=== PATIENT | male | born 1940 | race Caucasian/White ===

== ENCOUNTER 2023-03-27 14:48 | Outpatient (RCR) | payer BC, SELFPAY | END 2023-03-27 23:59 | disposition home or self-care (01) | LOC: RPT 14:48 | PROVIDERS: ATTENDING PHYSICIAN Psychiatry & Neurology Neurology; FAMILY PHYSICIAN Family Medicine | DX: I69.354 Hemiplegia and hemiparesis following cerebral infarction affecting left non-dominant side (principal); I69.328 Other speech and language deficits following cerebral infarction; Z73.6 Limitation of activities due to disability; I10 Essential (primary) hypertension | CPT/HCPCS: 97110; 97116; 97140; 97163; 97530 ==

== ENCOUNTER 2023-04-04 14:54 | Outpatient (RCR) | payer BC, SELFPAY | END 2023-04-04 23:59 | disposition home or self-care (01) | LOC: RPT 14:54 | PROVIDERS: ATTENDING PHYSICIAN Psychiatry & Neurology Neurology; FAMILY PHYSICIAN Family Medicine | DX: I63.9 Cerebral infarction, unspecified (principal); Z73.6 Limitation of activities due to disability | CPT/HCPCS: 97110; 97112; 97530 ==

== ENCOUNTER 2023-05-24 15:57 | Outpatient (RCR) | payer BC, SELFPAY | END 2023-05-24 23:59 | disposition home or self-care (01) | LOC: RPT 15:57 | PROVIDERS: ATTENDING PHYSICIAN Psychiatry & Neurology Neurology; FAMILY PHYSICIAN Family Medicine | DX: I69.351 Hemiplegia and hemiparesis following cerebral infarction affecting right dominant side (principal); I69.328 Other speech and language deficits following cerebral infarction; Z73.6 Limitation of activities due to disability | CPT/HCPCS: 97110; 97116; 97530 ==

== ENCOUNTER 2023-06-26 13:58 | Outpatient (RCR) | payer BC, SELFPAY | END 2023-06-26 23:59 | disposition home or self-care (01) | LOC: RPT 13:58 | PROVIDERS: ATTENDING PHYSICIAN Psychiatry & Neurology Neurology; FAMILY PHYSICIAN Family Medicine | DX: I69.354 Hemiplegia and hemiparesis following cerebral infarction affecting left non-dominant side (principal); I69.328 Other speech and language deficits following cerebral infarction; I69.310 Attention and concentration deficit following cerebral infarction; I69.312 Visuospatial deficit and spatial neglect following cerebral infarction; Z73.6 Limitation of activities due to disability | CPT/HCPCS: 97110; 97112; 97116; 97167; 97530; 97535 ==

== ENCOUNTER 2023-07-27 11:47 | Outpatient (RCR) | payer BC, SELFPAY | END 2023-07-27 23:59 | disposition home or self-care (01) | LOC: RPT 11:47 | PROVIDERS: ATTENDING PHYSICIAN Psychiatry & Neurology Neurology; FAMILY PHYSICIAN Family Medicine | DX: I69.398 Other sequelae of cerebral infarction (principal); R26.89 Other abnormalities of gait and mobility; R53.83 Other fatigue; Z73.6 Limitation of activities due to disability | CPT/HCPCS: 97010; 97014; 97110; 97112; 97116; 97140; 97530; 97535; 97760 ==

== ENCOUNTER → 2023-08-06 10:30 | Outpatient (REF) | payer BC, SELFPAY | LOC: RAD 10:30 | PROVIDERS: ATTENDING PHYSICIAN Surgery Vascular Surgery; FAMILY PHYSICIAN Family Medicine | DX: I63.9 Cerebral infarction, unspecified (principal); Z86.73 Personal history of transient ischemic attack (TIA), and cerebral infarction without residual deficits | CPT/HCPCS: 93880 ==

== ENCOUNTER 2023-08-20 12:05 | Outpatient (RCR) | payer BC, SELFPAY | END 2023-08-20 23:59 | disposition home or self-care (01) | LOC: RPT 12:05 | PROVIDERS: ATTENDING PHYSICIAN Psychiatry & Neurology Neurology; FAMILY PHYSICIAN Family Medicine | DX: I69.352 Hemiplegia and hemiparesis following cerebral infarction affecting left dominant side (principal); I69.398 Other sequelae of cerebral infarction; R26.89 Other abnormalities of gait and mobility | CPT/HCPCS: 97010; 97110; 97112; 97116; 97140; 97530; 97535 ==

== ENCOUNTER 2023-08-31 13:46 | Inpatient (IN) | payer MEDICARE, BC, SELFPAY ==
[2023-08-31] VITALS (7 sets, daily range): BP systolic 126–153; BP diastolic 77–98; BMI 30.8; BMI 30.6
--- NOTE | 2023-08-31 12:39 | ED.SKININJ ---
HPI-Injury
General
Chief Complaint: Skin Problem
Source: patient and spouse
Exam Limitations: none
Time Seen by Provider: 08/31/23 11:30
Nursing documentation reviewed up to this point in time: agreed with
History of Present Illness-Injury
Initial Injury comments:
83-year-old male with history of stroke with left-sided hemiparesis, A-fib on Eliquis, CAD, HTN, HLD, cardiac stents, bilateral TKR, anxiety/depression, presents with a swollen red tender left second toe, worsening despite antibiotics.
states he was at the [employer] 08/15 for toenail trim and nicked the tip of his toe. On Eliquis it bled a lot, finally go bleeding stopped, band aid applied. One week later noted redness and swelling, then the toe turned 'black.' 08/26 saw PCP LOLA
who put him on Keflex and Prednisone, black color went away but area got more red and swollen and painful.
08/28 saw [facility]er who aspirated area and sent to lab for culture (no results yet). Did xray which was negative. Instructed to use betadine gauze dressing and when removed the betadine dressing it pulled a layer of skin off the toe and part of
the dorsum at base of toe.
Pt denies fever/chills.
Past History
Past History
ED Past Medical History: Arrthythmia ( atrial fibrillation), Asthma, CAD, CVA (Left sided weakness, ), GERD, HTN, Hypercholesterolemia, ND, Renal failure (Stage 4 ), Psychiatric (Anxiety, Depression) and Other (Osteoarthritis, Diverticulosis, Renal
calculus)
ED Past Surgical History: Cardiac (Radiofrequency ablation, Stents X 2) and Orthopedic (Right elbow repair, Right and left Total knee replacement)
Social History
Tobacco: Former smoker
Alcohol: None
Personal:
Living: with family
Employment: Retired
Family History
Family History: Other (Noncontributory)
Review of Systems
Review of Systems
Allergies reviewed?: Yes
All Other Systems: ROS reviewed and negative except as documented in HPI and ROS
Constitutional: Denies fever or chills
Respiratory: Denies trouble breathing
Cardiac: Denies chest pain
ABD/GI: Denies abdominal pain, nausea or diarrhea
: Denies dysuria, difficulty voiding or urgency
Musculoskeletal: Reports edema (swelling left lower leg)
Skin: Reports other (skin sloughed off L 2nd toe dorsum)
Neurological: Reports other (L hemiparesis from CVA, right shoulder pain, to have shoulder replace in near future)
Phy Exam
Physical Exam
Physical Exam:
GENERAL: No acute distress. A&Ox3.
CONSTITUTIONAL: Afebrile.
EYES: Clear, conjunctivae normal
ENMT: moist mucus membranes
RESPIRATORY: Regular respirations, nonlabored, lungs clear.
CARDIOVASCULAR: Regular rate and rhythm, no murmurs, no rubs.
GI: Soft, nontender, normal BS
MUSCULOSKELETAL: Left hemiparesis, get out of wheelchair independently, ambulates slowly with a 4-prong walker. well perfused.
SKIN: Warm, dry, pink. Left second toe with tenderness, redness, skin sloughed off the entire dorsum of the toe and small area of the dorsum of the foot at the base of the toe. Distal neurovascular intact
PSYCH: Normal mood and affect. Well kept, interactive and appropriate
NEUROLOGIC: Awake, alert and oriented. No focal neurological deficits
Course
Orders/Labs/Results
Orders:
Orders
08/31/23 Breakfast
Cholesterol Lowering
At Your Request: Full Participation
Cholesterol Lowering: Sodium, 2 Gram
08/31/23 12:31
Complete Blood Count/With Diff Urgent
Comprehensive Metabolic Panel Urgent
Blood Culture Urgent
STEPHANIE Source: Blood/Venous
Specimen Description:
08/31/23 12:36
Piperacillin/Tazo 3.375 Gram [Zosyn] 3.375 gram in 50 ml IV NOW
08/31/23 13:10
EKG [Electrocardiogram (*1)] Stat
Reason for Study: Atrial Fibrillation
08/31/23 13:16
Admit/Transfer Patient As Directed
Co-Sign Provider:
Level of Care: Inpatient admission
Assign to:: Telemetry
Physician / Group: leo leslie
Diagnosis: cellulitis
Reason for Telemetry: Arrhythmia
Date to Stop Telemetry: 09/03/23
Time to Stop Telemetry: 11:00
Reason for Hospitalization: cellulitis
Expected length of stay greater than two midnights?: Yes
ELOS- Estimated Length of Stay in days: 3
I certify the patient meets the requirements for IP care: Yes
08/31/23 13:18
Code Status As Directed
Resuscitation Status: Full Code
08/31/23 13:44
PODIATRY CONSULT Routine
Consulting Provider: Stefany Lott
Was physician already notified: Yes
08/31/23 13:46
INFECTIOUS DISEASE CONSULT Routine
Consulting Provider: Marla Ohara
Was physician already notified: Yes
08/31/23 13:53
CRP, Highly Sensitive Stat
ESR [Erythrocyte Sed Rate] Stat
08/31/23 15:42
Acetaminophen [Tylenol] 650 mg PO Q4HPRN PRN
08/31/23 15:42
Activity As Directed
Activity Level: Out of Bed-Early Mobility
Intake/ Output As Directed
Frequency: Per unit guidelines
Vital Signs As Directed
Frequency: Per unit guidelines
Pt Eval And Treat Routine
Activity Level: As Tolerated
08/31/23 20:00
Apixaban [Eliquis] 2.5 mg PO BID
Carvedilol [Coreg] 12.5 mg PO BID
Fluticasone/Salmeterol 230/21 [Advair Hfa 230/21 Mcg Inhaler] 2 puff INH R BID
HydrALAZINE [Apresoline] 25 mg PO BID
08/31/23 22:00
Rosuvastatin Calcium [Crestor] 40 mg PO HS
vibegron [Gemtesa] 75 mg PO HS
09/01/23 06:00
Complete Blood Count/No Diff IN AM
09/01/23 08:00
Cholecalciferol (Vitamin D3) [VITAMIN D3 (cholecalciferol)] 25 mcg PO DAILY
Cyanocobalamin [Vitamin B-12] 1,000 mcg PO DAILY
Ferrous Sulfate [Feosol] 325 mg PO DAILY
Furosemide [Lasix] 20 mg PO DAILY
Montelukast Sodium [Singulair] 10 mg PO DAILY
Spironolactone [Aldactone] 25 mg PO DAILY
09/02/23 06:00
Basic Metabolic Panel IN AM
Complete Blood Count/No Diff IN AM
09/03/23 06:00
Basic Metabolic Panel IN AM
Complete Blood Count/No Diff IN AM
09/03/23 11:00
DC Protocol for Telemetry ONCE
09/04/23 06:00
Basic Metabolic Panel IN AM
Complete Blood Count/No Diff IN AM
09/05/23 06:00
Basic Metabolic Panel IN AM
Complete Blood Count/No Diff IN AM
Abnormal Lab Results
08/31/23
12:31
RBC 3.82 L 10^6/uL
(4.70-6.10)
Hgb 11.6 L g/dL
(13.0-18.0)
Hct 34.8 L %
(39.0-52.0)
RDW 15.2 H %
(11.5-14.5)
Abs Immat Gran (auto) 0.2 H 10^3/uL
(0-0.05)
Absolute Neuts (auto) 7.1 H 10^3/uL
(1.4-6.5)
Absolute Monos (auto) 1.2 H 10^3/uL
(0.1-0.6)
Immature Gran % 2.3 H %
(0-0.5)
Lymphocytes % 15.6 L %
(20.5-51.1)
Monocytes % 11.6 H %
(1.7-9.3)
BUN 56 H mg/dl
(9-20)
Creatinine 2.9 H mg/dL
(0.7-1.3)
ALT 82 H U/L
(0-50)
08/31/23 12:31
08/31/23 12:31
Vital Signs
Initial and Last Documented VS:
Initial Vital Signs
Temp Pulse Resp BP Pulse Ox
98.1 F 68 16 149/90 98
08/31/23 11:13 08/31/23 11:13 08/31/23 11:13 08/31/23 11:13 08/31/23 11:13
Last Documented Vital Signs
Temp Pulse Resp BP Pulse Ox
97.8 F 83 16 158/85 98
09/01/23 07:00 09/01/23 08:23 09/01/23 08:23 09/01/23 08:02 09/01/23 08:23
MDM/Problems Addressed
Differential Diagnosis Includes:
cellulitis
MDM/Problems Addressed:
83-year-old male with history of stroke with left-sided hemiparesis, A-fib on , CAD, HTN, HLD, cardiac stents, bilateral TKR, anxiety/depression, presents with a swollen red tender left second toe, worsening despite antibiotics.
states he was at the [employer] 08/15 for toenail trim and nicked the tip of his toe. On it bled a lot, finally go bleeding stopped, band aid applied. One week later noted redness and swelling, then the toe turned 'black.' 08/26 saw PCP LOLA
who put him on Keflex and Prednisone, black color went away but area got more red and swollen and painful.
08/28 saw [facility]er who aspirated area and sent to lab for culture (no results yet). Did xray which was negative. Instructed to use betadine gauze dressing and when removed the betadine dressing it pulled a layer of skin off the toe and part of
the dorsum at base of toe.
Pt denies fever/chills.
Afebrile,NAD
12:30 p.m.
Pt non toxic appearing
Plan: admit, IV antibiotics, wound care
Hospitalist notified of admission
CBC, CMP pending. Blood culture pending, Xray toe pending
*Critical Care Note
Total Time (30-74mins, 75-104mins- exclusive of procedures): Not Applicable
ED Attending Note
-
Portions of this chart may have been created with voice recognition software.� Occasional wrong word or��sound alike� substitutions may have occurred due to the inherent limitations of voice recognition software.
Discharge Plan
Departure
Patient Disposition: Admit
Date of Disposition: 08/31/23
Time of Disposition: 12:38
Admit to: Med/Surg
Presentation/result/management discussed w/ accepting MD/DO: Hospitalist
Condition: Fair
Discharge Problem:
Cellulitis of second toe of left foot
Interventions
Interventions:
*Risk Screen - Suicide Last Done: 08/31/23 15:35
*General Assessment Last Done: 08/31/23 11:13
*Neglect/Abuse Screening Last Done: 08/31/23 15:35
ED- Fall Risk Assessment Last Done: 08/31/23 12:00
*ED COVID-19 Vaccine History Last Done: 08/31/23 11:13
*Nursing Disposition Last Done: 08/31/23 15:35
ED-Skin Assessment Last Done: 08/31/23 12:00
Discharge Date and Time
Discharge Date/Time: 08/31/23 15:35
--- NOTE | 2023-08-31 12:44 | HPS.HSE ---
Family Physician
-
Family Physician: Wellington Reyes
Chief Complaint
-
left second toe cellulitis
History of Present Illness
83-year-old male with history of stroke with left-sided hemiparesis, A-fib on Eliquis, CAD, HTN, HLD, cardiac stents, bilateral TKR, anxiety/depression, presents with a swollen red tender left second toe, worsening for two weeks. states he was
at the residential [facility] 08/15 for toenail trim and nicked the tip of his toe. couple days later, noted redness and swelling, then the toe turned 'black. 08/26 saw PCP LOLA who put him on Keflex. he was evaluated by residential carpenter on last Sunday, who drained
his black blister. wound culture sent from office. x ray obtained with no acute findings. patient continued to take keflex but noted worsening redness, swelling to his foot, removed the dressing at night, which pulled the layer on his skin off
the toe. denied fever, chills, chest pain, sob. denied ALCANTAR, dizzy or syncopal episode. denied abdominal pain,n,v,d. denied dysuria or hematuria.
received a dose of Zosyn in [facility]. admitting for further management.
Medical History
Past Medical History
Past Medical History: Reports Other
Additional Past Medical History:
GERD
anxiety
CKD stage iv
HLD
htn
paroxysmal atrial fib
OXA
CVA
left hemiparesis.
Past Surgical History: Reports Other
Additional Past Surgical History:
cardiac stents
b/l Knee replacement
cardiac ablation
vasectomy
Social History
Tobacco: Former Smoker
Alcohol: None
Drug: None
Personal:
Living: With Family
Family History
Family History: Not pertinent
Allergies / Home Medications
Allergies reflects when Allergies were last updated in [employer].
Home Medications with original date entered in [employer]
Allergy/Medication List:
Allergies
Allergy/AdvReac Type Severity Reaction Status Date / Time
cat dander Allergy Swelling Verified 08/31/23 11:17
lisinopril Allergy Unknown Verified 08/31/23 11:17
losartan Allergy lip Verified 08/31/23 11:17
swelling
lovastatin Allergy myalgias Verified 08/31/23 11:17
tamsulosin HCl [From Flomax] Allergy facial Verified 08/31/23 11:17
itching,dizziness
venom-honey bee Allergy Anaphylaxis Verified 08/31/23 11:17
[bee venom (honey bee)]
Home Medications
carvedilol 12.5 mg tablet 12.5 mg PO BID #180 tabs 07/19/21
cyanocobalamin (vitamin B-12) 1,000 mcg tablet 1,000 mcg PO DAILY #90 tabs 07/19/21
montelukast 10 mg tablet 10 mg PO DAILY #90 tabs 07/19/21
furosemide 20 mg tablet (Lasix) 20 mg PO DAILY Fluid retention/Swelling 07/09/22
acetaminophen 500 mg tablet (Tylenol Extra Strength) 1,000 mg PO TIDPRN PRN mild pain 08/31/23
apixaban 2.5 mg tablet (Eliquis) 2.5 mg PO BID 08/31/23
cephalexin 250 mg/5 mL oral suspension 500 mg PO Q6H 08/31/23
cholecalciferol (vitamin D3) 25 mcg (1,000 unit) tablet 25 mcg PO DAILY 08/31/23
ferrous sulfate 325 mg (65 mg iron) tablet (iron) 325 mg PO DAILY 08/31/23
fluticasone 500 mcg-salmeterol 50 mcg/dose blistr powdr for inhalation 1 inh inhalation R BID 08/31/23
hydralazine 25 mg tablet 25 mg PO BID 08/31/23
rosuvastatin 40 mg tablet 40 mg PO HS 08/31/23
spironolactone 25 mg tablet 25 mg PO DAILY 08/31/23
therapeutic multivitamin 1 tab PO DAILY 08/31/23
vibegron 75 mg tablet (Gemtesa) 75 mg PO HS 08/31/23
Review of Systems
-
Constitutional: Reports No Symptoms
EENT: Reports No Symptoms
Respiratory: Reports No Symptoms
Cardiac: Reports No Symptoms
Abdomen/GI: Reports No Symptoms
: Reports No Symptoms
Musculoskeletal: Reports No Symptoms
Skin: Reports Other (left second great toe wound,skin sloughed off the entire dorsum of the toe and small area of the dorsum of the foot at the base of the to)
Neurological: Reports No Symptoms
Endocrine: Reports No Symptoms
Hematologic/Lymphatic: Reports No Symptoms
Psych: Reports No Symptoms
Physical Exam
Vital Signs
Vital Signs
Temp Pulse Resp BP Pulse Ox
98.1 F 68 16 149/90 98
08/31/23 11:13 08/31/23 11:13 08/31/23 11:13 08/31/23 11:13 08/31/23 11:13
Physical Exam
General: Well Developed, Well Nourished and No Apparent Distress
HEENT: NormoCephalic, Moist mucous membranes and Atraumatic
Respiratory: Clear
Cardiac: S1/S2 and Regular Rhythm; No Murmur or Rub
GI: Soft, Non Tender, Non Distended and Normal Bowel Sounds; No Organomegaly
Rectal: Deferred by Provider
Musculoskeletal: No Clubbing, No Cyanosis and No Edema
Skin: Other (Left second toe with tenderness, redness, skin sloughed off the entire dorsum of the toe and small area of the dorsum of the foot at the base of the toe.)
Neuro: AO x 3 and Nonfocal/grossly intact
Psych: Calm
Data Reviewed
-
Lab Data: Labs Reviewed by me
Impression/Plan
-
#left 2nd toe cellulitis
-wbc stable, afebrile
-failed outpatient therapy
-blood culture sent from [facility]
-iv cefepime
-Tylenol prn for fever
-obtain ESR, CRP
-x ray of left second toe
-ID and podiatry consult
#anemia of chronic disease
-hgb stable at 11.6
-ctm
-ferrous sulfate continued
#Chronic kidney disease stable IV
- creatinine 2.9 and appears baseline
#Paroxysmal atrial fibrillation
-EKG with NSR
-HR stable
-eliquis continued
-Coreg continued
#LE edema
-Lasix continued
-patient also on spironolactone
# Bilateral carotid stenosis
#Essential HTN
-BP stable
-hydralazine continued with hold parameter
#hxt of asthma
-not in acute exacerbation
-singular continued
-fluticasone continued
#HLD
-statin continued
DVT proph-on Eliquis
Full Code
[2023-08-31] MEDS: ZOSYN 50 IV (12:48)
[2023-08-31 12:50] LABS: % Basophils 0.4 % (0-2); % Eosinophils 1.2 % (0-6); % Immature Granulocytes 2.3 % (0-0.5); % Lymphocytes 15.6 % (20.5-51.1); % Monocytes 11.6 % (1.7-9.3); % Neutrophils 68.9 % (42.2-75.2); Absolute Eosinophils 0.1 10^3/uL (0-0.7); Absolute Immature Granulocytes 0.2 10^3/uL (0-0.05); Absolute Lymphocytes 1.6 10^3/uL (1.2-3.4); Absolute Monocytes 1.2 10^3/uL (0.1-0.6); Absolute Neutrophils 7.1 10^3/uL (1.4-6.5); Hematocrit 34.8 % (39.0-52.0); Hemoglobin 11.6 g/dL (13.0-18.0); Mean Corp Hgb Conc. 33.3 g/dL (33.0-37.0); Mean Corpuscular Hgb 30.4 pg (27.0-31.0); Mean Corpuscular Volume 91.1 fL (80.0-94.0); Mean Platelet Volume 10.1 fL (7.4-10.4); Nucleated Red Blood Cells % 0 % (-); Platelet Count 293 10^3/uL (130-400); Red Blood Cell Count 3.82 10^6/uL (4.70-6.10); Red Cell Dist. Width 15.2 % (11.5-14.5); White Blood Cell Count 10.2 10^3/uL (4.8-10.8)
[2023-08-31 13:01] LABS: ALT (SGPT) 82 U/L (0-50); AST (SGOT) 55 U/L (17-59); Albumin 4.2 g/dl (3.5-5.0); Alkaline Phosphatase 79 U/L (38-126); Blood Urea Nitrogen 56 mg/dl (9-20); Carbon Dioxide 27 mmol/L (22-30); Chloride 103 mmol/L (98-107); Estimated Creatinine Clearance 25 ml/min; Glucose 71 mg/dl (70-99); Potassium 4.9 mmol/L (3.5-5.1); Sodium 140 mmol/L (135-145); Total Bilirubin 0.6 mg/dl (0.2-1.3); Total Protein 6.7 g/dl (6.3-8.2); eGFR 21.07
--- NOTE | 2023-08-31 14:20 | CON.ID ---
Consultation
-
Date/Time Consultation Requested: 08/31/23 13:46
Date/Time Consultation Performed: 08/31/23 13:52
Requesting Provider: Jimy GONZALEZ
Performing Provider: Dr Ohara
Reason for Consultation: left second toe eschar, cellulitis
Chief Complaint / Past History
Chief Complaint
left second toe redness, erythema, drainage
History of Present Illness
Mr Castillo is an 83 year old male with residual L sided hemiparessis, bilateral TKR who presented her for a two week history of progresive swelling, redness and tenderness of the left second toe and now midfoot. Episode began two weeks ago 08/15 when
he went for a toenail trim and the tip of the toe was nicked, then developed redness swelling and developed a superficial blister with black tissue on the dorsal aspect of the toe. He was seen by PCP who started keflex, then evaluated by machine wiper
last sunday who elevated and drained. Wound culture and Xrays obtained. He continued to take keflex however with worsening erythema which progressed beyond a cora made by another provider. No fevers, chills, abdominal pain, nausea, vomiting,
diarrhea.
Since arrival here he has been afebrile, bp stable, wbc count 10.2, hgb 11.6, plt 293, no L shift, esr 29, cr 2.9 (previously 2.7), crp 4.3, t bili 0.6, ast 55, alt 82, alk phos 79, foot xray: No acute osseous abnormality of the left foot. No soft
tissue gas or radiopaque foreign body. 07/09/22 Venous US: no venous thrombosis, severe edema. Reports he is known to vascular surgery Dr Daigle and i reviewed his last outpatient note, I do not see previous evaluation his lower extremities with CARLOS.
Currently on cefepime. ID is consulted for assistance with management.
Past History
Additional Past Medical History:
GERD
anxiety
CKD stage iv
HLD
htn
paroxysmal atrial fib
OXA
CVA
left hemiparesis.
Additional Past Surgical History:
cardiac stents
b/l Knee replacement
cardiac ablation
vasectomy
Allergy History:
cat dander Allergy (Verified 08/31/23 11:17)
Swelling
lisinopril Allergy (Verified 08/31/23 11:17)
Unknown
losartan Allergy (Verified 08/31/23 11:17)
lip swelling
lovastatin Allergy (Verified 08/31/23 11:17)
myalgias
tamsulosin HCl [From Flomax] Allergy (Verified 08/31/23 11:17)
facial itching,dizziness
venom-honey bee [bee venom (honey bee)] Allergy (Verified 08/31/23 11:17)
Anaphylaxis
Medications Reviewed: Yes
Social History
Tobacco: Former Smoker
Alcohol: None
Drug: None
Family History
Family History: Not Pertinent
Review of Systems
Review of Systems
General: Negative Fever or Chills
All systems: All other systems were reviewed and were negative
Vital Signs
Temp Pulse Resp BP Pulse Ox
98.1 F 68 16 149/90 98
08/31/23 11:13 08/31/23 11:13 08/31/23 11:13 08/31/23 11:13 08/31/23 11:13
Physical Exam
Physical Exam
Constitutional: No Acute Distress
Cardiovascular: Regular Rate and S1/S2; Negative Murmur or Rub
Pulmonary: Clear and Symmetric; Negative Wheezes, Rales or Rhonchi
Gastrointestinal: Soft, Non Tender, Non Distended and Normal Bowel Sounds
Skin: Warm and Dry; Negative Rash or Jaundice
Lab / Diagnostic Study Results
08/31/23 12:31
08/31/23 12:31
Abs Immat Gran (auto) 0.2 10^3/uL (0-0.05) H 07/05/24 12:31
Absolute Neuts (auto) 7.1 10^3/uL (1.4-6.5) H 08/31/23 12:
Absolute Lymphs (auto) 1.6 10^3/uL (1.2-3.4) 08/31/23 12:31
Absolute Monos (auto) 1.2 10^3/uL (0.1-0.6) H 08/31/23 12:31
Absolute Basos (auto) 0.0 10^3/uL (0-0.2) 08/31/23 12:
Immature Gran % 2.3 % (0-0.5) H 08/31/23 12:
Neutrophils % 68.9 % (42.2-75.2) 08/31/23 12:
Lymphocytes % 15.6 % (20.5-51.1) L 08/31/23 12:
Monocytes % 11.6 % (1.7-9.3) H 08/31/23 12:31
Eosinophils % 1.2 % (0-6) 08/31/23 12:
Basophils % 0.4 % (0-2) 08/31/23 12:31
Microbiology Results
Micro:
08/31/23 12:31 Blood Culture - Pending
Blood/Venous
Assessment / Plan
Nonpurulent Cellulitis
Wound on the Foot
Known PAD
- cellulitis is not severe, further blood cultures not recommended, a single set was sent from the ER
- elevation as tolerated
- continue cefepime
- CARLOS
- wound care per podiatry
- follow clinically
[2023-08-31 14:43] LABS: Erythrocyte Sed Rate 29 mm/hour (0-20)
--- NOTE | 2023-08-31 16:18 | W.PN.UPDATE ---
Update Note
Progress Note Update
He was seen in [facility] and with ESTRADA on 08/31/2023. Agree with as below
Presents with sweats red tender left second toe worsening for 2 weeks started on p.o. antibiotics with Keflex without improvement noted worsening redness and therefore presented to the hospital. Denies drainage.
Wound developed after nail trimming at appointment clerk since that has not healed.
Left second toe cellulitis versus deep tissue infection versus osteomyelitis. Continue IV antibiotics with cefepime. As there is no purulent drainage was told vancomycin for now. Can check ESR CRP. Obtain foot x-ray. Consult podiatry.
CKD creatinine of 2.9 appears at baseline monitor urinary output avoid nephrotoxins hypotension. Outpatient nephrology follow-up.
Paroxysmal atrial fibrillation continue beta-daljit and Eliquis
Left lower extremity unilateral swelling. Lasix discontinued. Check DVT study.
--- NOTE | 2023-08-31 16:38 | PTCARENOTE ---
Received patient from ED. Stand and pivot with assist x2 from stretcher to bed. AAOx3 with chronic gargled, slow speech, and L sided weakness from CVA. Tele #[id number] placed reading NSR. L foot second toe assessed and wound care administered, denies pain,
but guards L foot from being bumped. Oriented to room and use of call kathleen.
[2023-08-31] MEDS: MAXIPIME 2000 MG IV (17:24)
[2023-08-31] MEDS: STERILE WATER FOR INJECTION 10 ML IV (17:24)
--- NOTE | 2023-08-31 18:13 | CON.MD ---
Consultation - Medical
-
Date/Time Consultation Requested: 08/31/23 1407
Date/Time Consultation Performed: 08/31/231739
Requesting Provider: Mavis Ahn NP
Performing Provider: Dr Lott
Reason for Consultation: left second toe wound/ celluliitis
Medical History
Chief Complaint
Left foot cellulitis and wound left foot
History of Present Illness
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 He states
he developed fever and chills
Past Medical / Surgical History
Past History
Additional Past Medical History:
GERD
anxiety
CKD stage iv
HLD
htn
paroxysmal atrial fib
OXA
CVA
left hemiparesis.
Additional Past Surgical History:
cardiac stents
b/l Knee replacement
cardiac ablation
vasectomy
Medications
carvedilol 12.5 mg tablet 12.5 mg PO BID #180 tabs 07/19/21
cyanocobalamin (vitamin B-12) 1,000 mcg tablet 1,000 mcg PO DAILY #90 tabs 07/19/21
montelukast 10 mg tablet 10 mg PO DAILY #90 tabs 07/19/21
furosemide 20 mg tablet (Lasix) 20 mg PO DAILY Fluid retention/Swelling 07/09/22
acetaminophen 500 mg tablet (Tylenol Extra Strength) 1,000 mg PO TIDPRN PRN mild pain 08/31/23
apixaban 2.5 mg tablet (Eliquis) 2.5 mg PO BID 08/31/23
cephalexin 250 mg/5 mL oral suspension 500 mg PO Q6H 08/31/23
cholecalciferol (vitamin D3) 25 mcg (1,000 unit) tablet 25 mcg PO DAILY 08/31/23
ferrous sulfate 325 mg (65 mg iron) tablet (iron) 325 mg PO DAILY 08/31/23
fluticasone 500 mcg-salmeterol 50 mcg/dose blistr powdr for inhalation 1 inh inhalation R BID 08/31/23
hydralazine 25 mg tablet 25 mg PO BID 08/31/23
rosuvastatin 40 mg tablet 40 mg PO HS 08/31/23
spironolactone 25 mg tablet 25 mg PO DAILY 08/31/23
therapeutic multivitamin 1 tab PO DAILY 08/31/23
vibegron 75 mg tablet (Gemtesa) 75 mg PO HS 08/31/23
Allergies
cat dander Allergy (Verified 08/31/23 11:17)
Swellinglisinopril Allergy (Verified 08/31/23 11:17)
Unknownlosartan Allergy (Verified 08/31/23 11:17)
lip swellinglovastatin Allergy (Verified 08/31/23 11:17)
myalgiastamsulosin HCl [From Flomax] Allergy (Verified 08/31/23 11:17)
facial itching,dizzinessvenom-honey bee [bee venom (honey bee)] Allergy (Verified 08/31/23 11:17)
Anaphylaxis
Social / Family History
Social History
Tobacco: Former Smoker
Alcohol: None
Drug: None
Lives at home with his spouse
Family History
Family History: Not Pertinent
Review of Systems
Review of Systems
General: Negative Fever or Chills
All systems: All other systems were reviewed and were negative
Vital Signs / Labs
-
Vital Signs and Labs:
Temp Pulse Resp BP Pulse Ox
98.2 F 77 17 153/98 96
08/31/23 15:49 08/31/23 15:49 08/31/23 15:49 08/31/23 15:49 08/31/23 15:49
08/31/23 12:31
08/31/23 12:31
08/31/23 08/31/23
12:31 13:53
RBC 3.82 L
Hgb 11.6 L
Hct 34.8 L
RDW 15.2 H
Abs Immat Gran (auto) 0.2 H
Absolute Neuts (auto) 7.1 H
Absolute Monos (auto) 1.2 H
Immature Gran % 2.3 H
Lymphocytes % 15.6 L
Monocytes % 11.6 H
ESR 29 H
BUN 56 H
Creatinine 2.9 H
ALT 82 H
XRAY- No acute osseous abnormality of the left foot. No soft tissue gas or radiopaque foreign body. Personally reviewed and no sign of osteomyelitis present at this time
Physical Exam
Vital Signs
Vital Signs
Temp Pulse Resp BP Pulse Ox
98.2 F 77 17 153/98 96
08/31/23 15:49 08/31/23 15:49 08/31/23 15:49 08/31/23 15:49 08/31/23 15:49
Physical Exam
General: AAO x 3, mild speech impairment post CVA.
LE focused:
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
cellulitis noted to the left forefoot, w/o ascending cellulitis or lyphangitis
wound extending from the distal left 2nd toe with lysis of nail plate and degloving of the nail and soft tissue- likely secondary to infection
Wounds do not probe to or tunnel to bone
LLE weakness, however no drop foot noted LLE. Protective sensation intact.
Assessemnt/Plan
-
1-Cellulitis left foot-IV abt per ID
2-Degloved Wound on the left Foot- Wound sharply and excisionally debrided to tolerance with sterile forceps and dissecting scissors of nail plate and dermis and subcutaneous tissue, tissue sent for culture.
---wound care orders written. Wound cleansed and redressed
3- PAD-Arterial studies pending
4-H/O CVA with LE weakness
Trauma shoe ordered Left foot, WBAT
XRAY negative, doubt osteo and further surgery not likely. Will re eval in < 24 hrs
[2023-08-31] MEDS: ADVAIR HFA 230/21 MCG INHALER 2 PUFF INH (18:18)
[2023-08-31] MEDS: BACTROBAN 2% OINTMENT TOPICAL (20:00)
[2023-08-31] MEDS: APRESOLINE 25 MG PO (21:42)
[2023-08-31] MEDS: CRESTOR 40 MG PO (21:42)
[2023-08-31] MEDS: ELIQUIS 2.5 MG PO (21:42)
[2023-08-31] MEDS: COREG 12.5 MG PO (21:42)
[2023-09-01] VITALS (7 sets, daily range): BP systolic 105–158; BP diastolic 70–95; PULSE 95; O2SAT 98
[2023-09-01] MEDS: SINGULAIR 10 MG PO (08:02)
[2023-09-01] MEDS: ELIQUIS 2.5 MG PO ×2 (08:02→20:01)
[2023-09-01] MEDS: LASIX 20 MG PO (08:02)
[2023-09-01] MEDS: APRESOLINE 25 MG PO ×2 (08:02→20:07)
[2023-09-01] MEDS: COREG 12.5 MG PO ×2 (08:02→20:01)
[2023-09-01] MEDS: ALDACTONE 25 MG PO (08:02)
[2023-09-01] MEDS: VITAMIN D3 (cholecalciferol) 25 MCG PO (08:02)
[2023-09-01] MEDS: VITAMIN B-12 1000 MCG PO (08:02)
[2023-09-01] MEDS: BACTROBAN 2% OINTMENT 1 APPLIC TOPICAL ×2 (08:03→20:01)
[2023-09-01] MEDS: FEOSOL 325 MG PO (08:04)
[2023-09-01] MEDS: DAKIN'S SOLUTION 0.125% 1/4 STRENGTH 473 ML TOPICAL (08:06)
[2023-09-01] MEDS: ADVAIR HFA 230/21 MCG INHALER 2 PUFF INH ×2 (08:19→18:00)
[2023-09-01 10:19] LABS: Hemoglobin 10.9 g/dL (13.0-18.0); Mean Corpuscular Volume 90.9 fL (80.0-94.0); Mean Platelet Volume 10.2 fL (7.4-10.4); Platelet Count 275 10^3/uL (130-400); Red Blood Cell Count 3.63 10^6/uL (4.70-6.10); Red Cell Dist. Width 15.1 % (11.5-14.5); White Blood Cell Count 9.5 10^3/uL (4.8-10.8)
[2023-09-01 11:06] LABS: Glycohemoglobin (HgbA1c) 6.2 % (4.0-5.6)
[2023-09-01 11:17] LABS: ALT (SGPT) 57 U/L (0-50); AST (SGOT) 37 U/L (17-59); Albumin 3.9 g/dl (3.5-5.0); Alkaline Phosphatase 66 U/L (38-126); Blood Urea Nitrogen 53 mg/dl (9-20); Calcium 9.6 mg/dl (8.4-10.2); Carbon Dioxide 24 mmol/L (22-30); Chloride 104 mmol/L (98-107); Direct Bilirubin 0.3 mg/dl (0.0-0.4); Estimated Creatinine Clearance 27 ml/min; Glucose 136 mg/dl (70-99); Sodium 137 mmol/L (135-145); Total Bilirubin 0.6 mg/dl (0.2-1.3); Total Protein 6.1 g/dl (6.3-8.2); eGFR 22.96
[2023-09-01 11:24] LABS: Potassium 4.8 mmol/L (3.5-5.1)
--- NOTE | 2023-09-01 13:21 | W.PN.POD ---
Today's Communication
Today's Communication
Continue wound care as ordered- will likely need HHC/Wound care as outpatient
Tubigrips size D
Arterial doppler u/s with Carl/TBi should be done while here or as outpatient to evaluate healing potential
Tubigrips size D- toes to just below knee- remove at hs, re apply in am
Assessment / Plan
-
1-CVA-LLE weakness with ambulatory dysfunction
2-MRSA wound infection left foot- iv abt per ID
3-Continue wound care upon DC as ordered, WBAT in post op shoe, tubigrips from toes to just below knee size D
Follow up as outpatient
Subjective
Chief Complaint
left foot cellultis
Subjective
Patient states he is feeling better, denies f/c/n/v
Objective
Temp Pulse Resp BP Pulse Ox
98.3 F 89 20 134/75 96
09/01/23 11:00 09/01/23 11:00 09/01/23 11:00 09/01/23 11:00 09/01/23 11:00
09/01/23 09:34
09/01/23 09:34
Vital Signs and Lab results were reviewed.
Inspection: Cellulitis (improved), Inflammation (improved) and Ulcer (healing)
Review of Systems
Review of Systems
Review of Systems: No Fever, No Chills, No Headache, No Nausea, No Diarrhea and No Joint Pain
Physical Exam
Physical Exam
General: No Apparent Distress, Comfortable and Conversant
Skin: Warm, Dry and Wound (mainly granular, decreased serosanguinous drainage)
Neuro: Protective Sensation Intact
Dorsalis Pedis: Intact
Posterior Tibialis: Diminished
--- NOTE | 2023-09-01 14:15 | W.PN.HOSP.TC ---
Today's Communication/Plan
-
start iv vanc for wound culture
follow up bcx
avoid nephrotoxins
follow up pod recs
follow up id recs
for maury's
for dvt study of lle
Assessment / Plan
Assessment / Plan
nad, comfortable in bed
mmm, scleral anicteric
no jvd
cta b/l
rrr, s1/s2
protuberant abd, soft, nt, nd, bs+
lle swellling
left second toe wound covered by podiatry
left second toe wound/cellulitis, mrsa growth
-dc cefepime
-start vanc per pharm dosing. likely needs to be dosed daily with trough levels due to ckd
podiatry following
Id following
Left lower extremity swelling
-[facility] dvt study
CKD4
-outpatietn neph follow up
-avoid nephrotoxins and hypotension
-monitor uop
-renal dose medications
PAFib
-continue bb and ac
HLD
-continue statin
Anticipated Discharge: 24 - 48 hours
Subjective/Interval History
-
Date of Service: September 01, 2023
seen and examined
no new complaints
no acute overnights
states he wants to go home. if he is not discharged today then he will leave ama
Objective Data
-
Labs:
Laboratory Results
09/01/23
09:34
WBC 9.5
Hgb 10.9 L
Hct 33.0 L
Plt Count 275
Sodium 137
Potassium 4.8
Chloride 104
Carbon Dioxide 24
BUN 53 H
Creatinine 2.7 H
Glucose 136 H
Calcium 9.6
Total Bilirubin 0.6
AST 37
ALT 57 H
Alkaline Phosphatase 66
Vital Signs:
Vital Signs
Temp Pulse Resp BP Pulse Ox
98.3 F 89 20 134/75 96
09/01/23 11:00 09/01/23 11:00 09/01/23 11:00 09/01/23 11:00 09/01/23 11:00
I&O
08/31/23 09/01/23 09/02/23
06:59 06:59 06:59
Intake Total 420 / 420
Output Total 920 / 920 400 / 400
Balance -500 / -500 -400 / -400
--- NOTE | 2023-09-01 14:37 | W.PN.ID1 ---
Addendum entered and electronically signed by Marla Ohara MD 09/01/23 15:07:
Notified by Dr Edwards patient considering leaving AMA
prefer to follow for sensitivities on the MRSA and also for any other isolates that might be identified
if he chooses to leave now then empiric doxycycline 100 mg PO BID x10 more days could be planned
compression and elevation as tolerated
Otherwise Id reassess the cultures tomorrow and make a finalized regimen when sensitivities available.
Original Note:
Date of Service
Date of Service: September 01, 2023
Today's Communication
continue cefepime add vancomycin
Assessment / Plan
Cellulitis
Wound on the Foot
PAD
- wound culture MRSA
- blood culture no growth to date
- elevation as tolerated
- continue cefepime, add vancomycin - follow for sensitivities
- CARLOS
- wound care per podiatry
- follow clinically
Chief Complaint
-: Cellulitis
Subjective / Review of Systems
afebrile
bp stable
without leukocytosis
cr stable
Vital Signs / Physical Exam
Vital Signs
Vital Signs
Temp Pulse Resp BP Pulse Ox
98.3 F 89 20 134/75 96
09/01/23 11:00 09/01/23 11:00 09/01/23 11:00 09/01/23 11:00 09/01/23 11:00
Physical Exam
Constitutional: No Acute Distress
Cardiovascular: Regular Rate and S1/S2; Negative Murmur or Rub
Pulmonary: Clear and Symmetric; Negative Wheezes or Rales
Gastrointestinal: Soft, Non Tender, Non Distended and Normal Bowel Sounds
Skin: Warm and Dry; Negative Rash or Jaundice
Wound: Other (less erythema)
Objective Data
Lab Data
Lab Results
09/01/23 09:34
09/01/23 09:34
ESR 29 mm/hour (0-20) H 08/31/23 13:53
Estimated Creat Clear 27 ml/min 09/01/23 09:34
Total Bilirubin 0.6 mg/dl (0.2-1.3) 09/01/23 09:34
AST 37 U/L (17-59) 09/01/23 09:34
ALT 57 U/L (0-50) H 09/01/23 09:34
Alkaline Phosphatase 66 U/L (38-126) 09/01/23 09:34
Most recent labs reviewed.
Micro Results:
08/31/23 12:31 Blood Culture - Preliminary
Blood/Venous No Growth in 24 hours- Final report to follow
08/31/23 18:06 Wound Culture - Preliminary
Toe Staph aureus MRSA
Gram Stain - Preliminary
--- NOTE | 2023-09-01 15:14 | PHA.VAN.IN ---
Assessment
- Assessment
Maximum Temperature: 98.3 09/01/23 at 11:00
Minimum Temperature: 97.8 09/01/23 at 07:00
Concomitant Antimicrobials: Cefepime
Plan
- Plan
Initial / Loading Dose: Vancomycin 2000mg IV x 1 (20mg/kg)
Maintenance Regimen: Dose by level
Monitoring: Random vancomycin level ordered for 09/02/23 at 06:00
Pharmacokinetics Vancomycin I
- -
Patient Age: 83
Patient Sex: Male
Vancomycin Day #: 1 (MRSA)
Indication: Skin And Soft Tissue
Requesting Provider: Dr Lamont Ohara
Pertinent Antimicrobial Allergies:
No antibiotic allergies
Height / Weight:
Height 6 ft
Actual Weight 102.115 kg
IBW in k.6
Adjusted BW in k.4
Pertinent Past Medical History: CKD 4, BMI 31, Degloved Left foot wound
- Vital Signs / Lab Results
Temp Pulse Resp BP Pulse Ox
98.3 F 89 20 134/75 96
09/01/23 11:00 09/01/23 11:00 09/01/23 11:00 09/01/23 11:00 09/01/23 11:00
Lab Results - Hematology
08/31/23 09/01/23
12:31 09:34
WBC 10.2 9.5
Lab Results - Chemistry
08/31/23 09/01/23
12:31 09:34
BUN 56 H 53 H
Creatinine 2.9 H 2.7 H
Estimated Creat Clear 25 27
Albumin 4.2 3.9
Microbiology Results
08/31/23 12:31 Blood Culture - Preliminary
Blood/Venous No Growth in 24 hours- Final report to follow
08/31/23 18:06 Wound Culture - Preliminary
Toe Staph aureus MRSA
Gram Stain - Preliminary
[2023-09-01] MEDS: VANCOCIN 540 MG IV (16:46)
--- NOTE | 2023-09-01 17:21 | CM ---
Alert awake oriented patient who lives with his Meeta who lives in assisted living [facility], [place]. He is assisted in all activities of daily living.He was offered VN he request VN he said [facility] . He has an electric wc,cane shower rails.
No VN hx /[facility] history
Pharmacy [facility] [place]
PCP DR Reyes
PLAN Home requested [facility] referral needs to be placed
[2023-09-01] MEDS: STERILE WATER FOR INJECTION 10 ML IV (18:37)
[2023-09-01] MEDS: MAXIPIME 1000 MG IV (18:37)
[2023-09-01] MEDS: CRESTOR 40 MG PO (20:00)
[2023-09-02 03:00] VITALS: BP 122/72
[2023-09-02 05:32] LABS: Hematocrit 31.1 % (39.0-52.0); Hemoglobin 10.4 g/dL (13.0-18.0); Mean Corp Hgb Conc. 33.4 g/dL (33.0-37.0); Mean Corpuscular Hgb 30.2 pg (27.0-31.0); Mean Corpuscular Volume 90.4 fL (80.0-94.0); Mean Platelet Volume 9.9 fL (7.4-10.4); Platelet Count 243 10^3/uL (130-400); Red Blood Cell Count 3.44 10^6/uL (4.70-6.10); Red Cell Dist. Width 15.2 % (11.5-14.5); White Blood Cell Count 9.4 10^3/uL (4.8-10.8)
[2023-09-02 05:56] LABS: Blood Urea Nitrogen 63 mg/dl (9-20); Calcium 9.4 mg/dl (8.4-10.2); Carbon Dioxide 21 mmol/L (22-30); Chloride 108 mmol/L (98-107); Estimated Creatinine Clearance 29 ml/min; Glucose 117 mg/dl (70-99); Potassium 4.7 mmol/L (3.5-5.1); Sodium 138 mmol/L (135-145); Vancomycin Random 18.6 ug/ml; eGFR 25.18
[2023-09-02 06:00] VITALS: BMI 30.4
[2023-09-02 07:00] VITALS: BP 132/76
[2023-09-02] MEDS: ALDACTONE 25 MG PO (08:09)
[2023-09-02] MEDS: FEOSOL 325 MG PO (08:09)
[2023-09-02] MEDS: APRESOLINE 25 MG PO (08:10)
[2023-09-02] MEDS: VITAMIN B-12 1000 MCG PO (08:10)
[2023-09-02] MEDS: COREG 12.5 MG PO (08:10)
[2023-09-02] MEDS: ADVAIR HFA 230/21 MCG INHALER 2 PUFF INH (08:10)
[2023-09-02] MEDS: VITAMIN D3 (cholecalciferol) 25 MCG PO (08:10)
[2023-09-02] MEDS: SINGULAIR 10 MG PO (08:10)
[2023-09-02] MEDS: ELIQUIS 2.5 MG PO (08:10)
[2023-09-02] MEDS: LASIX 20 MG PO (08:10)
[2023-09-02] MEDS: BACTROBAN 2% OINTMENT 1 APPLIC TOPICAL (08:11)
[2023-09-02] MEDS: DAKIN'S SOLUTION 0.125% 1/4 STRENGTH 50 ML TOPICAL (08:12)
--- NOTE | 2023-09-02 09:58 | PHA.VAN.FU ---
Vancomycin Assessment / Plan
- Assessment
Renal Function: SCR Decreasing (2.7>2.5 (baseline renal function))
WBC's are: Trending Down (9.5>9.4)
In the past 24 hrs, patient has been: Afebrile
Concomitant Antimicrobials: Cefepime
- Assessment - Therapeutic Drug Monitoring
Random Level: 18.6 drawn ~12 hrs after vancomycin 2gm loading dose given
- Dosing Plan
Dosing by Level: Re-dose today (Vancomycin 1000mg x 1 dose (10mg/kg))
- Monitoring Plan
Random Level: Ordered for 09/03/23 at 06:00
- Follow Up
Pharmacy will continue to follow.
Vancomycin Follow UP
- -
Patient Age: 83
Patient Sex: Male
Vancomycin Day #: 2
Indication: Skin And Soft Tissue (MRSA)
Requesting Provider: Dr Lamont Ohara
Pertinent Antimicrobial Allergies:
No antibiotic allergies
Height / Weight:
Height 6 ft
Actual Weight 101.559 kg
IBW in k.6
Adjusted BW in k.4
Pertinent Past Medical History: CKD 4, BMI 31, Degloved Left foot wound
- Vital Signs / Lab Results
Temp Pulse Resp BP Pulse Ox
98.3 F 76 16 132/76 98
09/02/23 07:00 09/02/23 07:00 09/02/23 07:00 09/02/23 07:00 09/02/23 08:15
Lab Results - Hematology
08/31/23 09/01/23 09/02/23
12:31 09:34 05:11
WBC 10.2 9.5 9.4
Lab Results - Chemistry
08/31/23 09/01/23 09/02/23
12:31 09:34 05:11
BUN 56 H 53 H 63 H
Creatinine 2.9 H 2.7 H 2.5 H
Estimated Creat Clear 25 27 29
Albumin 4.2 3.9
Microbiology Results
08/31/23 18:06 Wound Culture - Final
Toe Staph aureus MRSA
Gram Stain - Final
08/31/23 12:31 Blood Culture - Preliminary
Blood/Venous No Growth in 24 hours- Final report to follow
Therapeutic Drug Monitoring
Random Vancomycin 18.6 ug/ml 09/02/23 05:11
--- NOTE | 2023-09-02 10:05 | W.PN.HOSP.TC ---
Today's Communication/Plan
-
Discharge home
P.o. doxycycline for 10 days twice daily
Outpatient ABIs
Assessment / Plan
Assessment / Plan
nad, comfortable in bed
mmm, scleral anicteric
no jvd
cta b/l
rrr, s1/s2
protuberant abd, soft, nt, nd, bs+
lle swellling
left second toe wound covered by podiatry
left second toe wound/cellulitis, mrsa growth
DC IV antibiotics start p.o. doxycycline
podiatry following
Id following
Left lower extremity swelling
-DVT study
CKD4
-outpatietn neph follow up
-avoid nephrotoxins and hypotension
-monitor uop
-renal dose medications
PAFib
-continue bb and ac
HLD
-continue statin
I personally discussed with infectious disease attending this morning. She is agreeable for him to be discharged on p.o. home doxycycline 100 mg twice a day for 10-day
Anticipated Discharge: Today
Subjective/Interval History
-
Date of Service: September 02, 2023
Seen and examined. No new complaints. No acute overnight events per
Place that he is feeling much but
States that he would like to go home today
Objective Data
-
Labs:
Laboratory Results
09/02/23
05:11
WBC 9.4
Hgb 10.4 L
Hct 31.1 L
Plt Count 243
Sodium 138
Potassium 4.7
Chloride 108 H
Carbon Dioxide 21 L
BUN 63 H
Creatinine 2.5 H
Glucose 117 H
Calcium 9.4
Vital Signs:
Vital Signs
Temp Pulse Resp BP Pulse Ox
98.3 F 76 16 132/76 98
09/02/23 07:00 09/02/23 07:00 09/02/23 07:00 09/02/23 07:00 09/02/23 08:15
I&O
09/01/23 09/02/23 09/03/23
06:59 06:59 06:59
Intake Total 420 / 420 960 / 960
Output Total 920 / 920 825 / 825
Balance -500 / -500 135 / 135
--- NOTE | 2023-09-02 10:08 | W.DCSUMMARY ---
Discharge Summary
Discharge Data
Date of Admission: 08/31/23
Date of Discharge: 09/02/23
-
Pending Results: Yes
Additional Pending Results:
MRSA sensitivity. Infectious diseases attending tells me that she will follow-up on this as an outpatient
Hospital Course
83 male CVA, CAD s/p PCI, atrial fibrillation, HTN, HLD presented with left second toe wound/cellulitis started on IV antibiotics. Foot x-ray in the ED did not show deep tissue infection nor bone infection. Evaluated by infectious diseases and
podiatry. Podiatry degloved the wound of the left foot, wound cultures growing MRSA. Blood cultures no growth. ID recommended initiation of send with continuation of cefepime. Awaiting ABIs can be done as outpatient per podiatry therefore please
follow-up with PCP to obtain prescription/referral for this arterial brachial index to assess blood flow in lower extremities and to allow for proper wound. Additionally noted to have left and was negative for DVT. With saying that podiatry has
also recommended Tubigrip size D toes to just below knee remove at night and reapply in the a.m.
please return to ED if noted worsening spreading or drainage from wound
Discharge Plan
-
Patient Disposition: Home with Home Care
Discharge Diagnosis/Procedures: CVA, CAD s/p PCI, atrial fibrillation, HTN, HLD
Celluliti/MRSA wound infection of the left second toe
Condition: Good
Diet: No restrictions and As tolerated
Activity: No restrictions and As tolerated
Driving Restrictions: As prior to admission
Bathing Restrictions: None
Activity Restrictions/Additional Instructions:
Presented with left second toe wound/cellulitis started on IV antibiotics. Foot x-ray in the ED did not show deep tissue infection nor bone infection. Evaluated by infectious diseases and podiatry. Podiatry degloved the wound of the left foot,
wound cultures growing MRSA. Blood cultures no growth. ID recommended initiation of send with continuation of cefepime. Awaiting ABIs can be done as outpatient per podiatry therefore please follow-up with PCP to obtain prescription/referral for
this arterial brachial index to assess blood flow in lower extremities and to allow for proper wound. Additionally noted to have left and was negative for DVT. With saying that podiatry has also recommended Tubigrip size D toes to just below knee
remove at night and reapply in the a.m.
please return to ED if noted worsening spreading or drainage from wound
Instructions: Cellulitis (skin infection) in adults - Discharge instructions
Referrals:
Wellington Reyes DO [Family Provider] -
Stefany Lott DPM [Active] - in less than 1 week
Prescriptions:
New
mupirocin 2 % Ointment
1 applic topical BID 7 Days Qty: 1 0RF
Dakin's Solution 0.125 % Solution
1 applic topical DAILY 7 Days Qty: 7 0RF
doxycycline hyclate 100 mg capsule
100 mg PO BID 10 Days Qty: 20 0RF
Continued
furosemide [Lasix] 20 mg Tablet
20 mg PO DAILY
hydralazine 25 mg Tablet
25 mg PO BID
therapeutic multivitamin Tablet
1 tab PO DAILY
acetaminophen [Tylenol Extra Strength] 500 mg Tablet
1,000 mg PO TIDPRN PRN (Reason: mild pain)
spironolactone 25 mg Tablet
25 mg PO DAILY
ferrous sulfate [iron] 325 mg (65 mg iron) Tablet
325 mg PO DAILY
cephalexin 250 mg/5 mL Suspension For Reconstitution
500 mg PO Q6H
Patient Comments:
08/31/2023, filled on 08/27/2023 and instructed to take 10 ml Q6H for 10 days.
fluticasone propion-salmeterol 500-50 mcg/dose Blister With Device
1 inh INHALATION R BID
cholecalciferol (vitamin D3) 25 mcg (1,000 unit) Tablet
25 mcg PO DAILY
Eliquis 2.5 mg Tablet
2.5 mg PO BID
Gemtesa 75 mg Tablet
75 mg PO HS
rosuvastatin 40 MG tablet
40 mg PO HS
carvedilol 12.5 MG tablet
12.5 mg PO BID Qty: 180 0RF
cyanocobalamin (vitamin B-12) 1,000 MCG tablet
1,000 mcg PO DAILY Qty: 90 0RF
montelukast 10 MG tablet
10 mg PO DAILY Qty: 90 0RF
Discharge Orders:
Discharge Patient (As Directed); Ordered 09/02/23
Ordered By: Taj Edwards
Discharge Date and Time
Print Language: CHILEAN
[2023-09-02 11:00] VITALS: BP 123/76
[2023-09-02] MEDS: VANCOCIN 200 IV (11:58)
[2023-09-02 12:02] VITALS: BP 123/76
--- NOTE | 2023-09-02 12:04 | W.PN.ID1 ---
Date of Service
Date of Service: September 02, 2023
Today's Communication
- due for vancomycin now, then switch to linezolid plan 7 more days
- provided good rx coupon, suggest he purchase it out of pocket as prior authorization would likely delay obtaining the medicine
- wound care per podiatry
- follow up with podiatry
Assessment / Plan
Cellulitis
Wound on the Foot
PAD
- wound culture MRSA - sensitive to zyvox, bactrim, vancomycin
- linezolid the least risk of the limited oral options particularly as we are doing a short course - he will hold med and notify me if any new numbness/tingeling or changes in vision
- due for vancomycin now, then switch to linezolid plan 7 more days
- provided good rx coupon, suggest he purchase it out of pocket as prior authorization would likely delay obtaining the medicine
- wound care per podiatry
- follow up with podiatry
Chief Complaint
-: Cellulitis
Subjective / Review of Systems
afebrile
bp stable
cellulitis much improved
without leukocytosis
cr stable
sensi back
Vital Signs / Physical Exam
Vital Signs
Vital Signs
Temp Pulse Resp BP Pulse Ox
98.2 F 87 16 123/76 96
09/02/23 11:00 09/02/23 11:00 09/02/23 11:00 09/02/23 11:00 09/02/23 11:00
Physical Exam
Constitutional: No Acute Distress
Cardiovascular: Regular Rate
Pulmonary: Symmetric and Non Labored
Wound: Other (foot swelling nearly resolved, minimal erythema, no purulent drainage)
Objective Data
Lab Data
Lab Results
09/02/23 05:11
09/02/23 05:11
ESR 29 mm/hour (0-20) H 08/31/23 13:53
Estimated Creat Clear 29 ml/min 09/02/23 05:11
Total Bilirubin 0.6 mg/dl (0.2-1.3) 09/01/23 09:34
AST 37 U/L (17-59) 09/01/23 09:34
ALT 57 U/L (0-50) H 09/01/23 09:34
Alkaline Phosphatase 66 U/L (38-126) 09/01/23 09:34
Most recent labs reviewed.
Micro Results:
08/31/23 18:06 Wound Culture - Final
Toe Staph aureus MRSA
Gram Stain - Final
08/31/23 12:31 Blood Culture - Preliminary
Blood/Venous No Growth in 24 hours- Final report to follow
Care Review
Plan reviewed with: Physician (Dr Edwards- left tiger text message with plan)
--- NOTE | 2023-09-02 12:37 | CM ---
entered order for discharge.
His Meeta will drive him home to [facility] assisted living.
Offered VN he request VN he said [facility] As per care port pt accepted with [facility].
IMM reviewed pt agreed with dc.
PLAN Home with [facility]
[2023-09-02 15:41] VITALS: BP 150/85
== END 2023-09-02 15:00 | disposition home health service (06) | DRG 571 ==
LOC: 3 WEST ACU 13:46
PROVIDERS: Registered Nurse; ADMITTING PHYSICIAN Hospitalist; CONSULT PHYSICIAN Podiatrist Foot & Ankle Surgery; CONSULT PHYSICIAN Student in an Organized Health Care Education/Training Program; EMERGENCY PHYSICIAN Student in an Organized Health Care Education/Training Program; FAMILY PHYSICIAN Family Medicine
PROC: 0JBR0ZZ Excision of Left Foot Subcutaneous Tissue and Fascia, Open Approach (ICD-10-PCS; 2023-08-31)
DX: L03.032 Cellulitis of left toe (principal); I69.354 Hemiplegia and hemiparesis following cerebral infarction affecting left non-dominant side; N18.4 Chronic kidney disease, stage 4 (severe); I12.9 Hypertensive chronic kidney disease with stage 1 through stage 4 chronic kidney disease, or unspecified chronic kidney disease; I48.0 Paroxysmal atrial fibrillation; I25.10 Atherosclerotic heart disease of native coronary artery without angina pectoris; F41.9 Anxiety disorder, unspecified; F32.A Depression, unspecified; K21.9 Gastro-esophageal reflux disease without esophagitis; D63.1 Anemia in chronic kidney disease; R60.0 Localized edema; I65.23 Occlusion and stenosis of bilateral carotid arteries; J45.909 Unspecified asthma, uncomplicated; E78.00 Pure hypercholesterolemia, unspecified; S91.205A Unspecified open wound of left lesser toe(s) with damage to nail, initial encounter; X58.XXXA Exposure to other specified factors, initial encounter; I73.9 Peripheral vascular disease, unspecified; B95.62 Methicillin resistant Staphylococcus aureus infection as the cause of diseases classified elsewhere; Z95.5 Presence of coronary angioplasty implant and graft; Z79.01 Long term (current) use of anticoagulants; Z87.891 Personal history of nicotine dependence
CPT/HCPCS: 73630; 80048; 80053; 80202; 82248; 83036; 85025; 85027; 85652; 86141; 87040; 87070; 87147; 87186; 87205; 93005; 93971; 94640; 96365; 97116; 97163; 99285

== ENCOUNTER → 2023-09-06 09:46 | Outpatient (REF) | payer MEDICARE, BC, SELFPAY | LOC: RAD 09:46 | PROVIDERS: ATTENDING PHYSICIAN Specialist; FAMILY PHYSICIAN Family Medicine | DX: M19.011 Primary osteoarthritis, right shoulder (principal) | CPT/HCPCS: 73200 ==

== ENCOUNTER 2023-09-07 17:21 | Emergency (ER) | payer MEDICARE, BC, SELFPAY ==
[2023-09-07 17:25] VITALS: BP 154/86
[2023-09-07 17:27] VITALS: BMI 30.9
--- NOTE | 2023-09-07 22:22 | ED.MUSCINJ ---
HPI-Injury
General
Chief Complaint: Fall
Source: patient
Exam Limitations: none
Time Seen by Provider: 09/07/23 18:13
Nursing documentation reviewed up to this point in time: agreed with
History of Present Illness-Injury
Is this injury a work related problem?: No
Is pt an associate of [facility]?: No
Initial Injury comments:
Patient to ED with complaint of pain to left lateral ribs. States he wears a boot on his left foot and he feels that boot may have been loose. trip and fall. Denies hitting his head. COmplains of pain to his left lateral ribs. Brought to ED by
spouse for eval. Injury occurred today.
Past History
Past History
ED Past Medical History: Arrthythmia ( atrial fibrillation), Asthma, CAD, CVA (Left sided weakness, ), GERD, HTN, Hypercholesterolemia, [place], Renal failure (Stage 4 ), Psychiatric (Anxiety, Depression) and Other (Osteoarthritis, Diverticulosis, Renal
calculus)
ED Past Surgical History: Cardiac (Radiofrequency ablation, Stents X 2) and Orthopedic (Right elbow repair, Right and left Total knee replacement)
Social History
Tobacco: Former smoker
Alcohol: None
Personal:
Living: with family
Employment: Retired
Family History
Family History: Other (Noncontributory)
Review of Systems
Review of Systems
Allergies reviewed?: Yes
All Other Systems: ROS reviewed and negative except as documented in HPI and ROS
Constitutional: Reports no symptoms
EENT: Reports no symptoms
Respiratory: Reports no symptoms
Cardiac: Reports no symptoms
ABD/GI: Reports no symptoms
: Reports no symptoms
Musculoskeletal: Reports joint pain (pain to left lateral ribs)
Skin: Reports no symptoms
Neurological: Reports no symptoms
Psychiatric: Reports no symptoms
Musculoskeletal Injury Exam
Musculoskeletal Injury Exam
Left Lateral Ribs:
Pain with Movement?: Moderate
Tender to palpation?: Moderate
Soft tissue swelling?: None
External deformity and angulation?: None
Joint effusion?: None
Contusion?: Moderate
Hematoma-local bleeding into tissue?: None
Strain- Sprain- Tear (Connective tissue injury)?: Moderate
Crepitus with movement?: No
Joint instability?: No
Malalignment/deformity?: No
Range of motion: Limited
Distal skin color and temperature: normal-warm & good color
Capillary Refill: normal
Normal distal neurovascular exam?: Yes
Phy Exam
General Physical Exam
General Presentation: well appearing and mild distress
General age: appears stated age
General Skin: warm and dry
General Habitus: normal
General Mental: alert
General Hydration: appears well hydrated
Cardiovascular Exam
Cardiovascular Exam: regular rate/rhythm and no edema
Pulmonary Exam
Pulmonary Exam: lungs clear and no respiratory distress
Gastrointestinal Exam
Gastrointestinal Exam: non tender, soft, no organomegaly, no pulsatile mass, non distended and no cva tenderness
Musculoskeletal Exam
Musculoskeletal Exam: neuro vasc intact
Skin Exam
Skin Exam: normal color, warm/dry and no rash
Psychiatric Exam
Psychiatric Exam: normal mood/affect
Injury Course
Orders/Labs/Results
Orders:
Orders
09/07/23 17:29
Ribs, Left 3 View W/PA Chest CR [CR Ribs-left 3 Vw W/pa Chest] Urgent
Comment:
Reason For Exam: fall, left rib injury, pain and swelling.
*Radiology
Radiology exam reviewed: radiology read reviewed
*Pulse Oximetry
Patient hypoxic: no
*Critical Care Note
Total Time (30-74mins, 75-104mins- exclusive of procedures): Not Applicable
ED Attending Note
-
Portions of this chart may have been created with voice recognition software.� Occasional wrong word or��sound alike� substitutions may have occurred due to the inherent limitations of voice recognition software.
Discharge Plan
Departure
Patient Disposition: Home (Routine Discharge)
Date of Disposition: 09/07/23
Time of Disposition: 19:08
Patient with high blood pressure during this ER visit?: No
Condition: Good
Covid-19: Not Applicable
Discharge Problem:
Fracture, ribs
Instructions: Using Cold for Pain, Rib Fracture
Prescriptions:
New
hydrocodone-acetaminophen 5-325 mg tablet
1 tab PO Q4H PRN (Reason: Pain) Qty: 12 0RF
No Action
furosemide [Lasix] 20 mg Tablet
20 mg PO DAILY
hydralazine 25 mg Tablet
25 mg PO BID
therapeutic multivitamin Tablet
1 tab PO DAILY
acetaminophen [Tylenol Extra Strength] 500 mg Tablet
1,000 mg PO TIDPRN PRN (Reason: mild pain)
spironolactone 25 mg Tablet
25 mg PO DAILY
ferrous sulfate [iron] 325 mg (65 mg iron) Tablet
325 mg PO DAILY
cephalexin 250 mg/5 mL Suspension For Reconstitution
500 mg PO Q6H
Patient Comments:
08/31/2023, filled on 08/27/2023 and instructed to take 10 ml Q6H for 10 days.
fluticasone propion-salmeterol 500-50 mcg/dose Blister With Device
1 inh INHALATION R BID
cholecalciferol (vitamin D3) 25 mcg (1,000 unit) Tablet
25 mcg PO DAILY
Eliquis 2.5 mg Tablet
2.5 mg PO BID
Gemtesa 75 mg Tablet
75 mg PO HS
rosuvastatin 40 MG tablet
40 mg PO HS
mupirocin 2 % Ointment
1 applic topical BID 7 Days Qty: 1 0RF
linezolid 600 mg Tablet
600 mg PO BID 7 Days Qty: 14 0RF
Dakin's Solution 0.125 % Solution
1 applic topical DAILY 7 Days Qty: 10 0RF
carvedilol 12.5 MG tablet
12.5 mg PO BID Qty: 180 0RF
cyanocobalamin (vitamin B-12) 1,000 MCG tablet
1,000 mcg PO DAILY Qty: 90 0RF
montelukast 10 MG tablet
10 mg PO DAILY Qty: 90 0RF
Referrals:
UNKNOWN - PT DOES,NOT KNOW [Family Provider] -
Activity Restrictions/Additional Instructions:
FOllow up with your family doctor.
Interventions
Interventions:
*Risk Screen - Suicide Last Done: 09/07/23 17:25
*General Assessment Last Done: 09/07/23 17:25
*Neglect/Abuse Screening Last Done: 09/07/23 17:25
*Nursing Disposition Last Done: 09/07/23 19:50
ED-Musculoskeletal Assessment Last Done: 09/07/23 17:59
ED- Neurological Assessment Last Done: 09/07/23 17:59
ED-Skin Assessment Last Done: 09/07/23 17:59
Discharge Date and Time
Discharge Date/Time: 09/07/23 21:25
Print Language: NEPALI
== END 2023-09-07 21:25 | disposition home or self-care (01) ==
LOC: EMR 17:21
PROVIDERS: EMERGENCY PHYSICIAN Emergency Medicine
DX: S22.42XA Multiple fractures of ribs, left side, initial encounter for closed fracture (principal); S20.212A Contusion of left front wall of thorax, initial encounter; W01.0XXA Fall on same level from slipping, tripping and stumbling without subsequent striking against object, initial encounter; I48.91 Unspecified atrial fibrillation; I25.10 Atherosclerotic heart disease of native coronary artery without angina pectoris; I10 Essential (primary) hypertension; I12.9 Hypertensive chronic kidney disease with stage 1 through stage 4 chronic kidney disease, or unspecified chronic kidney disease; N18.4 Chronic kidney disease, stage 4 (severe); J45.909 Unspecified asthma, uncomplicated; E78.00 Pure hypercholesterolemia, unspecified; K21.9 Gastro-esophageal reflux disease without esophagitis; M19.90 Unspecified osteoarthritis, unspecified site; I69.354 Hemiplegia and hemiparesis following cerebral infarction affecting left non-dominant side; K57.90 Diverticulosis of intestine, part unspecified, without perforation or abscess without bleeding; F41.9 Anxiety disorder, unspecified; F32.A Depression, unspecified; I25.2 Old myocardial infarction; Z79.01 Long term (current) use of anticoagulants; Z95.5 Presence of coronary angioplasty implant and graft; Z87.442 Personal history of urinary calculi; Z87.891 Personal history of nicotine dependence; Z91.030 Bee allergy status; Z88.8 Allergy status to other drugs, medicaments and biological substances; Z91.048 Other nonmedicinal substance allergy status
CPT/HCPCS: 99283; 71101

== ENCOUNTER 2023-09-12 13:47 | Inpatient (IN) | payer MEDICARE, BC, SELFPAY ==
[2023-09-12] VITALS (10 sets, daily range): BP systolic 110–146; BP diastolic 66–86; BMI 31.0; BMI 29.9
--- NOTE | 2023-09-12 09:43 | ED.GENMED ---
History of Present Illness
General
Chief Complaint: Weakness
Source: patient and spouse
Exam Limitations: none
Time Seen by Provider: 09/12/23 09:05
Nursing documentation reviewed up to this point in time: agreed with
History of Present Illness
History of Present Illness:
83-year-old male with a history of CVA left-sided weakness, CAD, atrial fibrillation on Eliquis, history of a more recent left second toe wound and cellulitis without signs of osteo-, wound cultures growing out MRSA
In a recent mechanical fall on 7�12 causing 2 rib fractures on x-ray
Presents for generalized weakness, lack of appetite, dehydration, and multiple other complaints. Patient apparently has been declining ever since his MRSA infection. He normally uses a walker with 1 hand because of his stroke deficits but has not
really been able to move around especially since his fall and his rib fractures. He is in a lot of pain with any movement. He has been taking Tylenol. Additionally the patient has not had an appetite so has not been eating and drinking. He has
got a scab on his lower lip that developed with some swelling when not exactly did or why. He has not had any sore or fever penile itching, and scrotal itching as well, there is a little bit of blood at the tip of his penis today. He has no
dysuria or frequency. He wears a depends.
He also has been having this ongoing left toe wound which does look overall improved from previous, he was on Dex until just recently. Was doxycycline
Past History
Past History
ED Past Medical History: Arrthythmia ( atrial fibrillation), Asthma, CAD, CVA (Left sided weakness, ), GERD, HTN, Hypercholesterolemia, [place], Renal failure (Stage 4 ), Psychiatric (Anxiety, Depression) and Other (Osteoarthritis, Diverticulosis, Renal
calculus)
ED Past Surgical History: Cardiac (Radiofrequency ablation, Stents X 2) and Orthopedic (Right elbow repair, Right and left Total knee replacement)
Social History
Tobacco: Former smoker
Alcohol: None
Personal:
Living: with family
Employment: Retired
Family History
Family History: Other (Noncontributory)
Review of Systems
Review of Systems
Allergies reviewed?: Yes
All Other Systems: Not applicable
Phy Exam
Physical Exam
Physical Exam:
GENERAL: Alert , in no apparent distress generally weak
HEAD: NCAT
NECK: no midline tenderness, active ROM intact, no paraspinal muscle tenderness;
EYE: pupils equal and reactive, EOMs intact.
ENT: o/p clr, dry mouth, slightly swollen lower lip with a yellowish scab. no hemotympanum
CARDIAC: Regular rate and rhythm, mild edema
LUNGS: Clear breath sounds bilaterally, no acute respiratory distress, no wheezes/rales/rhonchi
ABDOMEN: Soft, without focal tenderness, no r/g, no cvat
NEUROLOGICAL: Alert and oriented, no focal neuro deficits, CN intact, 5/5 strength, sensation intact
SKIN: Warm and dry,
redness atnerior left 2nd toe, not weeping, slight ulceration; no proximal extension;
MUSCULOSKELETAL: mild edema, well perfused.
PSYCH: Normal and appropriate interaction.
Course
Orders/Labs/Results
Orders:
Orders
09/12/23 09:16
Electrocardiogram (*1) Urgent
Reason for Study: Fatigue / Weakness
EKG- Treatment ONCE
09/12/23 09:44
CMP [Comprehensive Metabolic Panel] Urgent
Complete Blood Count/With Diff Urgent
Creatine Phosphokinase Urgent
Lactic Acid Urgent
Troponin I Urgent
09/12/23 09:46
Urinalysis Reflex To Culture Urgent
Date Specimen was Collected: 09/12/23
Time Specimen was Collected: 09:45
Urine Microscopic Reflex Cult Urgent
09/12/23 10:07
Add On- LAB Urgent
Tests Added?: cpk
09/12/23 10:11
CT Chest/abd/pel Wo Iv Cont Urgent
Comment:
Reason For Exam: left flank bruising, fall, ckd
0.9% Sodium Chloride 500 ml [Nss] 500 ml IV BOLUS
Abnormal Lab Results
09/12/23 09/12/23
09:44 09:46
RBC 3.58 L 10^6/uL
(4.70-6.10)
Hgb 10.9 L g/dL
(13.0-18.0)
Hct 32.1 L %
(39.0-52.0)
RDW 15.4 H %
(11.5-14.5)
Abs Immat Gran (auto) 0.1 H 10^3/uL
(0-0.05)
Absolute Neuts (auto) 8.3 H 10^3/uL
(1.4-6.5)
Absolute Lymphs (auto) 1.1 L 10^3/uL
(1.2-3.4)
Absolute Monos (auto) 0.9 H 10^3/uL
(0.1-0.6)
Immature Gran % 0.6 H %
(0-0.5)
Neutrophils % 78.3 H %
(42.2-75.2)
Lymphocytes % 10.6 L %
(20.5-51.1)
Carbon Dioxide 20 L mmol/L
(22-30)
BUN 77 H mg/dl
(9-20)
Creatinine 3.6 H mg/dL
(0.7-1.3)
Glucose 121 H mg/dl
(70-99)
ALT 63 H U/L
(0-50)
Troponin I 0.050 H* ng/ml
Ur Occult Blood Reflex 3+ A
(Negative)
Urine RBC 70-80 A /HPF
(0-2)
Urine Bacteria (Reflex) Few A
(Negative)
09/12/23 09:44
09/12/23 09:44
Vital Signs
Initial and Last Documented VS:
Initial Vital Signs
Temp Pulse Resp BP Pulse Ox
98.4 F 81 18 110/71 95
09/12/23 08:56 09/12/23 08:56 09/12/23 08:56 09/12/23 08:56 09/12/23 08:56
Last Documented Vital Signs
Temp Pulse Resp BP Pulse Ox
98.4 F 77 22 123/69 97
09/12/23 08:56 09/12/23 11:00 09/12/23 11:00 09/12/23 11:00 09/12/23 10:45
MDM/Problems Addressed
Differential Diagnosis Includes:
uti, electrolyte disturbance, dehydration, nstemi,
MDM/Problems Addressed:
maria teresa crocker 83 y/o M h/o mrsa L toe skin infection 2 weeks ago treated with abx, afib on eliquis;
fall 5 days ago onto left ribs with known rib fx; too weak to get out of bed, not eating
dry looking, the toe doesn't look bad; he also had gross hematuria at home this morning small amount, blood in urine but no infx; he has worsening LICHA on chronic and couldn't get iv contrast but no retroperitoneal injury; probably will need rehab
after fluids
unable to be discharged
*Critical Care Note
Total Time (30-74mins, 75-104mins- exclusive of procedures): Not Applicable
ED Attending Note
-
Portions of this chart may have been created with voice recognition software.� Occasional wrong word or��sound alike� substitutions may have occurred due to the inherent limitations of voice recognition software.
Discharge Plan
Departure
Patient Disposition: Admit
Date of Disposition: 09/12/23
Time of Disposition: 11:00
Admit to: Telemetry
Presentation/result/management discussed w/ accepting MD/DO: Hospitalist
Condition: Fair
Covid-19: Not Applicable
Discharge Problem:
Weakness, Dehydration, Hematuria
Prescriptions:
No Action
furosemide [Lasix] 20 mg Tablet
20 mg PO DAILY
hydralazine 25 mg Tablet
25 mg PO BID
therapeutic multivitamin Tablet
1 tab PO DAILY
acetaminophen [Tylenol Extra Strength] 500 mg Tablet
1,000 mg PO TIDPRN PRN (Reason: mild pain)
spironolactone 25 mg Tablet
25 mg PO DAILY
ferrous sulfate [iron] 325 mg (65 mg iron) Tablet
325 mg PO DAILY
fluticasone propion-salmeterol 500-50 mcg/dose Blister With Device
1 inh INHALATION R BID
cholecalciferol (vitamin D3) 25 mcg (1,000 unit) Tablet
25 mcg PO DAILY
Eliquis 2.5 mg Tablet
2.5 mg PO BID
Gemtesa 75 mg Tablet
75 mg PO HS
rosuvastatin 40 MG tablet
40 mg PO HS
cetirizine [Zyrtec] 10 mg Tablet
10 mg PO DAILYPRN PRN (Reason: allergies)
albuterol sulfate [ProAir HFA] 90 mcg/actuation Hfa Aerosol Inhaler
2 puff INHALATION R QIDPRN PRN (Reason: sob)
carvedilol 12.5 MG tablet
12.5 mg PO BID Qty: 180 0RF
cyanocobalamin (vitamin B-12) 1,000 MCG tablet
1,000 mcg PO DAILY Qty: 90 0RF
montelukast 10 MG tablet
10 mg PO DAILY Qty: 90 0RF
Referrals:
Wellington Reyes, DO [Family Provider] -
Interventions
Interventions:
*Risk Screen - Suicide Last Done: 09/12/23 08:56
*General Assessment Last Done: 09/12/23 08:56
*Neglect/Abuse Screening Last Done: 09/12/23 08:56
ED- Fall Risk Assessment Last Done: 09/12/23 09:31
ED- Cardiac Assessment Last Done: 09/12/23 09:31
ED- Neurological Assessment Last Done: 09/12/23 09:31
ED- Pulmonary Assessment Last Done: 09/12/23 09:34
Discharge Date and Time
Print Language: TONGAN
[2023-09-12 09:53] LABS: Urine Albumin Trace (Neg - Trace); Urine Bilirubin Negative (Negative); Urine Character Clear (Clear); Urine Color Yellow; Urine Glucose Negative (Negative); Urine Ketone Negative (Negative); Urine Leukocyte Negative (Negative); Urine Nitrite Negative (Negative); Urine Occult Blood 3+ (Negative); Urine Urobilinogen Negative (Neg - 1+)
[2023-09-12 09:53] LABS: % Basophils 0.3 % (0-2); % Eosinophils 1.6 % (0-6); % Immature Granulocytes 0.6 % (0-0.5); % Lymphocytes 10.6 % (20.5-51.1); % Monocytes 8.6 % (1.7-9.3); % Neutrophils 78.3 % (42.2-75.2); Absolute Eosinophils 0.2 10^3/uL (0-0.7); Absolute Immature Granulocytes 0.1 10^3/uL (0-0.05); Absolute Lymphocytes 1.1 10^3/uL (1.2-3.4); Absolute Monocytes 0.9 10^3/uL (0.1-0.6); Absolute Neutrophils 8.3 10^3/uL (1.4-6.5); Hematocrit 32.1 % (39.0-52.0); Hemoglobin 10.9 g/dL (13.0-18.0); Mean Corpuscular Hgb 30.4 pg (27.0-31.0); Mean Corpuscular Volume 89.7 fL (80.0-94.0); Mean Platelet Volume 9.7 fL (7.4-10.4); Nucleated Red Blood Cells % 0 % (-); Platelet Count 187 10^3/uL (130-400); Red Blood Cell Count 3.58 10^6/uL (4.70-6.10); Red Cell Dist. Width 15.4 % (11.5-14.5); White Blood Cell Count 10.6 10^3/uL (4.8-10.8)
[2023-09-12 10:09] LABS: ALT (SGPT) 63 U/L (0-50); AST (SGOT) 41 U/L (17-59); Alkaline Phosphatase 65 U/L (38-126); Blood Urea Nitrogen 77 mg/dl (9-20); Calcium 9.3 mg/dl (8.4-10.2); Carbon Dioxide 20 mmol/L (22-30); Chloride 107 mmol/L (98-107); Estimated Creatinine Clearance 20 ml/min; Glucose 121 mg/dl (70-99); Lactic Acid 1.4 mmol/L (0.7-2.0); Potassium 4.7 mmol/L (3.5-5.1); Sodium 138 mmol/L (135-145); Total Bilirubin 0.8 mg/dl (0.2-1.3); Total Protein 6.4 g/dl (6.3-8.2); eGFR 16.26
[2023-09-12 10:15] LABS: Urine Hyaline Cast 0-2 /LPF (0-2)
[2023-09-12] MEDS: NSS 500 IV (10:15)
[2023-09-12 10:17] LABS: Urine Squamous Cell 0-2 /LPF (Few)
--- NOTE | 2023-09-12 10:22 | EDRN ---
LOLA Guerrero aware of critical value troponin.
[2023-09-12 10:27] LABS: Urine Amorphous Seen; Urine Red Blood Cell 70-80 /HPF (0-2); Urine White Cell 0-2 /HPF (0-5)
[2023-09-12 10:28] LABS: Urine Bacteria Few (Negative)
[2023-09-12 12:02] LABS: Creatine Phosphokinase 75 U/L (55-170)
--- NOTE | 2023-09-12 12:46 | HPS.HSE ---
Addendum entered and electronically signed by Thaddeus Montero MD 09/12/23 13:57:
see my update note for addendum
Original Note:
Family Physician
-
Family Physician: Wellington Reyes
Chief Complaint
-
Weakness
History of Present Illness
Patient is an 83 y/o male with a PMH of CVA with left hemiparesis, AFib on Eliquis, CAD, [place], CKD stage 4, and anxiety/depression who reports to the ED for weakness. Patient has a mechanical fall on Wednesday 09/06 that caused 2 rib fractures. He is
currently being treated for a MRSA infection and seeing wound care for a wound on his left second toe. He states he has been generally weak, increased fatigue, has had poor appetite, and hasn't been eating or drinking. He has had increased pain due
to the rib fractures and has been taking extra strength Tylenol q6hrs for relief. He hasn't been ambulating, which has caused an increase in his peripheral edema. He admits to increased depression since the infection and fall. He also has had a
lower lip sore x 2-3 days. He denies any tingling in his lip or vesicles. He also noted some blood at the tip of his penis today. He denies fevers, sweats or chills.
Medical History
Past Medical History
Past Medical History: Reports Other
Additional Past Medical History:
CVA with Left Hemiparesis
Paroxysmal Atrial Fibrillation
Coronary Artery Disease s/p Stent
Essential Hypertension
Hyperlipidemia
CKD Stage IV
Asthma
Anxiety/Depression
GERD/Esophageal Stricture
BPH
Obstructive Sleep Apnea
Past Surgical History: Reports Other
Additional Past Surgical History:
Cardiac Stent
Cardiac Ablation
Bilateral Knee Replacement
Rotator Cuff
Esophageal Rings
Social History
Tobacco: Former Smoker
Alcohol: None
Drug: None
Personal:
Living: With Family
Family History
Family History: Other (Father: CAD)
Allergies / Home Medications
Allergies reflects when Allergies were last updated in [employer].
Home Medications with original date entered in [employer]
Allergy/Medication List:
Allergies
Allergy/AdvReac Type Severity Reaction Status Date / Time
cat dander Allergy Swelling Verified 09/12/23 08:56
lisinopril Allergy Unknown Verified 09/12/23 08:56
losartan Allergy lip Verified 09/12/23 08:56
swelling
lovastatin Allergy myalgias Verified 09/12/23 08:56
mirabegron [From Myrbetriq] Allergy lips Verified 09/12/23 09:30
swellling
tamsulosin HCl [From Flomax] Allergy facial Verified 09/12/23 08:56
itching,dizziness
venom-honey bee Allergy Anaphylaxis Verified 09/12/23 08:56
[bee venom (honey bee)]
Home Medications
carvedilol 12.5 mg tablet 12.5 mg PO BID #180 tabs 07/19/21
cyanocobalamin (vitamin B-12) 1,000 mcg tablet 1,000 mcg PO DAILY #90 tabs 07/19/21
montelukast 10 mg tablet 10 mg PO DAILY #90 tabs 07/19/21
furosemide 20 mg tablet (Lasix) 20 mg PO DAILY Fluid retention/Swelling 07/09/22
acetaminophen 500 mg tablet (Tylenol Extra Strength) 1,000 mg PO TIDPRN PRN mild pain 08/31/23
apixaban 2.5 mg tablet (Eliquis) 2.5 mg PO BID Blood Clot Prevention/Tx 08/31/23
cholecalciferol (vitamin D3) 25 mcg (1,000 unit) tablet 25 mcg PO DAILY Supplement 08/31/23
ferrous sulfate 325 mg (65 mg iron) tablet (iron) 325 mg PO DAILY Supplement 08/31/23
fluticasone 500 mcg-salmeterol 50 mcg/dose blistr powdr for inhalation 1 inh inhalation R BID Lung/Breathing Issues 08/31/23
hydralazine 25 mg tablet 25 mg PO BID Blood Pressure 08/31/23
rosuvastatin 40 mg tablet 40 mg PO HS High Cholesterol 08/31/23
spironolactone 25 mg tablet 25 mg PO DAILY Fluid Retention/Swelling 08/31/23
therapeutic multivitamin 1 tab PO DAILY Supplement 08/31/23
vibegron 75 mg tablet (Gemtesa) 75 mg PO HS OVERACTIVE BLADDER 08/31/23
albuterol sulfate 90 mcg/actuation aerosol inhaler 2 puff inhalation R QIDPRN PRN sob 09/12/23
cetirizine 10 mg tablet (Zyrtec) 10 mg PO DAILYPRN PRN allergies 09/12/23
Review of Systems
-
A 12 point ROS was completed and negative except as noted: Yes
Constitutional: Denies Fever or Chills
Respiratory: Denies Cough or Trouble Breathing
Cardiac: Denies Chest Pain, Diaphoresis or Syncope
Abdomen/GI: Denies Abdominal Pain, Nausea or Diarrhea
: Reports Bleeding
Musculoskeletal: Reports See HPI
Physical Exam
Vital Signs
Vital Signs
Temp Pulse Resp BP Pulse Ox
98.4 F 80 20 118/67 97
09/12/23 08:56 09/12/23 12:15 09/12/23 12:15 09/12/23 12:00 09/12/23 12:15
Physical Exam
General: Comfortable and Conversant
HEENT: Anicteric, Moist mucous membranes and Other (Multiple crusted lesions on lower lip consistent with herpes)
Respiratory: Clear, Non Labored Respirations and Decreased Breath Sounds (Poor Inspiratory Effot)
Cardiac: S1/S2 and Regular Rhythm; No Tachycardia or Murmur
GI: Soft, Non Tender and Other (Protuberant)
Rectal: Deferred by Provider
Musculoskeletal: No Clubbing, No Cyanosis and Other (Compression stockings bilaterally)
Skin: Warm and Dry
Neuro: Awake, Alert, Oriented and Other (Chronic Left Hemiparesis)
Psych: Depressed
Laboratory Results
-
09/12/23 09:44
09/12/23 09:44
Laboratory Results
Lactic Acid 1.4 mmol/L (0.7-2.0) 09/12/23 09:44
Total Bilirubin 0.8 mg/dl (0.2-1.3) 09/12/23 09:44
AST 41 U/L (17-59) 09/12/23 09:44
ALT 63 U/L (0-50) H 09/12/23 09:44
Alkaline Phosphatase 65 U/L (38-126) 09/12/23 09:44
Troponin I 0.050 ng/ml H* 09/12/23 09:44
Data Reviewed
-
Lab Data: Labs Reviewed by me
Impression/Plan
-
Acute Kidney Injury on CKD IV
-Hold Lasix and Spironolactone
-Give IVFs overnight
-Repeat Labs in AM
Left Rib Fractures
-Continue Lidocaine Patch
-Continue Tylenol 1000mg TID
-Continue oxycodone prn
-Encourage use of incentive spirometer
Intermittent Gross Hematuria
-Continue to monitor for recurrent episodes
-Monitor Hgb
-Will continue Eliquis as Hgb is stable
Depression
-Patient expresses feelings of depression
-Offered anti-depressant medication which he declined
Oral Herpes
-Contact precautions
-No role for antivirals as lesions are crusted and onset was 3 days ago
Elevated Troponin - Patient without chest pain, likely elevated in setting of LICHA
-Continue to trend
Left Foot Wound
-Recently completed coarse of Zyvox
-Consult Wound Care
CVA with Left Hemiparesis
-Continue Eliquis
Paroxysmal Atrial Fibrillation
-Continue Eliquis
-Continue Coreg
Coronary Artery Disease s/p Stent
-Stable
Essential Hypertension
-Continue Coreg and Hydralazine
Hyperlipidemia
-Continue Crestor
Anemia of Chronic Disease
-Hgb at baseline
Asthma, no acute exacerbation
-Continue fluticasone/salmeterol
-Continue montelukast
DVT proph: Eliquis
Code Status: Full Code
--- NOTE | 2023-09-12 13:15 | W.PN.UPDATE ---
Update Note
Progress Note Update
I saw and examined the patient.
The BINDERY MACHINE SETTER/SET UP OPERATOR or PA's note was reviewed and I agree with the note.
Comment: 83 y/o M, hx of recent MRSA infection completed Abx, hx of CVA, CAD, Afib on Eliquis presents to ER with weakness, dehydration, lack of appetite. He fell last Sunday and suffered 2 rib fractures. He reports moderate pain. Since then has not
moved around much and limited oral intake. Intermittently noticed some blood at tip of penis but no other overall complaints.
In ER, found to have LICHA on CKD and admitted.
Physical Exam
General: Comfortable and Conversant
HEENT: Anicteric, Moist mucous membranes and Other (Multiple crusted lesions on lower lip consistent with herpes)
Respiratory: Clear, Non Labored Respirations and Decreased Breath Sounds (Poor Inspiratory Effot)
Cardiac: S1/S2 and Regular Rhythm; No Tachycardia or Murmur
GI: Soft, Non Tender and Other (Protuberant)
Rectal: Deferred by Provider
Musculoskeletal: No Clubbing, No Cyanosis and Other (Compression stockings bilaterally)
Skin: Warm and Dry
Neuro: Awake, Alert, Oriented and Other (Chronic Left Hemiparesis)
Psych: Depressed
Assessment:
Acute Kidney Injury on CKD IV
- hold Lasix and Spironolactone
- Give IVFs overnight
- repeat Labs in AM
Left Rib Fractures
- continue Lidocaine Patch
- continue Tylenol 1000mg TID
- continue oxycodone prn
- encourage use of incentive spirometer
Intermittent Gross Hematuria
- continue to monitor for recurrent episodes
- UA unremarkable
- monitor Hgb
- will continue Eliquis as Hgb is stable
Depression
- patient expresses feelings of depression
- offered anti-depressant medication which he declined
Oral Herpes
- contact precautions
- no role for antivirals as lesions are crusted and onset was 3 days ago
Elevated Troponin - Patient without chest pain, likely elevated in setting of LICHA
- continue to trend
Left Foot Wound
- recently completed coarse of Zyvox
- consult Wound Care
CVA with Left Hemiparesis
- continue Eliquis
Paroxysmal Atrial Fibrillation
- continue Eliquis
- continue Coreg
Coronary Artery Disease s/p Stent
- stable
Essential Hypertension
- continue Coreg and Hydralazine
Hyperlipidemia
- continue Crestor
Anemia of Chronic Disease
- hb at baseline
Asthma, no acute exacerbation
- continue fluticasone/salmeterol
- continue montelukast
DVT ppx: Eliquis
Code: Full
[2023-09-12] MEDS: LIDOCAINE 4% PATCH 1 PATCH TOPICAL (14:25)
[2023-09-12] MEDS: NSS 1000 IV (14:29)
[2023-09-12] MEDS: ROXICODONE 5 MG PO ×2 (15:26→22:07)
[2023-09-12] MEDS: TYLENOL 1000 MG PO ×2 (15:27→22:07)
--- NOTE | 2023-09-12 15:45 | PTCARENOTE ---
Patient received from ER awake and alert . Had prior fall on Sunday of last week, suffered broken ribs on the left side , has large bruise around left hip left rib area. Cold sore on lower lip scabbed over, clean , no drainage. stated she
had been applying chapstick. Pt oriented to room and call kathleen. States he has no swallowing issues but does have esophageal spasms . Is on regular diet at home without difficulty. Scattered bruises to arms and legs. wound on left foot second
day being looked at by wound care nurse at present.
--- NOTE | 2023-09-12 16:17 | WOUNDNOTE ---
L 2ND TOE (DORSAL)
--- NOTE | 2023-09-12 16:18 | WOUNDNOTE ---
L PLANTAR TOES TIPS
--- NOTE | 2023-09-12 16:20 | WOUNDNOTE ---
[facility] RN note: Patient admitted with LICHA, poor po, mechanical fall on 09/07/23 with 2 rib fractures on L. He lives with his and is current with VN. Patient eating a late lunch during visit. He declined being turned for skin assessment during this
telegraphic typewriter operator's visit.
See H&P for complete history.
PMH: CVA with L hemiparesis, a fib (Eliquis), CAD, NE, CKD4, anxiety/depression, L 2nd toe MRSA infection, wound which was treated with Zyvox, asthma, BPH, esophageal rings, wears compression stockings, CAD with stent, former smoker.
Wound Location and type/assessment: Patient admitted with: partial thickness dorsal L 2nd toe wound suspect r/t trauma originally. Patient stated it was from this toenail. Wound pink with moderate ss drainage. Skin on heels intact. Trace Le edema.
+Palpable pedal pulses (L>R). Unable to assess sacral/buttocks d/t patient refused to be turned during this time. Patient stated he has pain from the L rib fractures and he hasn't been turning. He was able to lift buttocks some in the bed.
Appetite: Good.
Pressure redistribution devices in place: Advanta with Accumax. Pillow off loading heels. HUBER Mancera to coordinate applying waffle air overlay or switching bed to an air bed.
Plan: L 2nd toe dressing changed. Bed footboard padded with air chair cushion to prevent feet from pressing on foot board. HUBER Mancera confirmed current wound care with patient's who is not currently with patient. Patient is followed by
[facility] for his toe wound. Spoke with [facility] Pham and updated HUBER Mancera requesting they turn patient later after eating to assess sacral skin and either apply a waffle air overlay or switch bed to an air bed (i.e. Versacare air or Centrella Max air).
Will confirm orders with Dr. Montero.
Care plan to be updated and will follow as needed. Patient to follow up with Dr. Lott.
--- NOTE | 2023-09-12 17:43 | PTCARENOTE ---
Static overlay mattress applied to bed, patient repositioned , was able to turn with assist
[2023-09-12] MEDS: ADVAIR HFA 230/21 MCG INHALER 2 PUFF INH (20:10)
[2023-09-12] MEDS: ELIQUIS 2.5 MG PO (21:00)
[2023-09-12] MEDS: COREG 12.5 MG PO (21:00)
[2023-09-12] MEDS: APRESOLINE 25 MG PO (21:00)
[2023-09-12] MEDS: CRESTOR 40 MG PO (22:07)
[2023-09-12 23:38] LABS: Troponin I 0.041 ng/ml
[2023-09-13] VITALS: BP 119/66
[2023-09-13] MEDS: NSS 1000 IV (04:47)
[2023-09-13 06:47] LABS: Hemoglobin 9.5 g/dL (13.0-18.0); Mean Corp Hgb Conc. 33.9 g/dL (33.0-37.0); Mean Corpuscular Hgb 30.4 pg (27.0-31.0); Mean Corpuscular Volume 89.5 fL (80.0-94.0); Mean Platelet Volume 9.8 fL (7.4-10.4); Platelet Count 152 10^3/uL (130-400); Red Blood Cell Count 3.13 10^6/uL (4.70-6.10); Red Cell Dist. Width 15.6 % (11.5-14.5); White Blood Cell Count 8.7 10^3/uL (4.8-10.8)
[2023-09-13 07:16] LABS: Blood Urea Nitrogen 75 mg/dl (9-20); Calcium 8.8 mg/dl (8.4-10.2); Carbon Dioxide 20 mmol/L (22-30); Chloride 113 mmol/L (98-107); Estimated Creatinine Clearance 19 ml/min; Glucose 100 mg/dl (70-99); Magnesium 2.5 mg/dl (1.6-2.3); Potassium 4.4 mmol/L (3.5-5.1); Sodium 140 mmol/L (135-145); Troponin I 0.041 ng/ml; eGFR 18.05
[2023-09-13 07:30] VITALS: BP 137/69
[2023-09-13] MEDS: BACTROBAN 2% OINTMENT 1 APPLIC TOPICAL (07:49)
[2023-09-13] MEDS: VITAMIN D3 (cholecalciferol) 25 MCG PO (07:50)
[2023-09-13] MEDS: DAKIN'S SOLUTION 0.125% 1/4 STRENGTH 1 ML TOPICAL (07:50)
[2023-09-13] MEDS: TYLENOL 1000 MG PO ×3 (07:50→21:11)
[2023-09-13] MEDS: FEOSOL 325 MG PO (07:50)
[2023-09-13] MEDS: VITAMIN B-12 1000 MCG PO (07:51)
[2023-09-13] MEDS: APRESOLINE 25 MG PO ×2 (07:51→20:10)
[2023-09-13] MEDS: COREG 12.5 MG PO ×2 (07:51→20:10)
[2023-09-13] MEDS: ELIQUIS 2.5 MG PO ×2 (07:51→20:10)
[2023-09-13] MEDS: ROXICODONE 5 MG PO ×2 (07:51→13:58)
[2023-09-13] MEDS: LIDOCAINE 4% PATCH 1 PATCH TOPICAL (08:00)
[2023-09-13] MEDS: ADVAIR HFA 230/21 MCG INHALER 2 PUFF INH ×2 (08:33→19:50)
[2023-09-13 09:17] VITALS: BP 131/77; PULSE 87
[2023-09-13 09:19] VITALS: BP 131/77; PULSE 87
--- NOTE | 2023-09-13 09:57 | W.PN.HOSP.TC ---
Today's Communication/Plan
-
continue IVF
monitor labs
Assessment / Plan
Assessment / Plan
Assessment:
Acute Kidney Injury on CKD IV
metabolic acidosis
- hold Lasix and Spironolactone
- continue IVF with bicarbonate
- repeat daily labs
Left Rib Fractures
- continue Lidocaine Patch
- continue Tylenol 1000mg TID + prn
- continue oxycodone prn
- encourage use of incentive spirometer
Intermittent Gross Hematuria
- continue to monitor for recurrent episodes
- UA unremarkable
- monitor Hgb
- will continue Eliquis as Hgb is stable
Depression
- patient expresses feelings of depression
- offered anti-depressant medication which he declined
Oral Herpes
- contact precautions
- no role for antivirals as lesions are crusted and onset was 3 days ago
abnormal Elevated Troponin - likely elevated in setting of LICHA
- peaked at 0.050; no chest pain
Left Foot Wound
- recently completed coarse of Zyvox
- consult Wound Care
CVA with Left Hemiparesis
- continue Eliquis
Paroxysmal Atrial Fibrillation
- continue Eliquis
- continue Coreg
Coronary Artery Disease s/p Stent
- stable
Essential Hypertension
- continue Coreg and Hydralazine
Hyperlipidemia
- continue Crestor
Anemia of Chronic Disease
- hb at baseline
Asthma, no acute exacerbation
- continue fluticasone/salmeterol
- continue montelukast
History of esophageal spasms
- never followed up with Motility specialist as recommended
- encourage smaller bites
DVT ppx: Eliquis
Code: Full
Anticipated Discharge: > 48 hours
Subjective/Interval History
-
Date of Service: September 13, 2023
reports vomiting from known esophageal spasms
Objective Data
-
Labs:
Laboratory Results
09/13/23
06:31
WBC 8.7
Hgb 9.5 L
Hct 28.0 L
Plt Count 152
Sodium 140
Potassium 4.4
Chloride 113 H
Carbon Dioxide 20 L
BUN 75 H
Creatinine 3.3 H
Glucose 100 H
Calcium 8.8
Vital Signs:
Vital Signs
Temp Pulse Resp BP Pulse Ox
97.6 F 80 19 137/69 95
09/13/23 07:30 09/13/23 08:37 09/13/23 08:37 09/13/23 07:30 09/13/23 08:37
I&O
09/12/23 09/13/23 09/14/23
06:59 06:59 06:59
Intake Total 1530 / 1530
Output Total 725 / 725
Balance 805 / 805
Physical Exam
-
General: No Apparent Distress
HEENT: Normocephalic, Atraumatic and Other (Multiple crusted lesions on lower lip consistent with herpes)
Respiratory: Negative Wheezes
Cardiac: Regular Rhythm and S1/S2
GI: Soft
Musculoskeletal: No Edema
Neuro: AO x 3 and Other (Chronic Left Hemiparesis)
Psych: Calm
Data Reviewed
-
Total Time Spent with Patient (in minutes): 44
Labs: Labs Reviewed by me
[2023-09-13] MEDS: SODIUM BICARBONATE 1150 MEQ IV (11:19)
--- NOTE | 2023-09-13 13:28 | CM ---
Addendum entered by Lily Gates 09/13/23 15:36:
Patient's spouse is looking at skilled placement for patient, referrals sent to [facility] and [facility].
Original Note:
market sales manager reviewed patient's chart and met with patent and patient states he lives in independent living is independent with adl's and uses a cane or electric scooter with ambulation.
PCP: Dr. Reyes
Pharmacy: [facility]
Plan; Patient would benefit from PT/OT evaluations and recommendations to assist with discharge plan for patient.
[2023-09-13 15:08] VITALS: BP 130/70
--- NOTE | 2023-09-13 15:30 | WOUNDNOTE ---
[facility] RN note: Patient's sacral/buttocks blanchable red with MASD coccyx crease. Miconazole powder applied. Patient turned to R semi side lying position with help from HUBER Mancera. Heels off bed with pillow. Patient needs to be encouraged to turn
because of his rib fracture pain prevents patient from wanting to turn. He finds comfort with his head elevated. Instructed patient importance of repositioning to prevention a pressure injury. Air chair cushion placed at foot board to pad feet.
Confirmed can use Vashe wound cleanser instead of Dakin's for patient's wound care. HUBER Mancera had mentioned patient c/o of burning during the Dakin's soak. Updated patient's who was present. Patient will follow up with Dr. Lott for his L toe
wound. Will follow as needed.
[2023-09-13] MEDS: CRESTOR 40 MG PO (21:11)
[2023-09-13 23:20] VITALS: BP 152/85
[2023-09-14] MEDS: SODIUM BICARBONATE 1150 MEQ IV (03:32)
[2023-09-14 08:00] VITALS: BP 130/73
[2023-09-14] MEDS: ADVAIR HFA 230/21 MCG INHALER 2 PUFF INH ×2 (08:31→20:45)
[2023-09-14 08:55] LABS: Hemoglobin 10.3 g/dL (13.0-18.0); Mean Corp Hgb Conc. 33.2 g/dL (33.0-37.0); Mean Corpuscular Volume 90.4 fL (80.0-94.0); Mean Platelet Volume 10.1 fL (7.4-10.4); Platelet Count 155 10^3/uL (130-400); Red Blood Cell Count 3.43 10^6/uL (4.70-6.10); Red Cell Dist. Width 15.4 % (11.5-14.5); White Blood Cell Count 10.6 10^3/uL (4.8-10.8)
[2023-09-14 09:42] LABS: ALT (SGPT) 62 U/L (0-50); AST (SGOT) 41 U/L (17-59); Albumin 3.4 g/dl (3.5-5.0); Alkaline Phosphatase 74 U/L (38-126); Blood Urea Nitrogen 68 mg/dl (9-20); Calcium 9.1 mg/dl (8.4-10.2); Carbon Dioxide 27 mmol/L (22-30); Chloride 108 mmol/L (98-107); Estimated Creatinine Clearance 22 ml/min; Glucose 95 mg/dl (70-99); Potassium 3.9 mmol/L (3.5-5.1); Sodium 143 mmol/L (135-145); Total Bilirubin 0.6 mg/dl (0.2-1.3); Total Protein 5.7 g/dl (6.3-8.2); eGFR 21.07
[2023-09-14] MEDS: APRESOLINE 25 MG PO ×2 (10:00→20:10)
[2023-09-14] MEDS: VITAMIN B-12 PO (10:03)
[2023-09-14] MEDS: VITAMIN D3 (cholecalciferol) PO (10:03)
[2023-09-14] MEDS: FEOSOL PO (10:08)
[2023-09-14] MEDS: DAKIN'S SOLUTION 0.125% 1/4 STRENGTH 473 ML TOPICAL (10:12)
[2023-09-14] MEDS: ELIQUIS 2.5 MG PO ×2 (10:13→20:10)
[2023-09-14] MEDS: LIDOCAINE 4% PATCH 1 PATCH TOPICAL (10:13)
[2023-09-14] MEDS: TYLENOL PO ×2 (10:15→17:25)
[2023-09-14] MEDS: COREG 12.5 MG PO ×2 (10:25→20:10)
--- NOTE | 2023-09-14 10:33 | CM ---
CM following: re: discharge planning.
Reviewed pt's chart, met with pt and pt's spouse at bedside.
PT and OT recommend SNF level of care. Both pt and his spouse are aware and they are aware of awaiting determination from preferred SNFs: [facility], [facility].
D/C plan: preferred SNF.
CM will follow to assist pt with discharge to a preferred SNF.
--- NOTE | 2023-09-14 11:11 | W.PN.HOSP.TC ---
Today's Communication/Plan
-
speech eval to assess for dietary modification to help prevent reflux in setting of esophageal spasms
prn Levsin for secretion control
finish current IVF bag
DC planning to SNF
Assessment / Plan
Assessment / Plan
Assessment:
Acute Kidney Injury on CKD IV
metabolic acidosis
- hold Lasix and Spironolactone
- continue IVF with bicarbonate; Cr 2.9 today (baseline 2.5)
- repeat daily labs
Left Rib Fractures
- continue Lidocaine Patch
- continue Tylenol 1000mg TID + prn
- continue oxycodone prn
- encourage use of incentive spirometer
Intermittent Gross Hematuria
- continue to monitor for recurrent episodes
- UA unremarkable
- monitor Hgb
- will continue Eliquis as Hgb is stable
Depression
- patient expresses feelings of depression
- offered anti-depressant medication which he declined
Oral Herpes
- contact precautions
- no role for antivirals as lesions are crusted and onset was 3 days ago
abnormal Elevated Troponin - likely elevated in setting of LICHA
- peaked at 0.050; no chest pain
Left Foot Wound
- recently completed coarse of Zyvox
- consult Wound Care
CVA with Left Hemiparesis
- continue Eliquis
Paroxysmal Atrial Fibrillation
- continue Eliquis
- continue Coreg
Coronary Artery Disease s/p Stent
- stable
Essential Hypertension
- continue Coreg and Hydralazine
Hyperlipidemia
- continue Crestor
Anemia of Chronic Disease
- hb at baseline
Asthma, no acute exacerbation
- continue fluticasone/salmeterol
- continue montelukast
History of esophageal spasms
- never followed up with Motility specialist as recommended; GI at had referred
- encourage smaller bites
- encouraged to space pills 20 minutes apart
- speech eval for dietary modification
- prn Levsin for secretion control
DVT ppx: Eliquis
Code: Full
Anticipated Discharge: > 48 hours
Subjective/Interval History
-
Date of Service: September 14, 2023
denies any new complaints
Objective Data
-
Labs:
Laboratory Results
09/14/23
07:21
WBC 10.6
Hgb 10.3 L
Hct 31.0 L
Plt Count 155
Sodium 143
Potassium 3.9
Chloride 108 H
Carbon Dioxide 27
BUN 68 H
Creatinine 2.9 H
Glucose 95
Calcium 9.1
Total Bilirubin 0.6
AST 41
ALT 62 H
Alkaline Phosphatase 74
Vital Signs:
Vital Signs
Temp Pulse Resp BP Pulse Ox
97.5 F 89 16 130/73 99
09/14/23 08:00 09/14/23 08:40 09/14/23 08:40 09/14/23 08:00 09/14/23 08:40
I&O
09/13/23 09/14/23 09/15/23
06:59 06:59 06:59
Intake Total 1530 / 1530 1820 / 1820 480 / 480
Output Total 725 / 725 750 / 750 650 / 650
Balance 805 / 805 1070 / 1070 -170 / -170
Physical Exam
-
General: No Apparent Distress
HEENT: Normocephalic and Atraumatic
Respiratory: Negative Wheezes
Cardiac: Regular Rhythm and S1/S2
GI: Soft
Genito-urinary: No Costovertebral Tender
Neuro: AO x 3
Hematologic / Lymphatic: No Lymphadenopathy
Psych: Calm
Data Reviewed
-
Total Time Spent with Patient (in minutes): 42
Labs: Labs Reviewed by me
--- NOTE | 2023-09-14 12:51 | WOUNDNOTE ---
[facility] RN note: nestor martínezed Instructor Decorating Edmond Malone re: air mattress recommended at SNF; patient doesn't turn well and is at risk for pressure injury.
[2023-09-14] MEDS: LEVSIN 0.125 MG PO (12:58)
--- NOTE | 2023-09-14 14:19 | PTOTSP ---
SPEECH THERAPY SWALLOW EVALUATION:
Patient exhibits signs concerning for oropharyngeal dysphagia (including history of coughing/choking per , though no overt signs of aspiration observed at this time), and signs suspicious for primary esophageal dysphagia. Patient remains at risk
for aspiration given history of coughing, as well as at high risk for post-prandial aspiration given consistent and frequent regurgitation following solid textures. Recommend GI consult to further assess esophageal dysphagia; Pt/ reported that
GI has recommended surgery though pt does not want this given age. Recommend once cleared by GI to tolerate oral diet, to further assess swallow physiology with Videofluoroscopic Swallowing Study. Given stable respiratory and pulmonary status at
this time, along with chronicity of dysphagia, patient appears safe to continue Regular texture diet and thin liquids with strict aspiration and reflux precautions in place prior to VSE. Medications whole in puree. Aspiration/Reflux precautions
including: Upright positioning (OOB in chair preferred); Remain upright 1 hour after eating/drinking; Overchew foods; alternate textures/intersperse liquids; small frequent meals; take breaks during meals; slow rate; small single sips/bites.
Extensive education provided to patient/ regarding aspiration and reflux precautions. Handout provided with Reflux precautions listed. All questions answered. Recommend close monitoring of patient for any signs concerning for aspiration
(elevated temperature, elevated WBC, concerning CXR); D/c oral diet if any signs or symptoms of aspiration arise or pt experiences a decline in mental or respiratory status. Speech therapy to follow, assess diet tolerance and modify as appropriate,
provide further recommendations following VSE, and provide continued education to patient/caregiver regarding aspiration/reflux precautions.
RECOMMEND:
1) GI consult to further assess esophageal dysphagia
2) VSE once cleared by GI for oral diet
3) continue Regular texture diet and thin liquids with strict aspiration and reflux precautions in place prior to VSE
4) Medications whole in puree
5) Aspiration/Reflux precautions: Upright positioning (OOB in chair preferred); Remain upright 1 hour after eating/drinking; Overchew foods; alternate textures/intersperse liquids; small frequent meals; take breaks during meals; slow rate; small
single sips/bites.
6) close monitoring of patient for any signs concerning for aspiration (elevated temperature, elevated WBC, concerning CXR); D/c oral diet if any signs or symptoms of aspiration arise or pt experiences a decline in mental or respiratory status
7) Speech therapy to follow
--- NOTE | 2023-09-14 14:59 | CON.GI ---
Addendum entered and electronically signed by Dakota Randolph MD 09/14/23 18:27:
I saw and evaluated the patient. I reviewed the resident�s note and agree with findings and plan as documented in the resident�s note.
83yo male presents with foot wound and evaluation has included work up of his chronic dysphagia symptoms. He has hx CVA with L hemiparesis. He has difficulty eating primarily his breakfast and will sometimes spit up food that does not pass easily.
He had outpt GI work up with Dr Osman last fall. Esophagram showed severe tertiary contractions and LES spasms. EGD showed esophageal spasms, tertiary peristalsis, white plaques bx negative hector, small hiatal hernia, dilation was performed with
20mm balloon. 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 He was recommended to follow up at [facility] for Endoflip for further diagnosis, but pt
declined. Speech has seen patient and recommended GI eval prior to VSE
REC:
I suspect his symptoms are predominantly due to his esophageal motility disorder and LES spasm
VSE can still be done to exclude other pathology, particularly given his history of CVA. OK to proceed
I recommended f/u with Dr Osman as outpt to re-discuss his esophageal dysmotility, and whether or not he would be willing to undergo further evaluation and treatment
Original Note:
Consultation
-
Date/Time Consultation Performed: 09/14/23
Reason for Consultation: esophageal dysphagia
Medical History
Chief Complaint / HPI
Chief Complaint: regurgitation, difficulty swallowing
History of Present Illness:
83 year old male with past medical history of esophageal dysphagia/spasms, LICHA/CKD IV, depression, CVA with L hemiparesis, afib on eliquis who presented to ED from [facility] on 09/11 for weakness, poor appetite, and several other concerns
including +MRSA wound of L foot, recent mechanical fall on 09/06 causing fracture of 2 ribs, lower lip scab, blood at tip of penis. In terms of his GI complaints, he reports difficulty eating due to regurgitating nondigested food, especially with
breakfast which is usually cereal and yogurt. He has an easier time swallowing lunch and dinner with much less regurgitation. He was seen in the GI office for these complaints, and had an esophogram 11/2022 and esophageal manometry 01/2023, which
showed EGJ outflow obstruction and spastic dysmotility, though did not quite meet achalasia criteria. At that time, Dr. Osman recommended he schedule appointment at [facility] for a more specialized EGD (endoflip), which the patient declined. He
denies abdominal pain, nausea, vomiting of digested food, diarrhea, constipation, black/bloody stools, weight loss. During this hospitalization, GI was consulted for new concerns regarding coughing/choking while eating.
Past Medical History
Past Medical History: Arrhythmias (paroxysmal atrial fibrillation), Asthma, CAD (s/p stent), CVA (with L hemiparesis), GERD, HTN, Psychiatric (depression) and Other (esophageal dysphasia, h/o schatzkis ring s/p dilation 2013, hyperlipidemia, anemia
of chronic disease, BPH, KLAUS)
Past Surgical History: Cardiac (stent, ablation) and Orthopedic (bilateral knee replacement, rotator cuff)
Social History
Tobacco: Former Smoker
Alcohol: None
Drug: None
Personal:
Living: With Family
Family History
Family History: CAD (father)
Allergies / Home Medications
Allergy/AdvReac Type Severity Reaction Status Date / Time
cat dander Allergy Swelling Verified 09/12/23 08:56
lisinopril Allergy Unknown Verified 09/12/23 08:56
losartan Allergy lip Verified 09/12/23 08:56
swelling
lovastatin Allergy myalgias Verified 09/12/23 08:56
mirabegron [From Myrbetriq] Allergy lips Verified 09/12/23 09:30
swellling
tamsulosin HCl [From Flomax] Allergy facial Verified 09/12/23 08:56
itching,dizziness
venom-honey bee Allergy Anaphylaxis Verified 09/12/23 08:56
[bee venom (honey bee)]
�Medication �Instructions �Recorded
carvedilol 12.5 mg tablet 12.5 mg PO BID #180 tabs 07/19/21
cyanocobalamin (vitamin B-12) 1,000 mcg PO DAILY #90 tabs 07/19/21
1,000 mcg tablet
montelukast 10 mg tablet 10 mg PO DAILY #90 tabs 07/19/21
furosemide 20 mg tablet (Lasix) 20 mg PO DAILY Fluid 07/09/22
retention/Swelling
acetaminophen 500 mg tablet 1,000 mg PO TIDPRN PRN mild pain 08/31/23
(Tylenol Extra Strength)
apixaban 2.5 mg tablet (Eliquis) 2.5 mg PO BID Blood Clot 08/31/23
Prevention/Tx
cholecalciferol (vitamin D3) 25 25 mcg PO DAILY Supplement 08/31/23
mcg (1,000 unit) tablet
ferrous sulfate 325 mg (65 mg 325 mg PO DAILY Supplement 08/31/23
iron) tablet (iron)
fluticasone 500 mcg-salmeterol 50 1 inh inhalation R BID 08/31/23
mcg/dose blistr powdr for Lung/Breathing Issues
inhalation
hydralazine 25 mg tablet 25 mg PO BID Blood Pressure 08/31/23
rosuvastatin 40 mg tablet 40 mg PO HS High Cholesterol 08/31/23
spironolactone 25 mg tablet 25 mg PO DAILY Fluid 08/31/23
Retention/Swelling
therapeutic multivitamin 1 tab PO DAILY Supplement 08/31/23
vibegron 75 mg tablet (Gemtesa) 75 mg PO HS OVERACTIVE BLADDER 08/31/23
albuterol sulfate 90 mcg/actuation 2 puff inhalation R QIDPRN PRN sob 09/12/23
aerosol inhaler
cetirizine 10 mg tablet (Zyrtec) 10 mg PO DAILYPRN PRN allergies 09/12/23
Review of Systems
-
All other systems: A 12 pt ROS was Negative except as stated above in HPI
Vital Signs
Temp Pulse Resp BP Pulse Ox
97.5 F 89 16 130/73 99
09/14/23 08:00 09/14/23 08:40 09/14/23 08:40 09/14/23 08:00 09/14/23 08:40
Physical Exam
Exam
General: Resting comfortably in bed, no acute distress.
Heart/lungs: Nonlabored breathing.
Results
WBC 10.6 10^3/uL (4.8-10.8) 09/14/23 07:21
Hgb 10.3 g/dL (13.0-18.0) L 09/14/23 07:21
Hct 31.0 % (39.0-52.0) L 09/14/23 07:21
MCV 90.4 fL (80.0-94.0) 09/14/23 07:21
Plt Count 155 10^3/uL (130-400) 09/14/23 07:21
Absolute Neuts (auto) 8.3 10^3/uL (1.4-6.5) H 09/12/23 09:44
Sodium 143 mmol/L (135-145) 09/14/23 07:21
Potassium 3.9 mmol/L (3.5-5.1) 09/14/23 07:21
Chloride 108 mmol/L (98-107) H 09/14/23 07:21
Carbon Dioxide 27 mmol/L (22-30) 09/14/23 07:21
BUN 68 mg/dl (9-20) H 09/14/23 07:21
Creatinine 2.9 mg/dL (0.7-1.3) H 09/14/23 07:21
Calcium 9.1 mg/dl (8.4-10.2) 09/14/23 07:21
Total Bilirubin 0.6 mg/dl (0.2-1.3) 09/14/23 07:21
AST 41 U/L (17-59) 09/14/23 07:21
ALT 62 U/L (0-50) H 09/14/23 07:21
Alkaline Phosphatase 74 U/L (38-126) 09/14/23 07:21
Diagnostic Image Results:
01/2023- Esophageal manometry for dysphagia - spastic on esophagram. EGJ outflow obstruction in both supine and upright positions with severe LES spasm after swallows. Probable hiatal hernia. Prolonged spastic esophageal contractions in the
distal esophagus. High UES basal and relaxation pressure, normal MRSR. On impedance manometry there was bolus hanging up in the mid esophagus above the spastic portion of the esophagus. Does not quite meet achalasia criteria. The DCI is normal.
11/2022- with barium pill No evidence of stricture, web, neoplasm, diverticulum, ulceration or inflammatory change in the thoracic esophagus with extensive tertiary contractions in the entire esophagus with delayed esophageal emptying. The lower
esophageal sphincter distended minimally but reopened more likely related to spasm. Significant delay in passage of the barium pill and after several minutes it did pass through. Proceed to endoscopy with likely dilation
Prior GI Procedures:
EGD:
2013 ([facility])- low grade Schatzkis ring dilated with an 18 mm savory
Colonoscopy:
2016 ([facility])- diverticula, otherwise normal
Assessment / Plan
-
83 year old male with history of esophageal dysphagia/spasms, CVA with L hemiparesis, CKD, afib on eliquis who presented to ED from [facility] on 09/11 for several concerns including weakness, poor appetite, +MRSA wound of L foot, and was
admitted for LICHA. GI was consulted for new concerns regarding coughing/choking while eating.
Impression:
Dysphagia
- Known esophageal dysmotility component of dysphagia based on outpatient testing with Dr. Osman ; at that time, patient declined further workup at [facility]
- Has been on PO diet prior to admission
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
Metabolic acidosis
L rib fractures
Intermittent gross hematuria
Depression
Oral herpes
+MRSA L foot wound
Afib on eliquis
Htn
Hyperlipidemia
Anemia of chronic disease
Asthma
Recommendations:
- As patient has been been overall tolerating PO diet, VSE is reasonably low risk and may help guide diet recommendations
- Continue PO diet as tolerated
- If patient would appreciate additional workup of esophageal dysmotility, recommend scheduling appointment at [facility]
-
-
Thank you for consultation and allowing me to participate in the patient's care. Please call the macroeconomics professor GI physician during the after hours with any questions or concerns.
[2023-09-14 15:35] VITALS: BP 118/80
--- NOTE | 2023-09-14 15:58 | PN.CDI ---
CDI
- -
CDI:
Physician Documentation Request
Admit Date: 09/12/23 13:47
Dear Doctor Kylah,
Please review the following and provide your response in the progress notes.
Clinical Indicators:
Pt. admitted with acute kidney injury and metabolic acidosis.
09/13 PN: 'abnormal Elevated Troponin - likely elevated in setting of LICHA'
Laboratory Tests
09/12/23 09/12/23 09/13/23
09:44 23:02 06:31
Troponin I 0.050 H* 0.041 H* 0.041 H*
Based on the above and your assessment, could you clarify in the progress notes, the appropriate diagnosis, if significant, that supports the above abnormalities and additional evaluation, monitoring and/or treatment rendered:
non-ischemic myocardial injury
insignificant abnormal lab value
Other
Use of terms such as suspected, likely, concern for, or probable (associated with a specific diagnosis that is being evaluated, monitored, or treated as if it exists) are acceptable and can be coded in the inpatient setting, when documented at the
time of discharge.
Thank you,
Namrata Milian RN, BSN
CDI Specialist
Available via M[employer] Text
Please use your independent medical judgment in providing your response.
[2023-09-14] MEDS: NSS 1000 IV (20:07)
[2023-09-14] MEDS: BACTROBAN 2% OINTMENT TOPICAL (20:43)
[2023-09-14] MEDS: TYLENOL 1000 MG PO (22:09)
[2023-09-14] MEDS: CRESTOR 40 MG PO (22:09)
[2023-09-14 23:00] VITALS: BP 125/64
[2023-09-15] MEDS: ADVAIR HFA 230/21 MCG INHALER 2 PUFF INH ×2 (07:31→19:59)
[2023-09-15 08:20] VITALS: BP 150/84
[2023-09-15] MEDS: COREG 12.5 MG PO ×2 (08:52→21:07)
[2023-09-15] MEDS: DAKIN'S SOLUTION 0.125% 1/4 STRENGTH 473 ML TOPICAL (08:52)
[2023-09-15] MEDS: BACTROBAN 2% OINTMENT 1 APPLIC TOPICAL (08:52)
[2023-09-15] MEDS: LIDOCAINE 4% PATCH 1 PATCH TOPICAL (08:53)
[2023-09-15] MEDS: APRESOLINE 25 MG PO ×2 (08:53→21:07)
[2023-09-15] MEDS: TYLENOL PO ×2 (08:54→14:44)
[2023-09-15] MEDS: LEVSIN 0.125 MG PO ×2 (08:55→14:47)
[2023-09-15] MEDS: ELIQUIS 2.5 MG PO ×2 (08:55→21:07)
[2023-09-15 09:13] LABS: Hematocrit 29.8 % (39.0-52.0); Hemoglobin 9.9 g/dL (13.0-18.0); Mean Corp Hgb Conc. 33.2 g/dL (33.0-37.0); Mean Corpuscular Hgb 30.1 pg (27.0-31.0); Mean Corpuscular Volume 90.6 fL (80.0-94.0); Mean Platelet Volume 10.4 fL (7.4-10.4); Platelet Count 161 10^3/uL (130-400); Red Blood Cell Count 3.29 10^6/uL (4.70-6.10); Red Cell Dist. Width 15.5 % (11.5-14.5); White Blood Cell Count 8.8 10^3/uL (4.8-10.8)
--- NOTE | 2023-09-15 09:31 | W.PN.HOSP.TC ---
Today's Communication/Plan
-
VSE Sunday
cap IVF later today
Assessment / Plan
Assessment / Plan
Assessment:
Acute Kidney Injury on CKD IV
metabolic acidosis
- hold Lasix and Spironolactone
- continue IVF with bicarbonate; Cr 2.9 yesterday (baseline 2.5)
- repeat daily labs
Left Rib Fractures
- continue Lidocaine Patch
- continue Tylenol 1000mg TID + prn
- continue oxycodone prn
- encourage use of incentive spirometer
Intermittent Gross Hematuria
- continue to monitor for recurrent episodes
- UA unremarkable
- monitor Hgb
- will continue Eliquis as Hgb is stable
Depression
- patient expresses feelings of depression
- offered anti-depressant medication which he declined
Oral Herpes
- contact precautions
- no role for antivirals as lesions are crusted and onset was 3 days [employer]
abnormal Elevated Troponin - likely elevated in setting of LICHA
insignificant abnormal lab value
- peaked at 0.050; no chest pain
Left Foot Wound
- recently completed coarse of Zyvox
- consult Wound Care
CVA with Left Hemiparesis
- continue Eliquis
Paroxysmal Atrial Fibrillation
- continue Eliquis
- continue Coreg
Coronary Artery Disease s/p Stent
- stable
Essential Hypertension
- continue Coreg and Hydralazine
Hyperlipidemia
- continue Crestor
Anemia of Chronic Disease
- hb at baseline
Asthma, no acute exacerbation
- continue fluticasone/salmeterol
- continue montelukast
History of esophageal spasms
- never followed up with Motility specialist as recommended; GI at had referred. GI consulted and recommended OP eval for Endoflip at [place]
- encourage smaller bites
- encouraged to space pills 20 minutes apart at least, and we timed vitamins for noon time to help
- speech eval for dietary modification; VSE Sunday
- prn Levsin for secretion control
DVT ppx: Eliquis
Code: Full
Anticipated Discharge: > 48 hours
Subjective/Interval History
-
Date of Service: September 15, 2023
no new complaints at present
Objective Data
-
Labs:
Laboratory Results
09/15/23
07:02
WBC 8.8
Hgb 9.9 L
Hct 29.8 L
Plt Count 161
Sodium Pending
Potassium Pending
Chloride Pending
Carbon Dioxide Pending
BUN Pending
Creatinine Pending
Glucose Pending
Calcium Pending
Total Bilirubin Pending
AST Pending
ALT Pending
Alkaline Phosphatase Pending
Vital Signs:
Vital Signs
Temp Pulse Resp BP Pulse Ox
98.3 F 79 18 150/84 95
09/15/23 08:20 09/15/23 08:20 09/15/23 08:20 09/15/23 08:20 09/15/23 08:20
I&O
09/14/23 09/15/23 09/16/23
06:59 06:59 06:59
Intake Total 1820 / 1820 1200 / 1200
Output Total 750 / 750 1200 / 1200
Balance 1070 / 1070 0 / 0
Physical Exam
-
General: No Apparent Distress
HEENT: Normocephalic and Atraumatic
Respiratory: Negative Wheezes
Cardiac: Regular Rhythm and S1/S2
GI: Soft and Nontender
Genito-urinary: No Costovertebral Tender
Musculoskeletal: No Edema
Neuro: AO x 3
Hematologic / Lymphatic: No Lymphadenopathy
Psych: Calm
Data Reviewed
-
Total Time Spent with Patient (in minutes): 45
Labs: Labs Reviewed by me
[2023-09-15 09:52] LABS: ALT (SGPT) 57 U/L (0-50); AST (SGOT) 40 U/L (17-59); Albumin 3.2 g/dl (3.5-5.0); Alkaline Phosphatase 70 U/L (38-126); Blood Urea Nitrogen 59 mg/dl (9-20); Calcium 8.7 mg/dl (8.4-10.2); Carbon Dioxide 29 mmol/L (22-30); Chloride 107 mmol/L (98-107); Estimated Creatinine Clearance 24 ml/min; Glucose 82 mg/dl (70-99); Potassium 3.8 mmol/L (3.5-5.1); Sodium 142 mmol/L (135-145); Total Bilirubin 0.5 mg/dl (0.2-1.3); Total Protein 5.4 g/dl (6.3-8.2); eGFR 24.02
--- NOTE | 2023-09-15 11:21 | CM ---
sawmill manager reviewed patient's chart and patient was accepted at [facility], field nurse case manager spoke with patient's spouse and she plans on touring facility.
Plan; Skilled placement when stable.
[2023-09-15] MEDS: FEOSOL PO (11:29)
[2023-09-15] MEDS: VITAMIN B-12 PO (11:30)
[2023-09-15] MEDS: VITAMIN D3 (cholecalciferol) PO (11:31)
[2023-09-15] MEDS: FEOSOL 325 MG PO (14:45)
[2023-09-15] MEDS: VITAMIN B-12 1000 MCG PO (14:45)
[2023-09-15] MEDS: SENOKOT-S 1 TABLET PO ×2 (14:45→21:07)
[2023-09-15] MEDS: VITAMIN D3 (cholecalciferol) 25 MCG PO (14:46)
[2023-09-15 16:00] VITALS: BP 125/62
[2023-09-15] MEDS: CRESTOR 40 MG PO (21:07)
[2023-09-15] MEDS: TYLENOL 1000 MG PO (21:08)
[2023-09-15 23:00] VITALS: BP 118/62
[2023-09-15 23:26] VITALS: BP 118/62
[2023-09-16 06:00] VITALS: BMI 31.4
[2023-09-16] MEDS: ADVAIR HFA 230/21 MCG INHALER 2 PUFF INH ×2 (07:35→20:20)
[2023-09-16 08:08] VITALS: BP 155/64
[2023-09-16] MEDS: COREG 12.5 MG PO ×2 (08:10→21:28)
[2023-09-16] MEDS: TYLENOL 1000 MG PO ×3 (08:10→23:24)
[2023-09-16] MEDS: SENOKOT-S 1 TABLET PO ×2 (08:10→21:25)
[2023-09-16] MEDS: ELIQUIS 2.5 MG PO ×2 (08:11→21:26)
[2023-09-16] MEDS: APRESOLINE 25 MG PO ×2 (08:12→21:18)
[2023-09-16] MEDS: LIDOCAINE 4% PATCH 1 PATCH TOPICAL (08:12)
[2023-09-16] MEDS: DAKIN'S SOLUTION 0.125% 1/4 STRENGTH 473 ML TOPICAL (08:13)
[2023-09-16] MEDS: BACTROBAN 2% OINTMENT 1 APPLIC TOPICAL (08:14)
--- NOTE | 2023-09-16 09:15 | W.PN.HOSP.TC ---
Today's Communication/Plan
-
VSE Sunday
DC planning to SNF
Assessment / Plan
Assessment / Plan
Assessment:
Acute Kidney Injury on CKD IV
metabolic acidosis
- hold Lasix and Spironolactone
- continue IVF with bicarbonate; Cr 2.5 most recently, todays lab pending
- repeat daily labs
Left Rib Fractures
- continue Lidocaine Patch
- continue Tylenol 1000mg TID + prn
- continue oxycodone prn
- encourage use of incentive spirometer
Intermittent Gross Hematuria
- continue to monitor for recurrent episodes
- UA unremarkable
- monitor Hgb
- will continue Eliquis as Hgb is stable
Depression
- patient expresses feelings of depression
- offered anti-depressant medication which he declined
Oral Herpes
- contact precautions
- no role for antivirals as lesions are crusted and onset was 3 days [employer]
abnormal Elevated Troponin - likely elevated in setting of LICHA
insignificant abnormal lab value
- peaked at 0.050; no chest pain
Left Foot Wound
- recently completed coarse of Zyvox
- consult Wound Care
CVA with Left Hemiparesis
- continue Eliquis
Paroxysmal Atrial Fibrillation
- continue Eliquis
- continue Coreg
Coronary Artery Disease s/p Stent
- stable
Essential Hypertension
- continue Coreg and Hydralazine
Hyperlipidemia
- continue Crestor
Anemia of Chronic Disease
- hb at baseline
Asthma, no acute exacerbation
- continue fluticasone/salmeterol
- continue montelukast
History of esophageal spasms
- never followed up with Motility specialist as recommended; GI at had referred. GI consulted and recommended OP eval for Endoflip at [place]
- encourage smaller bites
- encouraged to space pills 20 minutes apart at least, and we timed vitamins for noon time to help
- speech eval for dietary modification; VSE Sunday
- prn Levsin for secretion control
DVT ppx: Eliquis
Code: Full
Anticipated Discharge: 24 - 48 hours
Subjective/Interval History
-
Date of Service: September 16, 2023
no new complaints
had a BM today
Objective Data
-
Labs:
Laboratory Results
09/16/23
07:55
WBC Pending
Hgb Pending
Hct Pending
Plt Count Pending
Sodium Pending
Potassium Pending
Chloride Pending
Carbon Dioxide Pending
BUN Pending
Creatinine Pending
Glucose Pending
Calcium Pending
Total Bilirubin Pending
AST Pending
ALT Pending
Alkaline Phosphatase Pending
Vital Signs:
Vital Signs
Temp Pulse Resp BP Pulse Ox
98.2 F 70 17 155/74 96
09/16/23 08:08 09/16/23 08:10 09/16/23 08:08 09/16/23 08:10 09/16/23 08:08
I&O
09/15/23 09/16/23 09/17/23
06:59 06:59 06:59
Intake Total 1200 / 1200 600 / 600
Output Total 1200 / 1200 375 / 375
Balance 0 / 0 225 / 225
Physical Exam
-
General: No Apparent Distress
HEENT: Normocephalic and Atraumatic
Respiratory: Negative Wheezes
Cardiac: Regular Rhythm and S1/S2
GI: Soft and Nontender
Musculoskeletal: No Edema
Neuro: AO x 3
Psych: Calm
Data Reviewed
-
Total Time Spent with Patient (in minutes): 41
Labs: Labs Reviewed by me
[2023-09-16 09:19] LABS: ALT (SGPT) 78 U/L (0-50); AST (SGOT) 56 U/L (17-59); Albumin 3.5 g/dl (3.5-5.0); Alkaline Phosphatase 80 U/L (38-126); Blood Urea Nitrogen 58 mg/dl (9-20); Calcium 9.1 mg/dl (8.4-10.2); Carbon Dioxide 25 mmol/L (22-30); Chloride 107 mmol/L (98-107); Estimated Creatinine Clearance 28 ml/min; Glucose 120 mg/dl (70-99); Potassium 4.4 mmol/L (3.5-5.1); Sodium 142 mmol/L (135-145); Total Bilirubin 0.6 mg/dl (0.2-1.3); Total Protein 5.9 g/dl (6.3-8.2); eGFR 24.02
[2023-09-16 09:37] LABS: Hematocrit 29.7 % (39.0-52.0); Mean Corp Hgb Conc. 33.7 g/dL (33.0-37.0); Mean Corpuscular Hgb 30.4 pg (27.0-31.0); Mean Corpuscular Volume 90.3 fL (80.0-94.0); Mean Platelet Volume 10.3 fL (7.4-10.4); Platelet Count 195 10^3/uL (130-400); Red Blood Cell Count 3.29 10^6/uL (4.70-6.10); Red Cell Dist. Width 15.3 % (11.5-14.5); White Blood Cell Count 8.6 10^3/uL (4.8-10.8)
[2023-09-16] MEDS: FEOSOL 325 MG PO (11:34)
[2023-09-16] MEDS: VITAMIN D3 (cholecalciferol) 25 MCG PO (11:34)
[2023-09-16] MEDS: VITAMIN B-12 1000 MCG PO (11:35)
[2023-09-16 15:23] VITALS: BP 109/64
[2023-09-16 23:00] VITALS: BP 124/66
[2023-09-16] MEDS: CRESTOR 40 MG PO (23:27)
[2023-09-17 06:20] VITALS: BMI 31.5
[2023-09-17 07:40] VITALS: BP 139/73
[2023-09-17] MEDS: APRESOLINE 25 MG PO (07:48)
[2023-09-17] MEDS: TYLENOL 1000 MG PO ×2 (07:48→15:36)
[2023-09-17] MEDS: LIDOCAINE 4% PATCH 1 PATCH TOPICAL (07:48)
[2023-09-17] MEDS: DAKIN'S SOLUTION 0.125% 1/4 STRENGTH 1 ML TOPICAL (07:50)
[2023-09-17] MEDS: BACTROBAN 2% OINTMENT 1 APPLIC TOPICAL (07:50)
[2023-09-17] MEDS: COREG 12.5 MG PO (07:50)
[2023-09-17] MEDS: SENOKOT-S 1 TABLET PO (07:50)
[2023-09-17] MEDS: ELIQUIS 2.5 MG PO (07:50)
[2023-09-17] MEDS: ADVAIR HFA 230/21 MCG INHALER 2 PUFF INH (08:02)
[2023-09-17 10:00] LABS: Hemoglobin 9.3 g/dL (13.0-18.0); Mean Corp Hgb Conc. 33.2 g/dL (33.0-37.0); Mean Corpuscular Hgb 30.6 pg (27.0-31.0); Mean Corpuscular Volume 92.1 fL (80.0-94.0); Mean Platelet Volume 10.7 fL (7.4-10.4); Platelet Count 196 10^3/uL (130-400); Red Blood Cell Count 3.04 10^6/uL (4.70-6.10); Red Cell Dist. Width 15.5 % (11.5-14.5); White Blood Cell Count 7.5 10^3/uL (4.8-10.8)
[2023-09-17 10:50] LABS: Blood Urea Nitrogen 56 mg/dl (9-20); Carbon Dioxide 26 mmol/L (22-30); Chloride 107 mmol/L (98-107); Estimated Creatinine Clearance 28 ml/min; Glucose 118 mg/dl (70-99); Potassium 4.4 mmol/L (3.5-5.1); Sodium 140 mmol/L (135-145); eGFR 24.02
--- NOTE | 2023-09-17 11:10 | CM ---
Addendum entered by Lily Gates 09/17/23 15:17:
Per physician patient has been cleared for discharge and bed is available at [facility] today. Ambulance transport has been set up for 6pm.
[facility]
Report [phone]
fax [phone]
Original Note:
Patient has been accepted at [facility], when stable, spouse did look at facility.
Plan; Skilled placement at [facility] when stable.
[2023-09-17] MEDS: VITAMIN D3 (cholecalciferol) 25 MCG PO (11:20)
[2023-09-17] MEDS: VITAMIN B-12 1000 MCG PO (11:20)
[2023-09-17] MEDS: FEOSOL 325 MG PO (11:20)
--- NOTE | 2023-09-17 11:28 | W.PN.HOSP.TC ---
Today's Communication/Plan
-
Follow-up VSE, GI recs
Assessment / Plan
Assessment / Plan
#Esophageal spasms
-DDx: achalasia, diffuse esophageal spasm, other dysmotility issue; suspicion for malignancy is low for now
-Ongoing issue for patient, present for 'years' but unable to specify time frame; No pain with episodes, worse with eating
-GI consulted and recommended OP eval for Endoflip at [place]; Speech recommended VSE while in-patient
-Swallow study showed mild oropharyngeal stasis, recommended mildly thickened liquids
-Appreciate GI recommendations
Plan
-Aspiration precautions, encourage smaller bites
-encouraged to space pills 20 minutes apart at least
-C/W prn Levsin for secretion control
-Consider low dose DHP-CCB empirically
#Acute Kidney Injury on CKD IV
#normal anion gap metabolic acidosis
-CKD stage 4 at baseline c/b chronic anemia; No known bone mineral disease or acidosis
-Likely pre-renal, resolved with holding diuretic regimen
-Creatinine 2.6, BUN near 50 today; Baseline Cr near 2.5-2.7
-Daily BMP, transition IV to PO bicarbonate
#Left Rib Fractures
-continue Lidocaine Patch
-continue Tylenol 1000mg TID + prn
-continue oxycodone prn
-encourage use of incentive spirometer
#Intermittent Gross Hematuria
-Imaging showed nephrolithiasis which is the probable cause
-continue to monitor for recurrent episodes, Trend CBC
-Will continue Eliquis as Hb is stable
-Out-pt follow-up with urology, encourage PO hydration
#Depression
-was offered anti-depressant medication which he declined
-No SI/HI
#Oral Herpes
-contact precautions, no antiviral due to timing
#Elevated Troponin
#Coronary Artery Disease s/p PCI
-Home regimen includes beta-daljit, statin
-No antiplatelet medications, on full AC with Eliquis
-Had elevated trop to 0.050, no CP or ischemia per ECG
-T2 demand ischemia/renal retention, no ACS
#Left Foot Wound
-recently completed coarse of Zyvox
-consult Wound Care
#H/O CVA with Left Hemiparesis
-Likely cardioembolic with history of AF
-Remains anticoagulated with Eliquis
#Paroxysmal Atrial Fibrillation
-Home regimen includes Eliquis and carvedilol
-No known EP procedures or interventions
-Rate controlled
#Essential Hypertension
-Home medications include Coreg, Hydralazine, lasix, spironolactone
-Diuretics were held due to LICHA on CKD, BP has been stable off of them
-C/W carvedilol and hydralazine, monitor vitals
#Hyperlipidemia
-continue Crestor
#Anemia of Chronic Disease
-Suspect secondary to CKD
-hb at baseline, no signs of bleeding
#Asthma, no acute exacerbation
- continue fluticasone/salmeterol and montelukast
DVT ppx: Eliquis
Code: Full
Anticipated Discharge: 24 - 48 hours
Subjective/Interval History
-
Date of Service: September 17, 2023
Seen and examined at bedside. No events overnight. Denies complaints today, feels well
Objective Data
-
Labs:
Laboratory Results
09/17/23
09:25
WBC 7.5
Hgb 9.3 L
Hct 28.0 L
Plt Count 196
Sodium 140
Potassium 4.4
Chloride 107
Carbon Dioxide 26
BUN 56 H
Creatinine 2.6 H
Glucose 118 H
Calcium 9.0
Vital Signs:
Vital Signs
Temp Pulse Resp BP Pulse Ox
98.4 F 81 18 123/73 97
09/17/23 07:40 09/17/23 08:06 09/17/23 08:06 09/17/23 07:48 09/17/23 08:06
I&O
09/16/23 09/17/23 09/18/23
06:59 06:59 06:59
Intake Total 600 / 600 600 / 600
Output Total 375 / 375 775 / 775
Balance 225 / 225 -175 / -175
Review of Systems
-
History Source: Patient
Constitutional: Reports No Symptoms; Denies Weight Loss or No Appetite
Respiratory: Reports No Symptoms
Cardiac: Reports No Symptoms
Abdomen/GI: Reports Other (dysphagia)
Genitourinary: Reports No Symptoms
Musculoskeletal: Reports No Symptoms
Skin: Reports No Symptoms
Neuro: Reports No Symptoms
Physical Exam
-
General: Well Nourished and No Apparent Distress
HEENT: Normocephalic, Atraumatic, Moist Mucous Membranes and Anicteric
Respiratory: Clear to Auscultation and Non Labored Respirations
Cardiac: S1/S2 and Irregular Rhythm; Negative Murmur, Rub, JVD or Gallop
GI: Soft, Nontender, Nondistended and Normal Bowel Sounds
Musculoskeletal: No Clubbing, No Cyanosis and No Edema
Skin: Warm and Dry; Negative Rash
Neuro: AO x 3, Nonfocal/Grossly Intact and Central Nerve's Intact
Hematologic / Lymphatic: No Lymphadenopathy
Data Reviewed
-
Labs: Labs Reviewed by me
[2023-09-17 11:35] VITALS: BP 112/63; PULSE 76; O2SAT 96
[2023-09-17 11:40] VITALS: BP 112/63; PULSE 76; O2SAT 96
--- NOTE | 2023-09-17 12:53 | PTOTSP ---
Video Swallow Examination
Trace aspiration with thin liquid by cup with cough response. No further instances of aspiration when utilizing chin tuck. Esophageal stasis which increases risk for reverse aspiration.
Recommend
1. Continue with IDDSI 6 and Thin liquids
2. Chin tuck with all liquids
3. Intersperse liquids/solids
4. Aspiration and Reflux Precautions.
--- NOTE | 2023-09-17 14:45 | W.DCSUMMARY ---
Discharge Summary
Discharge Data
Date of Admission: 09/12/23
Date of Discharge: 09/17/23
-
Pending Results: No
Hospital Course
Presented to hospital, found to have elevated creatinine. LICHA on CKD4, likely prerenal. Renal function improved with discontinuation of Lasix and aldactone. Received IV bicarb on admission for associated acidosis. Should hold diuretic regimen until
follow up with PCP. Monitor home BP in the interim.
Left rib fractures were treated conservatively with analgesia PRN and standing tylenol/lidocaine patch.
Gross hematuria occurred intermittently within hospital. Imaging showed nephrolithiasis which is likely etiology. Should follow up with urology at [place] if recurrent. Encouraged PO hydration, limited sodium intake.
Esophageal spasms were complaint in hospital. Have been present for some time and associated with dysphagia. H/O esophageal rings s/p dilation in the past. Encouraged follow-up with GI at discharge for EGD and possible esophageal motility studies.
Discharge Plan
-
Patient Disposition: Usp/SNF
Discharge Diagnosis/Procedures: LICHA on CKD
Esophageal Spasm
Left Rib Fractures
Gross Hematuria
Elevated Troponin
Condition: Good
Diet: Other diet
Additional Diets: Thin Liquids with chin tuck
Activity: As tolerated
Driving Restrictions: As prior to admission
Bathing Restrictions: None
Others Tests: EGD with GI out-patient
Activity Restrictions/Additional Instructions:
Wound Care Instructions
L 2nd toe wound-apply 1/4 strength Dakin's or Vashe soaked gauze x 5 minutes, Mupirocin ointment, adaptic, gauze, Kerlix, change daily and as needed for drainage.
Sacral/coccyx-clean and dry skin, apply Miconazole powder followed by barrier ointment (i.e. Calazime) twice a day.
R knee high compression stocking; L knee high Tubigrip as tolerated; remove at bedtime; reapply every morning.
Elevate heels off bed with pillow/s.
Pressure redistributing chair cushion (i.e. Air chair cushion).
Air mattress.
Follow up with Dr. Lott for toe wound.
Referrals:
Wellington Reyes, DO [Family Provider] - in less than 1 week
Robyn Osman, DO [Active] - in less than 1 week
Additional Discharge Medication Instructions: STOP furosemide and spironolactone until you see your family doctor
Prescriptions:
New
lidocaine 4 % Adhesive Patch,Medicated
1 patch topical DAILY Qty: 5 0RF
sennosides-docusate sodium [Stool Softener-Laxative] 8.6-50 mg Tablet
1 tab PO BID Qty: 0 0RF
hyoscyamine sulfate 0.125 mg Tablet, Sublingual
0.125 mg PO Q4HPRN PRN (Reason: secretion control) Qty: 10 0RF
oxycodone 5 mg Tablet
2.5 mg PO Q6HPRN PRN (Reason: moderate pain) Qty: 0 0RF
Remove Patch [Remove Lidocaine Patch]
1 patch transdermal DAILY@1999 Qty: 1 0RF
acetaminophen 325 mg Tablet
325 mg PO Q6HPRN PRN (Reason: mild pain/ fever>100.5F) Qty: 0 0RF
albuterol sulfate 2.5 mg /3 mL (0.083 %) Solution For Nebulization
2.5 mg inhalation R Q4HPRN PRN (Reason: shortness of breath/wheeze) Qty: 0 0RF
Continued
hydralazine 25 mg Tablet
25 mg PO BID
therapeutic multivitamin Tablet
1 tab PO DAILY
acetaminophen [Tylenol Extra Strength] 500 mg Tablet
1,000 mg PO TIDPRN PRN (Reason: mild pain)
ferrous sulfate [iron] 325 mg (65 mg iron) Tablet
325 mg PO DAILY
fluticasone propion-salmeterol 500-50 mcg/dose Blister With Device
1 inh INHALATION R BID
cholecalciferol (vitamin D3) 25 mcg (1,000 unit) Tablet
25 mcg PO DAILY
Eliquis 2.5 mg Tablet
2.5 mg PO BID
Gemtesa 75 mg Tablet
75 mg PO HS
rosuvastatin 40 MG tablet
40 mg PO HS
cetirizine [Zyrtec] 10 mg Tablet
10 mg PO DAILYPRN PRN (Reason: allergies)
albuterol sulfate 90 mcg/actuation Hfa Aerosol Inhaler
2 puff INHALATION R QIDPRN PRN (Reason: sob)
carvedilol 12.5 MG tablet
12.5 mg PO BID Qty: 180 0RF
cyanocobalamin (vitamin B-12) 1,000 MCG tablet
1,000 mcg PO DAILY Qty: 90 0RF
montelukast 10 MG tablet
10 mg PO DAILY Qty: 90 0RF
Held
furosemide [Lasix] 20 mg Tablet
20 mg PO DAILY
Hold Instructions: Resume on 09/26/23. Stop taking until you see PCP
spironolactone 25 mg Tablet
25 mg PO DAILY
Hold Instructions: Resume on 09/26/23. Discontinue until you see PCP
Discharge Orders:
Discharge Patient (As Directed); Ordered 09/17/23
Ordered By: Vinayak Dangelo
Discharge Date and Time
Print Language: SAUDI ARABIAN
[2023-09-17 15:48] VITALS: BP 124/68
== END 2023-09-17 19:01 | DRG 683 ==
LOC: 4 WEST ACU 13:47
PROVIDERS: Physician Assistant; Physician Assistant Medical; ADMITTING PHYSICIAN Internal Medicine; ATTENDING PHYSICIAN Internal Medicine; CONSULT PHYSICIAN Specialist; EMERGENCY PHYSICIAN Student in an Organized Health Care Education/Training Program; FAMILY PHYSICIAN Family Medicine
DX: N17.9 Acute kidney failure, unspecified (principal); E87.20 Acidosis, unspecified; S22.42XA Multiple fractures of ribs, left side, initial encounter for closed fracture; I69.354 Hemiplegia and hemiparesis following cerebral infarction affecting left non-dominant side; N18.4 Chronic kidney disease, stage 4 (severe); D63.1 Anemia in chronic kidney disease; I12.9 Hypertensive chronic kidney disease with stage 1 through stage 4 chronic kidney disease, or unspecified chronic kidney disease; X58.XXXA Exposure to other specified factors, initial encounter; R31.0 Gross hematuria; N20.0 Calculus of kidney; K22.4 Dyskinesia of esophagus; E78.00 Pure hypercholesterolemia, unspecified; E86.0 Dehydration; I48.0 Paroxysmal atrial fibrillation
CPT/HCPCS: 71250; 74176; 74230; 80048; 80053; 81003; 81015; 82550; 83605; 83735; 84484; 85025; 85027; 92610; 92611; 93005; 94640; 96360; 96361; 97163; 97167; 97530; 97535; 99285

== ENCOUNTER 2023-10-08 02:42 | Observation (INO) | payer MEDICARE, BC, SELFPAY ==
[2023-10-07] VITALS (7 sets, daily range): BP systolic 99–139; BP diastolic 62–79; BMI 31.8
[2023-10-07] MEDS: LIDOCAINE URO-JET 2% 1 SYRINGE TOPICAL (21:19)
[2023-10-07 21:51] LABS: Urine Albumin Trace (Neg - Trace); Urine Bilirubin Negative (Negative); Urine Character Clear (Clear); Urine Color Yellow; Urine Glucose Negative (Negative); Urine Ketone Negative (Negative); Urine Leukocyte Negative (Negative); Urine Nitrite Negative (Negative); Urine Occult Blood 4+ (Negative); Urine Urobilinogen Negative (Neg - 1+)
[2023-10-07 22:03] LABS: Urine Red Blood Cell 26-30 /HPF (0-2); Urine White Cell 0-2 /HPF (0-5)
--- NOTE | 2023-10-07 22:19 | ED.GENMED ---
History of Present Illness
General
Chief Complaint: Abdominal Pain
Source: patient
Exam Limitations: none
Time Seen by Provider: 10/07/23 21:19
Nursing documentation reviewed up to this point in time: agreed with
History of Present Illness
History of Present Illness:
Patient with history of congestive heart failure on Lasix, presents to ED secondary to inability to urinate despite urge since 2 PM today. In addition, patient has been experiencing shortness of breath, especially with exertion over the past few
days, along with increased leg swelling and abdominal swelling. As patient has had urinary difficulties over the past 2 days, patient has opted not to take Lasix for the past 2 days. Denies chest pain. Denies fever or chills. Denies nausea or
vomiting. Denies recent change in medications or diet. Denies previous history of urinary difficulties.
Past History
Past History
ED Past Medical History: Arrthythmia ( atrial fibrillation), Asthma, CAD, CVA (Left sided weakness, ), GERD, HTN, Hypercholesterolemia, ID, Renal failure (Stage 4 ), Psychiatric (Anxiety, Depression) and Other (Osteoarthritis, Diverticulosis, Renal
calculus)
ED Past Surgical History: Cardiac (Radiofrequency ablation, Stents X 2) and Orthopedic (Right elbow repair, Right and left Total knee replacement)
Social History
Tobacco: Former smoker
Alcohol: None
Personal:
Living: with family
Employment: Retired
Family History
Family History: Other (Noncontributory)
Review of Systems
Review of Systems
Allergies reviewed?: Yes
All Other Systems: ROS reviewed and negative except as documented in HPI and ROS
Constitutional: Reports no symptoms
Respiratory: Reports trouble breathing
Cardiac: Reports no symptoms
ABD/GI: Reports no symptoms
: Reports difficulty voiding
Musculoskeletal: Reports no symptoms
Skin: Reports no symptoms
Neurological: Reports no symptoms
Phy Exam
Physical Exam
Physical Exam:
Physical Exam
General: mild distress, not acutely ill. afebrile. overweight.
Head: nc/at. eomi
Neck: supple. no meningeal signs.
Heart: s1/s2 regular rate and rhythm, no murmur. equal radial pulses.
Lungs: no acute respiratory distress. diminished breath sounds bilaterally
Abdomen: normal bowel sounds. not tender. mild swelling noted.
Neuro: alert and oriented. no focal neurological deficits
Skin: no rash
Psychiatric: well kept. interactive and cooperative
Extremities: LE b/l edema, pitting. no calf tenderness.
Course
Orders/Labs/Results
Orders:
Orders
10/07/23 21:16
Lidocaine 2% [Lidocaine Uro-Jet 2%] 1 syringe .ROUTE .[facility]
10/07/23 21:19
Lidocaine 2% [Lidocaine Uro-Jet 2%] 1 syringe TOPICAL NOW STA
10/07/23 21:42
Urinalysis Reflex To Culture Urgent
Date Specimen was Collected: 10/07/23
Time Specimen was Collected: 21:40
Comment: [email or web address]
Urine Microscopic Reflex Cult Urgent
10/07/23 22:18
Electrocardiogram (*1) Urgent
Reason for Study: Shortness of Breath
EKG- Treatment ONCE
CR Chest - 2 Views Urgent
Comment:
Reason For Exam: sob
10/07/23 22:19
Furosemide [Lasix] 40 mg IV NOW STA
10/07/23 22:23
Ramirez [Ramirez Placement- Treatment] ONCE
Reason for insertion: Acute Retention
10/07/23 22:42
Complete Blood Count/With Diff Urgent
Comprehensive Metabolic Panel Urgent
Magnesium Urgent
NT-proBNP Urgent
Troponin I Urgent
10/08/23 00:19
Furosemide [Lasix] 20 mg IV NOW STA
10/08/23 02:14
Admit/Transfer Patient As Directed
Co-Sign Provider:
Level of Care: Observation services
Assign to:: Medical/Surgical
Physician / Group: Ryan
Diagnosis: Urinary Retention
PRN Pain Medication Management As Directed
May give lesser potent ordered pain med per pt: Yes
preference::
Protocol:: Medication orders for pain may be administered in a
manner that supports deferring to patient preference
when the pt is:
- Requesting an ordered lesser potent pain medication.
Least to most potent pain medications are defined
as: acetaminophen < NSAID < tramadol < opioids
(morphine, oxycodone, hydromorphone).
- Requesting a lesser dose of the same medication IF
ORDERED.
- Requesting a less intrusive route of administration
if both routes are prescribed by the provider (PO <
IV).
10/08/23 02:16
Code Status As Directed
Resuscitation Status: Do not resuscitate
Reached after discussion with pt or family/Healthcare POA: Yes
DNR Bracelet Application ONCE
10/08/23 03:11
Acetaminophen [Tylenol] 325 mg PO Q6HPRN PRN
Albuterol Nebs [Ventolin Nebules] 2.5 mg INH R Q4HPRN PRN
Polyethylene Glycol Powder [Miralax] 17 grams PO DAILY PRN
10/08/23 03:11
UROLOGY CONSULT Routine
Consulting Provider: Andrea Vale
Was physician already notified: Yes
Comment: Urinary Retention
Activity As Directed
Activity Level: Ambulate
With Assistance
Ramirez Catheter [Catheter- Indwelling] As Directed
Reason for insertion: Acute Retention
Discontinue Date/Time: 10/11/23 0600
I/O [Intake/ Output] As Directed
Frequency: Per unit guidelines
Orthostatic Vital Signs As Directed
Orthostatic VS Frequency: BID
Pneumatic Compression Sleeves As Directed
Type: Knee high
Vital Signs As Directed
Frequency: Per unit guidelines
Weight As Directed
Frequency: Daily
Oxygen Therapy [O2 Therapy] [RESP] Routine
Titrate/Wean O2 to maintain O2 sat greater than (%): 94
Ot Eval And Treat Routine
PT Consult [Pt Eval And Treat] Routine
Activity Level: Ambulate
With Assistance
Speech Therapy Eval & Treat Routine
DX Deep Vein Thrombosis Video Routine
10/08/23 05:50
Basic Metabolic Panel IN AM
Complete Blood Count/No Diff IN AM
10/08/23 Breakfast
Regular
At Your Request: Full Participation
Oral Supplement (If unsure of flavor order apple or vanilla): Ensure Enlive Chocolate
Supplement Frequency: TID
10/08/23 08:00
Apixaban [Eliquis] 2.5 mg PO BID
Carvedilol [Coreg] 12.5 mg PO BID
Ferrous Sulfate [Feosol] 325 mg PO DAILY
Fluticasone/Salmeterol 230/21 [Advair Hfa 230/21 Mcg Inhaler] 2 puff INH R BID
HydrALAZINE [Apresoline] 25 mg PO BID
Montelukast Sodium [Singulair] 10 mg PO DAILY
10/08/23 10:00
WOUND/OSTOMY CONSULT Routine
Reason for Consult: L 2nd Toe Wound
10/08/23 22:00
Rosuvastatin Calcium [Crestor] 40 mg PO HS
Abnormal Lab Results
10/07/23 10/07/23
21:42 22:42
RBC 3.28 L 10^6/uL
(4.70-6.10)
Hgb 10.0 L g/dL
(13.0-18.0)
Hct 29.1 L %
(39.0-52.0)
RDW 16.0 H %
(11.5-14.5)
Abs Immat Gran (auto) 0.1 H 10^3/uL
(0-0.05)
Absolute Monos (auto) 1.1 H 10^3/uL
(0.1-0.6)
Immature Gran % 1.1 H %
(0-0.5)
Lymphocytes % 17.8 L %
(20.5-51.1)
Monocytes % 12.0 H %
(1.7-9.3)
Carbon Dioxide 20 L mmol/L
(22-30)
BUN 58 H mg/dl
(9-20)
Creatinine 2.6 H mg/dL
(0.7-1.3)
Glucose 105 H mg/dl
(70-99)
Total Protein 5.9 L g/dl
(6.3-8.2)
Ur Occult Blood Reflex 4+ A
(Negative)
Urine RBC 26-30 A /HPF
(0-2)
10/07/23 22:42
10/07/23 22:42
Vital Signs
Initial and Last Documented VS:
Initial Vital Signs
Temp Pulse Resp BP Pulse Ox
98.9 F 70 18 139/79 97
10/07/23 21:09 10/07/23 21:09 10/07/23 21:09 10/07/23 21:09 10/07/23 21:09
Last Documented Vital Signs
Temp Pulse Resp BP Pulse Ox
98.1 F 68 16 108/51 97
10/08/23 13:33 10/08/23 13:33 10/08/23 13:33 10/08/23 13:33 10/08/23 13:33
MDM/Problems Addressed
MDM/Problems Addressed:
Bladder scan: > 1000 ml urine. Ramirez catheter inserted for acute urinary retention. In addition, patient's history and exam also concerning for mild fluid overload. Pt will be admitted for iv diuresis and likely urological consultation.
*EKG
Interpreted by ED Provider?: Yes
Heart Rate: 74
Rate: normal
Rhythm: sinus
[place]: normal axis
Ischemia: T-wave inversion
*Critical Care Note
Total Time (30-74mins, 75-104mins- exclusive of procedures): Not Applicable
ED Attending Note
-
Portions of this chart may have been created with voice recognition software.� Occasional wrong word or��sound alike� substitutions may have occurred due to the inherent limitations of voice recognition software.
Discharge Plan
Departure
Patient Disposition: Admit
Date of Disposition: 10/08/23
Time of Disposition: 00:47
Presentation/result/management discussed w/ accepting MD/DO: Hospitalist
Discharge Problem:
Acute urinary retention, Fluid overload
Interventions
Interventions:
*Risk Screen - Suicide Last Done: 10/08/23 03:32
*General Assessment Last Done: 10/07/23 21:14
*Neglect/Abuse Screening Last Done: 10/07/23 21:14
*ED COVID-19 Vaccine History Last Done: 10/08/23 03:50
*Nursing Disposition Last Done: 10/08/23 03:04
ND-Notzpx-Jnsnlcwhks Assessment Last Done: 10/07/23 23:06
Discharge Date and Time
Discharge Date/Time: 10/08/23 03:04
[2023-10-07 22:54] LABS: % Basophils 0.3 % (0-2); % Eosinophils 1.6 % (0-6); % Immature Granulocytes 1.1 % (0-0.5); % Lymphocytes 17.8 % (20.5-51.1); % Neutrophils 67.2 % (42.2-75.2); Absolute Eosinophils 0.2 10^3/uL (0-0.7); Absolute Immature Granulocytes 0.1 10^3/uL (0-0.05); Absolute Lymphocytes 1.7 10^3/uL (1.2-3.4); Absolute Monocytes 1.1 10^3/uL (0.1-0.6); Absolute Neutrophils 6.3 10^3/uL (1.4-6.5); Hematocrit 29.1 % (39.0-52.0); Mean Corp Hgb Conc. 34.4 g/dL (33.0-37.0); Mean Corpuscular Hgb 30.5 pg (27.0-31.0); Mean Corpuscular Volume 88.7 fL (80.0-94.0); Mean Platelet Volume 9.9 fL (7.4-10.4); Nucleated Red Blood Cells % 0 % (-); Platelet Count 301 10^3/uL (130-400); Red Blood Cell Count 3.28 10^6/uL (4.70-6.10); White Blood Cell Count 9.4 10^3/uL (4.8-10.8)
[2023-10-07 23:07] LABS: ALT (SGPT) 40 U/L (0-50); AST (SGOT) 30 U/L (17-59); Albumin 3.7 g/dl (3.5-5.0); Alkaline Phosphatase 96 U/L (38-126); Blood Urea Nitrogen 58 mg/dl (9-20); Calcium 9.8 mg/dl (8.4-10.2); Carbon Dioxide 20 mmol/L (22-30); Chloride 107 mmol/L (98-107); Estimated Creatinine Clearance 28 ml/min; Glucose 105 mg/dl (70-99); Magnesium 2.2 mg/dl (1.6-2.3); Potassium 4.6 mmol/L (3.5-5.1); Sodium 136 mmol/L (135-145); Total Bilirubin 0.5 mg/dl (0.2-1.3); Total Protein 5.9 g/dl (6.3-8.2); eGFR 24.02
[2023-10-07 23:17] LABS: NT-proBNP 1670 pg/ml; Troponin I 0.014 ng/ml
[2023-10-08] VITALS (11 sets, daily range): BP systolic 108–126; BP diastolic 51–69; BMI 30.4
[2023-10-08] MEDS: LASIX 20 MG IV (00:22)
--- NOTE | 2023-10-08 02:22 | HPS.HSE ---
Family Physician
-
Family Physician: Mera Tavarez DO
Chief Complaint
-
Inability to urinate
History of Present Illness
Patient is an 83y M with PMH significant for L hemiplegia s/p CVA, A-Fib, CKD who presents to ED complaining of inability to urinate. Patient notes that he has been unable to empty his bladder for the past 2-3 days or so. He reports small
amounts or frequent urination and sensation of fullness, pressure in the suprapubic region. He denies any other complaints including fevers / chills, N/V/D, chest pain, dyspnea, etc.
Patient is at SNF following recent hospital stay for [facility] due to overdiuresis. (09/11 - 09/16)
His Lasix / Aldactone was restarted on 09/25. Patient states that he has not taken his Lasix for the past few days due to his urination issues.
Medical History
Past Medical History
Past Medical History: Reports Other
Additional Past Medical History:
CVA with Left Hemiparesis
Paroxysmal Atrial Fibrillation
Coronary Artery Disease s/p Stent
Essential Hypertension
Hyperlipidemia
CKD Stage IV
Asthma
Anxiety/Depression
GERD/Esophageal Stricture
BPH
Obstructive Sleep Apnea
Past Surgical History: Reports Other
Additional Past Surgical History:
Cardiac Stent
Cardiac Ablation
Bilateral Knee Replacement
Rotator Cuff
Esophageal Rings
Social History
Tobacco: Former Smoker
Alcohol: None
Drug: None
Personal:
Living: With Family
Family History
Family History: Other (Father: CAD)
Allergies / Home Medications
Allergies reflects when Allergies were last updated in [employer]
Home Medications with original date entered in [employer]
Allergy/Medication List:
Allergies
Allergy/AdvReac Type Severity Reaction Status Date / Time
cat dander Allergy Swelling Verified 10/07/23 21:09
lisinopril Allergy Unknown Verified 10/07/23 21:09
losartan Allergy lip Verified 10/07/23 21:09
swelling
lovastatin Allergy myalgias Verified 10/07/23 21:09
mirabegron [From Myrbetriq] Allergy lips Verified 10/07/23 21:09
swellling
tamsulosin HCl [From Flomax] Allergy facial Verified 10/07/23 21:09
itching,dizziness
venom-honey bee Allergy Anaphylaxis Verified 10/07/23 21:09
[bee venom (honey bee)]
Home Medications
carvedilol 12.5 mg tablet 12.5 mg PO BID #180 tabs 07/19/21
cyanocobalamin (vitamin B-12) 1,000 mcg tablet 1,000 mcg PO DAILY #90 tabs 07/19/21
montelukast 10 mg tablet 10 mg PO DAILY #90 tabs 07/19/21
furosemide 20 mg tablet (Lasix) 20 mg PO DAILY Fluid retention/Swelling 07/09/22
apixaban 2.5 mg tablet (Eliquis) 2.5 mg PO BID Blood Clot Prevention/Tx 08/31/23
cholecalciferol (vitamin D3) 25 mcg (1,000 unit) tablet 25 mcg PO DAILY Supplement 08/31/23
ferrous sulfate 325 mg (65 mg iron) tablet (iron) 325 mg PO DAILY Supplement 08/31/23
fluticasone 500 mcg-salmeterol 50 mcg/dose blistr powdr for inhalation 1 inh inhalation R BID Lung/Breathing Issues 08/31/23
hydralazine 25 mg tablet 25 mg PO BID Blood Pressure 08/31/23
rosuvastatin 40 mg tablet 40 mg PO HS High Cholesterol 08/31/23
spironolactone 25 mg tablet 25 mg PO DAILY Fluid Retention/Swelling 08/31/23
therapeutic multivitamin 1 tab PO DAILY Supplement 08/31/23
albuterol sulfate 90 mcg/actuation aerosol inhaler 2 puff inhalation R QIDPRN PRN sob 09/12/23
cetirizine 10 mg tablet (Zyrtec) 10 mg PO DAILYPRN PRN allergies 09/12/23
Remove Patch [Remove Lidocaine Patch] 1 patch transdermal DAILY@2000 #1 ea 09/17/23
acetaminophen 325 mg tablet 325 mg PO Q6HPRN PRN mild pain/ fever>100.5F #0 tabs 09/17/23
albuterol sulfate 2.5 mg/3 mL (0.083 %) solution for nebulization 2.5 mg (3 mL) inhalation R Q4HPRN PRN shortness of breath/wheeze #0 mL 09/17/23
hyoscyamine sulfate 0.125 mg sublingual tablet 0.125 mg PO Q4HPRN PRN secretion control #10 tabs 09/17/23
lidocaine 4 % topical patch 1 patch topical DAILY Pain #5 ea 09/17/23
bisacodyl 10 mg rectal suppository 10 mg [place] DAILY PRN constipation; give if no BM after M.O.M enema 10/08/23
magnesium hydroxide 400 mg/5 mL oral suspension (Milk of Magnesia) 30 ml PO DAILYPRN PRN constipation; give if no BM in 3 days 10/08/23
nystatin 100,000 unit/gram topical powder 1 applic topical BID groin excoriation 10/08/23
oxybutynin chloride 10 mg tablet,extended release 24 hr 10 mg PO DAILY O.A.B. 10/08/23
Review of Systems
-
History Source: Patient
A 12 point ROS was completed and negative except as noted: Yes
Constitutional: Denies Fever or Chills
Respiratory: Denies Cough or Trouble Breathing
Cardiac: Denies Chest Pain or Palpitations
Abdomen/GI: Reports Abdominal Pain; Denies Nausea, Vomiting or Diarrhea
: Denies Dysuria or Flank Pain
Musculoskeletal: Reports Edema; Denies Joint Pain
Skin: Reports Other (L foot wound (2nd toe))
Neurological: Reports Other (L weakness / hemiplegia. Mild dysarthria.)
Psych: Denies Depression or Anxiety
Physical Exam
Vital Signs
Vital Signs
Temp Pulse Resp BP Pulse Ox
98.7 F 73 18 124/66 95
10/08/23 00:23 10/08/23 02:15 10/08/23 02:15 10/08/23 02:00 10/08/23 02:15
Physical Exam
General: Other (83y M in no acute distress. Sleeping comfortably when I entered.)
HEENT: Moist mucous membranes and Other (Thick neck.)
Respiratory: Other (Decreased BS at bases. No wheezes / rales / rhonchi.)
Cardiac: S1/S2 and Regular Rhythm; No Murmur
GI: Soft, Non Tender, Non Distended, Normal Bowel Sounds and Other (Obese)
Genito-urinary: Other (Ramirez in place draining miguelina urine.)
Musculoskeletal: No Clubbing, No Cyanosis and Other (1-2+ pitting edema b/l LEs. )
Skin: Other (Wound distal aspect of the L 2nd toe - no bleeding. Clear drainage / discharge. No surrounding erythema / induration.)
Neuro: AO x 3 and Other (L weakness / dysarthria - no new focal changes.)
Laboratory Results
-
10/07/23 22:42
10/07/23 22:42
Laboratory Results
Total Bilirubin 0.5 mg/dl (0.2-1.3) 10/07/23 22:42
AST 30 U/L (17-59) 10/07/23 22:42
ALT 40 U/L (0-50) 10/07/23 22:42
Alkaline Phosphatase 96 U/L (38-126) 10/07/23 22:42
Troponin I 0.014 ng/ml 10/07/23 22:42
Impression/Plan
-
A/P: Patient is an 83y M with PMH significant for CVA, A-Fib, CKD and ASCVD who presents to ED complaining of inability to urinate.
Acute Urinary Retention
- Observe overnight for further evaluation and treatment.
- Ramirez placed in the ED for > 1 liter of urine output.
- Maintain Ramirez.
- Patient has an allergy to tamsulosin.
- Urology consult for further evaluation - prob eventual / outpatient TOV.
- Follow I/Os.
- Follow for any recurrent discomfort / other new symptoms.
CKD IV
Diuretic Use
- Stable. Renal function is at / near known baseline.
- Diuretics were restarted after return to [facility].
- Would continue to hold spironolactone for now.
- Lasix dose (20mg daily) not likely to have much effect given renal function.
- Note that patient does not have a diagnosis of CHF.
- Last Echo on file was unremarkable.
- ProBNP not significant changed (actually lower) from prior.
- Other than chronic LE edema, no evidence of volume overload on exam.
- Consider repeat Echo if any concerns for CHF.
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
ASCVD (CAD, CVA)
- Stable. Continue outpatient CV med regimen.
- PT / OT evaluations during stay.
Paroxysmal Atrial Fibrillation
- Stable. Continue current med regimen including Eliquis.
Benign Hypertension
- Stable. Continue home regimen excepting Lasix / Aldactone.
- Restart Aldactone if needed for BP control.
Anemia of CKD
- Stable. Hgb is at / near known baseline.
- No recent blood loss.
- Follow for any changes.
Asthma without Acute Exacerbation
- Stable. Continue outpatient inhaler regimen.
Left Foot Wound
- Stable / improving per patient.
- Wound Care eval for continued local care.
DVT Prophylaxis: On Eliquis.
Code Status: DNR
--- NOTE | 2023-10-08 05:13 | PTCARENOTE ---
Pt received from ED via stretcher; M/S orders, VSS, no c/o pain. Left second toe wound redressed and tubigrips removed. PMH CVA w/ left hemiparesis. Medical records and medications reviewed from [facility]- placed in chart. Pt
oriented to room. Call kathleen within reach.
[2023-10-08 06:42] LABS: Hemoglobin 8.8 g/dL (13.0-18.0); Mean Corp Hgb Conc. 33.8 g/dL (33.0-37.0); Mean Corpuscular Hgb 31.1 pg (27.0-31.0); Mean Corpuscular Volume 91.9 fL (80.0-94.0); Mean Platelet Volume 10.4 fL (7.4-10.4); Platelet Count 271 10^3/uL (130-400); Red Blood Cell Count 2.83 10^6/uL (4.70-6.10); White Blood Cell Count 9.5 10^3/uL (4.8-10.8)
[2023-10-08 06:54] LABS: Blood Urea Nitrogen 57 mg/dl (9-20); Calcium 9.3 mg/dl (8.4-10.2); Carbon Dioxide 21 mmol/L (22-30); Chloride 107 mmol/L (98-107); Estimated Creatinine Clearance 26 ml/min; Glucose 93 mg/dl (70-99); Potassium 4.3 mmol/L (3.5-5.1); Sodium 136 mmol/L (135-145); eGFR 22.96
[2023-10-08] MEDS: ADVAIR HFA 230/21 MCG INHALER 2 PUFF INH (07:22)
[2023-10-08] MEDS: FEOSOL 325 MG PO (08:12)
[2023-10-08] MEDS: ELIQUIS 2.5 MG PO (08:12)
[2023-10-08] MEDS: APRESOLINE 25 MG PO (08:12)
[2023-10-08] MEDS: COREG 12.5 MG PO (08:12)
[2023-10-08] MEDS: SINGULAIR 10 MG PO (08:12)
[2023-10-08] MEDS: DESENEX/MITRAZOL/ZEASORB 1 APPLIC TOPICAL (08:12)
--- NOTE | 2023-10-08 09:00 | PTOTSP ---
Speech Language Pathology
Pt seen for clinical bedside swallow evaluation. Recent VSE completed 09/17/23 with recommendations for IDDSI Level 6/thin liquids. Trace aspiration of thin liquids via cup noted on study, which was eliminated with use of chin tuck. When educated
on VSE results, pt did not recall this information. He stated he is currently working with [facility] at facility. He stated he 'sometimes' uses chin tuck.
This date, pt consistently utilized chin tuck with liquids. P.O. trials of regular solids and thin liquids provided. Slightly prolonged mastication of regular solids. With first sip of water, immediate prolonged coughing episode noted, suspect
aspiration. No other coughing noted. Pt stated he has coughing episodes like this at times, but has not had PNA prior. Discussed chin tuck with all liquids and trialing meds in puree. Pt stated he prefers meds with thin liquids, and stated 'I
don't care' about risk of meds with liquids. Pt feels he is doing fine with swallowing. Appears to be functioning at baseline without acute PNA.
Recommend:
(1) IDDSI Level 6 (Soft/Bite-Sized) and Thin liquids. This is pt's baseline diet
(2) Aspiration precautions: sit upright, single sips, use of chin tuck with liquids, slow rate
(3) Can trial meds in puree if pt agreeable
(4) [employer] to sign off as pt at baseline. Please reconsult as indicated.
[2023-10-08] MEDS: TYLENOL 325 MG PO (09:38)
--- NOTE | 2023-10-08 10:18 | CONS.URO ---
Consultation
-
Performing Provider: Akanksha
Reason for Consultation: Urinary retention
Medical History
History of Present Illness
[address] Donovan for history of BPH,LUTS, and likely neurogenic bladder following stroke
History of poor tolerance of/allergy to tamsulosin
At last visit 07/2023 he was having more issues with frequency/urgency and was started on mirabegron - however his med list states oxybutynin. Unsure when this was changed
04/2022 he had PVR measurement which was only 19cc, however this was before his second stroke
He is now admitted for 3 days of worsening difficulty emptying his bladder
On admission chávez was placed with 1L retained
He was admitted for observation due to CHF and SOB having stopped his lasix due to urinary difficulty
Past Medical History
Past Medical History: Other (CVA with Left Hemiparesis Paroxysmal Atrial Fibrillation Coronary Artery Disease s/p Stent Essential Hypertension Hyperlipidemia CKD Stage IV Asthma Anxiety/Depression GERD/Esophageal Stricture BPH Obstructive Sleep
Apnea)
Social History
Tobacco: Non-smoker
Alcohol: None
Drug: None
Family History
Family History: Reviewed & Not Pertinent
Allergies/Home Medications
Allergies
Allergy/AdvReac Type Severity Reaction Status Date / Time
cat dander Allergy Swelling Verified 10/07/23 21:09
lisinopril Allergy Unknown Verified 10/07/23 21:09
losartan Allergy lip Verified 10/07/23 21:09
swelling
lovastatin Allergy myalgias Verified 10/07/23 21:09
mirabegron [From Myrbetriq] Allergy lips Verified 10/07/23 21:09
swellling
tamsulosin HCl [From Flomax] Allergy facial Verified 10/07/23 21:09
itching,dizziness
venom-honey bee Allergy Anaphylaxis Verified 10/07/23 21:09
[bee venom (honey bee)]
Home Medications
�Medication �Instructions �Recorded �Confirmed �Type
carvedilol 12.5 mg tablet 12.5 mg PO BID #180 tabs 07/19/21 10/08/23 Rx
cyanocobalamin (vitamin B-12) 1,000 mcg PO DAILY #90 tabs 07/19/21 10/08/23 Rx
1,000 mcg tablet
montelukast 10 mg tablet 10 mg PO DAILY #90 tabs 07/19/21 10/08/23 Rx
furosemide 20 mg tablet (Lasix) 20 mg PO DAILY Fluid 07/09/22 10/08/23 History
retention/Swelling
apixaban 2.5 mg tablet (Eliquis) 2.5 mg PO BID Blood Clot 08/31/23 10/08/23 History
Prevention/Tx
cholecalciferol (vitamin D3) 25 25 mcg PO DAILY Supplement 08/31/23 10/08/23 History
mcg (1,000 unit) tablet
ferrous sulfate 325 mg (65 mg 325 mg PO DAILY Supplement 08/31/23 10/08/23 History
iron) tablet (iron)
fluticasone 500 mcg-salmeterol 50 1 inh inhalation R BID 08/31/23 10/08/23 History
mcg/dose blistr powdr for Lung/Breathing Issues
inhalation
hydralazine 25 mg tablet 25 mg PO BID Blood Pressure 08/31/23 10/08/23 History
rosuvastatin 40 mg tablet 40 mg PO HS High Cholesterol 08/31/23 10/08/23 History
spironolactone 25 mg tablet 25 mg PO DAILY Fluid 08/31/23 10/08/23 History
Retention/Swelling
therapeutic multivitamin 1 tab PO DAILY Supplement 08/31/23 10/08/23 History
albuterol sulfate 90 mcg/actuation 2 puff inhalation R QIDPRN PRN sob 09/12/23 10/08/23 History
aerosol inhaler
cetirizine 10 mg tablet (Zyrtec) 10 mg PO DAILYPRN PRN allergies 09/12/23 10/08/23 History
Remove Patch [Remove Lidocaine 1 patch transdermal DAILY@1999 #1 09/17/23 10/08/23 Rx
Patch] ea
acetaminophen 325 mg tablet 325 mg PO Q6HPRN PRN mild pain/ 09/17/23 10/08/23 Rx
fever>100.5F #0 tabs
albuterol sulfate 2.5 mg/3 mL 2.5 mg (3 mL) inhalation R Q4HPRN 09/17/23 10/08/23 Rx
(0.083 %) solution for nebulization PRN shortness of breath/wheeze #0
mL
hyoscyamine sulfate 0.125 mg 0.125 mg PO Q4HPRN PRN secretion 09/17/23 10/08/23 Rx
sublingual tablet control #10 tabs
lidocaine 4 % topical patch 1 patch topical DAILY Pain #5 ea 09/17/23 10/08/23 Rx
bisacodyl 10 mg rectal suppository 10 mg [place] DAILY PRN constipation; 10/08/23 10/08/23 History
give if no BM after M.O.M enema
magnesium hydroxide 400 mg/5 mL 30 ml PO DAILYPRN PRN 10/08/23 10/08/23 History
oral suspension (Milk of Magnesia) constipation; give if no BM in 3
days
nystatin 100,000 unit/gram topical 1 applic topical BID groin 10/08/23 10/08/23 History
powder excoriation
oxybutynin chloride 10 mg 10 mg PO DAILY O.A.B. 10/08/23 10/08/23 History
tablet,extended release 24 hr
Physical Exam
Vital Signs
Vital Signs
Temp Pulse Resp BP Pulse Ox
98.5 F 84 16 123/62 96
10/08/23 07:05 10/08/23 08:12 10/08/23 07:26 10/08/23 08:12 10/08/23 07:26
Lab / Testing Results
Laboratory Results
10/08/23 05:50
10/08/23 05:50
Physical Exam
General: Well Developed, Well Nourished and No Apparent Distress
HEENT: Normocephalic
GI: Soft and Non Tender
Skin: Warm and Dry
Neuro: AO x 3
Psych: Calm and Intact Judgement
Assessment / Plan
-
83M hx of BPH symptoms and possible neurogenic bladder with worsening urinary frequency and urgency following second stroke in 2023
Presenting with acute urinary retention >1L on chávez placement
- May be contributed to by anticholinergic medications. Recommend stopping oxybutynin and hyoscyamine
- If he is on mirabegron (not on med list) as prescribed after his last office visit, would stop this as well
- Maintain chávez at discharge
- Will plan for outpatient trial of void in 1 week. Likely will require urodynamics testing to further evaluate bladder function
--- NOTE | 2023-10-08 10:34 | WOUNDNOTE ---
L 2ND TOE (distal)
--- NOTE | 2023-10-08 10:35 | WOUNDNOTE ---
L 2ND TOE (DORSAL)
--- NOTE | 2023-10-08 10:38 | WOUNDNOTE ---
WO RN note: Patient admitted urinary retention. Patient admitted from SNF rehab. Patient is followed by cable rigger Dr. Lott to toe wound.
See H&P for complete history.
PMH: fall 09/07/23 with 2 rib fractures on L, CVA with L hemiparesis, a fib (Eliquis), CAD, OK, CKD4, anxiety/depression, L 2nd toe MRSA infection, wound which was treated with Zyvox, asthma, BPH, esophageal rings, wears compression stockinets, CAD
with stent, former smoker.
Wound Location and type/assessment: Patient admitted with: healing partial thickness dorsal L 2nd toe wound suspect r/t trauma originally. Wound pink on dorsal toe and scabbed on distal 2nd toe. R heel skin blanchable red. +1-2 Le edema. +Palpable
pedal pulses (L>R). Sacral crease mild MASD. L elbow healing dry pink abrasion.
Appetite: poor.
Pressure redistribution devices in place: Advanta with Accumax. RN Jimy to switch bed to a Versacare air bed. Pillow to off load heels.
Plan: L 2nd toe dressing changed. Size F Medigrip applied knee high. Instructed patient pressure injury prevention measures.
Will confirm orders with Dr. Olivo.
Care plan to be updated and will follow as needed. Patient to follow up with Dr. Lott.
--- NOTE | 2023-10-08 11:14 | CM ---
Addendum entered by Vivien Blankenship 10/08/23 11:52:
Per physician patient has been cleared for discharge and bed is available at [facility] today. Ambulance transport has been set up for 6pm.
[facility]
Report [phone]
fax [phone]
Original Note:
Patient admitted from [facility] where he has been since last discharged from on 09/11. Patient was scheduled for discharge home from the SNF on 10/14 prior to readmission to hospital. CM spoke with Elisabeth in admissions who referred CM to
Devin, social science analyst at the facility. Patient was contact guard for lpower body care, Min A for upper body care and stand by assistance for ambulation per UR report from last sun. CM will call to patient to review options following
assessment by PT/OT. Patient currently OBS. CM will review with patient form. CM will continue to follow for discharge planning needs.
Plan; SNF vs home with VN
--- NOTE | 2023-10-08 11:49 | W.PN.HOSP.TC ---
Today's Communication/Plan
-
d/c
Assessment / Plan
Assessment / Plan
pt is an 83 year old male
Acute Urinary Retention-- - Chávez placed in the ED for > 1 liter of urine output--apprec urology--renal function at baseline--keep chávez at d/c
CKD IV--Diuretic Use - Stable. Renal function is at / near known baseline- - Diuretics were restarted after return to [facility]--- Would continue to hold spironolactone for now - Note that patient does not have a diagnosis of CHF- ProBNP not significant
changed (actually lower) from prior.
Left Hemiparesis as Late Effect of CVA/ASCVD (CAD, CVA)- Stable. Continue outpatient CV med regimen- PT / OT evaluations during stay.
Paroxysmal Atrial Fibrillation - Stable. Continue current med regimen including Eliquis.
Benign Hypertension - Stable. Continue home regimen excepting Lasix / Aldactone- Restart Aldactone if needed for BP control.
Anemia of CKD - Stable. Hgb is at / near known baseline. - No recent blood loss.
Asthma without Acute Exacerbation - Stable. Continue outpatient inhaler regimen.
Left Foot Wound- Stable / improving per patient. - Wound Care eval for continued local care.
DVT Prophylaxis: On Eliquis.
Code Status: DNR
d/c
Anticipated Discharge: Today
Subjective/Interval History
-
Date of Service: October 08, 2023
pt at baseline--has chávez--OK for d/c
Objective Data
-
Labs:
Laboratory Results
10/08/23
05:50
WBC 9.5
Hgb 8.8 L
Hct 26.0 L
Plt Count 271
Sodium 136
Potassium 4.3
Chloride 107
Carbon Dioxide 21 L
BUN 57 H
Creatinine 2.7 H
Glucose 93
Calcium 9.3
Vital Signs:
max temp for 24 hours
10/08/23
03:32
Temp 98.9 F
Vital Signs
Temp Pulse Resp BP Pulse Ox
98.5 F 84 16 123/62 96
10/08/23 07:05 10/08/23 08:12 10/08/23 07:26 10/08/23 08:12 10/08/23 07:26
I&O
10/07/23 10/08/23 10/09/23
06:59 06:59 06:59
Output Total 925 / 925
Balance -925 / -925
Review of Systems
-
All other systems: Reviewed and negative
Physical Exam
-
General: Well Developed, Well Nourished and No Apparent Distress
HEENT: Normocephalic and Atraumatic
Respiratory: Clear to Auscultation; Negative Wheezes or Rhonchi
Cardiac: Regular Rhythm and S1/S2; Negative Murmur
GI: Soft, Nontender, Nondistended and Normal Bowel Sounds
Genito-urinary: Chávez
Musculoskeletal: No Clubbing, No Cyanosis and No Edema
Neuro: Awake and Alert
Psych: Calm
--- NOTE | 2023-10-08 14:47 | W.DCSUMMARY ---
Discharge Summary
Discharge Data
Date of Admission: 10/08/23
Date of Discharge: 10/08/23
-
Pending Results: No
Hospital Course
Primary care physician : Eldon Faye
Principal Discharge diagnosis : Acute urinary retention
Chronic Discharge diagnosis : Chronic kidney disease stage IV, left hemiparesis as a late effect of stroke, paroxysmal atrial fibrillation, essential hypertension, anemia of chronic disease, asthma without exacerbation, chronic left foot wound
(present on admission)
Hospital Course : Patient was an 83-year-old male who presented complaining of the inability to urinate. He noted that he was unable to empty his bladder for the past 2 to 3 days. He was reports small amounts of frequent urination and a sensation
of fullness. He was presently at residential facility following a recent hospital stay for acute kidney injury due to overdiuresis. Renal function is at baseline. Patient was brought in as observation. Of note, patient was brought in as
observation for 'CHF exacerbation' but patient does not have a diagnosis of CHF. Diuretics were restarted at the alf. He has chronic lower extremity edema.
Problem #1: Acute urinary retention. Conti catheter was placed in the emergency department. 1 L of urine has been removed. He was seen in consultation by urology. Urology recommends stopping the anticholinergic medications including oxybutynin
and high Cosamin as well as mirabegron if he is still on that medication. Conti catheter will be maintained at discharge. He will follow-up with urology in 1 week.
Problem #2: All other medical issues. These include Chronic kidney disease stage IV, left hemiparesis as a late effect of stroke, paroxysmal atrial fibrillation, essential hypertension, anemia of chronic disease, asthma without exacerbation,
chronic left foot wound (present on admission). These medical issues were stable during his hospitalization. Medications were continued as able.
Patient is stable to return to the skilled facility at this time. If there are any questions regarding this dictation or his hospital stay, please hesitate to call. Our office number is [phone].
Discharge Plan
-
Patient Disposition: Intermediate/SNF
Discharge Diagnosis/Procedures: Acute urinary retention--continue Conti at discharge as per urology, chronic kidney disease stage IV renal function at baseline, left hemiparesis as late effect of stroke, paroxysmal atrial fibrillation, essential
hypertension, anemia of chronic disease, asthma without exacerbation, left foot wound (POA)
Condition: Good
Diet: Other diet
Additional Diets: soft and bite sized with thin liquids
Activity: As tolerated
Driving Restrictions: As prior to admission
Bathing Restrictions: None
Activity Restrictions/Additional Instructions:
Wound Care Instructions
L toe wound care-clean with saline or Vashe, Bactroban ointment, adaptic, gauze, Kerlix, change daily and as needed for drainage.
L elbow abrasion-clean with saline, protective silicone border foam, change q 3 days and prn loosened dressing.
Bilateral knee high Tubigrip as tolerated; may remove q hs; reapply q am.
Elevate heels off bed with pillows
Air chair cushion.
Make routine appointment with vascular (Dr. Daigle or associate), call for appointment
Follow up with Dr. Lott.
KEEP CONTI AT DISCHARGE
Referrals:
Mera Tavarez DO [Family Provider] - in less than 1 week
Andrea Vale MD [Active] - in one week
Prescriptions:
New
polyethylene glycol 3350 [HealthyLax] 17 gram Powder In Packet
17 g PO DAILY PRN (Reason: Constipation) Qty: 0 0RF
Continued
furosemide [Lasix] 20 mg Tablet
20 mg PO DAILY
hydralazine 25 mg Tablet
25 mg PO BID
therapeutic multivitamin Tablet
1 tab PO DAILY
ferrous sulfate [iron] 325 mg (65 mg iron) Tablet
325 mg PO DAILY
fluticasone propion-salmeterol 500-50 mcg/dose Blister With Device
1 inh INHALATION R BID
cholecalciferol (vitamin D3) 25 mcg (1,000 unit) Tablet
25 mcg PO DAILY
Eliquis 2.5 mg Tablet
2.5 mg PO BID
rosuvastatin 40 MG tablet
40 mg PO HS
cetirizine [Zyrtec] 10 mg Tablet
10 mg PO DAILYPRN PRN (Reason: allergies)
albuterol sulfate 90 mcg/actuation Hfa Aerosol Inhaler
2 puff INHALATION R QIDPRN PRN (Reason: sob)
lidocaine 4 % Adhesive Patch,Medicated
1 patch topical DAILY Qty: 5 0RF
Remove Patch [Remove Lidocaine Patch]
1 patch transdermal DAILY@1999 Qty: 1 0RF
acetaminophen 325 mg Tablet
325 mg PO Q6HPRN PRN (Reason: mild pain/ fever>100.5F) Qty: 0 0RF
albuterol sulfate 2.5 mg /3 mL (0.083 %) Solution For Nebulization
2.5 mg inhalation R Q4HPRN PRN (Reason: shortness of breath/wheeze) Qty: 0 0RF
magnesium hydroxide [Milk of Magnesia] 400 mg/5 mL Suspension
30 ml PO DAILYPRN PRN (Reason: constipation; give if no BM in 3 days)
bisacodyl 10 mg Suppository
10 mg MO DAILY PRN (Reason: constipation; give if no BM after M.O.M enema)
nystatin 100,000 unit/gram Powder
1 applic TOPICAL BID
carvedilol 12.5 MG tablet
12.5 mg PO BID Qty: 180 0RF
cyanocobalamin (vitamin B-12) 1,000 MCG tablet
1,000 mcg PO DAILY Qty: 90 0RF
montelukast 10 MG tablet
10 mg PO DAILY Qty: 90 0RF
Held
spironolactone 25 mg Tablet
25 mg PO DAILY
Hold Instructions: Resume on 09/26/23. Discontinue until you see PCP
oxybutynin chloride 10 mg Tablet Extended Release 24hr
10 mg PO DAILY
Hold Instructions: discuss restarting with urology
Discontinued
hyoscyamine sulfate 0.125 mg Tablet, Sublingual
0.125 mg PO Q4HPRN PRN (Reason: secretion control) Qty: 10 0RF
Discharge Orders:
Discharge Patient (As Directed); Ordered 10/08/23
Ordered By: Araceli Olivo
Discharge Date and Time
Discharge Date/Time: 10/08/23 14:20
Print Language: CHADIAN
== END 2023-10-08 14:20 ==
LOC: 2 NORTH 02:42
PROVIDERS: ADMITTING PHYSICIAN Hospitalist; ATTENDING PHYSICIAN Internal Medicine; CONSULT PHYSICIAN Urology; EMERGENCY PHYSICIAN Emergency Medicine; FAMILY PHYSICIAN Student in an Organized Health Care Education/Training Program
DX: R33.8 Other retention of urine (principal); R10.9 Unspecified abdominal pain; R06.02 Shortness of breath; R19.00 Intra-abdominal and pelvic swelling, mass and lump, unspecified site; N40.1 Benign prostatic hyperplasia with lower urinary tract symptoms; M79.89 Other specified soft tissue disorders; J45.909 Unspecified asthma, uncomplicated; M19.011 Primary osteoarthritis, right shoulder; I25.10 Atherosclerotic heart disease of native coronary artery without angina pectoris; E78.00 Pure hypercholesterolemia, unspecified; I48.0 Paroxysmal atrial fibrillation; K21.9 Gastro-esophageal reflux disease without esophagitis; I69.354 Hemiplegia and hemiparesis following cerebral infarction affecting left non-dominant side; I25.2 Old myocardial infarction; F41.9 Anxiety disorder, unspecified; F32.A Depression, unspecified; I12.9 Hypertensive chronic kidney disease with stage 1 through stage 4 chronic kidney disease, or unspecified chronic kidney disease; R35.0 Frequency of micturition; L97.529 Non-pressure chronic ulcer of other part of left foot with unspecified severity; G47.33 Obstructive sleep apnea (adult) (pediatric); D63.1 Anemia in chronic kidney disease; N18.4 Chronic kidney disease, stage 4 (severe); Z87.442 Personal history of urinary calculi; Z87.19 Personal history of other diseases of the digestive system; Z87.891 Personal history of nicotine dependence; Z96.653 Presence of artificial knee joint, bilateral; Z95.5 Presence of coronary angioplasty implant and graft; Z66 Do not resuscitate; Z82.49 Family history of ischemic heart disease and other diseases of the circulatory system; Z88.8 Allergy status to other drugs, medicaments and biological substances; Z91.030 Bee allergy status; Z79.51 Long term (current) use of inhaled steroids; Z79.01 Long term (current) use of anticoagulants; Z77.090 Contact with and (suspected) exposure to asbestos
CPT/HCPCS: 51702; 51798; 71046; 80048; 80053; 81003; 81015; 83735; 83880; 84484; 85025; 85027; 92610; 93005; 94640; 96374; 97163; 97166; 99285; G0378

== ENCOUNTER → 2024-02-07 10:00 | Outpatient (REF) | payer BC, SELFPAY | LOC: RCS 10:00 | PROVIDERS: ATTENDING PHYSICIAN Internal Medicine Cardiovascular Disease; FAMILY PHYSICIAN Family Medicine | DX: I10 Essential (primary) hypertension (principal); I50.32 Chronic diastolic (congestive) heart failure | CPT/HCPCS: 93306 ==

== ENCOUNTER → 2024-03-04 09:18 | Outpatient (REF) | payer BC, MEDICARE, SELFPAY | LOC: HWRAD 09:18 | PROVIDERS: ATTENDING PHYSICIAN Internal Medicine Nephrology; FAMILY PHYSICIAN Family Medicine | DX: N18.5 Chronic kidney disease, stage 5 (principal); N40.1 Benign prostatic hyperplasia with lower urinary tract symptoms | CPT/HCPCS: 76770 ==

== ENCOUNTER → 2024-07-30 14:03 | Outpatient (REF) | payer BC, SELFPAY | LOC: RAD 14:03 | PROVIDERS: ATTENDING PHYSICIAN Surgery Vascular Surgery; FAMILY PHYSICIAN Family Medicine | DX: I65.23 Occlusion and stenosis of bilateral carotid arteries (principal) | CPT/HCPCS: 93880 ==

== ENCOUNTER → 2024-09-02 11:14 | Outpatient (REF) | payer BC, SELFPAY | LOC: RAD 11:14 | PROVIDERS: ATTENDING PHYSICIAN Physician Assistant Medical; FAMILY PHYSICIAN Family Medicine | DX: I50.32 Chronic diastolic (congestive) heart failure (principal); R06.02 Shortness of breath | CPT/HCPCS: 71046 ==

== ENCOUNTER 2024-09-16 16:37 | Inpatient (IN) | payer BC, SELFPAY ==
[2024-09-16] VITALS (9 sets, daily range): BP systolic 114–152; BP diastolic 66–91; BMI 30.5; BMI 29.6
[2024-09-16 12:41] LABS: Hematocrit 31.7 % (39.0-52.0); Hemoglobin 10.4 g/dL (13.0-18.0); Mean Corp Hgb Conc. 32.8 g/dL (33.0-37.0); Mean Corpuscular Volume 92.7 fL (80.0-94.0); Nucleated Red Blood Cells % 0 % (-); Platelet Count 264 10^3/uL (130-400); Red Cell Dist. Width 15.5 % (11.5-14.5)
[2024-09-16 13:01] LABS: COVID-19 Antigen Negative (Negative)
[2024-09-16 13:07] LABS: ALT (SGPT) 29 U/L (0-50); AST (SGOT) 25 U/L (17-59); Albumin 4.0 g/dl (3.5-5.0); Alkaline Phosphatase 85 U/L (38-126); Blood Urea Nitrogen 110 mg/dl (9-20); Calcium 9.4 mg/dl (8.4-10.2); Carbon Dioxide 26 mmol/L (22-30); Chloride 98 mmol/L (98-107); Estimated Creatinine Clearance 11 ml/min; Glucose 165 mg/dl (70-99); Potassium 4.9 mmol/L (3.5-5.1); Sodium 136 mmol/L (135-145); Total Protein 6.6 g/dl (6.3-8.2); eGFR 7.81
--- NOTE | 2024-09-16 14:23 | ED.GENMED ---
History of Present Illness
General
Chief Complaint: Breathing Problem
Source: patient
Time Seen by Provider: 09/16/24 12:48
History of Present Illness
History of Present Illness:
Note:
CHIEF COMPLAINT(S)
Respiratory infection for one month, feeling weak.
HISTORY OF PRESENT ILLNESS
The patient is an 84-year-old male presenting with a respiratory infection persisting for one month. He reports significant weakness as a result of the illness. There is no associated shortness of breath or chest pain. The patient recalls possibly
experiencing a fever with chills. He has not previously sought medical evaluation for this condition and denies a productive cough, hemoptysis, or the presence of yellow or green sputum. The patient has a known history of asthma.
ALLERGIES
Unknown medication allergies.
PAST MEDICAL HISTORY
History of asthma.
REVIEW OF SYSTEMS
- Constitutional: Complains of significant weakness, possibly experienced fever with chills.
- Respiratory: Denies shortness of breath and productive cough, no hemoptysis, no yellow or green sputum production.
- Cardiovascular: No reports of chest pain.
- Musculoskeletal: Normal, except for left-sided weakness from a previous stroke.
PHYSICAL EXAM
General: Alert, no acute distress.
Skin: Warm, dry.
Head: Normocephalic, atraumatic.
Neck: Supple, trachea midline.
Eye, Ears, Nose, Mouth, and Throat: Oral mucosa moist.
Cardiovascular: Heart sounds regular, subtle systolic murmur, no lower extremity edema.
Respiratory: Lungs are clear to auscultation bilaterally.
Gastrointestinal: Abdomen nondistended.
Back: Normal range of motion, normal alignment.
Musculoskeletal: Normal range of motion and normal strength, except for left-sided weakness from prior stroke.
Neurological: Dysarthria, left-sided weakness, alert and oriented to person, place, time, and situation, no new focal neurological deficit observed.
Psychiatric: Cooperative, appropriate mood and affect.
Additional history by the patient's spouse states that he does have a history of kidney disease and is followed by nephrology but baseline creatinine back in May was 3.9
PLAN
- Obtain a chest X-ray to evaluate for possible bronchitis, pneumonia, or heart failure.
- Review lab work upon availability to further assess the patients condition.
DIFFERENTIAL DIAGNOSIS
The Differential Diagnosis includes, in no particular order and is not limited to:
1. Bronchitis
2. Pneumonia
3. Heart failure
4. Chronic obstructive pulmonary disease exacerbation
5. Asthma exacerbation
6. Viral upper respiratory infection
7. Influenza
8. Tuberculosis
9. Anemia-related weakness
10. Age-related debility
CARE-UPDATE
09/16/24 - 15:03
Creatinine level last evening was 58. Recent creatinine in May was 3.9.
Disposition:
SUMMARY OF ENCOUNTER
The patient presented with a persistent cough. A chest X-ray was interpreted by radiology, suggesting potential pneumonia, although the patient was afebrile with normal white blood cell count. Laboratory tests indicated acute renal failure with a
creatinine level of 6.6. Comparison with previous records showed a creatinine baseline of 2.7 in September 2023 and 3.9 in May 2023. Given the progression of renal failure, the decision was made to admit the patient for further nephrology evaluation.
Previously reviewed records include discharge summaries from May and September 2023, when the patient was treated for acute urinary retention. A bladder scan conducted today was unremarkable. The patients medical history includes stroke, asthma,
paroxysmal atrial fibrillation, coronary artery disease, hyperlipidemia, and hypertension.
DISPOSITION
Admit.
ASSESSMENT
Progressive acute renal failure and potential pneumonia.
REASSESSMENT
Blood pressure 114/71, heart rate 72.
INDEPENDENT REVIEW OF LABS AND INTERPRETATION OF TESTS
My independent review of BMP indicates acute renal failure with a creatinine level of 6.6. Previous records show baseline creatinine levels of 2.7 in September 2023 and 3.9 in May 2023.
My independent review of chest x-ray reveals no acute infiltrates
MEDICAL DECISION MAKING
- Number and Complexity of Problems Addressed: Chronic conditions affecting care include history of stroke, asthma, paroxysmal atrial fibrillation, coronary artery disease, hyperlipidemia, and hypertension. Differential diagnosis includes
bronchitis, pneumonia, heart failure, chronic obstructive pulmonary disease exacerbation, asthma exacerbation, viral upper respiratory infection, influenza, tuberculosis, anemia-related weakness, and age-related debility.
- Data:
Category 1
Old records, including discharge summaries from May and September 2023, reviewed. Baseline creatinine levels reviewed, comparing current levels to past results.
- Risk:
Consideration of Admission/Observation: Escalation of care, including admission, was considered given the patient�s acute renal failure and potential pneumonia. Ultimately, admission was deemed necessary for further nephrology evaluation.
DIAGNOSIS
- Acute renal failure (ICD-10: N17.9)
- Potential pneumonia (ICD-10: J18.9)
Past History
Past History
ED Past Medical History: Arrthythmia ( atrial fibrillation), Asthma, CAD, CVA (Left sided weakness, ), GERD, HTN, Hypercholesterolemia, [place], Renal failure (Stage 4 ), Psychiatric (Anxiety, Depression) and Other (Osteoarthritis, Diverticulosis, Renal
calculus)
ED Past Surgical History: Cardiac (Radiofrequency ablation, Stents X 2) and Orthopedic (Right elbow repair, Right and left Total knee replacement)
Social History
Tobacco: Former smoker
Alcohol: None
Personal:
Living: with family
Employment: Retired
Family History
Family History: Other (Noncontributory)
Phy Exam
Physical Exam
Physical Exam:
.
Scores
Heart Failure Risk
Heart Failure Risk Score: Not Applicable
Course
Orders/Labs/Results
Orders:
Orders
09/16/24 Breakfast
Cholesterol Lowering
At Your Request: Full Participation
Cholesterol Lowering: Sodium, 2 Gram
09/16/24 12:26
Chest [CR Chest - 2 Views ] Urgent
Comment:
Reason For Exam: cough
09/16/24 12:30
COVID-19 Antigen Urgent
Source: Nasal Swab
Complete Blood Count/With Diff Urgent
Comprehensive Metabolic Panel Urgent
Influenza A+B Rapid Molecular Urgent
STEPHANIE Source: Nasal Swab
Specimen Description:
09/16/24 13:08
Bladder Scan- Treatment ONCE
09/16/24 14:19
Urinalysis Reflex To Culture Urgent
Date Specimen was Collected: 09/16/24
Time Specimen was Collected: 14:16
Urine Microscopic Reflex Cult Urgent
Urine Culture Urgent
STEPHANIE Source: U
Specimen Description:
Date Specimen was Collected: 09/16/24
Time Specimen was Collected: 14:16
09/16/24 14:23
0.9% Sodium Chloride 500 ml [Nss] 500 ml IV BOLUS
09/16/24 14:28
Speech Screening from Arlene Routine
09/16/24 15:41
Admit/Transfer Patient As Directed
Co-Sign Provider:
Level of Care: Inpatient admission
Assign to:: Telemetry
Physician / Group: vidhi
Diagnosis: LICHA
Reason for Telemetry: Arrhythmia
Date to Stop Telemetry: 09/19/24
Time to Stop Telemetry: 11:00
Reason for Hospitalization: LICHA
Expected length of stay greater than two midnights?: Yes
ELOS- Estimated Length of Stay in days: 3
I certify the patient meets the requirements for IP care: Yes
PRN Pain Medication Management As Directed
May give lesser potent ordered pain med per pt: Yes
preference::
Protocol:: Medication orders for pain may be administered in a
manner that supports deferring to patient preference
when the pt is:
- Requesting an ordered lesser potent pain medication.
Least to most potent pain medications are defined
as: acetaminophen < NSAID < tramadol < opioids
(morphine, oxycodone, hydromorphone).
- Requesting a lesser dose of the same medication IF
ORDERED.
- Requesting a less intrusive route of administration
if both routes are prescribed by the provider (PO <
IV).
09/16/24 15:43
Code Status As Directed
Resuscitation Status: Do not resuscitate
Reached after discussion with pt or family/Healthcare POA: Yes
DNR Bracelet Application ONCE
09/16/24 16:04
Renal Only US [US Renal Only W/O Bladder] Stat
Comment:
Reason For Exam: acute kidney injury
09/19/24 11:00
DC Protocol for Telemetry ONCE
Abnormal Lab Results
09/16/24 09/16/24
12:30 14:19
RBC 3.42 L 10^6/uL
(4.70-6.10)
Hgb 10.4 L g/dL
(13.0-18.0)
Hct 31.7 L %
(39.0-52.0)
MCHC 32.8 L g/dL
(33.0-37.0)
RDW 15.5 H %
(11.5-14.5)
Abs Immat Gran (auto) 0.1 H 10^3/uL
(0-0.05)
Absolute Monos (auto) 0.8 H 10^3/uL
(0.1-0.6)
Immature Gran % 1.3 H %
(0-0.5)
Lymphocytes % 14.0 L %
(20.5-51.1)
Monocytes % 9.7 H %
(1.7-9.3)
BUN 110 H* mg/dl
(9-20)
Creatinine 6.6 H* mg/dL
(0.7-1.3)
Glucose 165 H mg/dl
(70-99)
Ur Occult Blood Reflex 4+ A
(Negative)
Leukocyte Esterase Rfl 3+ A
(Negative)
Urine RBC >100 A /HPF
(0-2)
Urine WBC (Reflex) >100 A /HPF
(0-5)
Urine Bacteria (Reflex) Few A
(Negative)
Urine Albumin (Reflex) 3+ A
(Neg - Trace)
09/16/24 12:30
09/16/24 12:30
Vital Signs
Initial and Last Documented VS:
Initial Vital Signs
Temp Pulse Resp BP Pulse Ox
97.6 F 73 18 127/91 93
09/16/24 12:24 09/16/24 12:24 09/16/24 12:24 09/16/24 12:24 09/16/24 12:24
Last Documented Vital Signs
Temp Pulse Resp BP Pulse Ox
98.6 F 85 24 131/71 94
09/16/24 14:23 09/16/24 19:00 09/16/24 19:00 09/16/24 19:00 09/16/24 18:30
*Pulse Oximetry
SaO2: 93
Oxygen Mode of Delivery: Room air
Patient hypoxic: no
*Critical Care Note
Total Time (30-74mins, 75-104mins- exclusive of procedures): 30 minutes
ED Attending Note
-
Portions of this chart may have been created with voice recognition software.� Occasional wrong word or��sound alike� substitutions may have occurred due to the inherent limitations of voice recognition software.
Discharge Plan
Departure
Patient Disposition: Admit
Date of Disposition: 09/16/24
Time of Disposition: 14:24
Admit to: Telemetry
Presentation/result/management discussed w/ accepting MD/DO: Hospitalist
Discharge Problem:
Acute renal failure
Interventions
Interventions:
*Risk Screen - Suicide Last Done: 09/16/24 12:28
*General Assessment Last Done: 09/16/24 14:23
*Neglect/Abuse Screening Last Done: 09/16/24 12:28
*ED- Fall Risk Assessment Last Done: 09/16/24 14:23
*ED COVID-19 Vaccine History Last Done: 09/16/24 14:23
ED- Cardiac Assessment Last Done: 09/16/24 14:23
ED- Pulmonary Assessment Last Done: 09/16/24 14:23
[2024-09-16 14:28] LABS: Urine Character Cloudy (Clear)
[2024-09-16 14:46] LABS: Urine Red Blood Cell >100 /HPF (0-2); Urine Squamous Cell 0-2 /LPF (Few)
[2024-09-16 14:47] LABS: Urine White Cell >100 /HPF (0-5)
--- NOTE | 2024-09-16 15:20 | HPS.HSE ---
Addendum entered and electronically signed by Geri Abraham MD 09/16/24 17:50:
84-year-old man with CKD, A-fib on Eliquis, CAD s/p stent, presenting with weakness. notes that he has been going downhill since he has been on doxycycline for his cough, but that he has been having poor p.o. intake, decreased urine output,
and this morning she could not get him up off the toilet.
On exam, VSS
Gen: NAD
HEENT: EOMI, PERRLA, MMM, neck supple
CV: Heart RRR, no m/g/r
Lungs: CTAB, no w/r/r
Abd: soft/NT/ND/NABS
MSK: No LE edema
Neuro: A+Ox3, no obvious focal deficits
Psych: Calm
Labs notable for hemoglobin 10.4 (Stable), creatinine 6.6 (Last year 2.7), BUN 110
UA shows 4+ blood, >100 RBC, 3+ LE, >100 WBC few bacteria, 3+ albumin
flu negative
A/P:
Acute renal failure on CKD -
Hematuria
Weakness And poor oral intake
Cough
A-fib
HTN
h/o CVA
Active urine sediment (albuminuria, hematuria, WBCs concerning for UTI vs glomerulonephritis)
Check renal ultrasound
Follow-up urine culture, Start empiric ceftriaxone, hold doxy
Hold Lasix/spironolactone
urine protein�creatinine ratio
IVF as feels he is not eating/drinking well
Nephrology consulted feels this is UTI so holding off other w/u for now
Check TSH/T4
PT/OT
Original Note:
Family Physician
-
Family Physician: Wellington Reyes
Chief Complaint
-
cough
History of Present Illness
84-year-old male with past medical history for chronic kidney disease, A-fib, GERD, hypertension, anxiety, CVA, obstructive sleep apnea presented to us with productive cough for 4 weeks . He is on doxycycline since September 09 . Last night he was
coughing more than usual with productive sputum. He never extremely short of breath and weak . As per , he is sleeping more than usual . He is nauseous . He has poor appetite. stated fever but not measured .he was complaining of
chills. As per decreased urine output. Denied headache dizzy or syncope. Patient denied any chest pain. Denied abdominal pain, vomiting or diarrhea.
Upon arrival he was noted to have elevated creatinine. Received normal saline x 1. Admitted for further management
Medical History
Past Medical History
Past Medical History: Reports Other
Additional Past Medical History:
Coronary artery disease
Dysphagia
GERD
Hypertension
Carla
CVA
Obstructive sleep apnea
Asthma
Hyperlipidemia
Esophageal spasm
Paroxysmal A-fib
CKD stage V
Past Surgical History: Reports Other
Additional Past Surgical History:
Left RCA repair
Cardiac stent
Cardiac ablation
Left TKA
Vasectomy
Right TKA
Social History
Tobacco: Former Smoker
Alcohol: Occasional
Drug: None
Personal:
Living: With Family
Family History
Family History: Not pertinent
Allergies / Home Medications
Allergies reflects when Allergies were last updated in [employer]
Home Medications with original date entered in [employer]
Allergy/Medication List:
Allergies
Allergy/AdvReac Type Severity Reaction Status Date / Time
cat dander Allergy Swelling Verified 10/07/23 21:09
lisinopril Allergy Unknown Verified 10/07/23 21:09
losartan Allergy lip Verified 10/07/23 21:09
swelling
lovastatin Allergy myalgias Verified 10/07/23 21:09
mirabegron (From Myrbetriq) Allergy lips Verified 10/07/23 21:09
swellling
tamsulosin HCl (From Flomax) Allergy facial Verified 10/07/23 21:09
itching,dizziness
venom-honey bee (bee venom Allergy Anaphylaxis Verified 10/07/23 21:09
(honey bee))
Home Medications
cyanocobalamin (vitamin B-12) 1,000 mcg tablet 1,000 mcg PO DAILY #90 tabs 07/19/21
apixaban 2.5 mg tablet (Eliquis) 2.5 mg PO BID Blood Clot Prevention/Tx 08/31/23
cholecalciferol (vitamin D3) 25 mcg (1,000 unit) tablet 25 mcg PO DAILY Supplement 08/31/23
ferrous sulfate 325 mg (65 mg iron) tablet (iron) 325 mg PO DAILY Supplement 08/31/23
fluticasone 500 mcg-salmeterol 50 mcg/dose blistr powdr for inhalation 1 inh inhalation R BID Lung/Breathing Issues 08/31/23
therapeutic multivitamin 1 tab PO DAILY Supplement 08/31/23
acetaminophen 500 mg tablet (Tylenol Extra Strength) 1,000 mg PO Q6HPRN PRN mild pain 09/16/24
bismuth subsalicylate 262 mg chewable tablet (Pepto-Bismol) 2 tab PO DAILYPRN PRN gerd 09/16/24
carvedilol 12.5 mg tablet 12.5 mg PO DAILY Blood pressure 09/16/24
carvedilol 6.25 mg tablet (Coreg) 6.25 mg PO QPM 09/16/24
doxycycline hyclate 100 mg tablet 100 mg PO BID 09/16/24
furosemide 40 mg tablet (Lasix) 40 mg PO QPM 09/16/24
furosemide 80 mg tablet (Lasix) 80 mg PO DAILY 09/16/24
rosuvastatin 40 mg tablet (Crestor) 40 mg PO QPM 09/16/24
sertraline 25 mg tablet 12.5 mg PO HS 09/16/24
spironolactone 25 mg tablet 25 mg PO DAILY 09/16/24
Review of Systems
-
Constitutional: Reports Fever, Fatigue and Chills
EENT: Reports No Symptoms
Respiratory: Reports Cough and Trouble Breathing
Cardiac: Reports No Symptoms
Abdomen/GI: Reports Nausea
: Reports No Symptoms
Musculoskeletal: Reports No Symptoms
Skin: Reports No Symptoms
Neurological: Reports Weakness
Endocrine: Reports No Symptoms
Hematologic/Lymphatic: Reports No Symptoms
Psych: Reports No Symptoms
Physical Exam
Vital Signs
Vital Signs
Temp Pulse Resp BP Pulse Ox
98.6 F 72 15 114/71 93
09/16/24 14:23 09/16/24 14:23 09/16/24 14:23 09/16/24 14:23 09/16/24 14:24
Physical Exam
General: Well Developed, Well Nourished and No Apparent Distress
HEENT: NormoCephalic, Moist mucous membranes and Atraumatic
Respiratory: Clear
Cardiac: S1/S2 and Regular Rhythm; No Murmur or Rub
GI: Soft, Non Tender, Non Distended and Normal Bowel Sounds; No Organomegaly
Rectal: Deferred by Provider
Musculoskeletal: No Clubbing, No Cyanosis and No Edema
Skin: No Rash
Neuro: AO x 3 and Nonfocal/grossly intact
Psych: Calm
Laboratory Results
-
09/16/24 12:30
09/16/24 12:30
Laboratory Results
Total Bilirubin 0.7 mg/dl (0.2-1.3) 09/16/24 12:30
AST 25 U/L (17-59) 09/16/24 12:30
ALT 29 U/L (0-50) 09/16/24 12:30
Alkaline Phosphatase 85 U/L (38-126) 09/16/24 12:30
Data Reviewed
-
Diagnostic Radiology: Report Reviewed by me
Lab Data: Labs Reviewed by me
Impression/Plan
-
#acute renal failure on CKD stage V
-CR 6.6,BUN 110
- Received normal saline x 1 bag
- BMP in a.m.
-obtain renal US
- Nephrology consulted
#cough likely viral
-COVID negative
-chest x ray with the impression of Calcified pleural plaques are unchanged.There is cardiomegaly but no evidence of decompensation
-Tessalon prn
#anemia likely from chronic disease
-hgb 10.4, no active bleeding
-ctm
- Ferrous sulfate continued
#UTI
-ceftriaxone
-urine culture pending.
#Left Hemiparesis as Late Effect of CVA/ASCVD (CAD, CVA)- Stable.
- Statin continued
# Anxiety
- Sertraline continued
#Paroxysmal Atrial Fibrillation -heart rate controlled, Coreg continued, Eliquis continued
#Benign Hypertension
- Hold Lasix and spironolactone due to LICHA
#Asthma without Acute Exacerbation - Stable.
DVT Prophylaxis: On Eliquis.
Code Status: DNR
[2024-09-16] MEDS: NSS 500 IV (15:36)
--- NOTE | 2024-09-16 16:01 | W.CON.NEPH ---
Medical History
-
History of Present Illness:
83y M with PMH significant for L hemiplegia s/p CVA, A-Fib, CKD. Urinary retention Follows with urology who recently had a respiratory infection persisting for one month. Who presents with weakness subjective fever and chills. Noted to have
hematuria in which he notified urology.
Urinalysis consistent with UTI in the ER
Renal consult for acute kidney injury with a creatinine of 6 he follows with nephrology and [facility] [address]
Past Medical History
L hemiplegia s/p CVA, A-Fib, CKD. Urinary retention
Social History
Tobacco: Non-Smoker
Alcohol: None
Family History
Family History: Not Pertinent
Allergies / Home Medications
Allergy/AdvReac Type Severity Reaction Status Date / Time
cat dander Allergy Swelling Verified 10/07/23 21:09
lisinopril Allergy Unknown Verified 10/07/23 21:09
losartan Allergy lip Verified 10/07/23 21:09
swelling
lovastatin Allergy myalgias Verified 10/07/23 21:09
mirabegron (From Myrbetriq) Allergy lips Verified 10/07/23 21:09
swellling
tamsulosin HCl (From Flomax) Allergy facial Verified 10/07/23 21:09
itching,dizziness
venom-honey bee (bee venom Allergy Anaphylaxis Verified 10/07/23 21:09
(honey bee))
�Medication �Instructions �Recorded �Confirmed �Type
cyanocobalamin (vitamin B-12) 1,000 mcg PO DAILY #90 tabs 07/19/21 09/16/24 Rx
1,000 mcg tablet
apixaban 2.5 mg tablet (Eliquis) 2.5 mg PO BID Blood Clot 08/31/23 09/16/24 History
Prevention/Tx
cholecalciferol (vitamin D3) 25 25 mcg PO DAILY Supplement 08/31/23 09/16/24 History
mcg (1,000 unit) tablet
ferrous sulfate 325 mg (65 mg 325 mg PO DAILY Supplement 08/31/23 09/16/24 History
iron) tablet (iron)
fluticasone 500 mcg-salmeterol 50 1 inh inhalation R BID 08/31/23 09/16/24 History
mcg/dose blistr powdr for Lung/Breathing Issues
inhalation
therapeutic multivitamin 1 tab PO DAILY Supplement 08/31/23 09/16/24 History
acetaminophen 500 mg tablet 1,000 mg PO Q6HPRN PRN mild pain 09/16/24 09/16/24 History
(Tylenol Extra Strength)
bismuth subsalicylate 262 mg 2 tab PO DAILYPRN PRN gerd 09/16/24 09/16/24 History
chewable tablet (Pepto-Bismol)
carvedilol 12.5 mg tablet 12.5 mg PO DAILY Blood pressure 09/16/24 09/16/24 History
carvedilol 6.25 mg tablet (Coreg) 6.25 mg PO QPM 09/16/24 09/16/24 History
doxycycline hyclate 100 mg tablet 100 mg PO BID 09/16/24 09/16/24 History
furosemide 40 mg tablet (Lasix) 40 mg PO QPM 09/16/24 09/16/24 History
furosemide 80 mg tablet (Lasix) 80 mg PO DAILY 09/16/24 09/16/24 History
rosuvastatin 40 mg tablet (Crestor) 40 mg PO QPM 09/16/24 09/16/24 History
sertraline 25 mg tablet 12.5 mg PO HS 09/16/24 09/16/24 History
spironolactone 25 mg tablet 25 mg PO DAILY 09/16/24 09/16/24 History
Review of Systems
-
Weakness, chronic incontinence worsening
All other systems: Negative unless noted
Physical Exam
Vital Signs
Vital Signs
Temp Pulse Resp BP Pulse Ox
98.6 F 75 19 119/74 93
09/16/24 14:23 09/16/24 15:15 09/16/24 15:15 09/16/24 15:00 09/16/24 15:15
Lab Results
WBC 8.3 10^3/uL (4.8-10.8) 09/16/24 12:30
RBC 3.42 10^6/uL (4.70-6.10) L 09/16/24 12:30
Hgb 10.4 g/dL (13.0-18.0) L 09/16/24 12:30
Hct 31.7 % (39.0-52.0) L 09/16/24 12:30
Plt Count 264 10^3/uL (130-400) 09/16/24 12:30
Sodium 136 mmol/L (135-145) 09/16/24 12:30
Potassium 4.9 mmol/L (3.5-5.1) 09/16/24 12:30
Chloride 98 mmol/L (98-107) 09/16/24 12:30
Carbon Dioxide 26 mmol/L (22-30) 09/16/24 12:30
BUN 110 mg/dl (9-20) H* 09/16/24 12:30
Creatinine 6.6 mg/dL (0.7-1.3) H* 09/16/24 12:30
eGFR 7.81 09/16/24 12:30
Glucose 165 mg/dl (70-99) H 09/16/24 12:30
Calcium 9.4 mg/dl (8.4-10.2) 09/16/24 12:30
Albumin 4.0 g/dl (3.5-5.0) 09/16/24 12:30
Physical Exam
General no acute distress
HEENT no cephalic atraumatic extraocular muscle intact no scleral icterus no JVD neck supple
lungs clear to auscultation bilateral
heart regular S1-S2 positive
abdomen soft nontender positive bowel sounds
extremities no edema pulses present bilateral
Neurologically nonfocal alert and oriented x 3
Skin no lesions no abrasions no petechiae
Psych normal affect no bizarre behavior
Data Reviewed
-
Labs: Labs Reviewed by me, Discussed with Physician, Discussed with Patient and Discussed with Family
Assessment/Plan
-
83y M with PMH significant for L hemiplegia s/p CVA, A-Fib, CKD. Urinary retention Follows with urology who recently had a respiratory infection persisting for one month. Who presents with weakness subjective fever and chills. Noted to have
hematuria in which he notified urology.
Urinalysis consistent with UTI in the ER
Renal consult for acute kidney injury with a creatinine of 6 he follows with nephrology and [facility] [address]
Impression.
Acute kidney injury on chronic kidney disease stage IV with a baseline creatinine of 3.6.
UTI.
A-fib stable.
CHF diastolic stable.
Plan.
Continue IV fluids ordered
Check imaging ordered
Antibiotics renally dosed
Hold furosemide/spironolactone
Discussed with the patient and his about dialysis if needed going forward. Patient states he discussed this with his primary intelligence officer and would not want to do dialysis if if required.
Having said that no acute need for dialysis
Will follow closely
--- NOTE | 2024-09-16 20:45 | PTCARENOTE ---
Pt arrived to room 435-01. Pt transferred from stretcher to bed. Pt AAOx3, VSS. Pt oriented to room, call kathleen placed within reach.
[2024-09-16] MEDS: STERILE WATER FOR INJECTION 10 ML IV (22:11)
[2024-09-16] MEDS: ROCEPHIN 1000 MG IV (22:11)
[2024-09-16] MEDS: ZOLOFT PO (23:17)
[2024-09-16] MEDS: CRESTOR PO (23:17)
[2024-09-16] MEDS: ELIQUIS PO (23:17)
[2024-09-16] MEDS: COREG PO (23:17)
[2024-09-17] MEDS: ADVAIR HFA 230/21 MCG INHALER INH ×2 (03:06→19:24)
[2024-09-17 03:22] VITALS: BP 147/84
[2024-09-17 06:00] VITALS: BMI 29.8
[2024-09-17 08:18] VITALS: BP 131/82
[2024-09-17 08:48] VITALS: BP 148/86; PULSE 90; O2SAT 93
[2024-09-17] MEDS: ELIQUIS 2.5 MG PO ×2 (08:59→21:05)
[2024-09-17] MEDS: FEOSOL 325 MG PO (08:59)
[2024-09-17] MEDS: COREG 12.5 MG PO (08:59)
--- NOTE | 2024-09-17 10:02 | W.PN.HOSP.TC ---
Today's Communication/Plan
-
Continue IV fluid hydration
IMMIGRATION INSPECTOR eval
Assessment / Plan
Assessment / Plan
Mr. Castillo is a 83y M with PMH significant for L hemiplegia s/p CVA, paroxysmal A-Fib rate controlled and on Eliquis, CKD 4 baseline creatinine 3.6, urinary retention follows with urology, HLD, asthma, GERD, anxiety, BPH, KLAUS, who recently had a
respiratory infection persisting for one month. He presents with weakness subjective fever and chills. He also noted to have hematuria and notified urology. In the ED he was normotensive afebrile with a white count of 8.3 hemoglobin 10.4 and a
136 K4.9 CL 98 HCO3 26 BUN 110 creatinine 6.6. Urinalysis consistent with UTI, cloudy positive for blood positive leukoesterase positive RBCs positive WBC. Renal ultrasound showed findings associated with chronic renal disease, bilateral simple
renal cysts. Chest x-ray showed cardiomegaly without any acute pulmonary processes. Patient was admitted and nephrology was consulted. He follows Dr. Way from nephrology [place]. Nephrology ordered IV fluids hold furosemide and Lasix and
discussed possible need for dialysis but patient does not want to do dialysis if required.
#acute renal failure on CKD stage V
-CR 6.6,BUN 110
- Received normal saline x 1 bag
- BMP in a.m.
- renal US
Findings in keeping with chronic medical renal disease.Simple bilateral renal cysts.
- Nephrology consulted
#cough
likely viral, may also be due to chronic aspiration
-IMMIGRATION INSPECTOR eval
-COVID negative
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
-Tessalon prn
#anemia likely from chronic disease
-hgb 10.4, no active bleeding
-ctm
- Ferrous sulfate continued
#UTI
-ceftriaxone
-urine culture pending.
#Left Hemiparesis
Effect of CVA/ASCVD (CAD, CVA)- Stable.
- Statin continued
# Anxiety
- Sertraline continued
#Paroxysmal Atrial Fibrillation
heart rate controlled
-Coreg continued
-Eliquis continued
#Benign Hypertension
- Hold Lasix and spironolactone due to LICHA
#Asthma without Acute Exacerbation - Stable.
DVT Prophylaxis: On Eliquis.
Code Status: DNR
Anticipated Discharge: 24 - 48 hours
Subjective/Interval History
-
Patient was seen at bedside today. He reports feeling about the same as yesterday. He had a dry nonproductive cough for about a 1 prior to presentation. Does not know when he started doxycycline which was prescribed by his PCP but still has some
left. He reports that he had a sick contact, his , and had some fevers. However he is not short of breath and does not have chest pain. When talking with UTI he reports that it is a recurrent issue, and he usually gets medication from his
PCP. Date of Service: September 17, 2024
Objective Data
-
Labs:
Laboratory Results
09/17/24
06:00
WBC Pending
Hgb Pending
Hct Pending
Plt Count Pending
Sodium Pending
Potassium Pending
Chloride Pending
Carbon Dioxide Pending
BUN Pending
Creatinine Pending
Glucose Pending
Calcium Pending
Vital Signs:
Vital Signs
Temp Pulse Resp BP Pulse Ox
98.4 F 93 16 131/82 95
09/17/24 08:18 09/17/24 08:59 09/17/24 08:18 09/17/24 08:59 09/17/24 08:18
I&O
09/16/24 09/17/24 09/18/24
06:59 06:59 06:59
Output Total 300 / 600 300 / 300
Balance -300 / -600 -300 / -300
Review of Systems
-
History Source: Patient
Constitutional: Reports Fever; Denies Fatigue
EENT: Reports No Symptoms Reported and Other; Denies Sore Throat or Runny Nose
Respiratory: Reports Cough; Denies Trouble Breathing
Cardiac: Reports No Symptoms; Denies Chest Pain or Palpitations
Abdomen/GI: Reports No Symptoms; Denies Abdominal Pain, Nausea, Vomiting or Diarrhea
Genitourinary: Reports No Symptoms; Denies Dysuria
Musculoskeletal: Reports No Symptoms
Skin: Reports No Symptoms
Neuro: Reports No Symptoms; Denies Dizzy or Headache
Physical Exam
-
General: Well Developed, Well Nourished, No Apparent Distress and Other (Hemiparetic left side)
HEENT: Normocephalic and Atraumatic
Respiratory: Wheezes and Crackles
Cardiac: Regular Rhythm and S1/S2; Negative Murmur
GI: Soft, Nontender, Nondistended and Normal Bowel Sounds
Musculoskeletal: No Clubbing, No Cyanosis and No Edema
Skin: Warm and Dry
Neuro: Awake and Alert
Psych: Calm
[2024-09-17 11:03] VITALS: BP 119/71
--- NOTE | 2024-09-17 11:42 | PTOTSP ---
Dysphagia Evaluation
Patient has a known history of mild pharyngeal dysphagia with aspiration of thin liquids via cup w/o chin tuck per video swallow study 09/17/2023. Patient currently presents with signs concerning for mild oral/pharyngeal dysphagia. He has chronic
dysphagia risk factors (i.e., CVA with left hemiplegia, GERD, 'esophageal spasms') and currently is w/o signs of aspiration complications such as PNA.
Recommend:
1. IDDSI Level 6 soft/bite sized, thin liquids via cup w/ chin tuck
2. Medications whole or crushed in puree
3. Strategies: upright to 90 degrees, full supervision and assist as needed, chin tuck, alternate sips/bites, remain upright for 30 minutes after PO intake
4. Oral care 3x daily
5. Brief dysphagia f/u at the acute care level as patient is not at baseline level of function.
[2024-09-17] MEDS: ADVAIR HFA 230/21 MCG INHALER 2 PUFF INH (11:45)
--- NOTE | 2024-09-17 13:12 | W.PN.NEPH.PH ---
Today's Communication / Plan
-
observe
Assessment/Plan
-
83y M with PMH significant for L hemiplegia s/p CVA, A-Fib, CKD. Urinary retention Follows with urology who recently had a respiratory infection persisting for one month. Who presents with weakness subjective fever and chills. Noted to have
hematuria in which he notified urology.
Urinalysis consistent with UTI in the ER
Renal consult for acute kidney injury with a creatinine of 6 he follows with nephrology and [facility] [address]
Impression.
Acute kidney injury on chronic kidney disease stage IV with a baseline creatinine of 3.6.
UTI.
A-fib stable.
CHF diastolic stable.
Plan.
Continue IV fluids ordered
patient refusing labs today
Checked imaging ordered: renal u/s : no obstruction
Antibiotics renally dosed
Holding furosemide/spironolactone
Discussed with the patient and his about dialysis if needed going forward. Patient states he discussed this with his primary laundry pricing clerk and would not want to do dialysis if if required.
Having said that no acute need for dialysis
Will follow closely
-
-
Date of Service: September 17, 2024
CC / HPI / ROS
-
Chief Complaint:
LICHA
History of Present Illness:
hemodynamically stable
creaitnine not drawn patient refuses
Review of Systems:
non oliguric
no chest pain or sob
Labs
-
Labs:
eGFR 7.81 09/16/24 12:30
Albumin 4.0 g/dl (3.5-5.0) 09/16/24 12:30
Physical Exam
-
Vital Signs:
Vital Signs
Temp Pulse Resp BP Pulse Ox
97.6 F 78 16 119/71 95
09/17/24 11:03 09/17/24 11:45 09/17/24 11:45 09/17/24 11:03 09/17/24 12:28
Cardiovascular:: Regular rate and rhythm
Respiratory:: Bilateral: Coarse
Lung Excursion:: Normal
Abdomen:: Nontender and Soft
Bowel Sounds:: Normal
Extremity Edema:: None: Bilateral:
Ramirez Catheter: No
--- NOTE | 2024-09-17 13:47 | W.PN.UPDATE ---
Update Note
Progress Note Update
I have independently evaluated the patient at the bedside. I reviewed the case with the resident and agree with all documentation unless otherwise specified.
AFVSS this morning on room air. Did have possible aspiration event shortly after admission, [facility] [employer] [employer] [facility] was consulted. Morning labs pending still at this time.
AAO x 4, chronic left neurologic deficits though no new FND. NAD. RRR without murmurs or gallops, normal S1-2. Rhonchorous in all lung brown, nonlabored respirations. Benign abdomen, no lower extremity edema. 2+ pulses, no rashes, skin warm
and dry
LICHA on CKD stage IV. Suspect prerenal cause with reduced intake recently. Baseline creatinine near 3.6, presented with creatinine 6.6. Renal ultrasound without signs of obstruction, protein/creatinine ratio 1.4 not consistent with active
processes. Was started on IV fluids upon arrival, home Lasix and Aldactone held. Will continue with current management and observe BMP. Patient has declared he does not want hemodialysis. If renal function does not improve and he develops
indications for HD then we will need to discuss goals of care and possible hospice transition.
Urinary tract infection. Was started on IV ceftriaxone after urine culture on admission. Will follow-up urine culture and trend CBC and temperature curve. Narrow antibiotic spectrum as able
Aspiration event on admission, chronic cough. States he has had cough for over 1 month. Noted to have possible aspiration event after admission. Currently n.p.o. pending speech eval. On exam does have significant rhonchi though not requiring
oxygen. Continue to monitor clinically and follow-up [facility] evaluation
Standard renal diet when able
SQ heparin
DNR/DNI
Discharge timeline TBD depending on renal function
Please see resident progress note for more detail
[2024-09-17 14:11] LABS: Hematocrit 33.1 % (39.0-52.0); Hemoglobin 11.1 g/dL (13.0-18.0); Mean Corp Hgb Conc. 33.5 g/dL (33.0-37.0); Mean Corpuscular Volume 90.7 fL (80.0-94.0); Platelet Count 289 10^3/uL (130-400); Red Cell Dist. Width 15.5 % (11.5-14.5)
[2024-09-17 14:25] LABS: Blood Urea Nitrogen 106 mg/dl (9-20); Calcium 9.6 mg/dl (8.4-10.2); Carbon Dioxide 25 mmol/L (22-30); Chloride 101 mmol/L (98-107); Estimated Creatinine Clearance 10 ml/min; Glucose 127 mg/dl (70-99); Potassium 4.6 mmol/L (3.5-5.1); Sodium 139 mmol/L (135-145); eGFR 8.25
--- NOTE | 2024-09-17 16:46 | CM ---
Patient was admitted with weakness, SOB, and LICHA. Chart reviewed and corrections caseworker met with patient and spouse at bedside, patient resides with spouse in a 2nd floor condo, patient requires assist with adl's and uses a hemiwalker with ambulation,
patient has a w/c, and electric w/c for community distances. manager technical sales reviewed with spouse possible options and patient may need skilled placement, per spouse she wanted to talk to physician about patient's medical needs.
PCP: Dr Reyes
Pharmacy: [facility] in [place].
[2024-09-17] MEDS: COREG 6.25 MG PO (18:06)
[2024-09-17] MEDS: CRESTOR 10 MG PO (18:06)
[2024-09-17 19:19] VITALS: BP 157/78
[2024-09-17] MEDS: ZOLOFT 12.5 MG PO (21:09)
[2024-09-17] MEDS: ROCEPHIN 1000 MG IV (21:10)
[2024-09-17] MEDS: STERILE WATER FOR INJECTION 10 ML IV (21:11)
[2024-09-17 23:26] VITALS: BP 135/79
[2024-09-18 03:23] VITALS: BP 143/79
[2024-09-18 05:17] VITALS: BMI 30.4
[2024-09-18 07:16] VITALS: BP 143/92
[2024-09-18] MEDS: ADVAIR HFA 230/21 MCG INHALER 2 PUFF INH ×2 (07:37→20:10)
[2024-09-18] MEDS: ELIQUIS 2.5 MG PO ×2 (07:43→20:41)
[2024-09-18] MEDS: FEOSOL 325 MG PO (07:43)
[2024-09-18] MEDS: COREG 12.5 MG PO (07:43)
--- NOTE | 2024-09-18 09:22 | W.PN.HOSP.TC ---
Today's Communication/Plan
-
Urine culture grew gram-negative bacilli
Continue antibiotic treatment
Assessment / Plan
Assessment / Plan
Mr. Castillo is a 83y M with PMH significant for L hemiplegia s/p CVA, paroxysmal A-Fib rate controlled and on Eliquis, CKD 4 baseline creatinine 3.6, urinary retention follows with urology, HLD, asthma, GERD, anxiety, BPH, KLAUS, who recently had a
respiratory infection persisting for one month. He presents with weakness subjective fever and chills. He also noted to have hematuria and notified urology. In the ED he was normotensive afebrile with a white count of 8.3 hemoglobin 10.4 and a
136 K4.9 CL 98 HCO3 26 BUN 110 creatinine 6.6. Urinalysis consistent with UTI, cloudy positive for blood positive leukoesterase positive RBCs positive WBC. Renal ultrasound showed findings associated with chronic renal disease, bilateral simple
renal cysts. Chest x-ray showed cardiomegaly without any acute pulmonary processes. Patient was admitted and nephrology was consulted. He follows Dr. Way from nephrology [place]. Nephrology ordered IV fluids hold furosemide and Lasix and
discussed possible need for dialysis but patient does not want to do dialysis if required. BUN/creatinine started trending down with IV fluids.
#acute renal failure on CKD stage V, improving
-CR 6.6,BUN 110 on admission
- Received normal saline x 1 bag
- BMP improving
- renal US
Findings in keeping with chronic medical renal disease.Simple bilateral renal cysts.
- Nephrology consulted
#UTI
-ceftriaxone
-urine culture positive for gram-negative bacilli
#cough
likely viral, may also be due to chronic aspiration
-JUNIOR PARALEGAL eval
-COVID negative
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
-Tessalon prn
#anemia likely from chronic disease
-hgb 10.4, no active bleeding
-ctm
- Ferrous sulfate continued
#Left Hemiparesis
Effect of CVA/ASCVD (CAD, CVA)- Stable.
- Statin continued
- PT OT
# Anxiety
- Sertraline continued
#Paroxysmal Atrial Fibrillation
heart rate controlled
-Coreg continued
-Eliquis continued
#Benign Hypertension
- Hold Lasix and spironolactone due to LICHA
#Asthma without Acute Exacerbation - Stable.
DVT Prophylaxis: On Eliquis.
Code Status: DNR
Anticipated Discharge: 24 - 48 hours
Subjective/Interval History
-
Patient is seen at bedside with . He was eating breakfast and having dysphagia with soft food. reported known history of esophagitis that causes him to have dysphagia at times. Patient and asked about disposition and answered all
questions. Updated them about kidney numbers deferring to nephrology for question about whether he will have full recovery. Told him that we would have to wait and see how well kidney numbers are trending as we have only had 1 day. Date of
Service: September 18, 2024
Objective Data
-
Labs:
Laboratory Results
09/18/24
06:00
WBC Pending
Hgb Pending
Hct Pending
Plt Count Pending
Sodium Pending
Potassium Pending
Chloride Pending
Carbon Dioxide Pending
BUN Pending
Creatinine Pending
Glucose Pending
Calcium Pending
Vital Signs:
Vital Signs
Temp Pulse Resp BP Pulse Ox
97.9 F 91 16 143/92 97
09/18/24 07:16 09/18/24 07:47 09/18/24 07:47 09/18/24 07:43 09/18/24 07:47
I&O
09/17/24 09/18/24 09/19/24
06:59 06:59 06:59
Intake Total 480 / 480
Output Total 300 / 600 300 / 300
Balance -300 / -600 180 / 180
Review of Systems
-
History Source: Patient and Family
Constitutional: Reports Fatigue; Denies Fever
EENT: Denies Sore Throat or Runny Nose
Respiratory: Reports No Symptoms; Denies Cough, Trouble Breathing or Wheezing
Abdomen/GI: Reports No Symptoms; Denies Abdominal Pain, Nausea, Vomiting or Diarrhea
Genitourinary: Reports No Symptoms; Denies Dysuria
Musculoskeletal: Reports Other (Left hemiparesis)
Skin: Reports No Symptoms; Denies Itching or Rash
Neuro: Reports No Symptoms and Weakness (Left hemiparesis); Denies Dizzy or Headache
Physical Exam
-
General: Well Developed, Well Nourished, No Apparent Distress and Other (Left hemiparesis)
HEENT: Normocephalic and Atraumatic
Respiratory: Non Labored Respirations and Other (Difficult to assess due to hemiparesis)
Cardiac: Regular Rhythm and S1/S2; Negative Murmur
GI: Soft, Nontender, Nondistended and Normal Bowel Sounds
Musculoskeletal: No Clubbing, No Cyanosis and No Edema
Skin: Warm and Dry; Negative Rash
Neuro: Awake, Alert, Oriented, AO x 3 and Other (Left upper extremity, lower extremity hemiparesis, decreased motor strength)
[2024-09-18 10:30] VITALS: BP 121/68
[2024-09-18 10:41] LABS: Hematocrit 30.3 % (39.0-52.0); Hemoglobin 9.9 g/dL (13.0-18.0); Mean Corp Hgb Conc. 32.7 g/dL (33.0-37.0); Mean Corpuscular Volume 92.1 fL (80.0-94.0); Platelet Count 298 10^3/uL (130-400); Red Cell Dist. Width 15.8 % (11.5-14.5)
[2024-09-18 11:29] LABS: Blood Urea Nitrogen 107 mg/dl (9-20); Calcium 9.2 mg/dl (8.4-10.2); Carbon Dioxide 23 mmol/L (22-30); Chloride 102 mmol/L (98-107); Estimated Creatinine Clearance 12 ml/min; Glucose 214 mg/dl (70-99); Potassium 4.4 mmol/L (3.5-5.1); Sodium 138 mmol/L (135-145); eGFR 9.12
[2024-09-18 15:10] VITALS: BP 143/59
--- NOTE | 2024-09-18 16:28 | W.PN.NEPH.PH ---
Today's Communication / Plan
-
Observe
Check postvoid bladder scan to make sure there is no urinary retention
Assessment/Plan
-
83y M with PMH significant for L hemiplegia s/p CVA, A-Fib, CKD. Urinary retention Follows with urology who recently had a respiratory infection persisting for one month. Who presents with weakness subjective fever and chills. Noted to have
hematuria in which he notified urology.
Urinalysis consistent with UTI in the ER
Renal consult for acute kidney injury with a creatinine of 6 he follows with nephrology and [address]
Impression.
Acute kidney injury on chronic kidney disease stage IV with a baseline creatinine of 3.6.
UTI.
A-fib stable.
CHF diastolic stable.
Plan.
Creatinine essentially unchanged at 5.3, BUN remains elevated at 107,weights rising
Urine output not recorded
patient refusing labs today
Checked imaging ordered: renal u/s : no obstruction
Antibiotics renally dosed
Holding furosemide/spironolactone
Previously Discussed with the patient and his about dialysis if needed going forward. Patient states he discussed this with his primary algebra tutor and would not want to do dialysis if if required.
I am not sure what else I have to offer
-
-
Date of Service: September 18, 2024
CC / HPI / ROS
-
Chief Complaint:
LICHA
History of Present Illness:
hemodynamically stable
Creatinine remains elevated at 5.8
Review of Systems:
Urine output not recorded
no chest pain or sob
Labs
-
Labs:
WBC 8.5 10^3/uL (4.8-10.8) 09/18/24 10:08
RBC 3.29 10^6/uL (4.70-6.10) L 09/18/24 10:08
Hgb 9.9 g/dL (13.0-18.0) L 09/18/24 10:08
Hct 30.3 % (39.0-52.0) L 09/18/24 10:08
Plt Count 298 10^3/uL (130-400) 09/18/24 10:08
Sodium 138 mmol/L (135-145) 09/18/24 10:08
Potassium 4.4 mmol/L (3.5-5.1) 09/18/24 10:08
Chloride 102 mmol/L (98-107) 09/18/24 10:08
Carbon Dioxide 23 mmol/L (22-30) 09/18/24 10:08
BUN 107 mg/dl (9-20) H* 09/18/24 10:08
Creatinine 5.8 mg/dL (0.7-1.3) H* 09/18/24 10:08
eGFR 9.12 09/18/24 10:08
Glucose 214 mg/dl (70-99) H 09/18/24 10:08
Calcium 9.2 mg/dl (8.4-10.2) 09/18/24 10:08
Albumin 4.0 g/dl (3.5-5.0) 09/16/24 12:30
Physical Exam
-
Vital Signs:
Vital Signs
Temp Pulse Resp BP Pulse Ox
97.9 F 78 18 143/59 96
09/18/24 15:10 09/18/24 15:10 09/18/24 15:10 09/18/24 15:10 09/18/24 15:10
Cardiovascular:: Regular rate and rhythm
Respiratory:: Bilateral: Coarse
Lung Excursion:: Normal
Abdomen:: Nontender and Soft
Bowel Sounds:: Normal
Extremity Edema:: None: Bilateral:
Ramirez Catheter: No
[2024-09-18] MEDS: COREG 6.25 MG PO (17:19)
[2024-09-18] MEDS: CRESTOR 10 MG PO (17:19)
[2024-09-18 19:20] VITALS: BP 115/64
[2024-09-18] MEDS: ROCEPHIN 1000 MG IV (20:41)
[2024-09-18] MEDS: ZOLOFT 12.5 MG PO (20:41)
[2024-09-18] MEDS: STERILE WATER FOR INJECTION 10 ML IV (20:41)
[2024-09-18 23:12] VITALS: BP 139/76
[2024-09-19] VITALS (7 sets, daily range): BP systolic 111–138; BP diastolic 62–82; O2SAT 93
[2024-09-19] MEDS: ADVAIR HFA 230/21 MCG INHALER 2 PUFF INH ×2 (08:37→18:33)
[2024-09-19] MEDS: ELIQUIS 2.5 MG PO ×2 (10:04→19:42)
[2024-09-19] MEDS: FEOSOL 325 MG PO (10:04)
[2024-09-19] MEDS: COREG 12.5 MG PO (10:04)
[2024-09-19] MEDS: DESENEX/MITRAZOL/ZEASORB 1 APPLIC TOPICAL ×2 (10:05→19:43)
--- NOTE | 2024-09-19 12:01 | W.PN.HOSP.TC ---
Today's Communication/Plan
-
Urine culture grew Pseudomonas
Patient with a urinary symptom
DC ceftriaxone
continue to monitor
Assessment / Plan
Assessment / Plan
Mr. Castillo is a 83y M with PMH significant for L hemiplegia s/p CVA, paroxysmal A-Fib rate controlled and on Eliquis, CKD 4 baseline creatinine 3.6, urinary retention follows with urology, HLD, asthma, GERD, anxiety, BPH, KLAUS, who recently had a
respiratory infection persisting for one month. He presents with weakness subjective fever and chills. He also noted to have hematuria and notified urology. In the ED he was normotensive afebrile with a white count of 8.3 hemoglobin 10.4 and a
136 K4.9 CL 98 HCO3 26 BUN 110 creatinine 6.6. Urinalysis consistent with UTI, cloudy positive for blood positive leukoesterase positive RBCs positive WBC. Renal ultrasound showed findings associated with chronic renal disease, bilateral simple
renal cysts. Chest x-ray showed cardiomegaly without any acute pulmonary processes. Patient was admitted and nephrology was consulted. He follows Dr. Way from nephrology [place]. Nephrology ordered IV fluids hold furosemide and Lasix and
discussed possible need for dialysis but patient does not want to do dialysis if required. BUN/creatinine started trending down with IV fluids.
#acute renal failure on CKD stage V, improving
-CR 6.6,BUN 110 on admission
- Received normal saline x 1 bag
- BMP improving
- renal US
Findings in keeping with chronic medical renal disease.Simple bilateral renal cysts.
- Nephrology consulted
#UTI
- Discontinued ceftriaxone
-urine culture positive Pseudomonas
Patient without urinary symptoms
Continue to monitor
#cough improving
likely viral, may also be due to chronic aspiration
-POLICY ADVISOR eval
-COVID negative
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
-Tessalon prn
#anemia likely from chronic disease
-hgb 10.4, no active bleeding
-ctm
- Ferrous sulfate continued
#Left Hemiparesis
Effect of CVA/ASCVD (CAD, CVA)- Stable.
- Statin continued
- PT OT
# Anxiety
- Sertraline continued
#Paroxysmal Atrial Fibrillation
heart rate controlled
-Coreg continued
-Eliquis continued
#Benign Hypertension
- Hold Lasix and spironolactone due to LICHA
#Asthma without Acute Exacerbation - Stable.
DVT Prophylaxis: On Eliquis.
Code Status: DNR
Anticipated Discharge: 24 - 48 hours
Subjective/Interval History
-
Saw patient at bedside today, he reported doing better. He reported that he had not had a bowel movement in several days but was otherwise okay. Relayed to him that kidney function numbers from yesterday were improving albeit slowly. Patient
stated that he would like to return home, told him that advice from PT is for SNF placement to work on his strength, he reported that he has aides at home that would be able to help him, but from understanding of conversation with yesterday he
is not at baseline and has increased assistance requirements. Date of Service: September 19, 2024
Objective Data
-
Labs:
Laboratory Results
09/19/24
06:00
WBC Pending
Hgb Pending
Hct Pending
Plt Count Pending
Sodium Pending
Potassium Pending
Chloride Pending
Carbon Dioxide Pending
BUN Pending
Creatinine Pending
Glucose Pending
Calcium Pending
Vital Signs:
Vital Signs
Temp Pulse Resp BP Pulse Ox
97.9 F 80 20 128/67 95
09/19/24 11:25 09/19/24 11:25 09/19/24 11:25 09/19/24 11:25 09/19/24 11:25
I&O
09/18/24 09/19/24 09/20/24
06:59 06:59 06:59
Intake Total 480 / 480 660 / 660
Output Total 300 / 300 100 / 100 300 / 300
Balance 180 / 180 560 / 560 -300 / -300
Review of Systems
-
History Source: Patient
Constitutional: Reports No Symptoms; Denies Fever or Fatigue
EENT: Reports No Symptoms Reported; Denies Sore Throat or Runny Nose
Respiratory: Reports No Symptoms; Denies Cough, Trouble Breathing or Wheezing
Cardiac: Reports No Symptoms; Denies Chest Pain or Palpitations
Abdomen/GI: Reports Constipated; Denies Abdominal Pain, Nausea, Vomiting or Diarrhea
Genitourinary: Reports No Symptoms; Denies Dysuria
Musculoskeletal: Reports No Symptoms; Denies Joint Pain
Skin: Reports No Symptoms; Denies Itching
Neuro: Reports No Symptoms; Denies Dizzy or Headache
Physical Exam
-
General: Well Developed, Well Nourished, No Apparent Distress and Comfortable
HEENT: Normocephalic and Atraumatic
Respiratory: Rhonchi (Mildly improved), Crackles (Mildly improved) and Other (Limited exam); Negative Wheezes
Cardiac: Regular Rhythm and S1/S2; Negative Murmur
GI: Soft, Nontender, Nondistended and Normal Bowel Sounds
Musculoskeletal: No Clubbing, No Cyanosis and No Edema
Skin: Warm and Dry; Negative Rash
Neuro: Awake, Alert and Oriented
[2024-09-19 12:46] LABS: Hematocrit 29.8 % (39.0-52.0); Hemoglobin 9.7 g/dL (13.0-18.0); Mean Corp Hgb Conc. 32.6 g/dL (33.0-37.0); Mean Corpuscular Volume 92.8 fL (80.0-94.0); Platelet Count 327 10^3/uL (130-400); Red Cell Dist. Width 15.9 % (11.5-14.5)
--- NOTE | 2024-09-19 13:04 | CM ---
nursery manager reviewed patient's chart and medical work up still in progress, hospice may also be a discussion, will wait on update from physician. Patient lives with spouse who is very supportive.
Plan; To await update and plan from physicians.
[2024-09-19 13:20] LABS: Blood Urea Nitrogen 109 mg/dl (9-20); Calcium 9.2 mg/dl (8.4-10.2); Carbon Dioxide 22 mmol/L (22-30); Chloride 102 mmol/L (98-107); Estimated Creatinine Clearance 13 ml/min; Glucose 169 mg/dl (70-99); Potassium 4.3 mmol/L (3.5-5.1); Sodium 137 mmol/L (135-145); eGFR 11.16
--- NOTE | 2024-09-19 13:31 | W.PN.NEPH.PH ---
Today's Communication / Plan
-
AM labs
Assessment/Plan
-
83y M with PMH significant for L hemiplegia s/p CVA, A-Fib, CKD. Urinary retention Follows with urology who recently had a respiratory infection persisting for one month. Who presents with weakness subjective fever and chills. Noted to have
hematuria in which he notified urology.
Urinalysis consistent with UTI in the ER
Renal consult for acute kidney injury with a creatinine of 6 he follows with nephrology and [address]
Impression.
Acute kidney injury on chronic kidney disease stage IV with a baseline creatinine of 3.6.
UTI.
A-fib stable.
CHF diastolic stable.
Plan.
Creatinine essentially unchanged at 5.3, BUN remains elevated at 107,weights rising
Urine output not recorded
patient refusing labs today
Checked imaging ordered: renal u/s : no obstruction
Antibiotics renally dosed
Holding furosemide/spironolactone
Previously Discussed with the patient and his about dialysis if needed going forward. Patient states he discussed this with his primary pig farm manager and would not want to do dialysis if if required.
Creatinine slightly better at 4.9
Recheck a.m. labs
Urine culture Pseudomonas without contaminant possibly?
-
-
Date of Service: September 19, 2024
CC / HPI / ROS
-
Chief Complaint:
LICHA
History of Present Illness:
hemodynamically stable
Creatinine remains elevated at 5.8
Review of Systems:
Urine output not recorded
no chest pain or sob
Labs
-
Labs:
WBC 8.6 10^3/uL (4.8-10.8) 09/19/24 12:22
RBC 3.21 10^6/uL (4.70-6.10) L 09/19/24 12:22
Hgb 9.7 g/dL (13.0-18.0) L 09/19/24 12:22
Hct 29.8 % (39.0-52.0) L 09/19/24 12:22
Plt Count 327 10^3/uL (130-400) 09/19/24 12:22
Sodium 137 mmol/L (135-145) 09/19/24 12:22
Potassium 4.3 mmol/L (3.5-5.1) 09/19/24 12:22
Chloride 102 mmol/L (98-107) 09/19/24 12:22
Carbon Dioxide 22 mmol/L (22-30) 09/19/24 12:22
BUN 109 mg/dl (9-20) H* 09/19/24 12:22
Creatinine 4.9 mg/dL (0.7-1.3) H* 09/19/24 12:22
eGFR 11.16 09/19/24 12:22
Glucose 169 mg/dl (70-99) H 09/19/24 12:22
Calcium 9.2 mg/dl (8.4-10.2) 09/19/24 12:22
Albumin 4.0 g/dl (3.5-5.0) 09/16/24 12:30
Physical Exam
-
Vital Signs:
Vital Signs
Temp Pulse Resp BP Pulse Ox
97.9 F 80 20 128/67 95
09/19/24 11:25 09/19/24 11:25 09/19/24 11:25 09/19/24 11:25 09/19/24 11:25
Cardiovascular:: Regular rate and rhythm
Respiratory:: Bilateral: Coarse
Lung Excursion:: Normal
Abdomen:: Nontender and Soft
Bowel Sounds:: Normal
Extremity Edema:: None: Bilateral:
Ramirez Catheter: No
[2024-09-19] MEDS: SENOKOT-S 1 TABLET PO ×2 (14:02→18:15)
--- NOTE | 2024-09-19 15:20 | HOSPNOTE ---
Spoke with family about hospice and the philosophy, the family needs the weekend to make some decisions. If the family chooses hospice it would be home hospice. More information to follow.
[2024-09-19] MEDS: COREG 6.25 MG PO (18:15)
[2024-09-19] MEDS: CRESTOR 10 MG PO (18:19)
[2024-09-19] MEDS: ZOLOFT 12.5 MG PO (21:15)
[2024-09-20 03:30] VITALS: BP 120/69
[2024-09-20 07:00] VITALS: BP 124/67
[2024-09-20] MEDS: ADVAIR HFA 230/21 MCG INHALER 2 PUFF INH ×2 (07:48→20:19)
[2024-09-20] MEDS: DESENEX/MITRAZOL/ZEASORB 1 APPLIC TOPICAL ×2 (08:39→21:23)
[2024-09-20] MEDS: FEOSOL 325 MG PO (08:40)
[2024-09-20] MEDS: SENOKOT-S 1 TABLET PO ×2 (08:40→15:33)
[2024-09-20] MEDS: ELIQUIS 2.5 MG PO ×2 (08:40→19:40)
[2024-09-20] MEDS: COREG 12.5 MG PO (08:40)
[2024-09-20 09:23] LABS: Hematocrit 29.2 % (39.0-52.0); Hemoglobin 9.5 g/dL (13.0-18.0); Mean Corp Hgb Conc. 32.5 g/dL (33.0-37.0); Mean Corpuscular Volume 93.0 fL (80.0-94.0); Platelet Count 356 10^3/uL (130-400); Red Cell Dist. Width 16.2 % (11.5-14.5)
[2024-09-20 09:36] VITALS: BMI 29.4
[2024-09-20 10:10] LABS: Blood Urea Nitrogen 107 mg/dl (9-20); Calcium 9.3 mg/dl (8.4-10.2); Carbon Dioxide 24 mmol/L (22-30); Chloride 102 mmol/L (98-107); Estimated Creatinine Clearance 13 ml/min; Glucose 113 mg/dl (70-99); Potassium 4.4 mmol/L (3.5-5.1); Sodium 137 mmol/L (135-145); eGFR 10.89
--- NOTE | 2024-09-20 10:18 | W.PN.HOSP.TC ---
Today's Communication/Plan
-
Hold diuretics, encourage oral hydration with 1500 mL FR
Avoid nephrotoxin
Trend BMP
Ongoing GOC
Assessment / Plan
Assessment / Plan
Mr. Castillo is a 83y M with PMH significant for L hemiplegia s/p CVA, paroxysmal A-Fib rate controlled and on Eliquis, CKD 4 baseline creatinine 3.6, urinary retention follows with urology, HLD, asthma, GERD, anxiety, BPH, KLAUS, who recently had a
respiratory infection persisting for one month. He presents with weakness subjective fever and chills. He also noted to have hematuria and notified urology. In the ED he was normotensive afebrile with a white count of 8.3 hemoglobin 10.4 and a
136 K4.9 CL 98 HCO3 26 BUN 110 creatinine 6.6. Urinalysis consistent with UTI, cloudy positive for blood positive leukoesterase positive RBCs positive WBC. Renal ultrasound showed findings associated with chronic renal disease, bilateral simple
renal cysts. Chest x-ray showed cardiomegaly without any acute pulmonary processes. Patient was admitted and nephrology was consulted. He follows Dr. Way from nephrology [place]. Nephrology ordered IV fluids hold furosemide and Lasix and
discussed possible need for dialysis but patient does not want to do dialysis if required. BUN/creatinine started trending down with IV fluids.
#acute renal failure on CKD stage V, improving
-CR 6.6,BUN 110 on admission
- Received normal saline x 1 bag
- BMP improving
- renal US
Findings in keeping with chronic medical renal disease.Simple bilateral renal cysts.
- Nephrology consulted
- Continue to hold home Lasix and spironolactone, 1500 mL FR, trend BMP
# Positive urinalysis
- Discontinued ceftriaxone
-urine culture positive Pseudomonas though suspect contaminant
Patient without urinary symptoms, fever, leukocytosis
Continue to monitor
#cough improving
likely viral, may also be due to chronic aspiration
-AUTOMOBILE RADIATOR MECHANIC eval
-COVID negative
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
-Tessalon prn
-Monitor respiratory status
#anemia likely from chronic disease
-hgb 10.4-9.5, no active bleeding
-ctm
- Ferrous sulfate continued
# CVA C/B left Hemiparesis
Effect of CVA/ASCVD (CAD, CVA)- Stable.
- Statin continued
- PT OT
# Anxiety
- Sertraline continued
#Paroxysmal Atrial Fibrillation
heart rate controlled
-Coreg continued
-Eliquis continued
#Benign Hypertension
- Hold Lasix and spironolactone due to LICHA
#Asthma without Acute Exacerbation - Stable.
DVT Prophylaxis: On Eliquis.
Code Status: DNR
Anticipated Discharge: 24 - 48 hours
Subjective/Interval History
-
Date of Service: September 20, 2024
Seen and examined at bedside. No acute events reported overnight. AFVSS this morning.
Creatinine stable, was 4.8 yesterday and 5.0 this morning. Patient states he continues to have good urine output. Complains of some constipation
Denies any other complaints as of this morning
Objective Data
-
Labs:
Laboratory Results
09/20/24
07:44
WBC 9.3
Hgb 9.5 L
Hct 29.2 L
Plt Count 356
Sodium 137
Potassium 4.4
Chloride 102
Carbon Dioxide 24
BUN 107 H*
Creatinine 5.0 H*
Glucose 113 H
Calcium 9.3
Vital Signs:
Vital Signs
Temp Pulse Resp BP Pulse Ox
98.2 F 76 16 124/67 95
09/20/24 07:00 09/20/24 07:52 09/20/24 07:52 09/20/24 07:00 09/20/24 07:52
I&O
09/19/24 09/20/24 09/21/24
06:59 06:59 06:59
Intake Total 660 / 660 480 / 480
Output Total 100 / 100 550 / 550
Balance 560 / 560 -70 / -70
Review of Systems
-
History Source: Patient
All other systems: Reviewed and negative
Physical Exam
-
General: Well Developed, Well Nourished and Appears Chronically Ill
HEENT: Normocephalic, Atraumatic, Moist Mucous Membranes and Anicteric
Respiratory: Rhonchi and Non Labored Respirations; Negative Accessory Resp Muscle Use
Cardiac: Regular Rhythm and S1/S2; Negative Murmur, Rub or Gallop
GI: Soft, Nontender, Nondistended and Normal Bowel Sounds
Musculoskeletal: No Clubbing, No Cyanosis and No Edema
Skin: Warm and Dry; Negative Rash
Neuro: AO x 3, Central Nerve's Intact and Other (Chronic left-sided deficits, no new FND)
Psych: Calm
Data Reviewed
-
Labs: Labs Reviewed by me and Discussed with Patient
[2024-09-20] MEDS: DULCOLAX 10 MG RECTAL (11:50)
--- NOTE | 2024-09-20 14:11 | W.PN.NEPH.PH ---
Today's Communication / Plan
-
Normal saline today run over the next 24 hours
Assessment/Plan
-
83y M with PMH significant for L hemiplegia s/p CVA, A-Fib, CKD. Urinary retention Follows with urology who recently had a respiratory infection persisting for one month. Who presents with weakness subjective fever and chills. Noted to have
hematuria in which he notified urology.
Urinalysis consistent with UTI in the ER
Renal consult for acute kidney injury with a creatinine of 6 he follows with nephrology and [address]
Impression.
Acute kidney injury on chronic kidney disease stage IV with a baseline creatinine of 3.6.
UTI.
A-fib stable.
CHF diastolic stable.
Plan.
Creatinine essentially unchanged at 5.3, BUN remains elevated at 107,weights rising
Urine output not recorded
patient refusing labs today
Checked imaging ordered: renal u/s : no obstruction
Antibiotics renally dosed
Holding furosemide/spironolactone
Previously Discussed with the patient and his about dialysis if needed going forward. Patient states he discussed this with his primary chick sexer and would not want to do dialysis if if required.
Creatinine slightly better at 4.9
Recheck a.m. labs
Urine culture Pseudomonas without contaminant possibly?
will give some IV fluids of there is a component of prerenal
-
-
Date of Service: September 20, 2024
CC / HPI / ROS
-
Chief Complaint:
LICHA
History of Present Illness:
hemodynamically stable
Creatinine remains elevated but improved
Review of Systems:
Urine output not recorded
no chest pain or sob
Labs
-
Labs:
WBC 9.3 10^3/uL (4.8-10.8) 09/20/24 07:44
RBC 3.14 10^6/uL (4.70-6.10) L 09/20/24 07:44
Hgb 9.5 g/dL (13.0-18.0) L 09/20/24 07:44
Hct 29.2 % (39.0-52.0) L 09/20/24 07:44
Plt Count 356 10^3/uL (130-400) 09/20/24 07:44
Sodium 137 mmol/L (135-145) 09/20/24 07:44
Potassium 4.4 mmol/L (3.5-5.1) 09/20/24 07:44
Chloride 102 mmol/L (98-107) 09/20/24 07:44
Carbon Dioxide 24 mmol/L (22-30) 09/20/24 07:44
BUN 107 mg/dl (9-20) H* 09/20/24 07:44
Creatinine 5.0 mg/dL (0.7-1.3) H* 09/20/24 07:44
eGFR 10.89 09/20/24 07:44
Glucose 113 mg/dl (70-99) H 09/20/24 07:44
Calcium 9.3 mg/dl (8.4-10.2) 09/20/24 07:44
Albumin 4.0 g/dl (3.5-5.0) 09/16/24 12:30
Physical Exam
-
Vital Signs:
Vital Signs
Temp Pulse Resp BP Pulse Ox
98.2 F 76 16 124/67 95
09/20/24 07:00 09/20/24 07:52 09/20/24 07:52 09/20/24 07:00 09/20/24 07:52
Cardiovascular:: Regular rate and rhythm
Respiratory:: Bilateral: Coarse
Lung Excursion:: Normal
Abdomen:: Nontender and Soft
Bowel Sounds:: Normal
Extremity Edema:: None: Bilateral:
Ramirez Catheter: No
[2024-09-20 15:00] VITALS: BP 121/67
[2024-09-20] MEDS: NSS 1000 IV ×2 (15:30→23:33)
[2024-09-20] MEDS: COREG 6.25 MG PO (19:40)
[2024-09-20] MEDS: CRESTOR 10 MG PO (19:41)
[2024-09-20] MEDS: ZOLOFT 12.5 MG PO (21:24)
[2024-09-20 23:23] VITALS: BP 135/68
[2024-09-21 05:52] LABS: Hematocrit 26.2 % (39.0-52.0); Hemoglobin 8.8 g/dL (13.0-18.0); Mean Corp Hgb Conc. 33.6 g/dL (33.0-37.0); Mean Corpuscular Volume 92.6 fL (80.0-94.0); Nucleated Red Blood Cells % 0 % (-); Platelet Count 335 10^3/uL (130-400); Red Cell Dist. Width 15.9 % (11.5-14.5)
[2024-09-21 06:00] VITALS: BMI 29.9
[2024-09-21 06:23] LABS: Blood Urea Nitrogen 95 mg/dl (9-20); Calcium 8.6 mg/dl (8.4-10.2); Carbon Dioxide 21 mmol/L (22-30); Chloride 106 mmol/L (98-107); Estimated Creatinine Clearance 16 ml/min; Glucose 100 mg/dl (70-99); Potassium 4.2 mmol/L (3.5-5.1); Sodium 138 mmol/L (135-145); eGFR 14.24
[2024-09-21] MEDS: NSS 1000 IV (07:43)
[2024-09-21] MEDS: COREG 12.5 MG PO (07:44)
[2024-09-21] MEDS: ELIQUIS 2.5 MG PO ×2 (07:44→20:31)
[2024-09-21] MEDS: DESENEX/MITRAZOL/ZEASORB 1 APPLIC TOPICAL ×2 (07:44→20:30)
[2024-09-21] MEDS: FEOSOL 325 MG PO (07:44)
[2024-09-21] MEDS: SENOKOT-S 1 TABLET PO ×2 (07:44→17:18)
[2024-09-21] MEDS: ADVAIR HFA 230/21 MCG INHALER 2 PUFF INH ×2 (08:33→20:20)
--- NOTE | 2024-09-21 12:08 | W.PN.HOSP.TC ---
Today's Communication/Plan
-
Continue IVF and monitor renal function
Tentative plan to discontinue diuretics at discharge
Plan for OP hospice/palliative follow-up
Likely discharge with home care tomorrow
Assessment / Plan
Assessment / Plan
Mr. Castillo is a 83y M with PMH significant for L hemiplegia s/p CVA, paroxysmal A-Fib rate controlled and on Eliquis, CKD 4 baseline creatinine 3.6, urinary retention follows with urology, HLD, asthma, GERD, anxiety, BPH, KLAUS, who recently had a
respiratory infection persisting for one month. He presents with weakness subjective fever and chills. He also noted to have hematuria and notified urology. In the ED he was normotensive afebrile with a white count of 8.3 hemoglobin 10.4 and a
136 K4.9 CL 98 HCO3 26 BUN 110 creatinine 6.6. Urinalysis consistent with UTI, cloudy positive for blood positive leukoesterase positive RBCs positive WBC. Renal ultrasound showed findings associated with chronic renal disease, bilateral simple
renal cysts. Chest x-ray showed cardiomegaly without any acute pulmonary processes. Patient was admitted and nephrology was consulted. He follows Dr. Way from nephrology [place]. Nephrology ordered IV fluids hold furosemide and Lasix and
discussed possible need for dialysis but patient does not want to do dialysis if required. BUN/creatinine started trending down with IV fluids.
#acute renal failure on CKD stage IV, improving
-CR 6.6,BUN 110 on admission
- renal US without signs of obstruction
- Nephrology consulted; resumed IVF yesterday and creatinine improved to 4.0 this morning
- Continue to hold home Lasix and spironolactone, 1500 mL FR, trend BMP
- With current level of intake may not be ideal candidate to go back on diuretics
- Patient considering hospice, likely will transition as outpatient
# Positive urinalysis
- Discontinued ceftriaxone
-urine culture positive Pseudomonas though suspect contaminant
Patient without urinary symptoms, fever, leukocytosis
Continue to monitor
#cough improving
likely viral, may also be due to chronic aspiration
-HUMAN RESOURCES MANAGER eval
-COVID negative
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
-Tessalon prn
-Monitor respiratory status
#anemia likely from chronic disease
-hgb 10.4-9.5, no active bleeding
-ctm
- Ferrous sulfate continued
# CVA C/B left Hemiparesis
Effect of CVA/ASCVD (CAD, CVA)- Stable.
- Statin continued
- PT OT
# Anxiety
- Sertraline continued
#Paroxysmal Atrial Fibrillation
heart rate controlled
-Coreg continued
-Eliquis continued
#Benign Hypertension
- Hold Lasix and spironolactone due to LICHA
#Asthma without Acute Exacerbation - Stable.
DVT Prophylaxis: On Eliquis.
Code Status: DNR
Anticipated Discharge: Within 24 hours
Subjective/Interval History
-
Date of Service: September 21, 2024
Seen and examined at the bedside. No acute events reported overnight. AFVSS this morning
Started on IV fluids again yesterday and kidney function improving with creatinine down to 4.0. Patient states he still feels like he is choking on food at times
He denies any new complaints this morning. States that he would not want to go to rehab after discharge
Objective Data
-
Labs:
Laboratory Results
09/21/24
05:04
WBC 9.2
Hgb 8.8 L
Hct 26.2 L
Plt Count 335
Sodium 138
Potassium 4.2
Chloride 106
Carbon Dioxide 21 L
BUN 95 H
Creatinine 4.0 H
Glucose 100 H
Calcium 8.6
Vital Signs:
Vital Signs
Temp Pulse Resp BP Pulse Ox
98.2 F 74 18 136/69 95
09/20/24 23:23 09/21/24 08:37 09/21/24 08:37 09/21/24 07:44 09/21/24 08:37
I&O
09/20/24 09/21/24 09/22/24
06:59 06:59 06:59
Intake Total 480 / 480 1420 / 1420
Output Total 550 / 550 100 / 100
Balance -70 / -70 1320 / 1320
Review of Systems
-
History Source: Patient
All other systems: Reviewed and negative
Physical Exam
-
General: Well Developed, Well Nourished, No Apparent Distress and Appears Chronically Ill
HEENT: Normocephalic, Atraumatic, Moist Mucous Membranes and Anicteric
Respiratory: Clear to Auscultation and Non Labored Respirations; Negative Accessory Resp Muscle Use
Cardiac: Regular Rhythm and S1/S2; Negative Murmur, Rub or Gallop
GI: Soft, Nontender, Nondistended and Normal Bowel Sounds
Musculoskeletal: No Clubbing, No Cyanosis and No Edema
Skin: Warm and Dry; Negative Rash
Neuro: AO x 3, Central Nerve's Intact and Other (Chronic left-sided motor deficits, no new FND)
Psych: Calm
Data Reviewed
-
Labs: Labs Reviewed by me and Discussed with Patient
--- NOTE | 2024-09-21 15:20 | W.PN.NEPH.PH ---
Today's Communication / Plan
-
Discontinue IV fluids
Assessment/Plan
-
83y M with PMH significant for L hemiplegia s/p CVA, A-Fib, CKD. Urinary retention Follows with urology who recently had a respiratory infection persisting for one month. Who presents with weakness subjective fever and chills. Noted to have
hematuria in which he notified urology.
Urinalysis consistent with UTI in the ER
Renal consult for acute kidney injury with a creatinine of 6 he follows with nephrology and [facility] [address]
Impression.
Acute kidney injury on chronic kidney disease stage IV with a baseline creatinine of 3.6.
UTI.
A-fib stable.
CHF diastolic stable.
Plan.
Creatinine essentially unchanged at 5.3, BUN remains elevated at 107,weights rising
Urine output not recorded
patient refusing labs today
Checked imaging ordered: renal u/s : no obstruction
Antibiotics renally dosed
Holding furosemide/spironolactone
Previously Discussed with the patient and his about dialysis if needed going forward. Patient states he discussed this with his primary rn navigator and would not want to do dialysis if if required.
Creatinine slightly better at 4.9
Recheck a.m. labs
Urine culture Pseudomonas without contaminant possibly?
Responded to IV fluids creatinine close to baseline of 3.6
Will discontinue IV fluids at this time
I discussed with the family at bedside his and his 2 sons that ultimately the patient needs dialysis but that something he does not want as they are aware
-
-
Date of Service: September 21, 2024
CC / HPI / ROS
-
Chief Complaint:
LICHA
History of Present Illness:
hemodynamically stable
Creatinine remains elevated but improved
Review of Systems:
Urine output not recorded
no chest pain or sob
Labs
-
Labs:
WBC 9.2 10^3/uL (4.8-10.8) 09/21/24 05:04
RBC 2.83 10^6/uL (4.70-6.10) L 09/21/24 05:04
Hgb 8.8 g/dL (13.0-18.0) L 09/21/24 05:04
Hct 26.2 % (39.0-52.0) L 09/21/24 05:04
Plt Count 335 10^3/uL (130-400) 09/21/24 05:04
Sodium 138 mmol/L (135-145) 09/21/24 05:04
Potassium 4.2 mmol/L (3.5-5.1) 09/21/24 05:04
Chloride 106 mmol/L (98-107) 09/21/24 05:04
Carbon Dioxide 21 mmol/L (22-30) L 09/21/24 05:04
BUN 95 mg/dl (9-20) H 09/21/24 05:04
Creatinine 4.0 mg/dL (0.7-1.3) H 09/21/24 05:04
eGFR 14.24 09/21/24 05:04
Glucose 100 mg/dl (70-99) H 09/21/24 05:04
Calcium 8.6 mg/dl (8.4-10.2) 09/21/24 05:04
Albumin 4.0 g/dl (3.5-5.0) 09/16/24 12:30
Physical Exam
-
Vital Signs:
Vital Signs
Temp Pulse Resp BP Pulse Ox
98.2 F 74 18 136/69 95
09/20/24 23:23 09/21/24 08:37 09/21/24 08:37 09/21/24 07:44 09/21/24 08:37
Cardiovascular:: Regular rate and rhythm
Respiratory:: Bilateral: Coarse
Lung Excursion:: Normal
Abdomen:: Nontender and Soft
Bowel Sounds:: Normal
Extremity Edema:: None: Bilateral:
Ramirez Catheter: No
[2024-09-21 15:30] VITALS: BP 128/55
[2024-09-21] MEDS: NSS IV (15:30)
--- NOTE | 2024-09-21 16:13 | CM ---
Chart reviewed. Met w/ patient and family bedside to discuss d/c plan. At this time, family is not agreeable to hospice. Per spouse, will need additional support in the home for patient at d/c. Currently, patient has aide 4 days a week for 2-3
hours, spouse and sons shared patient will need additional days a week, twice a day, morning and evening. Spouse shared she will follow up w/ current aide to see if she is able to do additional hours, and in the meantime, would like additional
agency options to see who has the availability patient needs. Spouse will follow up w/ CM tomorrow once she confirms if current aide can provide more hours.
Family also interested in a hospital bed for patient
Family also want [facility] arrangement for speech, PT and VN
Family would like for home set up to be completed prior to d/c if possible
Plan: Home w/ [facility] and aides
[2024-09-21] MEDS: CRESTOR 10 MG PO (17:18)
[2024-09-21] MEDS: COREG 6.25 MG PO (17:18)
[2024-09-21] MEDS: ZOLOFT 12.5 MG PO (20:31)
[2024-09-21 23:30] VITALS: BP 127/60
--- NOTE | 2024-09-22 07:35 | W.PN.HOSP.TC ---
Addendum entered and electronically signed by Araceli Olivo MD 09/22/24 16:59:
I saw and evaluated the patient independently. I reviewed the resident�s note and agree with findings and plan as documented by Dr. Mijares.
Sons also at bedside.
GENERAL: well developed, well nourished, male in no apparent distress
HEENT: NC/AT--no O2 requirements
HEART: regular rate and rhythm, +S1, +S2
LUNGS : clear to auscultation bilaterally
ABDOM: soft, nontender, nondistended, + bowel sounds
EXT: no cyanosis, clubbing, or edema
NEUROLOGIC: grossly intact
Acute renal failure on CKD stage IV, resolved (presenting c/o of n/v/poor appetite/decreased urine output all likely as result of worsening renal failure)--numbers now at baseline 3.4 (baseline 3.6)--apprec renal--no obstruction on imaging
studies--holding diuretics
Pseudomonas UTI--UA clean catch and culture positive--only 50K colonies--completed rocephin
Cough-- resolved--s/p doxycycline as outpt--CXR neg, covid neg--tessalon PRN
Anemia-- likely from chronic disease--hgb 10.4-9.5, no active bleeding-- Continue ferrous sulfate continued
CVA with left Hemiparesis --PT/OT recommending SNF--cont statin/Eliquis
Anxiety-- Sertraline continued
Paroxysmal Atrial Fibrillation, controlled heart rate--Continue home carvedilol/apixaban
Essential Hypertension---Hold Lasix and spironolactone due to LICHA and per nephrology
Asthma without Acute Exacerbation--Continue to monitor
DVT Proph--On Eliquis.
Code Status--DNR
Patient is in need of a semi-electric hospital bed with foam mattress due to the need to elevate head of bed above 30 degrees to prevent aspiration and to facilitate frequent repositioning to prevent bed ulcers and pressure points.
Patient needs a commode due to confinement to a single room.
Original Note:
Today's Communication/Plan
-
- Help family with getting bed and commode for home
- Touch base with nephro for home Lasix plan
- Follow-up PT
Assessment / Plan
Assessment / Plan
Mr. Castillo is an 84-year-old male with L hemiplegia s/p CVA, paroxysmal A-Fib rate controlled and on Eliquis, CKD stage 4 with baseline creatinine 3.6, urinary retention follows with urology, HLD, asthma, GERD, anxiety, BPH, KLAUS, who presented to
the ED on 09/16/2024 with hematuria and fever/chills, weakness, hemoglobin 10.4, BUN 110, creatinine 6.6. Urinalysis at that time was consistent with UTI and positive for leukoesterase positive RBCs and white blood cells. Renal ultrasound showed
findings associated with chronic renal disease and bilateral simple renal cysts. Nephrology was consulted and patient was admitted for management of UTI and LICHA on CKD. He has been clinically stable and improving with supportive care however
discharge has been complicated by question of discharge location (home with assisted nursing versus long term facility). Patient is in need of a semi-electric hospital bed with foam mattress due to the need to elevate head of bed above 30
degrees to prevent aspiration and to facilitate frequent repositioning to prevent bed ulcers and pressure points. He follows Dr. Way from nephrology [place]. Of not, nephrology discussed possible need for dialysis but patient does not want
to do dialysis if required.
#Acute renal failure on CKD stage IV, resolved
-CR 6.6,BUN 110 on admission, baseline 3.6
-3.4 today, 09/22/2024
- Imaging does not show any obstruction
- Per nephrology;
--Continue to hold home Lasix and spironolactone, 1500 mL FR, trend BMP
--Touch base with them before discharge as patient may not be ideal candidate to go back on diuretics
-Extensive discussion at bedside with patient's sons social work and primary care team today. Overall plan is for patient to go home on , giving family enough time to prepare home for his safety. Patient will need semi-electric hospital
bed with foam mattress due to the need to elevate head of above 30 degrees to prevent aspiration and to facilitate frequent repositioning to prevent blood ulcers and pressure-points. He will also need a bedside commode. Follow-up with PT to double
check home-going status.
#Positive urinalysis, resolved
Previously on ceftriaxone but culture positive Pseudomonas. strong suspicion for contaminant as patient is without urinary symptoms, fever, leukocytosis
#Cough, resolved
Chest x-ray with cardiomegaly but no evidence of respiratory decompensation or infection. Patient is asymptomatic and on room air.
-COVID negative
-Tessalon prn
#Anemia. likely from chronic disease
-hgb 10.4-9.5, no active bleeding
- Continue ferrous sulfate continued
# CVA C/B left Hemiparesis
Effect of CVA/ASCVD (CAD, CVA)- Stable.
-Continue home rosuvastatin 10 mg p.o.
-PT/OT following
# Anxiety
- Sertraline continued
#Paroxysmal Atrial Fibrillation, controlled heart rate
-Continue home carvedilol (6.25 mg p.o. every afternoon, 12.5 mg p.o. daily)
- Continue apixaban 2.5 mg p.o. twice daily
#Benign Hypertension
-Hold Lasix and spironolactone due to LICHA and per nephrology
#Asthma without Acute Exacerbation
-Continue to monitor
DVT Prophylaxis: On Eliquis.
Code Status: DNR
Patient is in need of a semi-electric hospital bed with foam mattress due to the need to elevate head of bed above 30 degrees to prevent aspiration
and to facilitate frequent repositioning to prevent bed ulcers and pressure points.
Patient needs a commode due to confinement to a single room.
Anticipated Discharge: > 48 hours ( to home)
Subjective/Interval History
-
Date of Service: September 22, 2024
Mr. Castillo is an 84-year-old male with L hemiplegia s/p CVA, paroxysmal A-Fib rate controlled and on Eliquis, CKD stage 4 with baseline creatinine 3.6, urinary retention follows with urology, HLD, asthma, GERD, anxiety, BPH, KLAUS, who presented to
the ED on 09/16/2024 with hematuria and fever/chills, weakness, hemoglobin 10.4, BUN 110, creatinine 6.6. Urinalysis at that time was consistent with UTI and positive for leukoesterase positive RBCs and white blood cells. Renal ultrasound showed
findings associated with chronic renal disease and bilateral simple renal cysts. Nephrology was consulted and patient was admitted for management of UTI and LICHA on CKD. He has been clinically stable and improving with supportive care however
discharge has been complicated by question of discharge location (home with assisted nursing versus long term facility).
Overnight:
- No acute events
- He reports feeling well and is eager to go home
- On rounds, patient's sons were at bedside and there was discussion about discharge to home on . Patient would not like to go to long term facility and family is able to take him home but needs time to set up OT/PT for him.
Objective Data
-
Labs:
Laboratory Results
09/22/24
06:00
Sodium Pending
Potassium Pending
Chloride Pending
Carbon Dioxide Pending
BUN Pending
Creatinine Pending
Glucose Pending
Calcium Pending
Vital Signs:
Vital Signs
Temp Pulse Resp BP Pulse Ox
99.3 F 76 16 127/60 96
09/21/24 23:30 09/21/24 23:30 09/21/24 23:30 09/21/24 23:30 09/21/24 23:30
I&O
09/21/24 09/22/24 09/23/24
06:59 06:59 06:59
Intake Total 1420 / 1420 60 / 60
Output Total 100 / 100
Balance 1320 / 1320 60 / 60
Review of Systems
-
History Source: Patient
Constitutional: Reports No Symptoms
EENT: Reports No Symptoms Reported
Respiratory: Reports Cough
Cardiac: Reports No Symptoms
Abdomen/GI: Reports No Symptoms
Genitourinary: Reports No Symptoms
Musculoskeletal: Reports No Symptoms
Skin: Reports No Symptoms
Neuro: Reports No Symptoms
Endocrine: Reports No Symptoms
Hematologic / Lymphatic: Reports No Symptoms
Allergy / Immunology: Reports No Symptoms
Physical Exam
-
General: Comfortable and Conversant
HEENT: Normocephalic, No Ptosis and PERRLA
Respiratory: Clear to Auscultation and Non Labored Respirations
Cardiac: Regular Rhythm and S1/S2
GI: Soft and Nontender
Genito-urinary: No Costovertebral Tender
Skin: Warm and Dry
Neuro: Awake, Alert and Oriented
Psych: Calm
Data Reviewed
-
Labs: Discussed with Physician
[2024-09-22] MEDS: SENOKOT-S 1 TABLET PO ×2 (07:46→16:10)
[2024-09-22] MEDS: ELIQUIS 2.5 MG PO ×2 (07:46→20:43)
[2024-09-22] MEDS: COREG 12.5 MG PO (07:46)
[2024-09-22] MEDS: FEOSOL 325 MG PO (07:46)
[2024-09-22 07:47] VITALS: BP 135/69
[2024-09-22] MEDS: DESENEX/MITRAZOL/ZEASORB 1 APPLIC TOPICAL ×2 (07:48→20:44)
[2024-09-22] MEDS: ADVAIR HFA 230/21 MCG INHALER 2 PUFF INH ×2 (08:18→20:31)
[2024-09-22 10:07] LABS: Blood Urea Nitrogen 74 mg/dl (9-20); Calcium 8.9 mg/dl (8.4-10.2); Carbon Dioxide 21 mmol/L (22-30); Chloride 111 mmol/L (98-107); Estimated Creatinine Clearance 18 ml/min; Glucose 94 mg/dl (70-99); Potassium 4.3 mmol/L (3.5-5.1); Sodium 140 mmol/L (135-145); eGFR 17.30
[2024-09-22] MEDS: TYLENOL 650 MG PO (11:56)
--- NOTE | 2024-09-22 12:17 | W.PN.NEPH.PH ---
Today's Communication / Plan
-
follow BMP
Assessment/Plan
-
83y M with PMH significant for L hemiplegia s/p CVA, A-Fib, CKD. Urinary retention Follows with urology who recently had a respiratory infection persisting for one month. Who presents with weakness subjective fever and chills. Noted to have
hematuria in which he notified urology.
Urinalysis consistent with UTI in the ER
Renal consult for acute kidney injury with a creatinine of 6 he follows with nephrology and [facility] [address]
Impression.
Acute kidney injury on chronic kidney disease stage IV with a baseline creatinine of 3.6.
UTI.
A-fib stable.
CHF diastolic stable.
Plan.
follow BMP
no lasix yet until po intake is better
previously patient has declined dialysis
-
-
Date of Service: September 22, 2024
CC / HPI / ROS
-
Chief Complaint:
LICHA
History of Present Illness:
hemodynamically stable
LICHA/Cr down to 3.4
hgb down to 8.8
Review of Systems:
no chest pain or sob
Labs
-
Labs:
WBC 9.2 10^3/uL (4.8-10.8) 09/21/24 05:04
RBC 2.83 10^6/uL (4.70-6.10) L 09/21/24 05:04
Hgb 8.8 g/dL (13.0-18.0) L 09/21/24 05:04
Hct 26.2 % (39.0-52.0) L 09/21/24 05:04
Plt Count 335 10^3/uL (130-400) 09/21/24 05:04
Sodium 140 mmol/L (135-145) 09/22/24 08:58
Potassium 4.3 mmol/L (3.5-5.1) 09/22/24 08:58
Chloride 111 mmol/L (98-107) H 09/22/24 08:58
Carbon Dioxide 21 mmol/L (22-30) L 09/22/24 08:58
BUN 74 mg/dl (9-20) H 09/22/24 08:58
Creatinine 3.4 mg/dL (0.7-1.3) H 09/22/24 08:58
eGFR 17.30 09/22/24 08:58
Glucose 94 mg/dl (70-99) 09/22/24 08:58
Calcium 8.9 mg/dl (8.4-10.2) 09/22/24 08:58
Albumin 4.0 g/dl (3.5-5.0) 09/16/24 12:30
Physical Exam
-
Vital Signs:
Vital Signs
Temp Pulse Resp BP Pulse Ox
97.6 F 78 24 135/69 95
09/22/24 07:47 09/22/24 07:47 09/22/24 07:47 09/22/24 07:47 09/22/24 07:47
Cardiovascular:: Regular rate and rhythm
Respiratory:: Bilateral: Coarse
Lung Excursion:: Normal
Abdomen:: Nontender and Soft
Bowel Sounds:: Normal
Extremity Edema:: +1: Bilateral:
[2024-09-22 14:35] VITALS: BP 118/61; PULSE 69
[2024-09-22 15:50] VITALS: BP 130/64
--- NOTE | 2024-09-22 16:04 | CM ---
Addendum entered by Vivien Blankenship 09/24/24 14:53:
IMM emailed to patient son [email or web address]
Original Note:
Extensive discussion with patient, physicians and 2 sons in patient room on . Patient requested referral to SNF; [facility], [facility]. Patient refuses to go to SNF. Patient sons aware of patient needs for hospital bed, commode
and 18/09 aides. Patient family has reached out to resources for aides and will be working with a manager home healthcare program per son. Patient family understands that patient cannot be forced to accept SNF placement. [facility] working with family to obtain
DME. CM will continue to follow for discharge planning needs.
Plan; home with [facility], DME and aides vs SNF
[2024-09-22] MEDS: COREG 6.25 MG PO (16:09)
[2024-09-22] MEDS: CRESTOR 10 MG PO (16:10)
[2024-09-22] MEDS: ZOLOFT 12.5 MG PO (20:44)
[2024-09-22 23:33] VITALS: BP 145/78
[2024-09-23] MEDS: COREG 12.5 MG PO (07:46)
[2024-09-23] MEDS: ELIQUIS 2.5 MG PO (07:46)
[2024-09-23] MEDS: DESENEX/MITRAZOL/ZEASORB 1 APPLIC TOPICAL (07:46)
[2024-09-23] MEDS: FEOSOL 325 MG PO (07:46)
[2024-09-23] MEDS: SENOKOT-S 1 TABLET PO (07:46)
[2024-09-23] MEDS: TYLENOL 650 MG PO (07:49)
[2024-09-23 07:55] VITALS: BP 146/79
[2024-09-23 08:11] LABS: Blood Urea Nitrogen 71 mg/dl (9-20); Calcium 9.0 mg/dl (8.4-10.2); Carbon Dioxide 20 mmol/L (22-30); Chloride 111 mmol/L (98-107); Estimated Creatinine Clearance 20 ml/min; Glucose 87 mg/dl (70-99); Potassium 4.5 mmol/L (3.5-5.1); Sodium 139 mmol/L (135-145); eGFR 18.61
[2024-09-23] MEDS: ADVAIR HFA 230/21 MCG INHALER 2 PUFF INH (08:18)
--- NOTE | 2024-09-23 09:30 | VNURNOTE ---
Addendum entered by Jael Paris RN 09/23/24 14:55:
Rx, clinicals sent to [facility] fax # [phone]. Daneil confirmed receipt.
Original Note:
Home Health Liaison spoke with patient's spouse Meeta to discuss [facility] nurse/therapy, visits, schedule and homebound status. She is agreeable and understands that visits at home will be 2-3 x per week to assess and teach medical management.
She is aware that [facility] will contact them for start of care in 1-2 days after discharge from .
Spouse mentioned that she is concerned about patient being strong enough to go home. She is aware last PT assessment pt was assist of 2. Per last note by CM, patient refused SNF. Spouse stated that she 'talked him into it' and that patient is
agreeable to SNF now. Spouse aware patient will need increased aide hours if he goes home. Per spouse request, emailed list of homemaker/aide agencies to [email or web address].
Spouse still interested in VN after pt goes to SNF.
PM [facility] referral completed in [facility]. Will continue to follow for final DC dispo.
Rx, clinicals sent to [facility] fax # [phone]
--- NOTE | 2024-09-23 14:51 | W.PN.NEPH.PH ---
Today's Communication / Plan
-
dc
Assessment/Plan
-
83y M with PMH significant for L hemiplegia s/p CVA, A-Fib, CKD. Urinary retention Follows with urology who recently had a respiratory infection persisting for one month. Who presents with weakness subjective fever and chills. Noted to have
hematuria in which he notified urology.
Urinalysis consistent with UTI in the ER
Renal consult for acute kidney injury with a creatinine of 6 he follows with nephrology and [facility] [address]
Impression.
Acute kidney injury on chronic kidney disease stage IV with a baseline creatinine of 3.6.
UTI.
A-fib stable.
CHF diastolic stable.
Plan.
follow BMP
no lasix
can be restarted as OP once reevaluated
previously patient has declined dialysis
-
-
Date of Service: September 23, 2024
CC / HPI / ROS
-
Chief Complaint:
LICHA
History of Present Illness:
hemodynamically stable
LICHA/Cr down to 3.2
Review of Systems:
no chest pain or sob
Labs
-
Labs:
WBC 9.2 10^3/uL (4.8-10.8) 09/21/24 05:04
RBC 2.83 10^6/uL (4.70-6.10) L 09/21/24 05:04
Hgb 8.8 g/dL (13.0-18.0) L 09/21/24 05:04
Hct 26.2 % (39.0-52.0) L 09/21/24 05:04
Plt Count 335 10^3/uL (130-400) 09/21/24 05:04
Sodium 139 mmol/L (135-145) 09/23/24 06:26
Potassium 4.5 mmol/L (3.5-5.1) 09/23/24 06:26
Chloride 111 mmol/L (98-107) H 09/23/24 06:26
Carbon Dioxide 20 mmol/L (22-30) L 09/23/24 06:26
BUN 71 mg/dl (9-20) H 09/23/24 06:26
Creatinine 3.2 mg/dL (0.7-1.3) H 09/23/24 06:26
eGFR 18.61 09/23/24 06:26
Glucose 87 mg/dl (70-99) 09/23/24 06:26
Calcium 9.0 mg/dl (8.4-10.2) 09/23/24 06:26
Albumin 4.0 g/dl (3.5-5.0) 09/16/24 12:30
Physical Exam
-
Vital Signs:
Vital Signs
Temp Pulse Resp BP Pulse Ox
98.3 F 76 18 146/79 97
09/23/24 07:55 09/23/24 07:55 09/23/24 07:55 09/23/24 07:55 09/23/24 07:55
Cardiovascular:: Regular rate and rhythm
Respiratory:: Bilateral: Coarse
Lung Excursion:: Normal
Abdomen:: Nontender and Soft
Bowel Sounds:: Normal
Extremity Edema:: None: Bilateral:
--- NOTE | 2024-09-23 18:50 | W.DCSUMMARY ---
Addendum entered and electronically signed by Araceli Olivo MD 09/23/24 20:24:
Read, reviewed, and agree. See same day progress note for additional details. Time spent coordinating care, DC planning, review of DC plan of care with resident, transition of care, review of records in EMR, med rec, consults, notes, d/w
consultants, nursing, family, and CM = 31 minutes
Original Note:
Discharge Summary
Discharge Data
Date of Admission: 09/16/24
Date of Discharge: 09/23/24
-
Pending Results: No
Hospital Course
Discharging Physician : Ruben Mijares MD/LEYLA
Disposition : [facility]
Primary care physician : Dr. Wellington Reyes
Principal Discharge diagnosis : Acute renal failure on CKD stage IV and UTI
Chronic Discharge diagnosis : CKD stage IV
Hospital Course : Mr. Castillo is an 84-year-old male with L hemiplegia s/p CVA, paroxysmal A-Fib rate controlled and on Eliquis, CKD stage 4 with baseline creatinine 3.6, urinary retention follows with urology, HLD, asthma, GERD, anxiety, BPH, KLAUS,
who presented to the ED on 09/16/2024 with hematuria and fever/chills, weakness, hemoglobin 10.4, BUN 110, creatinine 6.6 (baseline 3.6). Urinalysis at that time was consistent with UTI and positive for leukoesterase positive RBCs and white blood
cells. Renal ultrasound showed findings associated with chronic renal disease and bilateral simple renal cysts. Nephrology was consulted and patient was admitted for management of UTI and LICHA on CKD. He received renally dosed ceftriaxone for his
UTI treatment while cultures pended, Lasix and spironolactone were held, and supportive fluid therapy was started for his LICHA. While he was here there was concern for aspiration likely in the context of chronic esophageal spasms and previous CVA
with residual defect so [employer] evaluated him and recommended IDDSI 6 diet which he received while inpatient. Throughout his hospital course, it was noted that he would often cough up is still at risk for aspiration so IDDSI 6 diet. He was deemed
clinically stable for discharge on 09/21/2024 with creatinine 3.4 however his discharge was complicated by question of discharge location (home with assisted nursing versus longterm facility). PT evaluated him and recommended longterm
facility/rehab. Patient was in need of a semi-electric hospital bed with foam mattress due to the need to elevate head of bed above 30 degrees to prevent aspiration and to facilitate frequent repositioning to prevent bed ulcers and pressure points.
He also needed a bedside commode. Both were facilitated by social work and he was discharged to [facility] on 09/23/2024. He follows Dr. Way from nephrology [place] and will have a follow-up appointment in 1 to 2 weeks. Of note,
nephrology discussed possible need for dialysis but patient does not want to do dialysis if required.
Important imaging findings :
Renal ultrasound 09/16/2024 4:41 PM.
Indication: Acute kidney injury.
Comparison: Renal ultrasound 03/04/2024
Findings: Right kidney measures 10.8 cm, and the left kidney measures 9.0 cm in length. Bilateral renal cortical thinning and echogenic renal parenchyma. Simple bilateral renal cysts are present measuring up to 1.0 cm in the mid pole right kidney
and 3.0 cm in the upper pole left kidney. No hydronephrosis, contour deforming solid renal mass or echogenic shadowing foci to suggest renal calculi.
IMPRESSION:
1. Findings in keeping with chronic medical renal disease.
2. Simple bilateral renal cysts.
Procedure findings :
Discharge Plan
-
Patient Disposition: Senior Living/SNF
Discharge Diagnosis/Procedures: LICHA on CKD stage IV
Urinary colonization with Pseudomonas
Aspiration events/History of esophageal spasms
H/O CVA with left-sided Hemiparesis
Condition: Fair
Diet: Other diet
Additional Diets: IDDSI 6 soft and bite-size, low potassium
Activity: With assistance and As tolerated
Driving Restrictions: No driving
Bathing Restrictions: None
Blood Work: BMP and CBC 5 days after discharge
Other Services: VN, PT and OT
Activity Restrictions/Additional Instructions:
Keep your fluid intake restricted to 1500mL (1.5L) daily
Follow-up with your family doctor after discharge, should be seen in office within 1 to 2 weeks
Follow-up with your forest law and policy professor within 1 to 2 weeks of discharge from the hospital
Referral provided for outpatient palliative care, contact office to schedule
Referrals:
Crow Hu DO [Active, Nephrology] - in one to two weeks
Wellington Reyes DO [Family Provider, Family Practice] - in less than 1 week
Gela Montoya NP [Specified Professional Personl, Palliative Care] - in one to two weeks
Additional Discharge Medication Instructions: hold lasix 40 mg dose, 80 mg dose, spironolactone 25 until AFTER discussion with prescribing provider
Prescriptions:
Continued
therapeutic multivitamin Tablet
1 tab PO DAILY
ferrous sulfate [iron] 325 mg (65 mg iron) Tablet
325 mg PO DAILY
fluticasone propion-salmeterol 500-50 mcg/dose Blister With Device
1 inh INHALATION R BID
cholecalciferol (vitamin D3) 25 mcg (1,000 unit) Tablet
25 mcg PO DAILY
Eliquis 2.5 mg Tablet
2.5 mg PO BID
carvedilol [Coreg] 6.25 mg Tablet
6.25 mg PO QPM
acetaminophen [Tylenol Extra Strength] 500 mg Tablet
1,000 mg PO Q6HPRN PRN (Reason: mild pain)
sertraline 25 mg Tablet
12.5 mg PO HS
bismuth subsalicylate [Pepto-Bismol] 262 mg Tablet,Chewable
2 tab PO DAILYPRN PRN (Reason: gerd)
doxycycline hyclate 100 mg Tablet
100 mg PO BID
Rx Instructions:
for 10 days starting 09/09/24
rosuvastatin [Crestor] 40 mg Tablet
40 mg PO QPM
carvedilol 12.5 MG tablet
12.5 mg PO DAILY
cyanocobalamin (vitamin B-12) 1,000 MCG tablet
1,000 mcg PO DAILY Qty: 90 0RF
Held
furosemide [Lasix] 40 mg Tablet
40 mg PO QPM
Hold Instructions: restart based on conversation with his prescribing provider
spironolactone 25 mg Tablet
25 mg PO DAILY
Hold Instructions: Discuss restarting with prescribing doctor
furosemide [Lasix] 80 mg Tablet
80 mg PO DAILY
Hold Instructions: restarted based on conservation with prescribing provider
Discharge Orders:
Discharge Patient (As Directed); Ordered 09/23/24
Ordered By: Rodrick Mendoza
Discharge Date and Time
Discharge Date/Time: 09/23/24 14:51
Print Language: LITHUANIAN
--- NOTE | 2024-09-23 20:27 | W.PN.HOSP.TC ---
Addendum entered and electronically signed by Araceli Olivo MD 09/23/24 20:41:
I saw and evaluated the patient independently. I reviewed the resident�s note and agree with findings and plan as documented by Dr. Mijares.
Sons also at bedside.
GENERAL: well developed, well nourished, male in no apparent distress
HEENT: NC/AT--no O2 requirements
HEART: regular rate and rhythm, +S1, +S2
LUNGS : clear to auscultation bilaterally
ABDOM: soft, nontender, nondistended, + bowel sounds
EXT: no cyanosis, clubbing, or edema
NEUROLOGIC: grossly intact
Acute renal failure on CKD stage IV, resolved (presenting c/o of n/v/poor appetite/decreased urine output all likely as result of worsening renal failure)--numbers now at baseline 3.2 (baseline 3.6)--apprec renal--no obstruction on imaging
studies--restart diuretics--OK for d/c--pt now agreeing to SNF
Pseudomonas UTI--UA clean catch and culture positive--only 50K colonies--completed rocephin
Cough-- resolved--s/p doxycycline as outpt--CXR neg, covid neg--tessalon PRN
Anemia-- likely from chronic disease--hgb 10.4-9.5, no active bleeding-- Continue ferrous sulfate continued
CVA with left Hemiparesis --PT/OT recommending SNF--cont statin/Eliquis
Anxiety-- Sertraline continued
Paroxysmal Atrial Fibrillation, controlled heart rate--Continue home carvedilol/apixaban
Essential Hypertension---Hold Lasix and spironolactone due to LICHA and per nephrology
Asthma without Acute Exacerbation--Continue to monitor
DVT Proph--On Eliquis.
Code Status--DNR
Patient is in need of a semi-electric hospital bed with foam mattress due to the need to elevate head of bed above 30 degrees to prevent aspiration and to facilitate frequent repositioning to prevent bed ulcers and pressure points.
Patient needs a commode due to confinement to a single room.
Original Note:
Today's Communication/Plan
-
- Plan to dc to [facility] at 2pm
- F/u with nephro and PCP OP as instructed
- Continue to hold lasix/pawel & 1500mL FR
Assessment / Plan
Assessment / Plan
Mr. Castillo is an 84-year-old male with L hemiplegia s/p CVA, paroxysmal A-Fib rate controlled and on Eliquis, CKD stage 4 with baseline creatinine 3.6, urinary retention follows with urology, HLD, asthma, GERD, anxiety, BPH, KLAUS, who presented to
the ED on 09/16/2024 with hematuria and fever/chills, weakness, hemoglobin 10.4, BUN 110, creatinine 6.6. Urinalysis at that time was consistent with UTI and positive for leukoesterase positive RBCs and white blood cells. Renal ultrasound showed
findings associated with chronic renal disease and bilateral simple renal cysts. Nephrology was consulted and patient was admitted for management of UTI and LCIHA on CKD. He has been clinically stable and improving with supportive care however
discharge has been complicated by question of discharge location (home with assisted nursing versus [facility]). Patient is in need of a semi-electric hospital bed with foam mattress due to the need to elevate head of bed above 30
degrees to prevent aspiration and to facilitate frequent repositioning to prevent bed ulcers and pressure points. He follows Dr. Way from nephrology [place]. Of not, nephrology discussed possible need for dialysis but patient does not want
to do dialysis if required.
#Acute renal failure on CKD stage IV, resolved
-CR 6.6,BUN 110 on admission, baseline 3.6
-3.2, 09/23/24
- Imaging does not show any obstruction
- Per nephrology;
---Extensive discussion on 09/22 at bedside with patient's sons social work and primary care team today. Overall plan is for patient to go home on , giving family enough time to prepare home for his safety. Patient will need semi-electric
hospital bed with foam mattress due to the need to elevate head of above 30 degrees to prevent aspiration and to facilitate frequent repositioning to prevent blood ulcers and pressure-points. He will also need a bedside commode. 09/23/24: pt is
amenable to going to SNF in the interim. Plan to dc today.
#Positive urinalysis, resolved
Previously on ceftriaxone but culture positive Pseudomonas. strong suspicion for contaminant as patient is without urinary symptoms, fever, leukocytosis
#Cough, resolved
Chest x-ray with cardiomegaly but no evidence of respiratory decompensation or infection. Patient is asymptomatic and on room air.
-COVID negative
-Tessalon prn
#Anemia. likely from chronic disease
-hgb 10.4-9.5, no active bleeding
- Continue ferrous sulfate continued
# CVA C/B left Hemiparesis
Effect of CVA/ASCVD (CAD, CVA)- Stable.
-Continue home rosuvastatin 10 mg p.o.
-PT/OT following
# Anxiety
- Sertraline continued
#Paroxysmal Atrial Fibrillation, controlled heart rate
-Continue home carvedilol (6.25 mg p.o. every afternoon, 12.5 mg p.o. daily)
- Continue apixaban 2.5 mg p.o. twice daily
#Benign Hypertension
-Hold Lasix and spironolactone due to LICHA and per nephrology
#Asthma without Acute Exacerbation
-Continue to monitor
DVT Prophylaxis: On Eliquis.
Code Status: DNR
Patient is in need of a semi-electric hospital bed with foam mattress due to the need to elevate head of bed above 30 degrees to prevent aspiration
and to facilitate frequent repositioning to prevent bed ulcers and pressure points.
Patient needs a commode due to confinement to a single room.
Anticipated Discharge: Today
Subjective/Interval History
-
Date of Service: September 23, 2024
Mr. Castillo is an 84-year-old male with L hemiplegia s/p CVA, paroxysmal A-Fib rate controlled and on Eliquis, CKD stage 4 with baseline creatinine 3.6, urinary retention follows with urology, HLD, asthma, GERD, anxiety, BPH, KLAUS, who presented to
the ED on 09/16/2024 with hematuria and fever/chills, weakness, hemoglobin 10.4, BUN 110, creatinine 6.6.�Urinalysis at that time was consistent with UTI and positive for leukoesterase positive RBCs and white blood cells. Renal ultrasound showed
findings associated with chronic renal disease and bilateral simple renal cysts.� Nephrology was consulted and patient was admitted for management of UTI and LICHA on CKD.� He has been clinically stable and improving with supportive care however
discharge has been delayed given undecided location until today.
OE:
- Pt now amenable to SNF, per CM, [facility] French has bed at 2pm
Objective Data
-
Vital Signs:
Vital Signs
Temp Pulse Resp BP Pulse Ox
98.3 F 76 18 146/79 97
09/23/24 07:55 09/23/24 07:55 09/23/24 07:55 09/23/24 07:55 09/23/24 07:55
I&O
09/22/24 09/23/24 09/24/24
06:59 06:59 06:59
Intake Total 60 1090 / 1090
Balance 60 1090 / 1090
Review of Systems
-
Constitutional: Reports No Symptoms
EENT: Reports No Symptoms Reported
Respiratory: Reports Cough (chronic)
Cardiac: Reports No Symptoms
Abdomen/GI: Reports No Symptoms
Skin: Reports No Symptoms
Neuro: Reports No Symptoms
Physical Exam
-
General: Well Nourished, No Apparent Distress and Comfortable
HEENT: Normocephalic and Atraumatic
Respiratory: Non Labored Respirations
Cardiac: Regular Rhythm and S1/S2
GI: Soft and Nontender
Skin: Warm and Dry
Neuro: Awake, Alert and Oriented
Psych: Calm
== END 2024-09-23 14:51 | DRG 683 ==
LOC: 4 WEST ACU 16:37
PROVIDERS: Emergency Medicine; Internal Medicine; Registered Nurse; Specialist; ADMITTING PHYSICIAN Internal Medicine; ATTENDING PHYSICIAN Internal Medicine; CONSULT PHYSICIAN Internal Medicine Nephrology; EMERGENCY PHYSICIAN Emergency Medicine; FAMILY PHYSICIAN Family Medicine
DX: N17.9 Acute kidney failure, unspecified (principal); I13.2 Hypertensive heart and chronic kidney disease with heart failure and with stage 5 chronic kidney disease, or end stage renal disease; N39.0 Urinary tract infection, site not specified; I50.32 Chronic diastolic (congestive) heart failure; I69.354 Hemiplegia and hemiparesis following cerebral infarction affecting left non-dominant side; N18.5 Chronic kidney disease, stage 5; F41.9 Anxiety disorder, unspecified; G47.33 Obstructive sleep apnea (adult) (pediatric); K21.9 Gastro-esophageal reflux disease without esophagitis; N40.1 Benign prostatic hyperplasia with lower urinary tract symptoms; E78.00 Pure hypercholesterolemia, unspecified; J45.909 Unspecified asthma, uncomplicated; I48.0 Paroxysmal atrial fibrillation; N28.1 Cyst of kidney, acquired; Z79.01 Long term (current) use of anticoagulants; I25.10 Atherosclerotic heart disease of native coronary artery without angina pectoris; Z95.5 Presence of coronary angioplasty implant and graft; D63.1 Anemia in chronic kidney disease; F32.A Depression, unspecified; Z66 Do not resuscitate; Z79.899 Other long term (current) drug therapy; Z87.891 Personal history of nicotine dependence; Z88.8 Allergy status to other drugs, medicaments and biological substances; Z96.653 Presence of artificial knee joint, bilateral; Z11.52 Encounter for screening for COVID-19
CPT/HCPCS: 51798; 71046; 76775; 80048; 80053; 81003; 81015; 82570; 84156; 84443; 85025; 85027; 87070; 87077; 87086; 87186; 87502; 87811; 92526; 92610; 94640; 97163; 97167; 97530; 97535; 99291

== ENCOUNTER → 2024-09-26 11:38 | Outpatient (REF) | payer OTHER, MEDICARE, BC, SELFPAY ==
[2024-09-26 13:01] LABS: Hematocrit 27.9 % (39.0-52.0); Hemoglobin 8.9 g/dL (13.0-18.0); Mean Corp Hgb Conc. 31.9 g/dL (33.0-37.0); Mean Corpuscular Volume 95.2 fL (80.0-94.0); Nucleated Red Blood Cells % 0 % (-); Platelet Count 341 10^3/uL (130-400); Red Cell Dist. Width 16.7 % (11.5-14.5)
[2024-09-26 13:38] LABS: Blood Urea Nitrogen 64 mg/dl (9-20); Calcium 9.3 mg/dl (8.4-10.2); Carbon Dioxide 21 mmol/L (22-30); Chloride 109 mmol/L (98-107); Glucose 87 mg/dl (70-99); Potassium 4.4 mmol/L (3.5-5.1); Sodium 138 mmol/L (135-145); eGFR 16.16
== END ==
LOC: OLABP 11:38
PROVIDERS: ATTENDING PHYSICIAN Family Medicine
DX: D64.9 Anemia, unspecified (principal); B96.5 Pseudomonas (aeruginosa) (mallei) (pseudomallei) as the cause of diseases classified elsewhere; F41.9 Anxiety disorder, unspecified; I10 Essential (primary) hypertension; I48.0 Paroxysmal atrial fibrillation; J45.20 Mild intermittent asthma, uncomplicated; N39.0 Urinary tract infection, site not specified
CPT/HCPCS: 36415; 80048; 85025

== ENCOUNTER 2024-10-02 21:48 | Inpatient (IN) | payer MEDICARE, BC, SELFPAY ==
[2024-10-02 15:46] VITALS: BP 129/71
[2024-10-02 15:49] VITALS: BP 129/71
[2024-10-02 15:55] VITALS: BMI 30.1
[2024-10-02 16:16] LABS: Hematocrit 30.1 % (39.0-52.0); Hemoglobin 9.7 g/dL (13.0-18.0); Mean Corp Hgb Conc. 32.2 g/dL (33.0-37.0); Mean Corpuscular Volume 93.2 fL (80.0-94.0); Nucleated Red Blood Cells % 0 % (-); Platelet Count 354 10^3/uL (130-400); Red Cell Dist. Width 16.8 % (11.5-14.5)
[2024-10-02 16:42] LABS: ALT (SGPT) 31 U/L (0-50); AST (SGOT) 27 U/L (17-59); Albumin 3.3 g/dl (3.5-5.0); Alkaline Phosphatase 96 U/L (38-126); Blood Urea Nitrogen 56 mg/dl (9-20); Calcium 9.6 mg/dl (8.4-10.2); Carbon Dioxide 24 mmol/L (22-30); Chloride 107 mmol/L (98-107); Estimated Creatinine Clearance 15 ml/min; Glucose 117 mg/dl (70-99); Potassium 4.1 mmol/L (3.5-5.1); Sodium 140 mmol/L (135-145); Total Protein 6.1 g/dl (6.3-8.2); eGFR 13.43
--- NOTE | 2024-10-02 17:38 | ED.GENMED ---
History of Present Illness
General
Chief Complaint: Weakness
Source: patient, records and senior care
Exam Limitations: none
Time Seen by Provider: 10/02/24 16:43
Nursing documentation reviewed up to this point in time: agreed with
History of Present Illness
History of Present Illness:
84-year-old male with a past medical history of CVA with residual left-sided weakness, paroxysmal A-fib on Eliquis, chronic kidney disease, BPH, GERD, hyperlipidemia who presents to the emergency room from [facility] for evaluation of nausea and
vomiting, fatigue, shortness of breath. Of note patient was just admitted to this hospital 09/16 until 09/23�he presented with UTI and acute renal failure; he was also having issues with aspiration during his admission. The possibility of dialysis
was broached during this hospitalization and patient indicated he will not do dialysis if this was required due to renal failure. He presents to the hospital today because he says he feels very weak. He says he has had nausea and vomiting but that
this is a chronic issue and has not necessarily acutely changed. He says he has had 'a respiratory issue' for over a month but he feels it is actually generally improving�it sounds like diet was adjusted and specialized bed ordered to help with
aspiration. Main complaint today by patient is feeling very weak. He denies any abdominal pain, fever, chest pain. He has been making urine. I spoke with the nursing staff at [facility] to obtain collateral history: They report that reason for
referral was because of vomiting. Apparently has chronic issues with nausea and occasional vomiting but over the past 24 hours has been having increased vomiting and not able to keep food or medications down.
Past History
Past History
ED Past Medical History: Arrthythmia ( atrial fibrillation), Asthma, CAD, CVA (Left sided weakness, ), GERD, HTN, Hypercholesterolemia, SC, Renal failure (Stage 4 ), Psychiatric (Anxiety, Depression) and Other (Osteoarthritis, Diverticulosis, Renal
calculus)
ED Past Surgical History: Cardiac (Radiofrequency ablation, Stents X 2) and Orthopedic (Right elbow repair, Right and left Total knee replacement)
Social History
Tobacco: Former smoker
Alcohol: None
Personal:
Living: with family
Employment: Retired
Family History
Family History: Other (Noncontributory)
Review of Systems
Review of Systems
All Other Systems: ROS reviewed and negative except as documented in HPI and ROS
Constitutional: Reports fatigue; Denies fever
Respiratory: Reports cough and trouble breathing
Cardiac: Denies chest pain
ABD/GI: Reports nausea and vomiting; Denies abdominal pain
: Denies dysuria or flank pain
Musculoskeletal: Denies neck pain or back pain
Neurological: Denies headache
Phy Exam
Physical Exam
Physical Exam:
General: Awake, alert, chronically ill-appearing not in acute distress
Head: Normocephalic, atraumatic
Eyes: Conjunctiva normal, sclera anicteric
Throat: Airway intact, handling secretions
Neck: Trachea midline, no JVD
Lungs: Scattered rhonchorous breath sounds, occasional coughing, no tachypnea or hypoxia
Heart: Regular rate and rhythm, no murmurs, gallops, or rubs appreciated
Abd: Soft, mildly distended, minimally tender left lower quadrant
Neuro: Left-sided weakness noted
Extremities: Warm and well-perfused
Scores
Heart Failure Risk
Heart Failure Risk Score: Not Applicable
Heart Score for Chest Pain Patients
STEMI patient?: Not applicable
Withdrawal Assessment of Alcohol
Withdrawal Assessment Completed?: Not applicable
Course
Orders/Labs/Results
Orders:
Orders
10/02/24 16:07
CMP [Comprehensive Metabolic Panel] Urgent
Complete Blood Count/With Diff Urgent
Lipase Urgent
Comment: ADD ON
10/02/24 17:05
Electrocardiogram (*1) Urgent
Reason for Study: Abdominal Pain
EKG- Treatment ONCE
10/02/24 17:11
Add On- LAB Stat
Tests Added?: lipase
10/02/24 17:13
Troponin I Urgent
10/02/24 17:37
CR Chest - 2 Views Urgent
Comment:
Reason For Exam: cough
10/02/24 17:44
Urinalysis Reflex To Culture Urgent
Date Specimen was Collected: 10/02/24
Time Specimen was Collected: 17:16
Urine Microscopic Reflex Cult Urgent
Urine Culture Urgent
STEPHANIE Source: U
Specimen Description:
Date Specimen was Collected: 10/02/24
Time Specimen was Collected: 17:16
10/02/24 18:06
CT Abd/pel Without Iv Or Oral Urgent
Comment:
Reason For Exam: N/V, abd pain
10/02/24 18:58
0.9% Sodium Chloride 1000 ml [Nss] 1,000 ml IV BOLUS
Piperacillin/Tazo 3.375 Gram [Zosyn] 3.375 gram in 50 ml IV NOW
10/02/24 19:29
Metoclopramide [Reglan] 10 mg IV NOW STA
Abnormal Lab Results
10/02/24 10/02/24
16:07 17:44
RBC 3.23 L 10^6/uL
(4.70-6.10)
Hgb 9.7 L g/dL
(13.0-18.0)
Hct 30.1 L %
(39.0-52.0)
MCHC 32.2 L g/dL
(33.0-37.0)
RDW 16.8 H %
(11.5-14.5)
Abs Immat Gran (auto) 0.1 H 10^3/uL
(0-0.05)
Absolute Neuts (auto) 7.0 H 10^3/uL
(1.4-6.5)
Absolute Monos (auto) 1.4 H 10^3/uL
(0.1-0.6)
Immature Gran % 1.4 H %
(0-0.5)
Lymphocytes % 15.0 L %
(20.5-51.1)
Monocytes % 13.4 H %
(1.7-9.3)
BUN 56 H mg/dl
(9-20)
Creatinine 4.2 H* mg/dL
(0.7-1.3)
Glucose 117 H mg/dl
(70-99)
Total Protein 6.1 L g/dl
(6.3-8.2)
Albumin 3.3 L g/dl
(3.5-5.0)
Ur Occult Blood Reflex 4+ A
(Negative)
Urine Nitrite (Reflex) Positive A
(Negative)
Leukocyte Esterase Rfl 3+ A
(Negative)
Urine RBC >100 A /HPF
(0-2)
Urine WBC (Reflex) >100 A /HPF
(0-5)
Urine Bacteria (Reflex) Moderate A
(Negative)
Urine Albumin (Reflex) 3+ A
(Neg - Trace)
10/02/24 16:07
10/02/24 16:07
Vital Signs
Initial and Last Documented VS:
Initial Vital Signs
Temp Pulse Resp BP Pulse Ox
37.0 C 89 26 129/71 96
10/02/24 15:46 10/02/24 15:46 10/02/24 15:46 10/02/24 15:46 10/02/24 15:46
Last Documented Vital Signs
Temp Pulse Resp BP Pulse Ox
37.0 C 84 19 110/65 95
10/02/24 15:46 10/02/24 19:00 10/02/24 18:00 10/02/24 19:00 10/02/24 19:00
MDM/Problems Addressed
Differential Diagnosis Includes:
Nausea/vomiting: Gastritis/GERD, bowel obstruction, cholelithiasis/cholecystitis, pancreatitis, anginal equivalent, diverticulitis, kidney stone
Weakness: Infection including intra-abdominal infection, pneumonia, dysrhythmia, CHF
Cough: Pneumonia, aspiration pneumonitis, GERD, CHF, COPD
MDM/Problems Addressed:
84-year-old male presents to the ER he is chief complaint is weakness he has had chronic coughing related to aspiration issues and chronic nausea/vomiting. custodial says that the reason for referral was worsening vomiting and inability to
tolerate p.o. Vitals and exam are as above. Will plan to place an IV check labs including a CBC and a CMP. Will check an EKG and a troponin. Will check lipase. Will check urinalysis. Will send for chest x-ray as well as a CT of the abdomen
pelvis. Will monitor closely reassess after the above.
Labs reviewed: CBC shows mild anemia slightly lower than prior at 9.7. CMP shows elevated BUN and creatinine slightly higher than discharge value�4.2 today compared to 3.6 on discharge. His troponin is negative. LFTs are unremarkable, lipase
normal. Urinalysis persistently positive for infection with pyuria, bacteria and nitrites. CT shows findings concerning for acute diverticulitis. Chest x-ray no acute pneumonia. Will cover with Zosyn. Admit for continued management. Discussed
with hospitalist. Spoke to patient's to provide update.
Chronic conditions affecting care:
History of stroke, COPD, CAD
*Radiology
Radiology exam reviewed: radiology read reviewed
*Pulse Oximetry
SaO2: 96
Oxygen Mode of Delivery: Room air
Patient hypoxic: no (96%)
*EKG
Interpreted by ED Provider?: Yes
Heart Rate: 82
Rate: normal
Rhythm: sinus
[place]: normal axis
Interval: normal interval
QRS Pattern: normal QRS
Ischemia: non-specific ST changes
*Critical Care Note
Total Time (30-74mins, 75-104mins- exclusive of procedures): Not Applicable
Data Reviewed
Review of Other/Old Records Reveals: Labs, Records and Discharge Summary
Source: patient, records and senior care
Patient Management
Discussion with other providers: Hospitalist (Discussed with hospitalist) and custodial staff (Discussed directly with senior care staff)
Escalation/DeEscalation of care consider admission/obs:
Admission indicated
ED Attending Note
-
Portions of this chart may have been created with voice recognition software.� Occasional wrong word or��sound alike� substitutions may have occurred due to the inherent limitations of voice recognition software.
Discharge Plan
Departure
Patient Disposition: Admit
Date of Disposition: 10/02/24
Time of Disposition: 20:32
Admit to doctor: Ryan
Presentation/result/management discussed w/ accepting MD/DO: Hospitalist
Discharge Problem:
Diverticulitis, Acute UTI, Nausea & vomiting
Prescriptions:
No Action
therapeutic multivitamin Tablet
1 tab PO DAILY
ferrous sulfate [iron] 325 mg (65 mg iron) Tablet
325 mg PO DAILY
fluticasone propion-salmeterol 500-50 mcg/dose Blister With Device
1 inh INHALATION R BID
cholecalciferol (vitamin D3) 25 mcg (1,000 unit) Tablet
25 mcg PO DAILY
Eliquis 2.5 mg Tablet
2.5 mg PO BID
carvedilol [Coreg] 6.25 mg Tablet
6.25 mg PO QPM
acetaminophen [Tylenol Extra Strength] 500 mg Tablet
1,000 mg PO Q6HPRN PRN (Reason: mild pain)
sertraline 25 mg Tablet
12.5 mg PO HS
carvedilol 12.5 MG tablet
12.5 mg PO DAILY
cyanocobalamin (vitamin B-12) 1,000 MCG tablet
1,000 mcg PO DAILY Qty: 90 0RF
furosemide [Lasix] 40 mg Tablet
40 mg PO QPM
sennosides-docusate sodium [Senna-S] 8.6-50 mg Tablet
1 tab-cap PO HS
spironolactone 25 mg Tablet
25 mg PO DAILY
famotidine [Pepcid] 20 mg Tablet
20 mg PO DAILY
magnesium hydroxide [Milk of Magnesia] 400 mg/5 mL Suspension
2,400 mg PO [id number] PRN (Reason: if n bm by 3rd day, give on day 4)
bisacodyl [Dulcolax (bisacodyl)] 10 mg Suppository
10 mg VA DAILYPRN PRN (Reason: if no bm aftr mom, give on day 5)
pantoprazole [Protonix] 40 mg Tablet,Delayed Release (Dr/Ec)
40 mg PO DAILY
Fleet Enema 19-7 gram/118 mL Enema
118 ml VA DAILYPRN PRN (Reason: if no bm aftr dulolcax give on day 6)
bismuth subsalicylate [Pepto-Bismol] 262 mg Tablet,Chewable
2 tab PO DAILYPRN PRN (Reason: gerd)
Mucinex DM 30-600 mg Tablet Extended Release 12 Hr
1 tab PO Q12H
metoclopramide HCl [Reglan] 10 mg Tablet
10 mg PO AC
rosuvastatin [Crestor] 40 mg Tablet
40 mg PO QPM
melatonin 10 mg Tablet
10 mg PO HS
Referrals:
Perla Evans DO [Family Provider, General]
Interventions
Interventions:
*Risk Screen - Suicide Last Done: 10/02/24 15:57
*General Assessment Last Done: 10/02/24 15:57
*Neglect/Abuse Screening Last Done: 10/02/24 15:57
*ED- Fall Risk Assessment Last Done: 10/02/24 15:57
*ED COVID-19 Vaccine History Last Done: 10/02/24 15:57
ED- Cardiac Assessment Last Done: 10/02/24 15:57
ED- Neurological Assessment Last Done: 10/02/24 15:57
ED- Pulmonary Assessment Last Done: 10/02/24 15:57
Discharge Date and Time
Print Language: AZERI
[2024-10-02 17:50] LABS: Lipase 74 U/L (23-300)
[2024-10-02 17:51] LABS: Troponin I 0.029 ng/ml
[2024-10-02 18:02] LABS: Urine Character Cloudy (Clear)
[2024-10-02 18:46] VITALS: BP 120/55
[2024-10-02 18:51] LABS: Urine Urothelial Cell 0-2 /LPF (FEW)
[2024-10-02 18:52] LABS: Urine Red Blood Cell >100 /HPF (0-2); Urine White Cell >100 /HPF (0-5)
[2024-10-02 19:00] VITALS: BP 110/65
[2024-10-02] MEDS: ZOSYN 50 IV (19:15)
[2024-10-02] MEDS: NSS 1000 IV ×2 (19:34→22:33)
[2024-10-02] MEDS: REGLAN 10 MG IV (19:36)
--- NOTE | 2024-10-02 21:33 | HPS.HSE ---
Addendum entered and electronically signed by Regino Davis DO 10/02/24 22:11:
Patient seen and examined independently. Agree with findings and plan as set forth by Nara Smith PA-C.
Patient is an 84y M with PMH significant for A-Fib, CKD IV and prior CVA who presents to ED complaining of difficulty swallowing and abdominal pain. Patient recently hospitalized at 09/16 - 09/23 and treated for UTI and sigmoid diverticulitis.
Urine culture showed Pseudomonas. Patient received IV ceftriaxone as well as short course of doxycycline for aspiration pneumonia. Seen by Speech therapy and recommended IDDSI 6 diet. Patient reports continued abdominal pain and continued
difficulty swallowing since that time. Admits to frequent coughing / choking episodes.
CT done in the ED shows basilar opacities concerning for aspiration pneumonia, sigmoid diverticulitis. UA again consistent with infection.
Ass:
Dysphagia
Aspiration Pneumonia / Pneumonitis
Sigmoid Diverticulitis
UTI - Pseudomonas
LICHA on CKD IV
Paroxysmal A-Fib
Benign Hypertension
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
ASCVD
Plan:
Admit for further evaluation and treatment.
IV abx with Zosyn to cover Pseudomonas isolated in urine as well as possible aspiration and diverticulitis.
Supportive care and follow for clinical improvement.
Speech re-evaluation. Aspiration precautions.
Hospice was discussed briefly during his prior hospitalization.
Hold diuretics acutely and follow for improvement in renal function.
Recent baseline SCr around 3.5?
Continue carvedilol and Eliquis.
Original Note:
Family Physician
-
Family Physician: Perla Evans,
Chief Complaint
-
Difficulty Swallowing
History of Present Illness
Patient is an 84 y/o male past medical history of CVA with left hemiparesis, atrial fibrillation on anticoagulation, CAD, HTN, CKD IV and Dysphagia who presents with difficulty swallowing. Patient was recently hospitalized from September 16 to August
with acute renal failure, pseudomonas UTI and worsening dysphagia. Patient reports since discharge his swallowing has continued to worsening. He notes he is unable to eat due to inability to swallow. During his previous admission he was seen
by speech who recommended IDDSI 6. Per paperwork from SNF patient continues on mechanical soft solids with thin liquids.
Medical History
Past Medical History
Past Medical History: Reports Other
Additional Past Medical History:
CVA with Left Hemiparesis
Paroxysmal Atrial Fibrillation
Coronary Artery Disease s/p Stent
Essential Hypertension
Hyperlipidemia
CKD Stage IV
Asthma
Anxiety/Depression
GERD/Esophageal Stricture
Esophageal Spasms
Dysphagia
BPH
Obstructive Sleep Apnea
Past Surgical History: Reports Other
Additional Past Surgical History:
Cardiac Stent
Cardiac Ablation
Bilateral Knee Replacement
Rotator Cuff
Esophageal Rings
Social History
Tobacco: Former Smoker
Alcohol: None
Drug: None
Personal:
Living: With Family
Family History
Family History: Other (Father: CAD)
Allergies / Home Medications
Allergies reflects when Allergies were last updated in [facility].
Home Medications with original date entered in [facility]
Allergy/Medication List:
Allergies
Allergy/AdvReac Type Severity Reaction Status Date / Time
cat dander Allergy Swelling Verified 10/02/24 15:56
lisinopril Allergy Unknown Verified 10/02/24 15:56
losartan Allergy lip Verified 10/02/24 15:56
swelling
lovastatin Allergy myalgias Verified 10/02/24 15:56
mirabegron (From Myrbetriq) Allergy lips Verified 10/02/24 15:56
swellling
tamsulosin HCl (From Flomax) Allergy facial Verified 10/02/24 15:56
itching,dizziness
venom-honey bee (bee venom Allergy Anaphylaxis Verified 10/02/24 15:56
(honey bee))
Home Medications
apixaban 2.5 mg tablet (Eliquis) 2.5 mg PO BID Blood Clot Prevention/Tx 08/31/23
cholecalciferol (vitamin D3) 25 mcg (1,000 unit) tablet 25 mcg PO DAILY Supplement 08/31/23
ferrous sulfate 325 mg (65 mg iron) tablet (iron) 325 mg PO DAILY Supplement 08/31/23
fluticasone 500 mcg-salmeterol 50 mcg/dose blistr powdr for inhalation 1 inh inhalation R BID Lung/Breathing Issues 08/31/23
therapeutic multivitamin 1 tab PO DAILY Supplement 08/31/23
acetaminophen 500 mg tablet (Tylenol Extra Strength) 1,000 mg PO Q6HPRN PRN mild pain 09/16/24
carvedilol 12.5 mg tablet 12.5 mg PO DAILY Blood pressure 09/16/24
carvedilol 6.25 mg tablet (Coreg) 6.25 mg PO QPM Heart Failure 09/16/24
sertraline 25 mg tablet 12.5 mg PO HS Depression 09/16/24
cyanocobalamin (vitamin B-12) 1,000 mcg tablet 1,000 mcg PO DAILY deficiency #90 tabs 09/23/24
bisacodyl 10 mg rectal suppository (Dulcolax (bisacodyl)) 10 mg ND DAILYPRN PRN if no bm aftr mom, give on day 5 10/02/24
bismuth subsalicylate 262 mg chewable tablet (Pepto-Bismol) 2 tab PO DAILYPRN PRN gerd 10/02/24
dextromethorphan-guaifenesin 30 mg-600 mg tablet extended [id number] hr (Mucinex DM) 1 tab PO Q12H 10/02/24
famotidine 20 mg tablet (Pepcid) 20 mg PO DAILY 10/02/24
furosemide 40 mg tablet (Lasix) 40 mg PO QPM 10/02/24
magnesium hydroxide 400 mg/5 mL oral suspension (Milk of Magnesia) 2,400 mg PO [id number] PRN if n bm by 3rd day, give on day 4 10/02/24
melatonin 10 mg tablet 10 mg PO HS 10/02/24
metoclopramide HCl 10 mg tablet (Reglan) 10 mg PO AC 10/02/24
pantoprazole 40 mg tablet,delayed release (Protonix) 40 mg PO DAILY 10/02/24
rosuvastatin 40 mg tablet (Crestor) 40 mg PO QPM 10/02/24
sennosides 8.6 mg-docusate sodium 50 mg tablet (Senna-S) 1 tab-cap PO HS 10/02/24
sodium phosphates 19 gram-7 gram/118 mL enema (Fleet Enema) 118 ml ND DAILYPRN PRN if no bm aftr dulolcax give on day 6 10/02/24
spironolactone 25 mg tablet 25 mg PO DAILY 10/02/24
Review of Systems
-
A 12 point ROS was completed and negative except as noted: Yes
Constitutional: Denies Fever or Chills
Respiratory: Denies Cough or Trouble Breathing
Cardiac: Denies Chest Pain or Palpitations
Abdomen/GI: Reports See HPI
Physical Exam
Vital Signs
Vital Signs
Temp Pulse Resp BP Pulse Ox
98.6 F 84 19 110/65 95
10/02/24 15:46 10/02/24 19:00 10/02/24 18:00 10/02/24 19:00 10/02/24 19:00
Physical Exam
General: Comfortable and Conversant
HEENT: Anicteric and Moist mucous membranes
Respiratory: Non Labored Respirations and Decreased Breath Sounds (Bilateral bases)
Cardiac: S1/S2 and Regular Rhythm; No Tachycardia
GI: Soft and Tender (Tenderenss to palpation in left upper and lower quadrants with some guarding noted in the left lower quadrant)
Musculoskeletal: No Clubbing and No Cyanosis
Skin: Warm and Dry
Neuro: Awake, Alert and Other (Chronic left hemiparesis)
Psych: Calm
Laboratory Results
-
10/02/24 16:07
10/02/24 16:07
Laboratory Results
Total Bilirubin 0.5 mg/dl (0.2-1.3) 10/02/24 16:07
AST 27 U/L (17-59) 10/02/24 16:07
ALT 31 U/L (0-50) 10/02/24 16:07
Alkaline Phosphatase 96 U/L (38-126) 10/02/24 16:07
Troponin I 0.029 ng/ml 10/02/24 17:13
Lipase Cancelled 10/02/24 17:05
Data Reviewed
-
CT Scan: Report Reviewed by me
Lab Data: Labs Reviewed by me
Impression/Plan
-
Worsening Dysphagia
-Consult Speech Therapy
-Will keep NPO and limit oral medications
-Continue Aspiration Precautions
Acute Sigmoid Diverticulitis
-Continue NPO/IVFs
-Continue Zosyn
Urinary Tract Infection
-Reviewed prior culture data with pseudomonas
-Continue Zosyn
-Await urine culture
Acute Renal Insufficiency on CKD IV
-Patient previously declined dialysis
-Hold Lasix and Spironolactone
Paroxysmal Atrial Fibrillation
-Continue Eliquis
-Continue Coreg
Essential Hypertension
-Continue Coreg
Asthma, no acute exacerbation
-Continue fluticasone / salmeterol
Hx CVA with Left Hemiparesis
Hx Coronary Artery Disease s/p Stent
DVT proph: Eliquis
Code Status: DNR
[2024-10-02 22:43] VITALS: BMI 30.1
[2024-10-02 23:06] VITALS: BP 122/63; BMI 29.4
--- NOTE | 2024-10-02 23:10 | PTCARENOTE ---
Rec'd pt from ER. transferred over to the bed. Pt with left hemiparesis from history of previous CVA. Denies pain. NSS started at 60ml/hr. Pt NPO pending swallow evaluation from speech. call kathleen in reach. oriented to the unit,
[2024-10-03] MEDS: ZOSYN 50 IV ×3 (04:03→20:03)
[2024-10-03 06:00] VITALS: BMI 29.5
[2024-10-03 07:00] VITALS: BP 142/66
[2024-10-03] MEDS: ADVAIR HFA 230/21 MCG INHALER 2 PUFF INH ×2 (08:14→19:55)
[2024-10-03] MEDS: COREG 12.5 MG PO (08:31)
[2024-10-03] MEDS: ELIQUIS 2.5 MG PO (08:32)
--- NOTE | 2024-10-03 08:46 | W.PN.UPDATE ---
Addendum entered and electronically signed by Shadi Jane MD 10/03/24 11:10:
No evidence of UTI at this time. Patient is afebrile without leukocytosis. No urinary complaints. Unclear why urinalysis was even sent.
Original Note:
Update Note
Progress Note Update
I saw and evaluated the patient. I reviewed the resident�s note and agree with findings and plan as documented in the resident�s note.
Pt offers no new complaints.
Gen: NAD, Awake and alert
Eyes: EOMI, PERRLA, no scleral icterus.
Neck: supple.
CV: RRR, +S1/S2, no m/r/g.
Resp: CTAB anteriorly, no rales, wheezes, or rhonchi.
Abd: +BS, soft, NT, ND
Skin: No rashes.
Neuro: CN 2-12 intact, non-focal.
Psych: Normal mood and affect.
CT A/P: Findings of acute diverticulitis along the proximal sigmoid colon. There are bibasilar airspace opacities suspicious for pneumonia/pneumonitis, possibly in the setting of aspiration. 1.2 cm stone in the left renal pelvis without associated
hydronephrosis. Mild rectal stool burden.
CXR: Mild bibasilar airspace opacities which may represent atelectasis or pneumonia.
Worsening Dysphagia:
-speech saw in c/s. Reporting esophageal dysphagia. c/s GI.
-strict NPO
Acute Sigmoid Diverticulitis:
-NPO/IVFs
-Continue Zosyn
Recurrently UTI:
-cont Zosyn
-follow UCx
LICHA on CKD4:
-Patient previously declined dialysis
-Holding Lasix and Spironolactone
-c/s renal
Other problems:
Paroxysmal Atrial Fibrillation: cont Coreg/Eliquis
Essential HTN: cont Coreg
Asthma, not in acute exacerbation: Continue fluticasone/salmeterol
h/o CVA with L Hemiparesis: cont Eliquis
CAD s/p Stent
c/s palliative care
DNR/Eliquis
Total time spent on today's encounter was 50 minutes which included time spent in counseling the patient/family regarding diagnosis and treatment plan as listed above, goals of care, and symptom management. Case was discussed with nursing staff,
specialists, and care coordinators/case management. All labs and imaging personally reviewed by me. Remainder the time spent in detailed review of previous records, lab data, imaging, and other medical provider documentation.
[2024-10-03 09:09] VITALS: BP 114/68; PULSE 83; O2SAT 99
[2024-10-03 09:25] VITALS: BP 114/68; PULSE 82; O2SAT 99
[2024-10-03 09:39] LABS: Hematocrit 25.6 % (39.0-52.0); Hemoglobin 8.4 g/dL (13.0-18.0); Mean Corp Hgb Conc. 32.8 g/dL (33.0-37.0); Mean Corpuscular Volume 94.5 fL (80.0-94.0); Platelet Count 323 10^3/uL (130-400); Red Cell Dist. Width 17.0 % (11.5-14.5)
--- NOTE | 2024-10-03 10:38 | PTOTSP ---
ST Acute Care Evaluation
Pt currently presents with oral parameters that are WFL for ice chips and thin liquids - mastication of solids was not assessed during this limited evaluation. Pt presents with possible indications of pharyngeal dysphagia; however, this exam was
limited. It is important to note that pt likely has some element of mild pharyngeal dysphagia as evidenced by his previous VFSS that was completed on 09/17/2023, which indicated aspiration with thin liquids when they were consumed in a neutral head
position - aspiration was eliminated when pt utilized a chin tuck position.
Of most importance today, pt exhibits clinical signs of esophageal dysphagia/pathology as evidenced by coughing and regurgitation of even just small amounts of ice chips and thin liquids, indicative of inability of bolus to pass inferiorly through
the esophagus (ddx: esophageal stricture, mass, diverticulum, achalasia, pharyngoesophageal segment dysfunction, etc.). It is important to note that pt's records indicate he has a hx of esophageal dysphagia, esophageal spasm, and esophageal
stricture; however, pt does not recall any issues with his esophagus nor does he recall ever receiving any sort of dilation. Further inquiry into his medical hx/records would be beneficial at this time in order to provide pt with the most
appropriate care.
Recommendations:
- STRICT NPO; meds provided via IV.
- ARHP - minimal ice chips with RN supervision after oral care; provide emesis cup/bag if needed.
- Aspiration precautions: keep HOB upright as often as possible (>30 degrees when sleeping); oral care QID.
- Consider GI consult.
- Consider GOC conversation, given that pt previously declined HD - pt may not want to pursue any invasive procedures or testing.
- BODY WORKER to f/u re: re-assessment of candidacy for PO diet initiation, to determine if pt would benefit from an instrumental swallow study, and to provide pt/family education as needed.
[2024-10-03 11:34] LABS: Blood Urea Nitrogen 50 mg/dl (9-20); Calcium 9.2 mg/dl (8.4-10.2); Carbon Dioxide 21 mmol/L (22-30); Chloride 112 mmol/L (98-107); Estimated Creatinine Clearance 15 ml/min; Glucose 88 mg/dl (70-99); Potassium 4.2 mmol/L (3.5-5.1); Sodium 142 mmol/L (135-145); eGFR 13.43
--- NOTE | 2024-10-03 12:53 | CON.GI ---
Addendum entered and electronically signed by Edward Baker MD 10/03/24 17:15:
I saw and examined the patient.
The LIBRARY PARAPROFESSIONAL's note was reviewed and I agree with the note.
84 year old male with past medical history of esophageal dysphagia/spasms, LICHA/CKD IV, depression, CVA with L hemiparesis, afib on eliquis, CAD with stent, cardiac ablation, hyperlipidemia, BPH, UTI, asthma, anemia of chronic disease, GERD,
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 At that time, Dr. Osman recommended he schedule
appointment at [facility] for a more specialized EGD (endoflip), which the patient declined. Recently discharged from the hospital on 09/23/2024 for treatment of UTI and sigmoid diverticulitis. Prior to that patient was on a short course of
doxycycline for aspiration pneumonia. We are asked to evaluate for dysphagia. RAISE DRILLER recommended strict NPO with dysphagia precautions.
--dysphagia -prior GI evaluation suggestive of esophageal dysmotility. Worsening after antibiotic use possible pill esophagitis versus candidiasis
-- Sigmoid diverticulitis
-- LICHA on CKD 4 ( patient does not want HD )
plan
N.p.o.
Antibiotics as per medical team
Discussed about EGD. Patient would like to think about it. If patient is agreeable for EGD will recommend holding Eliquis
GOC discussion per medical team
Original Note:
Consultation
-
Date/Time Consultation Requested: 10/03/24 1024
Date/Time Consultation Performed: 10/03/24 1310
Requesting Provider: Dr. Mijares
Performing Provider: Dr. Baker/AMADEO Leiva
Reason for Consultation: dyphagia, diverticulitis
Medical History
Chief Complaint / HPI
Chief Complaint: Dysphagia
History of Present Illness:
84 year old male with past medical history of esophageal dysphagia/spasms, LICHA/CKD IV, depression, CVA with L hemiparesis, afib on eliquis, CAD with stent, cardiac ablation, hyperlipidemia, BPH, UTI, asthma, anemia of chronic disease, GERD,
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 At that time, Dr. Osman recommended he schedule
appointment at [facility] for a more specialized EGD (endoflip), which the patient declined. Recently discharged from the hospital on 09/23/2024 for treatment of UTI and sigmoid diverticulitis. Prior to that patient was on a short course of
doxycycline for aspiration pneumonia. We are asked to evaluate for dysphagia. Speech-language pathology saw the patient with worsening issues. After discussion with patient and patient states that he had worsening issues of GERD reflux and
problems swallowing after treatment with doxycycline. Patient has a history of an EGD in 2022 with esophageal candidiasis. He denies any odynophagia. He does state that he has a cough with trying to swallow liquids. Last admission he was seen by
RAISE DRILLER who recommended IDDSI 6. Patient states that he was having nausea and vomiting at home with regurgitation of anything he would try to eat. This would include solids and liquids. He has been having constipation. He denies any current
abdominal discomfort. He denies any fevers, chills, melena, hematochezia, early satiety or unintended weight loss.
Past Medical History
Past Medical History: Arrhythmias (paroxysmal atrial fibrillation), Asthma, CAD (s/p stent), CVA (with L hemiparesis), GERD, HTN, Psychiatric (depression) and Other (esophageal dysphasia, h/o schatzkis ring s/p dilation 2013, hyperlipidemia, anemia
of chronic disease, BPH, KLAUS)
Past Surgical History: Cardiac (stent, ablation) and Orthopedic (bilateral knee replacement, rotator cuff)
Social History
Tobacco: Former Smoker
Alcohol: None
Drug: None
Personal:
Living: With Family
Family History
Family History: CAD (father) and Other (Denies any family history of gastrointestinal malignancy or IBD)
Allergies / Home Medications
Allergy/AdvReac Type Severity Reaction Status Date / Time
cat dander Allergy Swelling Verified 10/02/24 15:56
lisinopril Allergy Unknown Verified 10/02/24 15:56
losartan Allergy lip Verified 10/02/24 15:56
swelling
lovastatin Allergy myalgias Verified 10/02/24 15:56
mirabegron (From Myrbetriq) Allergy lips Verified 10/02/24 15:56
swellling
tamsulosin HCl (From Flomax) Allergy facial Verified 10/02/24 15:56
itching,dizziness
venom-honey bee (bee venom Allergy Anaphylaxis Verified 10/02/24 15:56
(honey bee))
�Medication �Instructions �Recorded
apixaban 2.5 mg tablet (Eliquis) 2.5 mg PO BID Blood Clot 08/31/23
Prevention/Tx
cholecalciferol (vitamin D3) 25 25 mcg PO DAILY Supplement 08/31/23
mcg (1,000 unit) tablet
ferrous sulfate 325 mg (65 mg 325 mg PO DAILY Supplement 08/31/23
iron) tablet (iron)
fluticasone 500 mcg-salmeterol 50 1 inh inhalation R BID 08/31/23
mcg/dose blistr powdr for Lung/Breathing Issues
inhalation
therapeutic multivitamin 1 tab PO DAILY Supplement 08/31/23
acetaminophen 500 mg tablet 1,000 mg PO Q6HPRN PRN mild pain 09/16/24
(Tylenol Extra Strength)
carvedilol 12.5 mg tablet 12.5 mg PO DAILY Blood pressure 09/16/24
carvedilol 6.25 mg tablet (Coreg) 6.25 mg PO QPM Heart Failure 09/16/24
sertraline 25 mg tablet 12.5 mg PO HS Depression 09/16/24
cyanocobalamin (vitamin B-12) 1,000 mcg PO DAILY deficiency #90 09/23/24
1,000 mcg tablet tabs
bisacodyl 10 mg rectal suppository 10 mg DE DAILYPRN PRN if no bm 10/02/24
(Dulcolax (bisacodyl)) aftr mom, give on day 5
bismuth subsalicylate 262 mg 2 tab PO DAILYPRN PRN gerd 10/02/24
chewable tablet (Pepto-Bismol)
dextromethorphan-guaifenesin 30 1 tab PO Q12H Cough 10/02/24
mg-600 mg tablet extended
[id number] hr (Mucinex DM)
famotidine 20 mg tablet (Pepcid) 20 mg PO DAILY Gastrointestinal 10/02/24
Issue
furosemide 40 mg tablet (Lasix) 40 mg PO QPM Fluid 10/02/24
Retention/Swelling
magnesium hydroxide 400 mg/5 mL 2,400 mg PO [id number] PRN if n bm by 10/02/24
oral suspension (Milk of Magnesia) 3rd day, give on day 4
melatonin 10 mg tablet 10 mg PO HS Sleep 10/02/24
metoclopramide HCl 10 mg tablet 10 mg PO AC Gastrointestinal Issue 10/02/24
(Reglan)
pantoprazole 40 mg tablet,delayed 40 mg PO DAILY Gastrointestinal 10/02/24
release (Protonix) Issue
rosuvastatin 40 mg tablet (Crestor) 40 mg PO QPM High Cholesterol 10/02/24
sennosides 8.6 mg-docusate sodium 1 tab-cap PO HS Constipation 10/02/24
50 mg tablet (Senna-S)
sodium phosphates 19 gram-7 118 ml DE DAILYPRN PRN if no bm 10/02/24
gram/118 mL enema (Fleet Enema) aftr dulolcax give on day 6
spironolactone 25 mg tablet 25 mg PO DAILY Fluid 10/02/24
Retention/Swelling
Review of Systems
-
All other systems: A 12 pt ROS was Negative except as stated above in HPI
Vital Signs
Temp Pulse Resp BP Pulse Ox
97.8 F 80 16 142/66 95
10/03/24 07:00 10/03/24 07:00 10/03/24 07:00 10/03/24 07:00 10/03/24 07:00
Physical Exam
Exam
General: No Apparent Distress
HEENT: Anicteric and Other (no signs of oral thrush)
Respiratory: Clear (Anterior)
GI: Soft, Non Tender, Non Distended and Normal Bowel Sounds
Skin: Warm and Dry
Neuro: AO x 3
Psych: Calm
Results
WBC 7.5 10^3/uL (4.8-10.8) 10/03/24 08:47
Hgb 8.4 g/dL (13.0-18.0) L 10/03/24 08:47
Hct 25.6 % (39.0-52.0) L 10/03/24 08:47
MCV 94.5 fL (80.0-94.0) H 10/03/24 08:47
Plt Count 323 10^3/uL (130-400) 10/03/24 08:47
Absolute Neuts (auto) 7.0 10^3/uL (1.4-6.5) H 10/02/24 16:07
Sodium 142 mmol/L (135-145) 10/03/24 08:47
CXR:Potassium 4.2 mmol/L (3.5-5.1) 10/03/24 08:47
Chloride 112 mmol/L (98-107) H 10/03/24 08:47
Carbon Dioxide 21 mmol/L (22-30) L 10/03/24 08:47
BUN 50 mg/dl (9-20) H 10/03/24 08:47
Creatinine 4.2 mg/dL (0.7-1.3) H* 10/03/24 08:47
Calcium 9.2 mg/dl (8.4-10.2) 10/03/24 08:47
Total Bilirubin 0.5 mg/dl (0.2-1.3) 10/02/24 16:07
AST 27 U/L (17-59) 10/02/24 16:07
ALT 31 U/L (0-50) 10/02/24 16:07
Alkaline Phosphatase 96 U/L (38-126) 10/02/24 16:07
Lipase Cancelled 10/02/24 17:05
Diagnostic Image Results:
CXR:
Mild bibasilar airspace opacities which may represent atelectasis or pneumonia.
CT Abd/Pelvis without IV or ORal contrast:
IMPRESSION:
Findings of acute diverticulitis along the proximal sigmoid colon.
There are bibasilar airspace opacities suspicious for pneumonia/pneumonitis, possibly in the setting of aspiration.
1.2 cm stone in the left renal pelvis without associated hydronephrosis.
Mild rectal stool burden.
Prior GI Procedures:
EGD: 01/03/23 No stricture or mass seen. The food impactions are due
to the severe spasm in the distal esophagus.
- Esophageal plaques were found, consistent with
candidiasis. Biopsied.
- Tortuous esophagus with a small hiatal hernia.
- Abnormal esophageal motility. Biopsied. Dilated to
20mm - however, unlikely to help.
- Normal stomach.
- Normal examined duodenum.
01/2023- Esophageal manometry for dysphagia - spastic on esophagram. EGJ outflow obstruction in both supine and upright positions with severe LES spasm after swallows. Probable hiatal hernia. Prolonged spastic esophageal contractions in the
distal esophagus. High UES basal and relaxation pressure, normal MRSR. On impedance manometry there was bolus hanging up in the mid esophagus above the spastic portion of the esophagus. Does not quite meet achalasia criteria. The DCI is normal.
11/2022- with barium pill No evidence of stricture, web, neoplasm, diverticulum, ulceration or inflammatory change in the thoracic esophagus with extensive tertiary contractions in the entire esophagus with delayed esophageal emptying. The lower
esophageal sphincter distended minimally but reopened more likely related to spasm. Significant delay in passage of the barium pill and after several minutes it did pass through. Proceed to endoscopy with likely dilation
EGD:
2013 ([facility])- low grade Schatzkis ring dilated with an 18 mm savory
Colonoscopy:
2016 ([facility])- diverticula, otherwise normal
Assessment / Plan
-
84 year old male with past medical history of esophageal dysphagia/spasms, LICHA/CKD IV, depression, CVA with L hemiparesis, afib on eliquis, CAD with stent, cardiac ablation, hyperlipidemia, BPH, UTI, asthma, anemia of chronic disease, GERD,
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 At that time, Dr. Osman recommended he schedule
appointment at [facility] for a more specialized EGD (endoflip), which the patient declined. Recently discharged from the hospital on 09/23/2024 for treatment of UTI and sigmoid diverticulitis. Prior to that patient was on a short course of
doxycycline for aspiration pneumonia. We are asked to evaluate for dysphagia. RAISE DRILLER recommended strict NPO with dysphagia precautions. Patient and feel that worsening GERD and issues started after tx with Doxy as outpatient. Patient was using
Pepto Bismol for GERD control.
Impression:
Dysphagia
Hx Esophageal spasm/dysmotility
GERD
Sigmoid diverticultis
LICHA on CKD IV (discussed with Nephrology)-> IF DIflucan would be needed ok to give 1 dose, patient does not want dialysis
Aspiration PNA vs Pneumonitis
Hx CVA with left sided hemiparesis
Afib on Eliquis
Plan:
-Patient currently strict NPO.
-No signs of oral thrush
-Discussed possibility of EGD to eval for hector, med esophagitis, ring, etc. Also discussed if the patient would want PEG tube. Patient not sure at present time. Currently on Eliquis and would need wash out. Patient to decide.
-Continue on Zosyn
-Would like to add Protonix ideally vs Pepcid. Will reach out to Renal to see which.
-Further recommendations to be forthcoming.
-
-
Thank you for consultation and allowing me to participate in the patient's care. Please call the temperature control inspector GI physician during the after hours with any questions or concerns.
--- NOTE | 2024-10-03 13:07 | W.CON.NEPH ---
Consultation
-
Date/Time Consultation Requested: 10/03/2024 7 AM
Date/Time Consultation Performed: 10/03/2024 1 PM
Requesting Provider: Dr. Jane
Performing Provider: Dr. Griffin
Reason for Consultation: LICHA
Medical History
-
Chief Complaint: LICHA
History of Present Illness:
This is an 84-year-old gentleman who has CKD 4 baseline creatinine approximately 3.9 according to the . She follows with Dr. Blair at [place]. As stated in the past that he would not except dialysis. He has atrial fibrillation which is
rate controlled and on anticoagulation with Eliquis. He has hypertension controlled on a multidrug regimen. He was recently at [facility] from September 16 to September 23 with urinary tract infection and sigmoid diverticulitis and he antibiotics
he had developed esophageal candidiasis at that admission. Since discharge he has had persistent abdominal discomfort as well as difficulty swallowing as well as coughing and choking episodes. This brought him back to the emergency room. His
creatinine was noted to be 4.2 and we are asked to assist with management of the rising creatinine.
Past Medical History
L hemiplegia s/p CVA, A-Fib, CKD. Urinary retention
Social History
Tobacco: Non-Smoker
Alcohol: None
Family History
Family History: Not Pertinent
Allergies / Home Medications
Allergy/AdvReac Type Severity Reaction Status Date / Time
cat dander Allergy Swelling Verified 10/02/24 15:56
lisinopril Allergy Unknown Verified 10/02/24 15:56
losartan Allergy lip Verified 10/02/24 15:56
swelling
lovastatin Allergy myalgias Verified 10/02/24 15:56
mirabegron (From Myrbetriq) Allergy lips Verified 10/02/24 15:56
swellling
tamsulosin HCl (From Flomax) Allergy facial Verified 10/02/24 15:56
itching,dizziness
venom-honey bee (bee venom Allergy Anaphylaxis Verified 10/02/24 15:56
(honey bee))
�Medication �Instructions �Recorded �Confirmed �Type
apixaban 2.5 mg tablet (Eliquis) 2.5 mg PO BID Blood Clot 08/31/23 10/02/24 History
Prevention/Tx
cholecalciferol (vitamin D3) 25 25 mcg PO DAILY Supplement 08/31/23 10/02/24 History
mcg (1,000 unit) tablet
ferrous sulfate 325 mg (65 mg 325 mg PO DAILY Supplement 08/31/23 10/02/24 History
iron) tablet (iron)
fluticasone 500 mcg-salmeterol 50 1 inh inhalation R BID 08/31/23 10/02/24 History
mcg/dose blistr powdr for Lung/Breathing Issues
inhalation
therapeutic multivitamin 1 tab PO DAILY Supplement 08/31/23 10/02/24 History
acetaminophen 500 mg tablet 1,000 mg PO Q6HPRN PRN mild pain 09/16/24 10/02/24 History
(Tylenol Extra Strength)
carvedilol 12.5 mg tablet 12.5 mg PO DAILY Blood pressure 09/16/24 10/02/24 History
carvedilol 6.25 mg tablet (Coreg) 6.25 mg PO QPM Heart Failure 09/16/24 10/02/24 History
sertraline 25 mg tablet 12.5 mg PO HS Depression 09/16/24 10/02/24 History
cyanocobalamin (vitamin B-12) 1,000 mcg PO DAILY deficiency #90 09/23/24 10/02/24 Rx
1,000 mcg tablet tabs
bisacodyl 10 mg rectal suppository 10 mg GA DAILYPRN PRN if no bm 10/02/24 10/02/24 History
(Dulcolax (bisacodyl)) aftr mom, give on day 5
bismuth subsalicylate 262 mg 2 tab PO DAILYPRN PRN gerd 10/02/24 10/02/24 History
chewable tablet (Pepto-Bismol)
dextromethorphan-guaifenesin 30 1 tab PO Q12H Cough 10/02/24 10/02/24 History
mg-600 mg tablet extended
hr (Mucinex DM)
famotidine 20 mg tablet (Pepcid) 20 mg PO DAILY Gastrointestinal 10/02/24 10/02/24 History
Issue
furosemide 40 mg tablet (Lasix) 40 mg PO QPM Fluid 10/02/24 10/02/24 History
Retention/Swelling
magnesium hydroxide 400 mg/5 mL 2,400 mg PO [id number] PRN if n bm by 10/02/24 10/02/24 History
oral suspension (Milk of Magnesia) 3rd day, give on day 4
melatonin 10 mg tablet 10 mg PO HS Sleep 10/02/24 10/02/24 History
metoclopramide HCl 10 mg tablet 10 mg PO AC Gastrointestinal Issue 10/02/24 10/02/24 History
(Reglan)
pantoprazole 40 mg tablet,delayed 40 mg PO DAILY Gastrointestinal 10/02/24 10/02/24 History
release (Protonix) Issue
rosuvastatin 40 mg tablet (Crestor) 40 mg PO QPM High Cholesterol 10/02/24 10/02/24 History
sennosides 8.6 mg-docusate sodium 1 tab-cap PO HS Constipation 10/02/24 10/02/24 History
50 mg tablet (Senna-S)
sodium phosphates 19 gram-7 118 ml GA DAILYPRN PRN if no bm 10/02/24 10/02/24 History
gram/118 mL enema (Fleet Enema) aftr dulolcax give on day 6
spironolactone 25 mg tablet 25 mg PO DAILY Fluid 10/02/24 10/02/24 History
Retention/Swelling
Physical Exam
Vital Signs
Vital Signs
Temp Pulse Resp BP Pulse Ox
97.8 F 80 16 142/66 95
10/03/24 07:00 10/03/24 07:00 10/03/24 07:00 10/03/24 07:00 10/03/24 07:00
Lab Results
WBC 7.5 10^3/uL (4.8-10.8) 10/03/24 08:47
RBC 2.71 10^6/uL (4.70-6.10) L 10/03/24 08:47
Hgb 8.4 g/dL (13.0-18.0) L 10/03/24 08:47
Hct 25.6 % (39.0-52.0) L 10/03/24 08:47
Plt Count 323 10^3/uL (130-400) 10/03/24 08:47
Sodium 142 mmol/L (135-145) 10/03/24 08:47
Potassium 4.2 mmol/L (3.5-5.1) 10/03/24 08:47
Chloride 112 mmol/L (98-107) H 10/03/24 08:47
Carbon Dioxide 21 mmol/L (22-30) L 10/03/24 08:47
BUN 50 mg/dl (9-20) H 10/03/24 08:47
Creatinine 4.2 mg/dL (0.7-1.3) H* 10/03/24 08:47
eGFR 13.43 10/03/24 08:47
Glucose 88 mg/dl (70-99) 10/03/24 08:47
Calcium 9.2 mg/dl (8.4-10.2) 10/03/24 08:47
Albumin 3.3 g/dl (3.5-5.0) L 10/02/24 16:07
Laboratory Tests
09/26/24
06:25
BUN 64 H
Creatinine 3.[address] abdomen pelvis without contrast 10/02/2024
IMPRESSION:
Findings of acute diverticulitis along the proximal sigmoid colon.
There are bibasilar airspace opacities suspicious for pneumonia/pneumonitis, possibly in the setting of aspiration.
1.2 cm stone in the left renal pelvis without associated hydronephrosis.
Mild rectal stool burden.
Physical Exam
Patient is awake alert oriented and in no distress. Mood and affect were pleasant, insight and judgment were good. Pupils are equal round and reactive to light, extraocular movements are intact, sclera were anicteric. Hearing was normal, ears and
nose are intact. Oropharynx was clear. Neck was supple with trachea midline and no thyromegaly. Heart was regular rate and rhythm without rubs. Lower extremities without edema. Lungs were clear to auscultation bilaterally and with normal
excursion. Abdomen was soft, nontender, with normal active bowel sounds, and no hepatosplenomegaly. Skin was without rash and with normal turgor.
Data Reviewed
-
Radiology: Image Personally Visualized and interpreted (Chest x-ray 10/02/2024 by my reading mild basilar infiltrates)
CT Scan: Report Reviewed by me
Medical Tests (Nuc Med, Echo etc): Image Personally Visualized and interpreted (EKG 10/02/2024 by my read normal sinus rhythm nonspecific T wave abnormality)
Labs: Labs Reviewed by me
Old Records: Reviewed
Assessment/Plan
-
83y M with L hemiplegia s/p CVA, A-Fib, CKD. Urinary retention Follows with urology who recently had a respiratory infection persisting for one month. Who presents with weakness subjective fever and chills. Noted to have hematuria in which he
notified urology.
Urinalysis consistent with UTI in the ER
Renal consult for acute kidney injury with a creatinine of 6 he follows with nephrology and [address]
Impression.
Acute kidney injury on chronic kidney disease stage IV with a baseline creatinine of 3.9.
Aspiration pneumonia
A-fib
Heart failure preserved ejection fraction
Plan.
follow BMP
no lasix
IV fluids saline while n.p.o.
antibiotics per primary team
GI evaluation, okay for Diflucan 100 mg daily if needed
Patient confirms that he would not except dialysis
We discussed various options including PEG tube as well as palliative care or hospice if he is unable to eat
--- NOTE | 2024-10-03 13:08 | W.PN.HOSP.TC ---
Today's Communication/Plan
-
GI consulted for acute diverticulitis and worsening dysphagia
Continue IV antibiotics
S/p reevaluation
Palliative care consult
Assessment / Plan
Assessment / Plan
Mr. Castillo is an 84-year-old male with L hemiplegia s/p CVA, paroxysmal A-Fib rate controlled and on Eliquis, CKD stage 4 with baseline creatinine 3.6, urinary retention follows with urology, HLD, asthma, GERD, anxiety, BPH, KLAUS, who was recently
admitted via the ED on 09/16/2024 through 09/23/2024 for management of UTI. This admission, he came to the ED via [facility] for evaluation of weakness, nausea and vomiting, fatigue, shortness of breath, and cough. On discussion on 10/03/2024, he
denied urinary symptoms and only complained about his dysphagia/choking. He follows Dr. Way from nephrology [place]. This admission, CT A/P show acute diverticulitis along the proximal sigmoid colon along with bibasilar airspace opacities
suspicious for pneumonia/pneumonitis, possibly in the setting of aspiration. There was also a 1.2 cm stone in the left renal pelvis without associated hydronephrosis. CXR was remarkable for mild bibasilar airspace opacities which may represent
atelectasis or pneumonia. He was admitted to medicine for further management, and nephrology, GI, SP were consulted for further recs. UA again was notable for Pseudomonas, similar to last admission, suspect contaminant as patient is without
urinary symptoms, and fever, leukocytosis.
#Worsening Dysphagia
#Cough
Chest x-ray remarkable for atelectasis versus aspiration pneumonia/pneumonitis. Consult palliative care for insight.
-GI consulted, appreciate recs.
-Speech to reevaluate.
-Make n.p.o.
#Acute Sigmoid Diverticulitis
As seen on CT.
-GI consulted, appreciate recs.
-Make n.p.o. in case of procedure
-Maintenance IV fluids
-Continue IV Zosyn
#Pseudomonas positive UTI
Suspect contaminant as patient is without urinary symptoms, and fever, leukocytosis and also had a similar result last admission.
-Continue IV Zosyn
#LICHA on CKD4:
Baseline creatinine 3.9 per . Today 4.2.
- Consult nephrology:
--Follow BMP
--IV fluids NSS while n.p.o.
--If GI confirms, Diflucan 100 mg daily if needed
--Patient does not want dialysis
-Holding Lasix 40 mg every afternoon and Spironolactone 25 mg p.o. daily
#Paroxysmal Atrial Fibrillation, controlled heart rate
-Continue home carvedilol (6.25 mg p.o. every afternoon, 12.5 mg p.o. daily)
-Continue apixaban 2.5 mg p.o. twice daily
#Benign Essential hypertension
-Hold Lasix and spironolactone due to LICHA and per nephrology
-Continue carvedilol
#Asthma without Acute Exacerbation
-Continue fludrocortisone and salmeterol
-Continue to monitor
#History of CVA with left hemiparesis
-Continue home rosuvastatin 10 mg p.o.
-Continue Eliquis
#CAD s/p stent
-Continue Eliquis
DVT prophylaxis: Eliquis
CODE STATUS: DNR
Anticipated Discharge: 24 - 48 hours (Pending GI workup for esophageal dysphagia)
Subjective/Interval History
-
Date of Service: October 03, 2024
-This morning, he is sitting up in bed looking comfortable. He does not know why he was admitted as he is asymptomatic from his standpoint. He does not have any urinary symptoms. He does however complain of choking each time he eats or drinks
water.
- SP to reevaluate, will consult GI for esophageal dysphagia. Communicated this to the patient.
Objective Data
-
Labs:
Laboratory Results
10/03/24
08:47
WBC 7.5
Hgb 8.4 L
Hct 25.6 L
Plt Count 323
Sodium 142
Potassium 4.2
Chloride 112 H
Carbon Dioxide 21 L
BUN 50 H
Creatinine 4.2 H*
Glucose 88
Calcium 9.2
Vital Signs:
Vital Signs
Temp Pulse Resp BP Pulse Ox
97.8 F 80 16 142/66 95
10/03/24 07:00 10/03/24 07:00 10/03/24 07:00 10/03/24 07:00 10/03/24 07:00
I&O
10/02/24 10/03/24 10/04/24
06:59 06:59 06:59
Intake Total 530 / 530
Output Total 0 / 0
Balance 530 / 530
Review of Systems
-
History Source: Patient
All other systems: Reviewed and negative
Respiratory: Reports Cough (Especially with eating)
Physical Exam
-
General: Well Developed, Well Nourished, No Apparent Distress and Conversant
HEENT: Normocephalic, Atraumatic and Moist Mucous Membranes
Respiratory: Non Labored Respirations and Decreased Breath Sounds (Bilaterally)
Cardiac: Regular Rhythm and S1/S2
GI: Soft, Nontender and Nondistended
Genito-urinary: No Costovertebral Tender and Clear Urine
Musculoskeletal: No Clubbing, No Cyanosis and No Edema
Skin: Warm and Dry
Neuro: AO x 3
Psych: Calm and Intact Judgement/Insight
--- NOTE | 2024-10-03 14:36 | W.CON.PAL ---
Consultation
-
Date/Time Consultation Requested: 10/03/24
Date/Time Consultation Performed: 10/03/24
Requesting Provider: Dr Jane
Performing Provider: Gela Montoya
Reason for Consult: Goals of Care Discussion
Reason for Admission
Illness Course/HPI
84 year old M with L hemiplegia s/p CVA, paroxysmal A-Fib rate controlled and on Eliquis, CKD stage 4, urinary retention, HLD, asthma, GERD, anxiety, BPH, LKAUS. Recently admitted via the ED on 09/16/2024 through 09/23/2024 for management of UTI.
Discussion of hospice at that time and declined. Worsening renal function but improved - does not want HD.
Admitted from SNF for evaluation of weakness, nausea and vomiting, fatigue, shortness of breath, and cough. On admission, CT A/P show acute diverticulitis along the proximal sigmoid colon along with bibasilar airspace opacities suspicious for
pneumonia/pneumonitis, possibly in the setting of aspiration. Started on ABX and admitted to medicine for further management, and nephrology, GI, SP were consulted for further recs.
Seen at bedside with spouse present. Lethargic. Per , possibly awaiting an EDG next week due to acute worsening of his dysphagia. Also possible imaging to rule out obstruction given his nausea and vomiting. We discussed hospice and palliative
again in detail and the difference between the two. She isnt opposed to either but wants to see how this hospitalization goes and make a decision on next steps based on further testing. Reports she cant care for him herself at home. Tried 18/09 care
but didnt like the agency. Discussed alternates vs a facility depending on needs.
Continue further workup and will follow up next week as needed. DNR.
Functional Status
2 person assist
Objective Data
-
Objective Data:
Vital Signs
Temp Pulse Resp BP Pulse Ox
97.8 F 80 16 142/66 95
10/03/24 07:00 10/03/24 07:00 10/03/24 07:00 10/03/24 07:00 10/03/24 07:00
Laboratory Results
10/03/24 08:47
10/03/24 08:47
Total Protein 6.1 g/dl (6.3-8.2) L 10/02/24 16:07
Albumin 3.3 g/dl (3.5-5.0) L 10/02/24 16:07
Urine Color Melody 10/02/24 17:44
Urine Clarity Cloudy (Clear) 10/02/24 17:44
Urine pH 5.0 (5.0-9.0) 10/02/24 17:44
Ur Specific Gilbert 1.020 (<1.030) 10/02/24 17:44
Urine Ketones Negative (Negative) 10/02/24 17:44
Urine Bilirubin Negative (Negative) 10/02/24 17:44
Palliative Performance Scale
Palliative Performance Scale:
PPS Level Ambulation Activity & Evidence of Disease Self Care Intake Conscious Level
100% Full Normal Activity & Work; Full Intake Full
No Evidence of Disease
90% Full Normal Activity & Work; Full Normal Full
Some Evidence of Disease
80% Full Normal Activity with Effort Full Normal or Full
Some Evidence of Disease Reduced
70% Reduced Unable Normal Job/Work Full Normal or Full
Significant Disease Reduced
60% Reduced Unable Hobby/Housework Occasional Normal or Full or Confusion
Significant Disease Assistance Reduced
50% Mainly Sit/Lie Unable to do Any Work Considerable Normal or Full or Confusion
Extensive Disease Assistance Req'd Reduced
40% Mainly in Bed Unable to do Most Activity Mainly Assistance Normal or Full or Drowsy;
Extensive Disease Reduced +/- Confusion
30% Totally Bed Unable to do Any Activity Total Care Normal or Full or Drowsy;
Bound Extensive Disease Reduced +/- Confusion
20% Totally Bed Bound Unable to do Any Activity Total Care Minimal to Full or Drowsy;
Extensive Disease Sips +/- Confusion
10% Totally Bed Bound Unable to do Any Activity Total Care Mouth Care Drowsy or Coma;
Extensive Disease Only +/- Confusion
0%
PPS Score Level:
Physical Exam
-
General: No Apparent Distress
HEENT: Normocephalic
Respiratory: Clear to Auscultation
Cardiac: Regular Rhythm
Skin: Warm
Psych: Calm
Assessment / Plan
-
Assessment/Plan:
84 year old M with aspiration PNA, CKD4.
- continue workup
- considering hospice vs palliative pending furhter testing - will likely need placement if 24/7 care cannot be arranged at home
Care Reviewed
Data Reviewed
Chest X ray: Report Reviewed
Radiology procedure: Report Reviewed
Medical Tests: I reviewed
Reviewed with: Patient, Family and Physician
[2024-10-03 15:00] VITALS: BP 112/72
--- NOTE | 2024-10-03 15:30 | CM ---
CM reviewed chart, patient seen asleep bedside, call to , Meeta, initial assessment completed. Per , patient was receiving rehab at [facility], no bed hold. Prior to rehab, patient was residing at home with his , one story home.
Patient was using a corinna walker or WC in the home, also has an electric wheelchair, commode, hospital bed. reports patient has an aide M, W, Sun 8:30-11:30 a.m. reports she cannot care for patient at current level, interested in
patient returning for SNF, will place referral to [facility]. Patient PCP Dr. Reyes, pharmacy [facility]. Palliative care consulted. CM will continue to follow for all discharge planning needs.
Plan; referral to [facility]
[2024-10-03] MEDS: NSS 1000 IV (17:07)
[2024-10-03] MEDS: NSS (PRESERVATIVE FREE) 10 ML IV (17:08)
[2024-10-03] MEDS: PROTONIX IV 40 MG IV (17:08)
[2024-10-03 17:23] LABS: Glucose - Point of Care 81 mg/dl (70-99)
[2024-10-03] MEDS: D5/0.9% SODIUM CHLORIDE 1000 IV (18:20)
[2024-10-03] MEDS: ELIQUIS PO (21:29)
--- NOTE | 2024-10-03 22:00 | PTCARENOTE ---
Pt ordered NPO and unable to take PO Eliquis tonight. LISA Terry notified, order placed for SCDs and applied to pt.
[2024-10-03 23:05] VITALS: BP 110/61
[2024-10-03 23:30] LABS: Glucose - Point of Care 121 mg/dl (70-99)
[2024-10-04] MEDS: ZOSYN 50 IV ×3 (04:06→20:01)
[2024-10-04 05:59] VITALS: BMI 30.7
[2024-10-04] MEDS: D5/0.9% SODIUM CHLORIDE 1000 IV (06:22)
[2024-10-04 06:31] LABS: Glucose - Point of Care 117 mg/dl (70-99)
--- NOTE | 2024-10-04 07:49 | W.PN.HOSP.TC ---
Today's Communication/Plan
-
GI consult
Continue IV antibiotics
NPO
Assessment / Plan
Assessment / Plan
Mr. Castillo is an 84-year-old male with L hemiplegia s/p CVA, paroxysmal A-Fib rate controlled and on Eliquis, CKD stage 4 with baseline creatinine 3.6, urinary retention follows with urology, HLD, asthma, GERD, anxiety, BPH, KLAUS, who was recently
admitted via the ED on 09/16/2024 through 09/23/2024 for management of UTI. This admission, he came to the ED via [facility] for evaluation of weakness, nausea and vomiting, fatigue, shortness of breath, and cough. On discussion on 10/03/2024, he
denied urinary symptoms and only complained about his dysphagia/choking. He follows Dr. Way from nephrology [place]. This admission, CT A/P show acute diverticulitis along the proximal sigmoid colon along with bibasilar airspace opacities
suspicious for pneumonia/pneumonitis, possibly in the setting of aspiration. There was also a 1.2 cm stone in the left renal pelvis without associated hydronephrosis. CXR was remarkable for mild bibasilar airspace opacities which may represent
atelectasis or pneumonia. He was admitted to medicine for further management, and nephrology, GI, SP were consulted for further recs. UA again was notable for Pseudomonas, similar to last admission, suspect contaminant as patient is without
urinary symptoms, and fever, leukocytosis.
#Worsening Dysphagia
#Cough
Chest x-ray remarkable for atelectasis versus aspiration pneumonia/pneumonitis.
- Seen by palliative care: Recommended continuing workup and will likely need placement of 24/7 care cannot be arranged at home. considering hospice versus palliative care pending further testing.
- GI consulted, appreciate recs.
- Strict NPO per speech, patient having
#Acute Sigmoid Diverticulitis
As seen on CT.
- GI consulted.
- Make NPO in case of procedure
- Maintenance IV fluids
- Continue IV Zosyn
#LICHA on CKD4:
- Cr 3.9 today 10/04/24, which is his baseline.
- Nephrology consulted and following: Okay for Diflucan 100 Mg daily if needed.
- Follow BMP
- IV fluids NSS while n.p.o.
- Patient refusing dialysis. Discussed options including PEG tube as well as palliative care or hospice if unable to eat.
- Holding Lasix 40 mg every afternoon and Spironolactone 25 mg p.o. daily
#Paroxysmal Atrial Fibrillation, controlled heart rate
-Continue home carvedilol (6.25 mg p.o. every afternoon, 12.5 mg p.o. daily)
-Continue apixaban 2.5 mg p.o. twice daily
#Benign Essential hypertension
-Hold Lasix and spironolactone due to LICHA and per nephrology
-Continue carvedilol
#Asthma without Acute Exacerbation
-Continue fludrocortisone and salmeterol
-Continue to monitor
#History of CVA with left hemiparesis
-Continue home rosuvastatin 10 mg p.o.
-Continue Eliquis
#CAD s/p stent
-Continue Eliquis
DVT prophylaxis: Eliquis
CODE STATUS: DNR
Anticipated Discharge: 24 - 48 hours (Pending GI workup for esophageal dysphagia/acute diverticulitis)
Subjective/Interval History
-
Date of Service: October 04, 2024
Patient has no new complaints. He feels sleepy.
Objective Data
-
Labs:
Laboratory Results
10/04/24
06:00
WBC Pending
Hgb Pending
Hct Pending
Plt Count Pending
Sodium Pending
Potassium Pending
Chloride Pending
Carbon Dioxide Pending
BUN Pending
Creatinine Pending
Glucose Pending
Calcium Pending
Vital Signs:
Vital Signs
Temp Pulse Resp BP Pulse Ox
97.9 F 80 20 110/61 97
10/03/24 23:05 10/03/24 23:05 10/03/24 23:05 10/03/24 23:05 10/03/24 23:05
I&O
10/03/24 10/04/24 10/05/24
06:59 06:59 06:59
Intake Total 530 / 530 1100 / 1100
Output Total 0 / 0
Balance 530 / 530 1100 / 1100
Review of Systems
-
History Source: Patient
All other systems: Reviewed and negative
Constitutional: Reports No Symptoms
EENT: Reports Other (Dysphagia)
Respiratory: Reports No Symptoms
Cardiac: Reports No Symptoms
Abdomen/GI: Reports No Symptoms
Genitourinary: Reports No Symptoms
Skin: Reports No Symptoms
Neuro: Reports No Symptoms
Endocrine: Reports No Symptoms
Hematologic / Lymphatic: Reports No Symptoms
Allergy / Immunology: Reports No Symptoms
Physical Exam
-
General: Well Developed, No Apparent Distress and Comfortable
HEENT: Normocephalic, Atraumatic, Moist Mucous Membranes and Anicteric
Respiratory: Clear to Auscultation
Cardiac: Regular Rhythm and S1/S2
GI: Soft, Nontender, Nondistended and Normal Bowel Sounds
Musculoskeletal: No Clubbing and No Cyanosis
Skin: Other (No rashes)
Neuro: Nonfocal/Grossly Intact
Hematologic / Lymphatic: No Lymphadenopathy
Psych: Other (Normal affect)
Data Reviewed
-
Labs: Labs Reviewed by me and Discussed with Physician
Old Records: Reviewed
[2024-10-04] MEDS: ADVAIR HFA 230/21 MCG INHALER 2 PUFF INH ×2 (07:50→19:17)
[2024-10-04 08:29] LABS: Hematocrit 24.9 % (39.0-52.0); Hemoglobin 8.1 g/dL (13.0-18.0); Mean Corp Hgb Conc. 32.5 g/dL (33.0-37.0); Mean Corpuscular Volume 95.4 fL (80.0-94.0); Nucleated Red Blood Cells % 0 % (-); Platelet Count 296 10^3/uL (130-400); Red Cell Dist. Width 16.9 % (11.5-14.5)
[2024-10-04 08:52] LABS: Blood Urea Nitrogen 48 mg/dl (9-20); Calcium 8.8 mg/dl (8.4-10.2); Carbon Dioxide 19 mmol/L (22-30); Chloride 116 mmol/L (98-107); Estimated Creatinine Clearance 18 ml/min; Glucose 125 mg/dl (70-99); Magnesium 2.2 mg/dl (1.6-2.3); Potassium 3.8 mmol/L (3.5-5.1); Sodium 143 mmol/L (135-145); eGFR 14.68
--- NOTE | 2024-10-04 09:05 | W.PN.UPDATE ---
Update Note
Progress Note Update
I saw and evaluated the patient. I reviewed the resident�s note and agree with findings and plan as documented in the resident�s note.
Pt offers no new complaints.
Gen: NAD, Awake and alert
Eyes: EOMI, PERRLA, no scleral icterus.
Neck: supple.
CV: remains RRR, +S1/S2, no m/r/g.
Resp: remains CTAB anteriorly, no rales, wheezes, or rhonchi.
Abd: remains +BS, soft, NT, ND
Skin: No rashes.
Neuro: CN 2-12 intact, non-focal.
Psych: Normal mood and affect.
10/02/24 17:44 Urine Urine Culture - Final
CT A/P: Findings of acute diverticulitis along the proximal sigmoid colon. There are bibasilar airspace opacities suspicious for pneumonia/pneumonitis, possibly in the setting of aspiration. 1.2 cm stone in the left renal pelvis without associated
hydronephrosis. Mild rectal stool burden.
CXR: Mild bibasilar airspace opacities which may represent atelectasis or pneumonia.
Worsening Dysphagia:
-speech saw in c/s. Reporting esophageal dysphagia.
-strict NPO
-GI following and I have asked them to see the pt in follow up today (via [facility])
Acute Sigmoid Diverticulitis:
-NPO/IVFs
-Continue Zosyn
LICHA on CKD4:
-Patient previously declined dialysis
-Holding Lasix and Spironolactone
-renal following
-Cr improving with IVFs
Other problems:
Paroxysmal Atrial Fibrillation: cont Coreg/Eliquis
Essential HTN: cont Coreg
Asthma, not in acute exacerbation: Continue fluticasone/salmeterol
h/o CVA with L Hemiparesis: cont Eliquis
CAD s/p Stent
UTI has been ruled out
Palliative care saw in c/s
DNR/Eliquis
[2024-10-04 09:16] VITALS: BP 125/70
[2024-10-04] MEDS: COREG PO (09:19)
[2024-10-04] MEDS: PROTONIX IV 40 MG IV (09:20)
[2024-10-04] MEDS: ELIQUIS PO (09:20)
[2024-10-04] MEDS: NSS (PRESERVATIVE FREE) 10 ML IV (09:20)
[2024-10-04 09:57] LABS: APTT 41.7 Sec (23.4-35.0)
[2024-10-04] MEDS: HEPARIN 25000 UNITS/250 ML IV (10:15)
[2024-10-04 11:00] VITALS: BP 115/61
--- NOTE | 2024-10-04 11:54 | W.PN.NEPH.PH ---
Today's Communication / Plan
-
IVF
Assessment/Plan
-
83y M with L hemiplegia s/p CVA, A-Fib, CKD. Urinary retention Follows with urology who recently had a respiratory infection persisting for one month. Who presents with weakness subjective fever and chills. Noted to have hematuria in which he
notified urology.
Urinalysis consistent with UTI in the ER
Renal consult for acute kidney injury with a creatinine of 6 he follows with nephrology and [address]
Impression.
Acute kidney injury on chronic kidney disease stage IV with a baseline creatinine of 3.9.
Aspiration pneumonia
A-fib
Heart failure preserved ejection fraction
Plan.
follow BMP
no lasix
IV fluids with bicarb while n.p.o. reduced rate
antibiotics per primary team
GI evaluation
suggests that they will likely move for feeding tube on Sunday
Patient confirms that he would not except dialysis
-
-
Date of Service: October 04, 2024
CC / HPI / ROS
-
Chief Complaint:
LICHA
History of Present Illness:
LICHA/Cr down to 3.9
NPO, NSS running
metabolic acidosis 19
BP stable
Review of Systems:
no CP/SOB
Labs
-
Labs:
WBC Cancelled 10/04/24 09:16
RBC Cancelled 10/04/24 09:16
Hgb Cancelled 10/04/24 09:16
Hct Cancelled 10/04/24 09:16
Plt Count Cancelled 10/04/24 09:16
Sodium 143 mmol/L (135-145) 10/04/24 07:57
Potassium 3.8 mmol/L (3.5-5.1) 10/04/24 07:57
Chloride 116 mmol/L (98-107) H 10/04/24 07:57
Carbon Dioxide 19 mmol/L (22-30) L 10/04/24 07:57
BUN 48 mg/dl (9-20) H 10/04/24 07:57
Creatinine 3.9 mg/dL (0.7-1.3) H 10/04/24 07:57
eGFR 14.68 10/04/24 07:57
Glucose 125 mg/dl (70-99) H 10/04/24 07:57
Calcium 8.8 mg/dl (8.4-10.2) 10/04/24 07:57
Albumin 3.3 g/dl (3.5-5.0) L 10/02/24 16:07
Physical Exam
-
Vital Signs:
Vital Signs
Temp Pulse Resp BP Pulse Ox
98.7 F 79 16 125/70 96
10/04/24 09:16 10/04/24 09:16 10/04/24 09:16 10/04/24 09:16 10/04/24 09:16
Cardiovascular:: Regular rate and rhythm
Respiratory:: Bilateral: CTA
Lung Excursion:: Normal
Abdomen:: Nontender and Soft
Bowel Sounds:: Normal
Extremity Edema:: None: Bilateral:
--- NOTE | 2024-10-04 13:14 | W.PN.GI.CBS2 ---
Today's Communication / Plan
-
EGD / PEG placement 10/06
Assessment / Plan
-
84 year old male with past medical history of esophageal dysphagia/spasms, LICHA/CKD IV, depression, CVA with L hemiparesis, afib on eliquis, CAD with stent, cardiac ablation, hyperlipidemia, BPH, UTI, asthma, anemia of chronic disease, GERD,
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 At that time, Dr. Osman recommended he schedule
appointment at [facility] for a more specialized EGD (endoflip), which the patient declined. Recently discharged from the hospital on 09/23/2024 for treatment of UTI and sigmoid diverticulitis. Prior to that patient was on a short course of
doxycycline for aspiration pneumonia. We are asked to evaluate for dysphagia. BRANCH OFFICER recommended strict NPO with dysphagia precautions. Patient and feel that worsening GERD and issues started after tx with Doxy as outpatient. Patient was using
Pepto Bismol for GERD control.
Impression:
Dysphagia
Hx Esophageal spasm/dysmotility
GERD
Sigmoid diverticultis
LICHA on CKD IV (discussed with Nephrology)-> IF DIflucan would be needed ok to give 1 dose, patient does not want dialysis
Aspiration PNA vs Pneumonitis
Hx CVA with left sided hemiparesis
Afib on Eliquis- last dose 10/03 am as per nursing . currently on heparin drip
Plan:
I had a long discussion with patient/patient's at bedside explaining about benefits and risks of PEG placement. I also emphasized PEG placement does not decrease the risk of aspiration or improved morbidity/mortality. They verbalized
understanding and is agreeable for PEG placement.
Continue to hold Eliquis. Will plan PEG placement 10/06 . Will recommend holding heparin drip 10/06 at 4 am .
GOC discussion per medical team
Total Time Spent with Patient (in minutes): 35
Subjective
Subjective
Date of Service: October 04, 2024
Patient's at bedside. Continues to have difficulty swallowing
Objective
Data Reviewed
Laboratory Data:
Laboratory Results
10/04/24 09:16
10/04/24 07:57
Laboratory Results
APTT 41.7 Sec (23.4-35.0) H 10/04/24 09:34
Magnesium 2.2 mg/dl (1.6-2.3) 10/04/24 07:57
Total Bilirubin 0.5 mg/dl (0.2-1.3) 10/02/24 16:07
AST 27 U/L (17-59) 10/02/24 16:07
ALT 31 U/L (0-50) 10/02/24 16:07
Alkaline Phosphatase 96 U/L (38-126) 10/02/24 16:07
Lipase Cancelled 10/02/24 17:05
Vital Signs and I&O:
Vital Signs
Temp Pulse Resp BP Pulse Ox
98.0 F 79 16 115/61 95
10/04/24 11:00 10/04/24 11:00 10/04/24 11:00 10/04/24 11:00 10/04/24 11:00
I&O
10/03/24 10/04/24 10/05/24
06:59 06:59 06:59
Intake Total 530 / 530 1100 / 1100
Output Total 0 / 0
Balance 530 / 530 1100 / 1100
Physical Exam
Physical Exam
GI: Soft, Non Distended and Non Tender
--- NOTE | 2024-10-04 13:33 | PTOTSP ---
Speech Pathology Follow Up
Impression:
Clinical s/s of esophageal dysphagia re: coughing and regurgitation with thin liquid trials this date. Aspiration risk is increased re: hx of esophageal dysphagia, esophageal spasm, and esophageal stricture; and current concern for aspiration PNA.
EGD and PEG placement planned for Friday 10/06.
Continue with recommendations as pasted below:
1. STRICT NPO; meds provided via IV.
2. ARHP - minimal ice chips with RN supervision after oral care; provide emesis cup/bag if needed.
3. Aspiration precautions: keep HOB upright as often as possible (>30 degrees when sleeping); oral care QID.
4. Consider GOC conversation, given that pt previously declined HD - pt may not want to pursue any invasive procedures or testing.
5. TECHNICAL CONSULTANT to f/u re: re-assessment of candidacy for PO diet initiation, to determine if pt would benefit from an instrumental swallow study, and to provide pt/family education as needed.
[2024-10-04] MEDS: SODIUM BICARBONATE 1075 MEQ IV (14:11)
[2024-10-04 15:00] VITALS: BP 130/62
[2024-10-04 15:24] VITALS: BMI 30.7
[2024-10-04 16:55] LABS: Glucose - Point of Care 104 mg/dl (70-99)
[2024-10-04 18:08] LABS: APTT 108.2 Sec (23.4-35.0)
[2024-10-04 19:48] VITALS: BP 106/55
[2024-10-04 23:55] VITALS: BP 119/59
--- NOTE | 2024-10-05 00:26 | PTCARENOTE ---
This RN and HUBER Mayfield attempted to draw pt's PTT at 2330; despite initial blood flow both RNs were unable to fill the vial. A third RN attempted to draw pt's PTT but pt is refusing any further lab draws tonight. This RN educated pt on increased
stroke risk and complications if the PTT level is not therapeutic; pt shrugged and stated 'that's bullshit, I don't care. I've had two strokes already'. OPERATIONS AND MAINTENANCE SUPERVISOR Valeri Perla notified that pt is refusing PTT to be drawn; will continue heparin gtt at
current rate of 1000 units/hr and attempt to redraw at 0500. Pt is agreeable to this plan.
[2024-10-05 03:12] VITALS: BP 133/66
--- NOTE | 2024-10-05 03:39 | W.PN.UPDATE ---
Update Note
Progress Note Update
Pt on heparin gtt due to inability to take po eliquis. PT was due for ptt around midnight. PT was stuck 3 times with inability to obtain labs. Pt refuses to be stuck anymore right now. Last ptt therapeutic. Will keep heparin gtt at current rate and
attempt labs again in am.
[2024-10-05] MEDS: ZOSYN 50 IV ×3 (04:35→19:59)
[2024-10-05 04:45] LABS: Hematocrit 24.9 % (39.0-52.0); Hemoglobin 7.9 g/dL (13.0-18.0); Mean Corp Hgb Conc. 31.7 g/dL (33.0-37.0); Mean Corpuscular Volume 93.3 fL (80.0-94.0); Nucleated Red Blood Cells % 0 % (-); Platelet Count 313 10^3/uL (130-400); Red Cell Dist. Width 16.8 % (11.5-14.5)
[2024-10-05 05:11] LABS: APTT > 200 Sec (23.4-35.0)
[2024-10-05 05:34] LABS: Blood Urea Nitrogen 44 mg/dl (9-20); Carbon Dioxide 22 mmol/L (22-30); Estimated Creatinine Clearance 19 ml/min; eGFR 15.14
[2024-10-05 05:46] LABS: Potassium 3.5 mmol/L (3.5-5.1)
[2024-10-05 05:47] LABS: Calcium 8.9 mg/dl (8.4-10.2); Chloride 119 mmol/L (98-107); Glucose 101 mg/dl (70-99); Magnesium 2.2 mg/dl (1.6-2.3); Sodium 146 mmol/L (135-145)
[2024-10-05 06:00] VITALS: BMI 30.6
[2024-10-05 07:00] VITALS: BP 128/70
[2024-10-05] MEDS: SODIUM BICARBONATE 1075 MEQ IV (08:11)
[2024-10-05] MEDS: COREG PO (08:11)
[2024-10-05] MEDS: PROTONIX IV 40 MG IV (08:12)
[2024-10-05] MEDS: NSS (PRESERVATIVE FREE) 10 ML IV (08:12)
[2024-10-05] MEDS: ADVAIR HFA 230/21 MCG INHALER 2 PUFF INH ×2 (08:54→19:48)
--- NOTE | 2024-10-05 08:56 | W.PN.HOSP.TC ---
Today's Communication/Plan
-
EGD/PEG tube tomorrow 10/06/24.
Continue NPO.
Hold heparin drip.
Goals of Care conversation with /patient.
Assessment / Plan
Assessment / Plan
Mr. Castillo is an 84-year-old male with L hemiplegia s/p CVA, paroxysmal A-Fib rate controlled and on Eliquis, CKD stage 4 with baseline creatinine 3.6, urinary retention follows with urology, HLD, asthma, GERD, anxiety, BPH, KLAUS, who was recently
admitted via the ED on 09/16/2024 through 09/23/2024 for management of UTI. This admission, he came to the ED via [facility] for evaluation of weakness, nausea and vomiting, fatigue, shortness of breath, and cough. On discussion on 10/03/2024, he
denied urinary symptoms and only complained about his dysphagia/choking. He follows Dr. Way from nephrology [place]. This admission, CT A/P show acute diverticulitis along the proximal sigmoid colon along with bibasilar airspace opacities
suspicious for pneumonia/pneumonitis, possibly in the setting of aspiration. There was also a 1.2 cm stone in the left renal pelvis without associated hydronephrosis. CXR was remarkable for mild bibasilar airspace opacities which may represent
atelectasis or pneumonia. He was admitted to medicine for further management, and nephrology, GI, SP were consulted for further recs. UA again was notable for Pseudomonas, similar to last admission, suspect contaminant as patient is without
urinary symptoms, and fever, leukocytosis.
#Worsening Dysphagia�
#Cough
Chest x-ray remarkable for atelectasis versus aspiration pneumonia/pneumonitis.�
-History of esophageal spasm/dysmotility
- GI consulted, EGD with PEG placement tomorrow 10/06/24.�
- Seen by palliative care: Recommended continuing workup and will likely need placement of 24/7 care cannot be arranged at home.�
- Continuing Goals of care conversation with patient and given patient expresses desire to eat.
- Strict NPO per speech
# Acute Sigmoid Diverticulitis
As seen on CT.
- GI consulted, make NPO in case of procedure
- Continue IVF and IV Zosyn
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
- Cr 3.8 today 10/05/24, which is near his baseline.
- Nephrology consulted and following: Okay for Diflucan 100 Mg daily if needed, follow BMP, hypotonic IVF today.
- Patient refusing dialysis. PEG tube 10/06/24.
- Holding Lasix 40 mg every afternoon and Spironolactone 25 mg p.o. daily
#Paroxysmal Atrial Fibrillation, controlled heart rate
-Continue home carvedilol (6.25 mg p.o. every afternoon, 12.5 mg p.o. daily)
- Last dose of Eliquis 10/03/24 AM, was put on heparin drip.
- PTT >200, holding heparin drip 10/06/24 4 AM.
#Benign Essential hypertension
- Hold Lasix and spironolactone due to LICHA and per nephrology
- Continue carvedilol
#Asthma without Acute Exacerbation
-Continue fludrocortisone and salmeterol
-Continue to monitor
#History of CVA with left hemiparesis
-Continue home rosuvastatin 10 mg p.o.
- Holding� Eliquis, was switched to heparin drip.
#CAD s/p stent
- Holding Eliquis, was switched to heparin drip.
CODE STATUS: DNR
Anticipated Discharge: > 48 hours
Subjective/Interval History
-
Date of Service: October 05, 2024
Patient states he feels sleepy, and asks when he can eat. No new complaints.
Objective Data
-
Labs:
Laboratory Results
10/04/24 10/05/24 10/05/24
23:30 04:31 13:20
WBC 7.4
Hgb 7.9 L
Hct 24.9 L
Plt Count 313
APTT Cancelled > 200 H* Pending
Sodium 146 H
Potassium 3.5
Chloride 119 H
Carbon Dioxide 22
BUN 44 H
Creatinine 3.8 H
Glucose 101 H
Calcium 8.9
Vital Signs:
Vital Signs
Temp Pulse Resp BP Pulse Ox
98.3 F 89 18 128/70 94
10/05/24 07:00 10/05/24 07:00 10/05/24 07:00 10/05/24 07:00 10/05/24 07:00
I&O
10/04/24 10/05/24 10/06/24
06:59 06:59 06:59
Intake Total 1100 / 1100 0 / 0 700 / 700
Output Total 450 / 450 300 / 300
Balance 1100 / 1100 -450 / -450 400 / 400
Review of Systems
-
History Source: Patient
All other systems: Reviewed and negative
Constitutional: Reports No Symptoms
EENT: Reports No Symptoms Reported
Respiratory: Reports No Symptoms
Cardiac: Reports No Symptoms
Abdomen/GI: Reports No Symptoms
Breast: Reports No Symptoms
Genitourinary: Reports No Symptoms
Musculoskeletal: Reports No Symptoms
Skin: Reports No Symptoms
Neuro: Reports No Symptoms
Endocrine: Reports No Symptoms
Hematologic / Lymphatic: Reports No Symptoms
Allergy / Immunology: Reports No Symptoms
Physical Exam
-
General: No Apparent Distress, Comfortable, Conversant and Obese
HEENT: Normocephalic, Atraumatic, Moist Mucous Membranes and Anicteric
Respiratory: Clear to Auscultation (Anteriorly. No wheezes, rhonchi, rales.)
Cardiac: Regular Rhythm and S1/S2
GI: Soft, Nontender, Nondistended and Normal Bowel Sounds
Musculoskeletal: No Clubbing and No Cyanosis
Skin: Warm and Dry
Neuro: Awake and AO x 3
Hematologic / Lymphatic: No Lymphadenopathy
Psych: Calm
Data Reviewed
-
Labs: Labs Reviewed by me and Discussed with Physician
Old Records: Reviewed
[2024-10-05 11:00] VITALS: BP 124/61
--- NOTE | 2024-10-05 11:11 | W.PN.GI.CBS2 ---
Today's Communication / Plan
-
EGD with PEG placement tomorrow
Hold heparin drip 10/06 at 0400
Assessment / Plan
-
84 year old male with past medical history of esophageal dysphagia/spasms, LICHA/CKD IV, depression, CVA with L hemiparesis, afib on eliquis, CAD with stent, cardiac ablation, hyperlipidemia, BPH, UTI, asthma, anemia of chronic disease, GERD,
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 At that time, Dr. Osman recommended he schedule
appointment at [facility] for a more specialized EGD (endoflip), which the patient declined. Recently discharged from the hospital on 09/23/2024 for treatment of UTI and sigmoid diverticulitis. Prior to that patient was on a short course of
doxycycline for aspiration pneumonia. We are asked to evaluate for dysphagia. INDUSTRIAL SAFETY AND HEALTH MANAGER recommended strict NPO with dysphagia precautions. Patient and feel that worsening GERD and issues started after tx with Doxy as outpatient. Patient was using
Pepto Bismol for GERD control.
Impression:
Dysphagia
Hx Esophageal spasm/dysmotility
GERD
Sigmoid diverticultis
LICHA on CKD IV (discussed with Nephrology)-> IF DIflucan would be needed ok to give 1 dose, patient does not want dialysis
Aspiration PNA vs Pneumonitis
Hx CVA with left sided hemiparesis
Afib on Eliquis- last dose 10/03 am as per nursing . currently on heparin drip
Plan:
I had a long discussion with patient/patient's at bedside explaining about benefits and risks of PEG placement. I also emphasized PEG placement does not decrease the risk of aspiration or improved morbidity/mortality. They verbalized
understanding and is agreeable for PEG placement.
Continue to hold Eliquis. Will plan PEG placement 10/06 . Will recommend holding heparin drip 10/06 at 4 am .
GOC discussion per medical team
Total Time Spent with Patient (in minutes): 35
Subjective
Subjective
Date of Service: October 05, 2024
No complaints
Objective
Data Reviewed
Laboratory Data:
Laboratory Results
10/05/24 04:31
10/05/24 04:31
Laboratory Results
APTT > 200 Sec (23.4-35.0) H* 10/05/24 04:31
Magnesium 2.2 mg/dl (1.6-2.3) 10/05/24 04:31
Total Bilirubin 0.5 mg/dl (0.2-1.3) 10/02/24 16:07
AST 27 U/L (17-59) 10/02/24 16:07
ALT 31 U/L (0-50) 10/02/24 16:07
Alkaline Phosphatase 96 U/L (38-126) 10/02/24 16:07
Lipase Cancelled 10/02/24 17:05
Vital Signs and I&O:
Vital Signs
Temp Pulse Resp BP Pulse Ox
98.3 F 82 16 128/70 95
10/05/24 07:00 10/05/24 08:55 10/05/24 08:55 10/05/24 07:00 10/05/24 08:55
I&O
10/04/24 10/05/24 10/06/24
06:59 06:59 06:59
Intake Total 1100 / 1100 0 / 0 700 / 700
Output Total 450 / 450 300 / 300
Balance 1100 / 1100 -450 / -450 400 / 400
Physical Exam
Physical Exam
GI: Soft, Non Distended and Non Tender
--- NOTE | 2024-10-05 12:13 | W.PN.NEPH.PH ---
Today's Communication / Plan
-
IVF
Assessment/Plan
-
83y M with L hemiplegia s/p CVA, A-Fib, CKD. Urinary retention Follows with urology who recently had a respiratory infection persisting for one month. Who presents with weakness subjective fever and chills. Noted to have hematuria in which he
notified urology.
Urinalysis consistent with UTI in the ER
Renal consult for acute kidney injury with a creatinine of 6 he follows with nephrology and [facility] [address]
Impression.
Acute kidney injury on chronic kidney disease stage IV with a baseline creatinine of 3.9.
Aspiration pneumonia
A-fib
Heart failure preserved ejection fraction
Plan.
follow BMP
no lasix
hypotonic IVF today
antibiotics per primary team
PEG tomorrow
-
-
Date of Service: October 05, 2024
CC / HPI / ROS
-
Chief Complaint:
LICHA
History of Present Illness:
LICHA/Cr down to 3.8
NPO, NSS running
metabolic acidosis 22 better
BP stable
Hgb lower 7.9
Review of Systems:
no CP/SOB
Labs
-
Labs:
WBC 7.4 10^3/uL (4.8-10.8) 10/05/24 04:31
RBC 2.67 10^6/uL (4.70-6.10) L 10/05/24 04:31
Hgb 7.9 g/dL (13.0-18.0) L 10/05/24 04:31
Hct 24.9 % (39.0-52.0) L 10/05/24 04:31
Plt Count 313 10^3/uL (130-400) 10/05/24 04:31
Sodium 146 mmol/L (135-145) H 10/05/24 04:31
Potassium 3.5 mmol/L (3.5-5.1) 10/05/24 04:31
Chloride 119 mmol/L (98-107) H 10/05/24 04:31
Carbon Dioxide 22 mmol/L (22-30) 10/05/24 04:31
BUN 44 mg/dl (9-20) H 10/05/24 04:31
Creatinine 3.8 mg/dL (0.7-1.3) H 10/05/24 04:31
eGFR 15.14 10/05/24 04:31
Glucose 101 mg/dl (70-99) H 10/05/24 04:31
Calcium 8.9 mg/dl (8.4-10.2) 10/05/24 04:31
Albumin 3.3 g/dl (3.5-5.0) L 10/02/24 16:07
Physical Exam
-
Vital Signs:
Vital Signs
Temp Pulse Resp BP Pulse Ox
98.7 F 83 18 124/61 95
10/05/24 11:00 10/05/24 11:00 10/05/24 11:00 10/05/24 11:00 10/05/24 11:00
Cardiovascular:: Regular rate and rhythm
Respiratory:: Bilateral: CTA
Lung Excursion:: Normal
Abdomen:: Nontender and Soft
Bowel Sounds:: Normal
Extremity Edema:: None: Bilateral:
--- NOTE | 2024-10-05 12:48 | PTCARENOTE ---
Pt has strict NPO order, no oral meds, ice chips, or sips of water due to high aspiration risk. Oral hygiene care provided this morning by this RN. RN entered room later on to find at bedside and patient eating ice chips and taking sips of
water from a mouth swab. RN educated patient and on importance of staying strictly NPO to prevent aspiration. Pt would like to continue eating ice chips and taking sips from the swab at this time. Pt and both acknowledged risk of
aspiration. MD aware.
[2024-10-05] MEDS: D5/0.45%NACL 1000 IV (13:18)
--- NOTE | 2024-10-05 13:41 | PTCARENOTE ---
Bagger And Stock Handler Helper attempted to get PTT lab from patient at 1315. Unsuccessful first attempt and patient refused to let her try again. Pt refusing any more attempts at this time. Heparin was running at 8ml/hr after being decreased from 10ml/hr after being
on hold when 0500 PTT was >200. Discussed with resident. Will stop heparin at this time and try to obtain PTT again at 1930. Patient agreeable to this plan.
[2024-10-05 15:00] VITALS: BP 126/65
[2024-10-05 19:12] VITALS: BP 143/67
[2024-10-05] MEDS: HEPARIN 5000 UNITS SC (20:31)
--- NOTE | 2024-10-05 20:33 | PTCARENOTE ---
Assumed care of pt. Pt refused 1929 lab draw for PTT assessment, but a agreeable to a x1 dose of SQ Heparin if needed. HIGH SPEED OPERATOR notified, x1 dose of SQ Heparin administered.
[2024-10-05 23:30] VITALS: BP 133/63
[2024-10-06] VITALS (10 sets, daily range): BP systolic 20–140; BP diastolic 62–68; BMI 30.1
--- NOTE | 2024-10-06 00:54 | W.PN.UPDATE ---
Update Note
Progress Note Update
pt refused 0 ptt even though he told resident he would be agreeable. Refuses heparin gtt to be turned back on. But will take a sq heparin injection.
[2024-10-06] MEDS: ZOSYN 50 IV ×3 (04:57→20:05)
[2024-10-06] MEDS: D5/0.45%NACL 1000 IV (06:21)
--- NOTE | 2024-10-06 07:31 | W.PN.HOSP.TC ---
Addendum entered and electronically signed by Araceli Olivo MD 10/06/24 14:05:
I saw and evaluated the patient independently. I reviewed the resident�s note and agree with findings and plan as documented by Dr. Diaz.
GENERAL: well developed, well nourished, male in no apparent distress--flat affect
HEENT: NC/AT
HEART: regular rate and rhythm, +S1, +S2
LUNGS : clear to auscultation bilaterally
ABDOM: soft, nontender, nondistended, + bowel sounds, abdominal binder placed--PEG tube in place
EXT: no cyanosis, clubbing, or edema
NEUROLOGIC: grossly intact
Worsening Dysphagia/Cough (has history of esophageal spasm/dysmotility)--last admission was able to have pureed diet with thin liquids--Chest x-ray remarkable for atelectasis versus aspiration pneumonia/pneumonitis--this admission, pt is strict NPO
with GOC discussion vs PEG--pt had PEG placed today 10/06--will be STRICT NPO--will need therapy to see if ANY swallowing function can be safe (also unclear if he was following the pureed diet outside of the hospital)--apparently GOC were had and pt
wants to continue to eat but PEG placed....hospice would be more appropriate vi if pt will not follow strict NPO guidelines and decides to eat--tube feedings to start tomorrow--apprec GI-- Strict NPO per speech
Acute Sigmoid Diverticulitis--apprec GI- Continue IVF and IV Zosyn
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 daily
Paroxysmal Atrial Fibrillation, controlled heart rate--Continue home carvedilol (6.25 mg p.o. every afternoon, 12.5 mg p.o. daily)- Last dose of Eliquis 10/03/24 AM, was put on heparin drip (stopped for procedure as pt refused to have it
restarted)--hold anticoagulation x 3 days per GI
Essential hypertension- Hold Lasix and spironolactone due to LICHA and per nephrology- Continue carvedilol
Asthma without Acute Exacerbation-Continue fludrocortisone and salmeterol
History of CVA with left hemiparesis--Hold home rosuvastatin- Holding Eliquis, was switched to heparin drip. Heparin drip held.
CAD s/p stent--Holding Eliquis, was switched to heparin drip. Heparin drip held.
CODE STATUS-- DNR
Original Note:
Today's Communication/Plan
-
EGD with PEG tube today.
Continue IVF and IV Zosyn.
Holding Lasix.
Holding heparin drip, last PTT >200, patient refusing labs.
Possible palliative care goals of care discussion.
Assessment / Plan
Assessment / Plan
Mr. Castillo is an 84-year-old male with L hemiplegia s/p CVA, paroxysmal A-Fib rate controlled and on Eliquis, CKD stage 4 with baseline creatinine 3.6, urinary retention follows with urology, HLD, asthma, GERD, anxiety, BPH, KLAUS, who was recently
admitted via the ED on 09/16/2024 through 09/23/2024 for management of UTI. This admission, he came to the ED via [facility] for evaluation of weakness, nausea and vomiting, fatigue, shortness of breath, and cough. On discussion on 10/03/2024, he
denied urinary symptoms and only complained about his dysphagia/choking. He follows Dr. Way from nephrology [facility]. This admission, CT A/P show acute diverticulitis along the proximal sigmoid colon along with bibasilar airspace opacities
suspicious for pneumonia/pneumonitis, possibly in the setting of aspiration. There was also a 1.2 cm stone in the left renal pelvis without associated hydronephrosis. CXR was remarkable for mild bibasilar airspace opacities which may represent
atelectasis or pneumonia. He was admitted to medicine for further management, and nephrology, GI, SP were consulted for further recs. UA again was notable for Pseudomonas, similar to last admission, suspect contaminant as patient is without
urinary symptoms, and fever, leukocytosis.
#Worsening Dysphagia�
#Cough
Chest x-ray remarkable for atelectasis versus aspiration pneumonia/pneumonitis.�
-History of esophageal spasm/dysmotility
- GI consulted, EGD with PEG placement today 10/06/24.�
- Seen by palliative care: Recommended continuing workup and will likely need placement of 24/7 care cannot be arranged at home.�
- Continuing Goals of care conversation with patient and given patient expresses desire to eat.
- Strict NPO per speech
# Acute Sigmoid Diverticulitis
As seen on CT.
- GI consulted, make NPO in case of procedure
- Continue IVF and IV Zosyn
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
- Cr 3.8 today 10/05/24, which is near his baseline.
- Nephrology consulted and following: Okay for Diflucan 100 Mg daily if needed, follow BMP, hypotonic IVF today.
- Patient refusing dialysis.
- Holding Lasix 40 mg every afternoon and Spironolactone 25 mg p.o. daily
#Paroxysmal Atrial Fibrillation, controlled heart rate
-Continue home carvedilol (6.25 mg p.o. every afternoon, 12.5 mg p.o. daily)
- Last dose of Eliquis 10/03/24 AM, was put on heparin drip.
- PTT >200, holding heparin drip 10/06/24 4 AM. Refusing labs.
#Benign Essential hypertension
- Hold Lasix and spironolactone due to LICHA and per nephrology
- Continue carvedilol
#Asthma without Acute Exacerbation
-Continue fludrocortisone and salmeterol
-Continue to monitor
#History of CVA with left hemiparesis
-Continue home rosuvastatin 10 mg p.o.
- Holding� Eliquis, was switched to heparin drip. Heparin drip held.
#CAD s/p stent
- Holding Eliquis, was switched to heparin drip. Heparin drip held.
CODE STATUS: DNR
Anticipated Discharge: > 48 hours
Subjective/Interval History
-
Date of Service: October 06, 2024
Patient states he wants to eat by mouth. He does not have any new complaints including shortness of breath, chest pain, leg pain. He states he will not give any blood work because 'he is tired of it.'
Objective Data
-
Labs:
Laboratory Results
10/05/24 10/05/24 10/06/24
13:20 21:53 06:00
WBC Pending
Hgb Pending
Hct Pending
Plt Count Pending
APTT Cancelled Cancelled
Sodium Pending
Potassium Pending
Chloride Pending
Carbon Dioxide Pending
BUN Pending
Creatinine Pending
Glucose Pending
Calcium Pending
Vital Signs:
Vital Signs
Temp Pulse Resp BP Pulse Ox
98.8 F 90 18 140/62 94
10/06/24 02:58 10/06/24 02:58 10/06/24 02:58 10/06/24 02:58 10/06/24 02:58
I&O
10/05/24 10/06/24 10/07/24
06:59 06:59 06:59
Intake Total 0 / 0 700 / 1460 760 / 760
Output Total 450 / 450 300 / 300
Balance -450 / -450 400 / 1160 760 / 760
Review of Systems
-
History Source: Patient
All other systems: Reviewed and negative
Constitutional: Reports No Symptoms
Respiratory: Reports No Symptoms
Cardiac: Reports No Symptoms
Abdomen/GI: Reports No Symptoms
Breast: Reports No Symptoms
Genitourinary: Reports No Symptoms
Musculoskeletal: Reports No Symptoms
Skin: Reports No Symptoms
Neuro: Reports No Symptoms
Endocrine: Reports No Symptoms
Hematologic / Lymphatic: Reports No Symptoms
Allergy / Immunology: Reports No Symptoms
Physical Exam
-
General: Well Developed, Well Nourished, No Apparent Distress, Comfortable and Obese
HEENT: Normocephalic, Atraumatic, Moist Mucous Membranes, Nose Appears Normal and Ears Appear Normal
Respiratory: Clear to Auscultation
Cardiac: Regular Rhythm and S1/S2
GI: Soft, Nontender, Nondistended and Normal Bowel Sounds
Musculoskeletal: No Clubbing, No Cyanosis, Edema, Right Lower Extrem (1+ pitting) and Edema, Left Lower Extrem (1+ pitting)
Skin: Warm and Dry
Neuro: Awake and AO x 3
Psych: Calm and Intact Judgement/Insight
Data Reviewed
-
Labs: Labs Reviewed by me and Discussed with Physician
Old Records: Reviewed
[2024-10-06] MEDS: ADVAIR HFA 230/21 MCG INHALER 2 PUFF INH ×2 (07:51→19:40)
[2024-10-06] MEDS: COREG PO (08:45)
[2024-10-06] MEDS: NSS (PRESERVATIVE FREE) 10 ML IV (09:02)
[2024-10-06] MEDS: PROTONIX IV 40 MG IV (09:02)
[2024-10-06] MEDS: FLUSH (NSS) 2 FLUSH IV (09:03)
[2024-10-06 09:35] LABS: Hematocrit 26.4 % (39.0-52.0); Hemoglobin 8.4 g/dL (13.0-18.0); Mean Corp Hgb Conc. 31.8 g/dL (33.0-37.0); Mean Corpuscular Volume 94.6 fL (80.0-94.0); Platelet Count 301 10^3/uL (130-400); Red Cell Dist. Width 17.0 % (11.5-14.5)
[2024-10-06 10:21] LABS: Blood Urea Nitrogen 34 mg/dl (9-20); Calcium 8.9 mg/dl (8.4-10.2); Carbon Dioxide 22 mmol/L (22-30); Chloride 117 mmol/L (98-107); Estimated Creatinine Clearance 18 ml/min; Glucose 108 mg/dl (70-99); Magnesium 2.1 mg/dl (1.6-2.3); Potassium 3.5 mmol/L (3.5-5.1); Sodium 143 mmol/L (135-145); eGFR 17.30
--- NOTE | 2024-10-06 11:07 | W.PN.UPDATE ---
Update Note
Progress Note Update
S/P PEG placement. Will recommend to Hold AC for 72 hours if ok with medical team
--- NOTE | 2024-10-06 13:50 | W.IMMPOSTOP ---
Surgical Immed Post Op Note
-
Primary Surgeon: Howard
Assisting Surgeon: Abdon
Pre-op Diagnosis: Dysphagia
Post-op Diagnosis: Dysphagia
Procedure Performed: Percutaneous Endoscopic Gastrostomy (PEG) tube
Anesthesia Type: MAC/local
Specimen / Cultures: None
Estimated Blood Loss: < 1cc
Complications: None
Operative Findings:
1. See GI note for details related to EGD
2. 20 fr PEG tube inserted in LUQ; 1:1 palpation, trans-illumination, positive bubble, direct endoscopic visualization
3. Secured at 2.5 cm at the skin
4. Repeat EGD in good position with no bleeding
--- NOTE | 2024-10-06 14:53 | W.PN.NEPH.PH ---
Today's Communication / Plan
-
observe
Continue IV fluids another day status post PEG placement today
Assessment/Plan
-
83y M with L hemiplegia s/p CVA, A-Fib, CKD. Urinary retention Follows with urology who recently had a respiratory infection persisting for one month. Who presents with weakness subjective fever and chills. Noted to have hematuria in which he
notified urology.
Urinalysis consistent with UTI in the ER
Renal consult for acute kidney injury with a creatinine of 6 he follows with nephrology and [address]
Impression.
Acute kidney injury on chronic kidney disease stage IV with a baseline creatinine of 3.9.
Aspiration pneumonia
A-fib
Heart failure preserved ejection fraction
Plan.
Creatinine at baseline 3.4
follow BMP
no lasix
Maintain IV fluids another day as patient is status post PEG
antibiotics per primary team
S/P PEG placement 10/06/24
-
-
Date of Service: October 06, 2024
CC / HPI / ROS
-
Chief Complaint:
LICHA
History of Present Illness:
LICHA/Cr down to 3.4
s/p PEG
metabolic acidosis 22 better
BP stable
Hgb lower 7.9
Review of Systems:
no CP/SOB
Labs
-
Labs:
WBC 7.0 10^3/uL (4.8-10.8) 10/06/24 09:21
RBC 2.79 10^6/uL (4.70-6.10) L 10/06/24 09:21
Hgb 8.4 g/dL (13.0-18.0) L 10/06/24 09:21
Hct 26.4 % (39.0-52.0) L 10/06/24 09:21
Plt Count 301 10^3/uL (130-400) 10/06/24 09:21
Sodium 143 mmol/L (135-145) 10/06/24 09:21
Potassium 3.5 mmol/L (3.5-5.1) 10/06/24 09:21
Chloride 117 mmol/L (98-107) H 10/06/24 09:21
Carbon Dioxide 22 mmol/L (22-30) 10/06/24 09:21
BUN 34 mg/dl (9-20) H 10/06/24 09:21
Creatinine 3.4 mg/dL (0.7-1.3) H 10/06/24 09:21
eGFR 17.30 10/06/24 09:21
Glucose 108 mg/dl (70-99) H 10/06/24 09:21
Calcium 8.9 mg/dl (8.4-10.2) 10/06/24 09:21
Albumin 3.3 g/dl (3.5-5.0) L 10/02/24 16:07
Physical Exam
-
Vital Signs:
Vital Signs
Temp Pulse Resp BP Pulse Ox
98.1 F 80 16 130/67 98
10/06/24 14:42 10/06/24 14:42 10/06/24 14:42 10/06/24 14:42 10/06/24 14:42
Cardiovascular:: Regular rate and rhythm
Respiratory:: Bilateral: CTA
Lung Excursion:: Normal
Abdomen:: Nontender and Soft
Bowel Sounds:: Normal
Extremity Edema:: None: Bilateral:
--- NOTE | 2024-10-06 16:12 | CM ---
CM reviewed chart, reviewed with Hospitalist/Resident, patient plan for PEG placement today, plan to start tube feeds tomorrow. Referral previously sent to [facility]- will send clinical updates via [facility]. Patient does not want dialysis. CM
will continue to follow for all discharge planning needs.
Plan; updated clinicals sent to [facility], new Peg tube
[2024-10-07] MEDS: D5/0.45%NACL 1000 IV (03:16)
[2024-10-07] MEDS: ZOSYN 50 IV ×3 (03:17→19:42)
[2024-10-07 03:49] VITALS: BP 143/72
[2024-10-07 06:00] VITALS: BMI 30.6
[2024-10-07] MEDS: ADVAIR HFA 230/21 MCG INHALER 2 PUFF INH ×2 (07:33→19:35)
--- NOTE | 2024-10-07 07:58 | W.PN.GI.CBS2 ---
Today's Communication / Plan
-
ok to use PEG
Assessment / Plan
-
84 year old male with past medical history of esophageal dysphagia/spasms, LICHA/CKD IV, depression, CVA with L hemiparesis, afib on eliquis, CAD with stent, cardiac ablation, hyperlipidemia, BPH, UTI, asthma, anemia of chronic disease, GERD,
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 At that time, Dr. Osman recommended he schedule
appointment at [place] for a more specialized EGD (endoflip), which the patient declined. Recently discharged from the hospital on 09/23/2024 for treatment of UTI and sigmoid diverticulitis. Prior to that patient was on a short course of
doxycycline for aspiration pneumonia. We are asked to evaluate for dysphagia. STATE TESTED NURSING ASSISTANT recommended strict NPO with dysphagia precautions. Patient and feel that worsening GERD and issues started after tx with Doxy as outpatient. Patient was using
Pepto Bismol for GERD control.
Impression:
Dysphagia
Hx Esophageal spasm/dysmotility
GERD
Sigmoid diverticultis
LICHA on CKD IV (discussed with Nephrology)-> IF DIflucan would be needed ok to give 1 dose, patient does not want dialysis
Aspiration PNA vs Pneumonitis
Hx CVA with left sided hemiparesis
Afib on Eliquis- last dose 0808 am as per nursing . currently on heparin drip
Plan:
s/p PEG, ok to use for feeds
hold anticoagulation for 72 hours from time of PEG if ok with primary team
will sign off
Subjective
Subjective
Date of Service: October 07, 2024
Pt w/o abdominal pain s/p PEG
Objective
Data Reviewed
Laboratory Data:
Laboratory Results
APTT Cancelled 10/05/24 21:53
Magnesium 2.1 mg/dl (1.6-2.3) 10/06/24 09:21
Total Bilirubin 0.5 mg/dl (0.2-1.3) 10/02/24 16:07
AST 27 U/L (17-59) 10/02/24 16:07
ALT 31 U/L (0-50) 10/02/24 16:07
Alkaline Phosphatase 96 U/L (38-126) 10/02/24 16:07
Lipase Cancelled 10/02/24 17:05
Vital Signs and I&O:
Vital Signs
Temp Pulse Resp BP Pulse Ox
97.5 F 82 16 143/72 96
10/07/24 03:49 10/07/24 07:37 10/07/24 07:37 10/07/24 03:49 10/07/24 07:37
I&O
10/06/24 10/07/24 10/08/24
06:59 06:59 06:59
Intake Total 700 / 1460 1460 / 1460 820 / 820
Output Total 300 / 300 75 / 75
Balance 400 / 1160 1385 / 1385 820 / 820
Physical Exam
Physical Exam
GI: Soft, Non Tender and Other (PEG tube at 3,clean skin)
[2024-10-07 08:04] VITALS: BP 126/74
[2024-10-07 08:08] LABS: Hematocrit 25.2 % (39.0-52.0); Hemoglobin 8.2 g/dL (13.0-18.0); Mean Corp Hgb Conc. 32.5 g/dL (33.0-37.0); Mean Corpuscular Volume 96.6 fL (80.0-94.0); Nucleated Red Blood Cells % 0 % (-); Platelet Count 299 10^3/uL (130-400); Red Cell Dist. Width 17.3 % (11.5-14.5)
[2024-10-07 08:13] LABS: Blood Urea Nitrogen 29 mg/dl (9-20); Calcium 8.6 mg/dl (8.4-10.2); Carbon Dioxide 19 mmol/L (22-30); Chloride 116 mmol/L (98-107); Estimated Creatinine Clearance 20 ml/min; Glucose 99 mg/dl (70-99); Magnesium 2.1 mg/dl (1.6-2.3); Potassium 3.6 mmol/L (3.5-5.1); Sodium 145 mmol/L (135-145); eGFR 16.71
[2024-10-07] MEDS: COREG PO (08:47)
[2024-10-07] MEDS: PROTONIX IV 40 MG IV (08:48)
[2024-10-07] MEDS: NSS (PRESERVATIVE FREE) 10 ML IV (08:48)
[2024-10-07 11:48] VITALS: BP 143/74
[2024-10-07 14:14] VITALS: BP 130/69; PULSE 85; O2SAT 94
[2024-10-07 14:19] VITALS: BP 130/69; PULSE 85; O2SAT 94
--- NOTE | 2024-10-07 14:27 | W.PN.HOSP.TC ---
Addendum entered and electronically signed by Araceli Olivo MD 10/07/24 15:31:
I saw and evaluated the patient independently. I reviewed the resident�s note and agree with findings and plan as documented by Dr. Mijares.
GENERAL: well developed, well nourished, male in no apparent distress--flat affect
HEENT: NC/AT
HEART: regular rate and rhythm, +S1, +S2
LUNGS : clear to auscultation bilaterally
ABDOM: soft, nontender, nondistended, + bowel sounds, abdominal binder placed--PEG tube in place--site c/d/i
EXT: no cyanosis, clubbing, or edema
NEUROLOGIC: grossly intact
Worsening Dysphagia/Cough (has history of esophageal spasm/dysmotility)--last admission was able to have pureed diet with thin liquids--Chest x-ray remarkable for atelectasis versus aspiration pneumonia/pneumonitis--this admission, pt is strict NPO
with GOC discussion vs PEG--pt had PEG placed today 10/06---will need therapy to see if ANY swallowing function can be safe (also unclear if he was following the pureed diet outside of the hospital)--apparently GOC were had and pt wants to continue
to eat but PEG placed?....hospice would be more appropriate vi if pt will not follow strict NPO guidelines and decides to eat--tube feedings started, advance to goal--apprec GI-- Strict NPO per speech
Acute Sigmoid Diverticulitis--apprec GI- Continue IVF and IV Zosyn
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 daily
Paroxysmal Atrial Fibrillation, controlled heart rate--Continue home carvedilol (6.25 mg p.o. every afternoon, 12.5 mg p.o. daily)- Last dose of Eliquis 10/03/24 AM, was put on heparin drip (stopped for procedure as pt refused to have it
restarted)--hold anticoagulation x 3 days per GI
Essential hypertension- Hold Lasix and spironolactone due to LICHA and per nephrology- Continue carvedilol
Asthma without Acute Exacerbation--Continue fluticasone and salmeterol
History of CVA with left hemiparesis--Hold home rosuvastatin- Holding Eliquis, was switched to heparin drip. Heparin drip held.
CAD s/p stent--Holding Eliquis, was switched to heparin drip. Heparin drip held.
CODE STATUS-- DNR
Original Note:
Today's Communication/Plan
-
Start tube feeds per dietitian recs
PT/OT recs for discharge would be appreciated
Follow-up PTT to restart heparin
Assessment / Plan
Assessment / Plan
Mr. Castillo is an 84-year-old male with L hemiplegia s/p CVA, paroxysmal A-Fib rate controlled and on Eliquis, CKD stage 4 with baseline creatinine 3.6, urinary retention follows with urology, HLD, asthma, GERD, anxiety, BPH, KLAUS, who was recently
admitted via the ED on 09/16/2024 through 09/23/2024 for management of UTI. This admission, he came to the ED via [facility] for evaluation of weakness, nausea and vomiting, fatigue, shortness of breath, and cough. On discussion on 10/03/2024, he
denied urinary symptoms and only complained about his dysphagia/choking. He follows Dr. Way from nephrology [place]. This admission, CT A/P show acute diverticulitis along the proximal sigmoid colon along with bibasilar airspace opacities
suspicious for pneumonia/pneumonitis, possibly in the setting of aspiration. There was also a 1.2 cm stone in the left renal pelvis without associated hydronephrosis. CXR was remarkable for mild bibasilar airspace opacities which may represent
atelectasis or pneumonia. He was admitted to medicine for further management, and nephrology, GI, SP were consulted for further recs. UA again was notable for Pseudomonas, similar to last admission, suspect contaminant as patient is without
urinary symptoms, and fever, leukocytosis.
#Worsening Dysphagia�
#Cough
Chest x-ray remarkable for atelectasis versus aspiration pneumonia/pneumonitis.�
- History of esophageal spasm/dysmotility
- GI consulted, EGD with PEG placement 10/06/2024. GI signed off.
-Dietitian consulted: Initiating tube feeds per dietitian recs 10/07/2024.
- Seen by palliative care: Recommended continuing workup and will likely need placement of 24/7 care cannot be arranged at home.�
- Continuing Goals of care conversation with patient and . PT/OT following.
- Strict NPO per speech
# Acute Sigmoid Diverticulitis
As seen on CT.
- GI consulted, make NPO in case of procedure
- Continue IVF and IV Zosyn
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
- Cr 3.8 today 10/05/24, which is near his baseline.
- Nephrology consulted and following: Okay for Diflucan 100 Mg daily if needed, follow BMP, hypotonic IVF.
-Patient refuses dialysis.
- Holding Lasix 40 mg every afternoon and Spironolactone 25 mg p.o. daily
#Paroxysmal Atrial Fibrillation, controlled heart rate
-Continue home carvedilol (6.25 mg p.o. every afternoon, 12.5 mg p.o. daily)
- Last dose of Eliquis 10/03/24 AM, was put on heparin drip.
- PTT >200, holding heparin drip 10/06/24 4 AM as he was refusing labs. Follow-up recheck today 10/07/2024.
#Benign Essential hypertension
- Hold Lasix and spironolactone due to LICHA and per nephrology
- Continue carvedilol
#Asthma without Acute Exacerbation
-Continue fludrocortisone and salmeterol
-Continue to monitor
#History of CVA with left hemiparesis
-Continue home rosuvastatin 10 mg p.o.
- Holding� Eliquis, was switched to heparin drip. Heparin drip held.
#CAD s/p stent
- Holding Eliquis, was switched to heparin drip. Heparin drip held.
CODE STATUS: DNR
Anticipated Discharge: 24 - 48 hours (Pending tube feeds, and discharge location Per CM)
Subjective/Interval History
-
Date of Service: October 07, 2024
-This morning, he does not endorse any new symptoms other than some discomfort around his PEG tube. He voices that he understands that he is strict n.p.o. and cannot have food, liquids, meds by mouth.
-On rounds, he is not sure whether or not he is returning to SNF versus home. He tells us we should talk to his for further information.
Objective Data
-
Labs:
Laboratory Results
10/07/24
06:46
WBC 7.9
Hgb 8.2 L
Hct 25.2 L
Plt Count 299
Sodium 145
Potassium 3.6
Chloride 116 H
Carbon Dioxide 19 L
BUN 29 H
Creatinine 3.5 H
Glucose 99
Calcium 8.6
Vital Signs:
Vital Signs
Temp Pulse Resp BP Pulse Ox
98.2 F 83 16 143/74 98
10/07/24 11:48 10/07/24 11:48 10/07/24 11:48 10/07/24 11:48 10/07/24 11:48
I&O
10/06/24 10/07/24 10/08/24
06:59 06:59 06:59
Intake Total 700 / 1460 1460 / 1460 820 / 820
Output Total 300 / 300 75 / 75
Balance 400 / 1160 1385 / 1385 820 / 820
Review of Systems
-
History Source: Patient
All other systems: Reviewed and negative
Constitutional: Reports Fatigue and Sleep Disturbance
Abdomen/GI: Reports Pain (Some tenderness on palpation around the PEG tube)
Physical Exam
-
General: Well Developed, Well Nourished and No Apparent Distress
HEENT: Normocephalic, Atraumatic and Moist Mucous Membranes
Respiratory: Clear to Auscultation and Non Labored Respirations
Cardiac: S1/S2 and Irregular Rhythm (Known A-fib, rate controlled)
GI: Soft, Nontender, Nondistended and Peg Tube (In place with slight tenderness to palpation around it)
Musculoskeletal: No Clubbing, No Cyanosis and No Edema
Skin: Warm and Dry
Neuro: AO x 3
Psych: Calm and Intact Judgement/Insight
--- NOTE | 2024-10-07 15:02 | CM ---
Patient seen at bedside with physicians on . Patient now with PEG tube awaiting script for referral to obtain peg tube feedings. Patient continues to decline HD per physicians and Patient pending PT/OT assessments. CM will discuss with patient
to confirm plan; SNF vs home with outpatient therapy/supports.
Plan; home with VN/ option care for tube feeds vs SNF
[2024-10-07 15:18] VITALS: BP 142/74
--- NOTE | 2024-10-07 15:31 | W.PN.NEPH.PH ---
Today's Communication / Plan
-
PEG feeds to be initiated with free water flush
Kidney function stable at baseline
Monitor hyponatremia, can discontinue further IV fluid
Assessment/Plan
-
83y M with L hemiplegia s/p CVA, A-Fib, CKD. Urinary retention Follows with urology who recently had a respiratory infection persisting for one month. Who presents with weakness subjective fever and chills. Noted to have hematuria in which he
notified urology.
Urinalysis consistent with UTI in the ER
Renal consult for acute kidney injury with a creatinine of 6 he follows with nephrology and [address]
Impression.
Acute kidney injury on chronic kidney disease stage IV with a baseline creatinine of 3.9.
Aspiration pneumonia
A-fib
Heart failure preserved ejection fraction
Plan.
Creatinine at baseline 3.5
If metabolic acidosis persists we will have to sodium bicarbonate
follow BMP
no lasix
Serum sodium level up to 145
Once hypernatremia previous we can reimplement diuretic therapy
Will discontinue further IV fluids as PEG feeds and water flushes initiated today
antibiotics per primary team
S/P PEG placement 10/06/24
-
-
Date of Service: October 07, 2024
CC / HPI / ROS
-
Chief Complaint:
LICHA
History of Present Illness:
LICHA/Cr down to 3.5
s/p PEG
metabolic acidosis worsening to 19
BP stable
Hemoglobin improved to 8.2
Review of Systems:
no CP/SOB
PEG
weight up
Labs
-
Labs:
WBC 7.9 10^3/uL (4.8-10.8) 10/07/24 06:46
RBC 2.61 10^6/uL (4.70-6.10) L 10/07/24 06:46
Hgb 8.2 g/dL (13.0-18.0) L 10/07/24 06:46
Hct 25.2 % (39.0-52.0) L 10/07/24 06:46
Plt Count 299 10^3/uL (130-400) 10/07/24 06:46
Sodium 145 mmol/L (135-145) 10/07/24 06:46
Potassium 3.6 mmol/L (3.5-5.1) 10/07/24 06:46
Chloride 116 mmol/L (98-107) H 10/07/24 06:46
Carbon Dioxide 19 mmol/L (22-30) L 10/07/24 06:46
BUN 29 mg/dl (9-20) H 10/07/24 06:46
Creatinine 3.5 mg/dL (0.7-1.3) H 10/07/24 06:46
eGFR 16.71 10/07/24 06:46
Glucose 99 mg/dl (70-99) 10/07/24 06:46
Calcium 8.6 mg/dl (8.4-10.2) 10/07/24 06:46
Albumin 3.3 g/dl (3.5-5.0) L 10/02/24 16:07
Physical Exam
-
Vital Signs:
Vital Signs
Temp Pulse Resp BP Pulse Ox
98.7 F 83 18 142/74 96
10/07/24 15:18 10/07/24 15:18 10/07/24 15:18 10/07/24 15:18 10/07/24 15:18
Cardiovascular:: Regular rate and rhythm
Respiratory:: Bilateral: CTA
Lung Excursion:: Normal
Abdomen:: Distended (PEG), Nontender and Soft
Bowel Sounds:: Normal
Extremity Edema:: None: Bilateral:
Ramirez Catheter: No
[2024-10-07] MEDS: D5/0.45%NACL IV (15:56)
[2024-10-07] MEDS: COREG 6.25 MG TUBE (18:27)
[2024-10-07] MEDS: TYLENOL 650 MG TUBE (23:30)
[2024-10-08 00:10] VITALS: BP 144/70
[2024-10-08] MEDS: ZOSYN 50 IV (04:50)
[2024-10-08 06:00] VITALS: BMI 30.5
[2024-10-08 07:00] VITALS: BP 142/68
[2024-10-08] MEDS: ADVAIR HFA 230/21 MCG INHALER 2 PUFF INH (07:53)
[2024-10-08 09:47] LABS: Hematocrit 24.8 % (39.0-52.0); Hemoglobin 8.1 g/dL (13.0-18.0); Mean Corp Hgb Conc. 32.7 g/dL (33.0-37.0); Mean Corpuscular Volume 94.3 fL (80.0-94.0); Platelet Count 293 10^3/uL (130-400); Red Cell Dist. Width 17.4 % (11.5-14.5)
[2024-10-08 10:25] LABS: Blood Urea Nitrogen 28 mg/dl (9-20); Calcium 9.1 mg/dl (8.4-10.2); Carbon Dioxide 19 mmol/L (22-30); Chloride 116 mmol/L (98-107); Estimated Creatinine Clearance 23 ml/min; Glucose 129 mg/dl (70-99); Potassium 3.5 mmol/L (3.5-5.1); Sodium 142 mmol/L (135-145); eGFR 19.33
[2024-10-08] MEDS: PROTONIX IV 40 MG IV (10:46)
[2024-10-08] MEDS: NSS (PRESERVATIVE FREE) 10 ML IV (10:47)
[2024-10-08] MEDS: COREG 12.5 MG TUBE (10:47)
[2024-10-08 11:30] VITALS: BP 131/79
[2024-10-08] MEDS: ZOSYN IV (13:03)
--- NOTE | 2024-10-08 14:29 | W.PN.HOSP.TC ---
Addendum entered and electronically signed by Araceli Olivo MD 10/08/24 15:01:
I saw and evaluated the patient independently. I reviewed the resident�s note and agree with findings and plan as documented by Dr. Mijares.
GENERAL: well developed, well nourished, male in no apparent distress--flat affect
HEENT: NC/AT
HEART: regular rate and rhythm, +S1, +S2
LUNGS : clear to auscultation bilaterally
ABDOM: soft, nontender, nondistended, + bowel sounds, abdominal binder placed--PEG tube in place--site c/d/i
EXT: no cyanosis, clubbing, or edema
NEUROLOGIC: grossly intact
Worsening Dysphagia/Cough (has history of esophageal spasm/dysmotility)--last admission was able to have pureed diet with thin liquids--Chest x-ray remarkable for atelectasis versus aspiration pneumonia/pneumonitis--this admission, pt is strict NPO
with GOC discussion vs PEG--pt had PEG placed today 10/06---will need therapy to see if ANY swallowing function can be safe (also unclear if he was following the pureed diet outside of the hospital)--tube feedings started, tolerating at goal--apprec
GI-- Strict NPO per speech
Acute Sigmoid Diverticulitis--apprec GI- Continue IVF and IV Zosyn-- has had 6 days of zosyn--consider stopping or changing to oral augmentin via tube to finish course
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 daily--restart per renal
Paroxysmal Atrial Fibrillation, controlled heart rate--Continue home carvedilol (6.25 mg p.o. every afternoon, 12.5 mg p.o. daily)- Last dose of Eliquis 10/03/24 AM, was put on heparin drip (stopped for procedure as pt refused to have it
restarted)--hold anticoagulation x 3 days per GI--start 10/10/24
Essential hypertension- Hold Lasix and spironolactone due to LICHA and per nephrology- Continue carvedilol
Asthma without Acute Exacerbation--Continue fluticasone and salmeterol
History of CVA with left hemiparesis--Hold home rosuvastatin- Holding Eliquis, was switched to heparin drip. Heparin drip held.
CAD s/p stent--Holding Eliquis, was switched to heparin drip. Heparin drip held.
CODE STATUS-- DNR
Original Note:
Today's Communication/Plan
-
Tube feeds advance to goal per dietitian
Medically stable for discharge to SNF, pending placement by case investigator
updated and in agreement of strict n.p.o. status
Assessment / Plan
Assessment / Plan
Mr. Castillo is an 84-year-old male with L hemiplegia s/p CVA, paroxysmal A-Fib rate controlled and on Eliquis, CKD stage 4 with baseline creatinine 3.6, urinary retention follows with urology, HLD, asthma, GERD, anxiety, BPH, KLAUS, who was recently
admitted via the ED on 09/16/2024 through 09/23/2024 for management of UTI. This admission, he came to the ED via [facility] for evaluation of weakness, nausea and vomiting, fatigue, shortness of breath, and cough. On discussion on 10/03/2024, he
denied urinary symptoms and only complained about his dysphagia/choking. He follows Dr. Way from nephrology [place]. This admission, CT A/P show acute diverticulitis along the proximal sigmoid colon along with bibasilar airspace opacities
suspicious for pneumonia/pneumonitis, possibly in the setting of aspiration. There was also a 1.2 cm stone in the left renal pelvis without associated hydronephrosis. CXR was remarkable for mild bibasilar airspace opacities which may represent
atelectasis or pneumonia. He was admitted to medicine for further management, and nephrology, GI, SP were consulted for further recs. UA again was notable for Pseudomonas, similar to last admission, suspect contaminant as patient is without
urinary symptoms, and fever, leukocytosis. GI was concern for esophageal dysphagia, and after much discussion with patient and his , proceeded with EGD and PEG placement on 10/06/2024. He was started on tube feeds on 10/07/2024 and advanced to
his goal of 60 mL via nutrition on 10/08/2024, when he he was deemed medically stable for discharge to SNF, pending placement.
#Worsening Dysphagia�s/p PEG tube placement 10/06/2024
#Cough, improved
Chest x-ray remarkable for atelectasis versus aspiration pneumonia/pneumonitis.�
- History of esophageal spasm/dysmotility
- GI consulted, EGD with PEG placement 10/06/2024. GI signed off.
-Dietitian consulted: Tube feeds initiated per dietitian on 10/07/2024. He is tolerating his tube feeds well and was advanced to goal of 60 mL on 10/08/2024.
- Seen by palliative care: Recommended continuing workup and will likely need placement of 24/7 care cannot be arranged at home.�
- Discussed with his Meeta what it means to be strict n.p.o and she was very understanding of this. PT/OT following.
- Strict NPO per speech
# Acute Sigmoid Diverticulitis
As seen on CT.
- GI consulted, make NPO in case of procedure
- Continue IVF and IV Zosyn
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
- Cr 3.8 today 10/05/24, which is near his baseline.
- Nephrology consulted and following: Okay for Diflucan 100 Mg daily if needed, follow BMP, hypotonic IVF.
-Patient refuses dialysis.
- Holding Lasix 40 mg every afternoon and Spironolactone 25 mg p.o. daily
#Paroxysmal Atrial Fibrillation, controlled heart rate
-Continue home carvedilol (6.25 mg p.o. every afternoon, 12.5 mg p.o. daily)
- Last dose of Eliquis 10/03/24 AM, was put on heparin drip.
- PTT >200, holding heparin drip 10/06/24 4 AM as he was refusing labs. Reconsider restarting Eliquis.
#Benign Essential hypertension
- Hold Lasix and spironolactone due to LICHA and per nephrology
- Continue carvedilol
#Asthma without Acute Exacerbation
-Continue fludrocortisone and salmeterol
-Continue to monitor
#History of CVA with left hemiparesis
-Continue home rosuvastatin 10 mg p.o.
- Holding� Eliquis, was switched to heparin drip. Heparin drip held.
#CAD s/p stent
- Holding Eliquis, was switched to heparin drip. Heparin drip held.
CODE STATUS: DNR
Anticipated Discharge: Within 24 hours (Pending SNF placement)
Subjective/Interval History
-
Date of Service: October 08, 2024
-This morning, he reports some diarrhea, however no other symptoms. He is at goal for his feeds per nutrition.
-His , Meeta, was made aware via phone call and understands that he he is strict n.p.o., including medications and liquids.
Objective Data
-
Labs:
Laboratory Results
10/08/24
09:26
WBC 9.4
Hgb 8.1 L
Hct 24.8 L
Plt Count 293
Sodium 142
Potassium 3.5
Chloride 116 H
Carbon Dioxide 19 L
BUN 28 H
Creatinine 3.1 H
Glucose 129 H
Calcium 9.1
Vital Signs:
Vital Signs
Temp Pulse Resp BP Pulse Ox
97.7 F 88 17 131/79 95
10/08/24 11:30 10/08/24 11:30 10/08/24 11:30 10/08/24 11:30 10/08/24 11:30
I&O
10/07/24 10/08/24 10/09/24
06:59 06:59 06:59
Intake Total 1460 / 1460 1739 / 1739
Output Total
Balance 1385 / 1385 1739 / 1739
Review of Systems
-
History Source: Patient
Abdomen/GI: Reports Diarrhea
Physical Exam
-
General: Well Developed, Well Nourished, No Apparent Distress, Comfortable and Conversant
HEENT: Normocephalic, Atraumatic and Moist Mucous Membranes
Respiratory: Clear to Auscultation and Non Labored Respirations
Cardiac: Regular Rhythm and S1/S2
GI: Soft, Nondistended and Tender (Around PEG tube)
Musculoskeletal: No Clubbing, No Cyanosis and No Edema
Skin: Warm and Dry
Psych: Calm and Intact Judgement/Insight
--- NOTE | 2024-10-08 14:37 | CM ---
Addendum entered by Vivien Blankenship 10/08/24 15:11:
Patient accepted for transfer to SNF at [facility] today. CM spoke with patient and IMM reviewed. Patient to sign form in room and provide to nursing. Patient for ambulance transfer, forms completed and faxed to floor. Patient report to be
called to
[phone]/fax [phone]. CM will continue to follow for dsicharge planning needs.
Plan; transfer to SNF; [facility] accepted please confirm ambulance time and update to SNF (after 4pm)
Original Note:
Patient seen at bedside with physicians on [address]. Patient states he is ready for transfer to SNF at [facility]. CM sent updated clinicals and awaiting confirmation from [facility] that patient able to come. CM called and left VM for patient at home to
confirm STC plan. CM will continue to follow for discharge planning needs.
Plan; SNF
[2024-10-08 15:00] VITALS: BP 138/62
--- NOTE | 2024-10-08 15:35 | W.PN.NEPH.PH ---
Today's Communication / Plan
-
follow labs on TF
Assessment/Plan
-
83y M with L hemiplegia s/p CVA, A-Fib, CKD. Urinary retention Follows with urology who recently had a respiratory infection persisting for one month. Who presents with weakness subjective fever and chills. Noted to have hematuria in which he
notified urology.
Urinalysis consistent with UTI in the ER
Renal consult for acute kidney injury with a creatinine of 6 he follows with nephrology and [address]
Impression.
Acute kidney injury on chronic kidney disease stage IV with a baseline creatinine of 3.9.
Aspiration pneumonia
A-fib
Heart failure preserved ejection fraction
Plan.
Creatinine better than baseline 3.1
If metabolic acidosis worsens we will have to sodium bicarbonate
Serum sodium stable 142 on TF
Once hypernatremia resolves we can reimplement diuretic therapy
antibiotics per primary team
S/P PEG placement 10/06/24-TF and [facility] 25cc/hr
likely resume lasix if wts increases
follow labs
-
-
Date of Service: October 08, 2024
CC / HPI / ROS
-
Chief Complaint:
LICHA
History of Present Illness:
LICHA/Cr down to 3.1
s/p PEG 10/06
metabolic acidosis stable at 19
BP stable
Hemoglobin no cahnge at 8.1
Review of Systems:
no CP/SOB
PEG
weight slightly down
mild abd discomfort where PEG is
Labs
-
Labs:
WBC 9.4 10^3/uL (4.8-10.8) 10/08/24 09:26
RBC 2.63 10^6/uL (4.70-6.10) L 10/08/24 09:26
Hgb 8.1 g/dL (13.0-18.0) L 10/08/24 09:26
Hct 24.8 % (39.0-52.0) L 10/08/24 09:26
Plt Count 293 10^3/uL (130-400) 10/08/24 09:26
Sodium 142 mmol/L (135-145) 10/08/24 09:26
Potassium 3.5 mmol/L (3.5-5.1) 10/08/24 09:26
Chloride 116 mmol/L (98-107) H 10/08/24 09:26
Carbon Dioxide 19 mmol/L (22-30) L 10/08/24 09:26
BUN 28 mg/dl (9-20) H 10/08/24 09:26
Creatinine 3.1 mg/dL (0.7-1.3) H 10/08/24 09:26
eGFR 19.33 10/08/24 09:26
Glucose 129 mg/dl (70-99) H 10/08/24 09:26
Calcium 9.1 mg/dl (8.4-10.2) 10/08/24 09:26
Albumin 3.3 g/dl (3.5-5.0) L 10/02/24 16:07
Physical Exam
-
Vital Signs:
Vital Signs
Temp Pulse Resp BP Pulse Ox
97.7 F 88 17 131/79 95
10/08/24 11:30 10/08/24 11:30 10/08/24 11:30 10/08/24 11:30 10/08/24 11:30
Cardiovascular:: Regular rate and rhythm
Respiratory:: Bilateral: CTA
Lung Excursion:: Normal
Abdomen:: Nontender and Soft
Bowel Sounds:: Normal
Extremity Edema:: None: Bilateral:
Ramirez Catheter: No
--- NOTE | 2024-10-08 16:47 | W.DCSUMMARY ---
Addendum entered and electronically signed by Araceli Olivo MD 10/09/24 07:01:
Read, reviewed, and agree. See same day progress note for additional details. Time spent coordinating care, DC planning, review of DC plan of care with resident, transition of care, review of records in EMR, med rec, consults, notes, d/w
consultants, nursing, family, and CM = 31 minutes
Original Note:
Discharge Summary
Discharge Data
Date of Admission: 10/02/24
Date of Discharge: 10/08/24
-
Pending Results: No
Hospital Course
Discharging Physician : Ruben Mijares MD/LEYLA
Disposition : SNF: [facility]
Principal Discharge diagnosis :
Esophageal dysphagia s/p PEG to 10/06/2024
Acute sigmoid diverticulitis
Hospital Course :
Mr. Castillo is an 84-year-old male with L hemiplegia s/p CVA, paroxysmal A-Fib rate controlled and on Eliquis, CKD stage 4 with baseline creatinine 3.6, urinary retention follows with urology, HLD, asthma, GERD, anxiety, BPH, KLAUS, who, prior to this
admission, was admitted via the ED on 09/16/2024 through 09/23/2024 for management of UTI and discharged to [facility]. This admission, he came to the ED via SNF for evaluation of weakness, nausea and vomiting, fatigue, shortness of breath, cough,
and worsening dysphagia. He did not have any urinary symptoms. He follows Dr. Way from nephrology [place]. CT A/P show acute diverticulitis along the proximal sigmoid colon along with bibasilar airspace opacities suspicious for
pneumonia/pneumonitis, possibly in the setting of aspiration. There was also a 1.2 cm stone in the left renal pelvis without associated hydronephrosis. CXR was remarkable for mild bibasilar airspace opacities which may represent atelectasis or
pneumonia. He was admitted to medicine for further management, made n.p.o., and nephrology, GI, SP were consulted for further recs. UA again was notable for Pseudomonas, similar to last admission, suspect contaminant as he is without urinary
symptoms, and fever, leukocytosis. Gastroenterology recommended IV Zosyn for his acute sigmoid diverticulitis followed by Augmentin for total 10-day course. After evaluation, they were concerned for esophageal dysphagia, and after much discussion
with patient and his , proceeded with EGD and PEG placement on 10/06/2024. It was communicated to patient and his family that he is strict n.p.o., including food, liquids, and medications. All of his medications were changed from p.o. to per
tube/per rectum (given availability) and he was started on tube feeds (Jevity 1.5) on 10/07/2024. He was advanced to his goal of 60 mL per hour via nutrition on 10/08/2024, at which point he was deemed medically stable for discharge to [facility].
He will have follow-up with his PCP within a week, [place] [facility] in a week with repeat labs, and follow-up with GI in 4 months for a weight and tube check. He was discharged on home meds (all per tube) and Augmentin 250 mg suspension 3 times
daily for 4 days with last dose on 10/12/2024 to complete total 10-day antibiotic course.
Important imaging findings :
EGD 10/06/2024
Impression:
- An externally removable PEG placement was successfully completed.
- Normal esophagus.
- Normal stomach.
- Normal examined duodenum.
- No specimens collected.
Recommendation:
- Please follow the post-PEG recommendations including:
may use PEG today for meds and water,
Nutrition consult for formula and volume, may use PEG tomorrow for
feedings,
change dressing once per day, dry dressing only and clean site with
soap and water daily and dry thoroughly.
CT abdomen/pelvis 10/02/2024
Findings of acute diverticulitis along the proximal sigmoid colon.
There are bibasilar airspace opacities suspicious for pneumonia/pneumonitis, possibly in the setting of aspiration.
1.2 cm stone in the left renal pelvis without associated hydronephrosis.
Mild rectal stool burden.
Chest x-ray 10/02/2024
Mild bibasilar airspace opacities which may represent atelectasis or pneumonia.
Discharge Plan
-
Patient Disposition: Usp/SNF
Discharge Diagnosis/Procedures: Dysphagia s/p PEG placement
Acute sigmoid diverticulitis
Condition: Good
Diet: Tube feeding
Additional Diets: Jevity 1.5 continuous 60 mL/h, flush 25 mL/h
Activity: As tolerated
Additional Activity: Continue working with PT/OT/SP
Driving Restrictions: As prior to admission
Bathing Restrictions: None
Blood Work: CBC with differential and CMP within a week
Referrals:
Flor Francisco MD [Active, Gastroenterology]
Referral Note: follow up with Dr. Francisco or ESTRADA in 4 month for tube check and weight check with new tube feeds.
Vince Blair MD [Non-Admitting Privileges, Nephrology] - in one to two weeks
Referral Note: Call to schedule. Follow-up this hospitalization and lab within a week
Perla Evans DO [Family Provider, General] - in one week
Referral Note: Follow-up with your PCP regarding this hospitalization
Additional Discharge Medication Instructions: All medications must be given PER TUBE ONLY!
Take Augmentin 250 suspension 3 times daily for 4 days with last dose on 10/12
Please call Nephrology to schedule your follow-up.
See your PCP within one week for this hospitalization.
Follow-up with Gastroenterology in 4 months. Call them to schedule an appointment.
Continue working with PT/OT and Speech Therapy.
Prescriptions:
New
acetaminophen 325 mg Tablet
650 mg feeding tube Q4HPRN PRN (Reason: mild pain/ fever>100.5F) Qty: 0 0RF
carvedilol 6.25 mg Tablet
6.25 mg feeding tube QPM Qty: 0 0RF
carvedilol 12.5 mg Tablet
12.5 mg feeding tube DAILY Qty: 0 0RF
polyethylene glycol 3350 17 gram Powder In Packet
17 g feeding tube DAILYPRN PRN (Reason: CONSTIPATION) Qty: 0 0RF
fluticasone propion-salmeterol 230-21 mcg/actuation Hfa Aerosol Inhaler
2 puff inhalation R BID Qty: 0 0RF
amoxicillin-pot clavulanate [Augmentin] 250-62.5 mg/5 mL suspension for reconstitution
10 ml feeding tube TID 4 Days Qty: 120 0RF
Continued
bisacodyl [Dulcolax (bisacodyl)] 10 mg Suppository
10 mg NV DAILYPRN PRN (Reason: if no bm aftr mom, give on day 5)
Changed
furosemide [Lasix] 40 mg Tablet
40 mg feeding tube QPM Qty: 0 0RF
cyanocobalamin (vitamin B-12) 1,000 MCG tablet
1,000 mcg feeding tube DAILY Qty: 90 0RF
therapeutic multivitamin Tablet
1 tab feeding tube DAILY Qty: 0 0RF
spironolactone 25 mg Tablet
25 mg feeding tube DAILY Qty: 0 0RF
famotidine [Pepcid] 20 mg Tablet
20 mg feeding tube DAILY Qty: 0 0RF
ferrous sulfate [iron] 325 mg (65 mg iron) Tablet
325 mg feeding tube DAILY Qty: 0 0RF
sertraline 25 mg Tablet
12.5 mg feeding tube HS Qty: 0 0RF
metoclopramide HCl [Reglan] 10 mg Tablet
10 mg feeding tube AC Qty: 0 0RF
rosuvastatin [Crestor] 40 mg Tablet
40 mg feeding tube QPM Qty: 0 0RF
cholecalciferol (vitamin D3) 25 mcg (1,000 unit) Tablet
25 mcg feeding tube DAILY Qty: 0 0RF
Held
Eliquis 2.5 mg Tablet
2.5 mg PO BID
Hold Instructions: Resume on 10/10/24. Will be changing to PER TUBE
Discontinued
fluticasone propion-salmeterol 500-50 mcg/dose Blister With Device
1 inh INHALATION R BID
carvedilol [Coreg] 6.25 mg Tablet
6.25 mg PO QPM
acetaminophen [Tylenol Extra Strength] 500 mg Tablet
1,000 mg PO Q6HPRN PRN (Reason: mild pain)
carvedilol 12.5 MG tablet
12.5 mg PO DAILY
sennosides-docusate sodium [Senna-S] 8.6-50 mg Tablet
1 tab-cap PO HS
magnesium hydroxide [Milk of Magnesia] 400 mg/5 mL Suspension
2,400 mg PO [id number] PRN (Reason: if n bm by 3rd day, give on day 4)
pantoprazole [Protonix] 40 mg Tablet,Delayed Release (Dr/Ec)
40 mg PO DAILY
Fleet Enema 19-7 gram/118 mL Enema
118 ml NV DAILYPRN PRN (Reason: if no bm aftr dulolcax give on day 6)
bismuth subsalicylate [Pepto-Bismol] 262 mg Tablet,Chewable
2 tab PO DAILYPRN PRN (Reason: gerd)
Mucinex DM 30-600 mg Tablet Extended Release 12 Hr
1 tab PO Q12H
melatonin 10 mg Tablet
10 mg PO HS
Discharge Orders:
Discharge Patient (As Directed); Ordered 10/08/24
Ordered By: Ruben Mijares
Discharge Date and Time
Print Language: HEBREW
[2024-10-08] MEDS: COREG 6.25 MG TUBE (17:34)
== END 2024-10-08 18:33 | DRG 178 ==
LOC: 4 WEST ACU 21:48
PROVIDERS: Emergency Medicine; Internal Medicine; Physician Assistant Medical; Specialist; ADMITTING PHYSICIAN Hospitalist; ATTENDING PHYSICIAN Internal Medicine; CONSULT PHYSICIAN Internal Medicine Gastroenterology; CONSULT PHYSICIAN Nurse Practitioner Gerontology; CONSULT PHYSICIAN Specialist; EMERGENCY PHYSICIAN Emergency Medicine; FAMILY PHYSICIAN Family Medicine
PROC: 0DH63UZ Insertion of Feeding Device into Stomach, Percutaneous Approach (ICD-10-PCS; 2024-10-06)
DX: J69.0 Pneumonitis due to inhalation of food and vomit (principal); I13.0 Hypertensive heart and chronic kidney disease with heart failure and stage 1 through stage 4 chronic kidney disease, or unspecified chronic kidney disease; K57.32 Diverticulitis of large intestine without perforation or abscess without bleeding; N18.4 Chronic kidney disease, stage 4 (severe); I69.354 Hemiplegia and hemiparesis following cerebral infarction affecting left non-dominant side; J98.11 Atelectasis; N39.0 Urinary tract infection, site not specified; I50.32 Chronic diastolic (congestive) heart failure; N17.9 Acute kidney failure, unspecified; K22.2 Esophageal obstruction; K22.4 Dyskinesia of esophagus; F41.9 Anxiety disorder, unspecified; G47.33 Obstructive sleep apnea (adult) (pediatric); K21.9 Gastro-esophageal reflux disease without esophagitis; N40.1 Benign prostatic hyperplasia with lower urinary tract symptoms; E78.00 Pure hypercholesterolemia, unspecified; J45.909 Unspecified asthma, uncomplicated; I48.0 Paroxysmal atrial fibrillation; D63.1 Anemia in chronic kidney disease; Z95.5 Presence of coronary angioplasty implant and graft; I25.10 Atherosclerotic heart disease of native coronary artery without angina pectoris; Z66 Do not resuscitate; B96.5 Pseudomonas (aeruginosa) (mallei) (pseudomallei) as the cause of diseases classified elsewhere; Z96.653 Presence of artificial knee joint, bilateral; Z87.891 Personal history of nicotine dependence; Z82.49 Family history of ischemic heart disease and other diseases of the circulatory system; Z88.8 Allergy status to other drugs, medicaments and biological substances; Z79.01 Long term (current) use of anticoagulants; Z79.899 Other long term (current) drug therapy; F32.A Depression, unspecified; N20.0 Calculus of kidney
CPT/HCPCS: 51798; 71046; 74176; 80048; 80053; 81003; 81015; 82962; 83690; 83735; 84484; 85025; 85027; 85730; 87070; 87086; 92526; 92610; 93005; 94640; 96361; 96365; 96375; 97163; 97167; 97530; 99285

== ENCOUNTER → 2024-10-10 11:00 | Outpatient (REF) | payer MEDICARE, BC, SELFPAY ==
[2024-10-10 11:57] LABS: Hematocrit 26.5 % (39.0-52.0); Hemoglobin 8.4 g/dL (13.0-18.0); Mean Corp Hgb Conc. 31.7 g/dL (33.0-37.0); Mean Corpuscular Volume 96.4 fL (80.0-94.0); Platelet Count 303 10^3/uL (130-400); Red Cell Dist. Width 17.9 % (11.5-14.5)
[2024-10-10 12:03] LABS: Blood Urea Nitrogen 30 mg/dl (9-20); Calcium 8.8 mg/dl (8.4-10.2); Carbon Dioxide 20 mmol/L (22-30); Chloride 113 mmol/L (98-107); Glucose 151 mg/dl (70-99); Potassium 3.8 mmol/L (3.5-5.1); Sodium 141 mmol/L (135-145); eGFR 21.84
== END ==
LOC: OLABP 11:00
PROVIDERS: ATTENDING PHYSICIAN Family Medicine
DX: I25.10 Atherosclerotic heart disease of native coronary artery without angina pectoris (principal); N18.4 Chronic kidney disease, stage 4 (severe); R31.9 Hematuria, unspecified; I13.0 Hypertensive heart and chronic kidney disease with heart failure and stage 1 through stage 4 chronic kidney disease, or unspecified chronic kidney disease; F41.1 Generalized anxiety disorder; I69.354 Hemiplegia and hemiparesis following cerebral infarction affecting left non-dominant side; B96.5 Pseudomonas (aeruginosa) (mallei) (pseudomallei) as the cause of diseases classified elsewhere; D64.9 Anemia, unspecified; D63.1 Anemia in chronic kidney disease; R33.9 Retention of urine, unspecified; R79.89 Other specified abnormal findings of blood chemistry; J45.909 Unspecified asthma, uncomplicated; R26.2 Difficulty in walking, not elsewhere classified; I50.32 Chronic diastolic (congestive) heart failure; K22.4 Dyskinesia of esophagus
CPT/HCPCS: 36415; 80048; 85027

== ENCOUNTER 2024-10-13 08:37 | Inpatient (IN) | payer MEDICARE, BC, SELFPAY ==
[2024-10-13] VITALS (35 sets, daily range): BP systolic 77–130; BP diastolic 52–84; PULSE 2–116; BMI 32.1; BMI 30.8
[2024-10-13] MEDS: DUONEB 3 ML INH ×2 (05:06→23:59)
--- NOTE | 2024-10-13 05:12 | ED.GENMED ---
History of Present Illness
General
Chief Complaint: Breathing Problem
Source: patient, ambulance crew and previous hospital records (Recent hospitalization in August and again October 02 to October 08)
Exam Limitations: none
Time Seen by Provider: 10/13/24 05:00
Nursing documentation reviewed up to this point in time: agreed with
History of Present Illness
History of Present Illness:
This is an 84-year-old gentleman with history of left hemiplegia status post CVA, PAF, rate controlled, chronically maintained on Eliquis, chronic kidney disease stage IV, urinary retention, asthma, GERD, BPH, recently hospitalized September 16 to August
for management of a UTI then rehospitalized October 02 to October 08 due to weakness, nausea vomiting, fatigue, shortness of breath and a cough along with worsening dysphagia. CT showed acute diverticulitis and also bibasilar airspace opacities
suspicious for pneumonia/pneumonitis in the setting of possible aspiration. He was treated with IV antibiotics. PEG tube was placed October 06 and recommended that he is strict n.p.o.
He was discharged back to Health system on October 08. IV antibiotics transition to Augmentin 3 times daily for 4 days with last dose October 12.
He arrives via EMS with reported history of severe shortness of breath earlier this morning which improved with nebulizer treatment. Return of shortness of breath tonight, no improvement with nebulizer treatment and pulse ox reportedly in the 80s.
He was placed on BiPAP prehospital with marked improvement in respiratory distress and improvement in oxygenation.
According to EMS and [facility] paperwork patient is DNR status. is on her way.
Past History
Past History
ED Past Medical History: Arrthythmia ( atrial fibrillation), Asthma, CAD, CVA (Left sided weakness, ), GERD, HTN, Hypercholesterolemia, [place], Renal failure (Stage 4 ), Psychiatric (Anxiety, Depression) and Other (Osteoarthritis, Diverticulosis, Renal
calculus)
ED Past Surgical History: Cardiac (Radiofrequency ablation, Stents X 2), Orthopedic (Right elbow repair, Right and left Total knee replacement) and Other (PEG tube placement September 2024)
Social History
Tobacco: Former smoker
Alcohol: None
Personal:
Living: [facility]
Employment: Retired
Family History
Family History: Other (Noncontributory)
Phy Exam
Physical Exam
Physical Exam:
GENERAL: 84-year-old gentleman appears somewhat older than stated age, awake and alert, appears in moderate respiratory distress. BiPAP in place. Answering questions appropriately. Shortness of breath is improving. He denies pain.
EYE: anicteric
NECK: Supple, nontender, no meningismus, no significant adenopathy. Moderate JVD.
ENT: BiPAP facemask in place.
CARDIAC: Regular rate and rhythm. no murmur.
LUNGS: Moderate respiratory distress. Rhonchi and wheezing bilaterally.
ABDOMEN: Rotund, soft, nondistended, without focal tenderness, PEG tube left upper quadrant.
NEUROLOGICAL: Alert and oriented x3, chronic left hemiparesis.
SKIN: Mildly hot to touch and dry, mild facial flushing, skin intact. Mild to moderate subcutaneous edema bilateral upper extremities. Poor skin turgor.
MUSCULOSKELETAL: Moderate edema all 4 extremities, peripheral pulses are full and equal b/l. No palpable tenderness.
PSYCH: Normal and appropriate interaction.
Scores
Heart Failure Risk
Heart Failure Risk Score: Yes
History of Stroke or TIA: Yes
History of intubation for respiratory distress: No
Heart rate on ED arrival >/= 110: No
SaO2 <90% on arrival on room air: Yes
HR >/=110 during 3min walk test (or too ill to perform test): Yes
ECG has acute ischemic changes: Yes
Urea >/=12mmol/L (BUN 33.6mg/dL): Yes
Serum CO2>/=35mmol/L: No
Troponin I or T elevated to WA Level (0.4mg/dL): Yes
NT-proBNP >/=5,000ng/L (5,000pg/ml): Yes
HF Risk Score: 10
Admission Status: VERY HIGH RISK 89% Consider Admission to hospital
Sepsis
Sepsis Screening
Sepsis Assessment: Sepsis
Sepsis Screen
Sepsis Screen: Sepsis
Date: 10/13/24
Time: 07:12
Course
Orders/Labs/Results
Orders:
Orders
10/13/24 04:58
CR Chest Portable - 1 View Urgent
Comment:
Reason For Exam: resp distress
Reason Study Needs to be Portable: Patient Unstable
10/13/24 04:59
Electrocardiogram (*1) Urgent
Reason for Study: Other
Other Reason for Exam: Possible Sepsis
Cardiac Monitoring- Treatment ONCE
EKG- Treatment ONCE
IV Insert/Care/Rem.- Treatment PRN
Straight cath- Treatment ONCE
Urinalysis Reflex To Culture Urgent
Date Specimen was Collected: 10/13/24
Time Specimen was Collected: 04:59
O2 Therapy [RESP] Urgent
Titrate/Wean O2 to maintain O2 sat greater than (%): 93
Special Instructions: TO MAINTAIN CONTINUOUS O2 SATS > OR = 93%
Pulse Ox/cont/shift [RESP] Urgent
Quantity: 1
Special Instructions: CONTINUOUS
10/13/24 05:03
Ipratropium/Albuterol Sulfate [Duoneb] 3 ml INH R NOW ONE
10/13/24 05:18
COVID-19 Antigen Urgent
Source: Nasal Swab
Complete Blood Count/With Diff Urgent
Comprehensive Metabolic Panel Urgent
Lactic Acid Q4H
Comment: ON ICE, CANCEL 2ND ORDER IF FIRST LACTIC ACID LEVEL <2
Pro-BNP [NT-proBNP] Urgent
Blood Culture Q20M
STEPHANIE Source: Blood/Venous
Specimen Description:
Comment: Urgent from separate sites. If patient screens positive for possible sepsis
Influenza A+B Rapid Molecular Urgent
STEPHANIE Source: Nasal Swab
Specimen Description:
Date Specimen was Collected: 10/13/24
Time Specimen was Collected: 04:59
10/13/24 05:22
Bipap [RESP] Urgent
Patient to use own unit?: No
Inspiratory Pressure (cm H2O): 10
Expiratory Pressure (cm H2O): 5
Oxygen Liter Flow: 10
10/13/24 06:09
Troponin I Urgent
Blood Culture Q20M
STEPHANIE Source: Blood/Venous
Specimen Description:
Comment: Urgent from separate sites. If patient screens positive for possible sepsis
10/13/24 06:11
Lactic Acid Q4H
Comment: ON ICE, CANCEL 2ND ORDER IF FIRST LACTIC ACID LEVEL <2
10/13/24 06:18
Piperacillin/Tazo 3.375 Gram [Zosyn] 3.375 gram in 50 ml IV NOW
Abnormal Lab Results
10/13/24
05:18
WBC 19.6 H 10^3/uL
(4.8-10.8)
RBC 2.98 L 10^6/uL
(4.70-6.10)
Hgb 9.2 L g/dL
(13.0-18.0)
Hct 28.4 L %
(39.0-52.0)
MCV 95.3 H fL
(80.0-94.0)
MCHC 32.4 L g/dL
(33.0-37.0)
RDW 18.0 H %
(11.5-14.5)
MPV 10.7 H fL
(7.4-10.4)
Abs Immat Gran (auto) 0.4 H 10^3/uL
(0-0.05)
Absolute Neuts (auto) 15.9 H 10^3/uL
(1.4-6.5)
Absolute Monos (auto) 1.6 H 10^3/uL
(0.1-0.6)
Immature Gran % 2.2 H %
(0-0.5)
Neutrophils % 80.8 H %
(42.2-75.2)
Lymphocytes % 7.9 L %
(20.5-51.1)
BUN 48 H mg/dl
(9-20)
Creatinine 3.2 H mg/dL
(0.7-1.3)
Glucose 197 H mg/dl
(70-99)
Lactic Acid 2.6 H mmol/L
(0.7-2.0)
AST 65 H U/L
(17-59)
Total Protein 6.1 L g/dl
(6.3-8.2)
Albumin 3.2 L g/dl
(3.5-5.0)
10/13/24 05:18
10/13/24 05:18
Vital Signs
Initial and Last Documented VS:
Initial Vital Signs
Pulse Resp Pulse Ox
115 38 89
10/13/24 04:59 10/13/24 04:59 10/13/24 04:59
Last Documented Vital Signs
Temp Pulse Resp Pulse Ox
99.8 F 104 35 97
10/13/24 05:36 10/13/24 05:30 10/13/24 05:30 10/13/24 05:30
MDM/Problems Addressed
Differential Diagnosis Includes:
Acute hypoxic respiratory failure. Concern for:
Acute pneumonia
Acute CHF
Acute exacerbation COPD
Acute coronary syndrome
PE
Sepsis
Symptomatic anemia
Recurrent UTI
MDM/Problems Addressed:
Acute hypoxic respiratory failure, improving with BiPAP.
Patient is DNR status. Will therefore hold off on ABG. Will continue to monitor continuous pulse ox.
Will give DuoNeb nebulizer
Will check labs, stat portable chest x-ray, sepsis workup, EKG, troponin, BNP, COVID and flu testing.
Chronic conditions affecting care: CAD, Cardiomyopathy, Arrhythmia, COPD, Neurological disorder, Immunosuppressed and Other (Advanced age as well as several recent hospitalizations, significant deconditioning)
Acute Exacerbation and/or Progression of Chronic Illness: CAD, Cardiomyopathy and COPD
*Radiology
Radiology exam reviewed: preliminary read by ED provider (Chest x-ray shows cardiomegaly, mild interstitial fullness bilaterally concerning for CHF, there is also patchy airspace disease right lower lobe concerning for pneumonia)
*Pulse Oximetry
SaO2: 89
Oxygen Mode of Delivery: BiPAP
Patient hypoxic: yes
*EKG
Interpreted by ED Provider?: Yes
Interpretation: abnormal
Comparison EKG: changes noted (Lateral ischemic changes are new compared to previous EKG earlier this month)
Rate: normal
Rhythm: sinus and PVC's
[facility]: normal axis
Interval: normal interval
QRS Pattern: normal QRS
Ischemia: ST depression
*Automatic Lehr Operator Interpretation
Rate: normal
Interpretation: normal
Rhythm: sinus
*Critical Care Note
Total Time (30-74mins, 75-104mins- exclusive of procedures): 40
comment:
Critical care statement: A total of 40 minutes of critical care time was provided for this patient. This includes management of unstable vital signs, evaluation of the patient at bedside, reviewing the patient's pertinent medical records, discussion
with consultants, review of old EKGs and review of pertinent medical records. This time with separate from time utilized to perform the aforementioned documented procedures
Update Note
Update Note:
Respiratory distress improving, he continues with mild tachypnea but markedly improved.
He continues to deny pain. Denies chest pain.
EKG shows marked lateral ischemia which is new compared to previous.
Labs remarkable for markedly elevated white blood cell count of 19 which is new compared to previous. Mild but stable anemia.
Stable chronic kidney disease.
Mildly elevated lactic acid at 2.6.
BNP and troponin are pending.
Concern for pneumonia, sepsis however patient is afebrile. Also significant concern for CHF. He remains hemodynamically stable.
Will initiate Zosyn for healthcare associated pneumonia and will admit to hospitalist service.
at bedside.
ED Attending Note
-
Portions of this chart may have been created with voice recognition software.� Occasional wrong word or��sound alike� substitutions may have occurred due to the inherent limitations of voice recognition software.
Discharge Plan
Departure
Patient Disposition: Admit
Date of Disposition: 10/13/24
Time of Disposition: 06:18
Admit to: IMU
Admit to doctor: Betty
Presentation/result/management discussed w/ accepting MD/DO: Hospitalist
Condition: Serious
Discharge Problem:
Acute hypoxemic respiratory failure, Healthcare-associated pneumonia, Acute CHF (congestive heart failure), Sepsis, Non-ST elevated myocardial infarction (non-STEMI)
Prescriptions:
No Action
Eliquis 2.5 mg Tablet
2.5 mg PO BID
bisacodyl [Dulcolax (bisacodyl)] 10 mg Suppository
10 mg IN DAILYPRN PRN (Reason: if no bm aftr mom, give on day 5)
acetaminophen 325 mg Tablet
650 mg feeding tube Q4HPRN PRN (Reason: mild pain/ fever>100.5F) Qty: 0 0RF
carvedilol 6.25 mg Tablet
6.25 mg feeding tube QPM Qty: 0 0RF
carvedilol 12.5 mg Tablet
12.5 mg feeding tube DAILY Qty: 0 0RF
polyethylene glycol 3350 17 gram Powder In Packet
17 g feeding tube DAILYPRN PRN (Reason: CONSTIPATION) Qty: 0 0RF
fluticasone propion-salmeterol 230-21 mcg/actuation Hfa Aerosol Inhaler
2 puff inhalation R BID Qty: 0 0RF
furosemide [Lasix] 40 mg Tablet
40 mg feeding tube QPM Qty: 0 0RF
cyanocobalamin (vitamin B-12) 1,000 MCG tablet
1,000 mcg feeding tube DAILY Qty: 90 0RF
therapeutic multivitamin Tablet
1 tab feeding tube DAILY Qty: 0 0RF
spironolactone 25 mg Tablet
25 mg feeding tube DAILY Qty: 0 0RF
famotidine [Pepcid] 20 mg Tablet
20 mg feeding tube DAILY Qty: 0 0RF
ferrous sulfate [iron] 325 mg (65 mg iron) Tablet
325 mg feeding tube DAILY Qty: 0 0RF
sertraline 25 mg Tablet
12.5 mg feeding tube HS Qty: 0 0RF
metoclopramide HCl [Reglan] 10 mg Tablet
10 mg feeding tube AC Qty: 0 0RF
rosuvastatin [Crestor] 40 mg Tablet
40 mg feeding tube QPM Qty: 0 0RF
cholecalciferol (vitamin D3) 25 mcg (1,000 unit) Tablet
25 mcg feeding tube DAILY Qty: 0 0RF
Jevity 1.5 Mendez 0.06 gram-1.5 kcal/mL liquid
See Rx Instructions .ROUTE .COMPLEX Qty: 8000 0RF
Rx Instructions:
60mL/hr continuous
Interventions
Interventions:
*Risk Screen - Suicide Last Done: 10/13/24 05:09
*General Assessment Last Done: 10/13/24 05:09
*Neglect/Abuse Screening Last Done: 10/13/24 05:09
*ED- Fall Risk Assessment Last Done: 10/13/24 05:09
*ED COVID-19 Vaccine History Last Done: 10/13/24 05:09
ED- Cardiac Assessment Last Done: 10/13/24 05:28
ED- Pulmonary Assessment Last Done: 10/13/24 05:28
Discharge Date and Time
Print Language: ROMANIAN
[2024-10-13 05:34] LABS: Hematocrit 28.4 % (39.0-52.0); Hemoglobin 9.2 g/dL (13.0-18.0); Mean Corp Hgb Conc. 32.4 g/dL (33.0-37.0); Mean Corpuscular Volume 95.3 fL (80.0-94.0); Nucleated Red Blood Cells % 0 % (-); Platelet Count 382 10^3/uL (130-400); Red Cell Dist. Width 18.0 % (11.5-14.5)
[2024-10-13 05:48] LABS: ALT (SGPT) 24 U/L (0-50); AST (SGOT) 65 U/L (17-59); Albumin 3.2 g/dl (3.5-5.0); Alkaline Phosphatase 85 U/L (38-126); Blood Urea Nitrogen 48 mg/dl (9-20); Calcium 9.5 mg/dl (8.4-10.2); Carbon Dioxide 23 mmol/L (22-30); Chloride 107 mmol/L (98-107); Estimated Creatinine Clearance 23 ml/min; Glucose 197 mg/dl (70-99); Potassium 4.9 mmol/L (3.5-5.1); Sodium 138 mmol/L (135-145); Total Protein 6.1 g/dl (6.3-8.2); eGFR 18.61
[2024-10-13 06:10] LABS: COVID-19 Antigen Negative (Negative)
--- NOTE | 2024-10-13 06:43 | HPS.HSE ---
Family Physician
-
Family Physician:
Chief Complaint
-
Shortness of breath
History of Present Illness
This is a 84-year-old male with past medical history significant for proximal atrial fibrillation, CVA, CAD, CHF with preserved EF, CKD stage IV, recent admission for acute diverticulitis status post total antibiotics and he was found to have
dysphagia at that time and is now status post PEG tube placement who presents to the emergency department with acute onset of shortness of breath.
After discharge on 813 patient was sent to [facility]. At [facility] he has been feeding he is using the PEG tube and he has had increased fluid intake according to spouse via the PEG tube. Spouse noticed increased edema especially in his upper
extremities as well as in some of his lower extremity. He had otherwise been tolerating the tube feeds well. They did hold his diuretics will discharge and were only started yesterday due to his complaint of shortness of breath. He apparently had
episode of severe shortness of breath yesterday that improved after a mini neb.
Today he complained of severe shortness of breath and he had to be transferred to the emergency department as the mini neb was ineffective and he became hypoxic. He arrived in the emergency department on BiPAP.
In the emergency department he was satting 99%, blood pressure was 139/71, respiratory rate mid 30s and was tachycardic to 110. ECG shows sinus rhythm at 100, ST depressions in leads V5 V6 and downsloping ST segments in lead I. Was found to have a
troponin of 11, BNP greater than 27,000.
Chest x-ray shows multifocal opacities. CBC shows a white count of 19. CBC otherwise unremarkable. Electrolytes with stable with a bicarb of 24, BUN 48 and creatinine of 3.2 which is at baseline. Influenza negative, COVID test negative.
Medical History
Past Medical History
Past Medical History: Reports Other
Additional Past Medical History:
CVA with Left Hemiparesis
Paroxysmal Atrial Fibrillation
Coronary Artery Disease s/p Stent
Essential Hypertension
Hyperlipidemia
CKD Stage IV
Asthma
Anxiety/Depression
GERD/Esophageal Stricture
Esophageal Spasms
Dysphagia
BPH
Obstructive Sleep Apnea
Past Surgical History: Reports Other
Additional Past Surgical History:
Cardiac Stent
Cardiac Ablation
Bilateral Knee Replacement
Rotator Cuff
Esophageal Rings
Social History
Tobacco: Former Smoker
Alcohol: None
Drug: None
Personal:
Living: With Family
Family History
Family History: Other (Father: CAD)
Allergies / Home Medications
Allergies reflects when Allergies were last updated in [facility].
Home Medications with original date entered in [facility]
Allergy/Medication List:
Allergies
Allergy/AdvReac Type Severity Reaction Status Date / Time
cat dander Allergy Swelling Verified 10/02/24 15:56
lisinopril Allergy Unknown Verified 10/02/24 15:56
losartan Allergy lip Verified 10/02/24 15:56
swelling
lovastatin Allergy myalgias Verified 10/02/24 15:56
mirabegron (From Myrbetriq) Allergy lips Verified 10/02/24 15:56
swellling
tamsulosin HCl (From Flomax) Allergy facial Verified 10/02/24 15:56
itching,dizziness
venom-honey bee (bee venom Allergy Anaphylaxis Verified 10/02/24 15:56
(honey bee))
Home Medications
apixaban 2.5 mg tablet (Eliquis) 2.5 mg PO BID Blood Clot Prevention/Tx 08/31/23
Held on 10/08/24. Instructions: Resume on 10/10/24. Will be changing to PER TUBE
bisacodyl 10 mg rectal suppository (Dulcolax (bisacodyl)) 10 mg CO DAILYPRN PRN if no bm aftr mom, give on day 5 10/02/24
acetaminophen 325 mg tablet 650 mg (2 x 325 mg) feeding tube Q4HPRN PRN mild pain/ fever>100.5F #0 tabs 10/08/24
carvedilol 12.5 mg tablet 12.5 mg feeding tube DAILY #0 tabs 10/08/24
carvedilol 6.25 mg tablet 6.25 mg feeding tube QPM #0 tabs 10/08/24
cholecalciferol (vitamin D3) 25 mcg (1,000 unit) tablet 25 mcg feeding tube DAILY Supplement #0 tabs 10/08/24
cyanocobalamin (vitamin B-12) 1,000 mcg tablet 1,000 mcg feeding tube DAILY deficiency #90 tabs 10/08/24
famotidine 20 mg tablet (Pepcid) 20 mg feeding tube DAILY Gastrointestinal Issue #0 tabs 10/08/24
ferrous sulfate 325 mg (65 mg iron) tablet (iron) 325 mg feeding tube DAILY Supplement #0 tabs 10/08/24
fluticasone propionate 230 mcg-salmeterol 21 mcg/actuation HFA inhaler 2 puff inhalation R BID #0 grams 10/08/24
furosemide 40 mg tablet (Lasix) 40 mg feeding tube QPM Fluid Retention/Swelling #0 tabs 10/08/24
lactose-reduced food with fiber 0.06 gram-1.5 kcal/mL oral liquid (Jevity 1.5 Mendez) See Rx Instructions .Route .COMPLEX #8,000 mL 10/08/24
metoclopramide HCl 10 mg tablet (Reglan) 10 mg feeding tube AC Gastrointestinal Issue #0 tabs 10/08/24
polyethylene glycol 3350 17 gram oral powder packet 17 g feeding tube DAILYPRN PRN CONSTIPATION #0 ea 10/08/24
rosuvastatin 40 mg tablet (Crestor) 40 mg feeding tube QPM High Cholesterol #0 tabs 10/08/24
sertraline 25 mg tablet 12.5 mg (1/2 x 25 mg) feeding tube HS Depression #0 tabs 10/08/24
spironolactone 25 mg tablet 25 mg feeding tube DAILY Fluid Retention/Swelling #0 tabs 10/08/24
therapeutic multivitamin 1 tab feeding tube DAILY Supplement #0 tabs 10/08/24
Review of Systems
-
Unable to obtain full review of systems at this time due to: Acuity
Physical Exam
Vital Signs
Vital Signs
Temp Pulse Resp Pulse Ox
99.8 F 104 35 97
10/13/24 05:36 10/13/24 05:30 10/13/24 05:30 10/13/24 05:30
Physical Exam
General: Respiratory Distress and Appears Chronically Ill
HEENT: NormoCephalic, Anicteric, Moist mucous membranes, PERRLA and Other (On BiPAP)
Respiratory: Rales, Crackles and Decreased Breath Sounds
Cardiac: S1/S2 and Regular Rhythm
Breast: Deferred by me
GI: Soft, Normal Bowel Sounds and Distended
Rectal: Deferred by Provider
Genito-urinary: Deferred by me
Musculoskeletal: No Clubbing, No Cyanosis, Edema, Left Upper Extremity and Edema, Right Upper Extremity
Skin: Warm and Dry
Neuro: Oriented (According to the history), No Sensory Deficits and Other (Mild left residual sided weakness)
Psych: Calm
Laboratory Results
-
10/13/24 05:18
10/13/24 05:18
Laboratory Results
Lactic Acid 1.7 mmol/L (0.7-2.0) 10/13/24 06:11
Total Bilirubin 0.7 mg/dl (0.2-1.3) 10/13/24 05:18
AST 65 U/L (17-59) H 10/13/24 05:18
ALT 24 U/L (0-50) 10/13/24 05:18
Alkaline Phosphatase 85 U/L (38-126) 10/13/24 05:18
Data Reviewed
-
Diagnostic Radiology: Image Personally Visualized and interpreted
Medical Tests (Nuc Med, Echo, EKG etc): Image Personally Visualized and interpreted
Lab Data: Labs Reviewed by me
Old Records: Reviewed
Impression/Plan
-
IMPRESSION:
84-year-old with past medical history significant for CHF with preserved EF, paroxysmal atrial fibrillation on anticoagulation, hyperlipidemia, history of hypertension, CKD 4 with baseline creatinine of around 3, recent admission for diverticulitis
and dysphagia status post antibiotics and currently on Augmentin, status post PEG tube placement for dysphagia who presents to the emergency department with progressive shortness of breath for the last 2 days and acute hypoxic respiratory failure
today appearing via EMS on NRB. The x-ray shows bilateral infiltrates consistent with multifocal pneumonia versus pulmonary edema. Septic vs cardiogenic sock NSTEMI, no CP w/ ECG shows ST depressions in the lateral leads sinus rhythm, trop 11,
BNP is greater than 27,000, exam shows anasarca with mostly third spacing in the upper extremities and trace edema in lower extremities, he is currently afebrile but has leukocytosis to 18,000 with significant immature cells. Overall picture is
consistent with pneumonia with acute respiratory failure, ischemic and possible congestive heart failure in the setting of aggressive PEG tube fluid and nutritional inputs. He has no chest pain.
PLAN:
Hypoxic Respiratory failure/pna - Suspect HAP w/ possible cardiogenic shock as patient developing hypotension
- admit to IMU for now (no intubation or CPR)
- Continue BIPAP at 10/5, h/o KLAUS on CPAP and tolerating. RR in the mid 20s now and O2 sat 99%
- venous blood gas at in 1 hour, if pH is ok and no retention, may wean to high flow
- blood cx
- Zosyn,
- pressors, no fluids given new NSTEMI w/ ICM, can consider fluid if no edema on final xray read
- nebs RTC and prn
- mrsa swab
- wood finisher consultation
NSTEMI - Trop 11, BNP > 85463. No CP
- asa 300 pr
- heparin gtt
- continue asa 81 and statin
- echo
- cardiology consulted
CHF exacerbation - h/o diastolic CHF on lasix, lasix held at snf until yesterday. BNP > 86878. Peripheral edema. New NICM vs Cardiac ischemia.
- echo
- levophed
- holding diuresis due to sepsis picture
- carvedilol on hold parameters
- hold spironolactone pending stability of BP
- cardiology consult
Paroxysmal atrial fibrillation
- heparin gtt
- holding coreg
Feeding and nutrition -
- npo
- nutrition consult for TF
DVT PPX - on heparin
Code status - DNR/DNI
[2024-10-13 06:55] LABS: Troponin I 11.600 ng/ml
[2024-10-13] MEDS: ZOSYN 50 IV ×3 (07:09→19:01)
[2024-10-13 07:29] LABS: INR 1.33; PT 16.7 Sec (11.4-14.6)
[2024-10-13 07:30] LABS: APTT 35.5 Sec (23.4-35.0)
[2024-10-13] MEDS: ASPIRIN 300 MG RECTAL (07:34)
[2024-10-13] MEDS: HEPARIN 25000 UNITS/250 ML IV (07:49)
[2024-10-13] MEDS: LEVOPHED 250 IV (07:50)
--- NOTE | 2024-10-13 07:55 | CON.CAR ---
Addendum entered and electronically signed by Vinayak Guardado MD 10/13/24 10:04:
I saw and examined the patient.
The TOPOLOGY TEACHER or PA's note was reviewed and I agree with the note.
Comment: General: Well developed, well nourished in NAD.
Neck: Supple, no JVD, HJR, carotids +2 B/L, no bruits bilaterally.
Heart: Non displaced PMI, RRR, no murmurs, No S3, S4, no rubs.
Lungs: Scattered rhonchi
Extremities: No clubbing, cyanosis or edema bilaterally.
Neuro: Grossly nonfocal, awake, alert and oriented x3.
Gentry has a history of CVA in May 2021, PAF status post PVI in 2013, CAD status post non-STEMI and RCA PCI in 2007 and bare-metal stent of proximal OM1 in December 2012, status post PEG tube placement, hypertension, asthma, reflux, sleep apnea,
renal sufficiency. He is admitted with acute hypoxia due to pneumonia and CHF. Troponin was 11 and cardiology consulted. He denies any chest pain or shortness of breath. Of note after discussion with patient and family they have elected for
conservative measures in light of comorbid conditions. Initial troponin was 11.6 and repeat was 14.6. Discussed with nursing in ICU and primary service.
Original Note:
Consultation
Consultation Request
Date/Time Consultation Requested: 10/13/24
Date/Time Consultation Performed: 10/13/24
Requesting Provider: Dr. Hernández with the hospitalists
Performing Provider: Dr. Guardado
Reason for Consultation: Elevated Troponin, CHF
Medical History
-
History of Present Illness:
Patient came to the ER this morning with increasing SOB and is being admitted with acute hypoxic respiratory failure due to PNA and CHF, troponin was elevated and cardiology is now consulted. Patient was just admitted to [facility] from 09/16/2024 until
09/23/2024 with UTI. Patient was then readmitted from 10/02/2024 until 10/08/2024 at which time he had a PEG tube placed for aspiration. Patient is expectorating all secretions and is receiving all hydration nutrition through his PEG tube according to
patient and family. Patient's helps with the HPI and says that upon discharge to [facility] on 10/08/2024 the patient was given increasing amounts of free water by his PEG tube and this was apparently at the direction of his
outpatient wind farm engineer to help with elevated creatinine levels. Patient's started to notice increased UE edema, but did not really notice much LE edema. Patient then had increasing SOB this morning that did not improve with nebulizer and 911
was called. Initial ECG is abnormal with ST depression throughout the precordium, but patient denies any chest pain. Initial troponin 11.6 and subsequent troponin 14.6.
PMH:
s/p PEG tube 09/2024
CAD
s/p NSTEMI and RCA PCI 12/2007
s/p 3.5 mm Vision BMS to proximal OM-1 01/17/2013
CKD 4
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
Paroxysmal Afib
s/p PVI 12/2013
No documented clinical recurrence since ablation
Chronic Eliquis OAC
HTN
dyslipidemia
asthma
GERD
KLAUS
depression/anxiety
Past Medical History
Past Medical History: Other (in HPI)
Past Surgical History: Cardiac (PCI, PVI ) and Orthopedic
Social History
Tobacco: Non-Smoker
Alcohol: None
Drug: None
Personal:
Living: Group Home (currently at [facility], but was living at home with his )
Family History
Family History: CAD, Cancer and Hypertension
Allergies / Home Medications
Allergy/AdvReac Type Severity Reaction Status Date / Time
cat dander Allergy Swelling Verified 10/02/24 15:56
lisinopril Allergy Unknown Verified 10/02/24 15:56
losartan Allergy lip Verified 10/02/24 15:56
swelling
lovastatin Allergy myalgias Verified 10/02/24 15:56
mirabegron (From Myrbetriq) Allergy lips Verified 10/02/24 15:56
swellling
tamsulosin HCl (From Flomax) Allergy facial Verified 10/02/24 15:56
itching,dizziness
venom-honey bee (bee venom Allergy Anaphylaxis Verified 10/02/24 15:56
(honey bee))
�Medication �Instructions �Recorded �Confirmed �Type
apixaban 2.5 mg tablet (Eliquis) 2.5 mg PO BID Blood Clot 08/31/23 10/02/24 History
Held on 10/08/24. Prevention/Tx
Instructions: Resume on
10/10/24. Will be changing to
PER TUBE
bisacodyl 10 mg rectal suppository 10 mg CA DAILYPRN PRN if no bm 10/02/24 10/02/24 History
(Dulcolax (bisacodyl)) aftr mom, give on day 5
acetaminophen 325 mg tablet 650 mg (2 x 325 mg) feeding tube 10/08/24 Rx
Q4HPRN PRN mild pain/ fever>100.5F
#0 tabs
carvedilol 12.5 mg tablet 12.5 mg feeding tube DAILY #0 tabs 10/08/24 Rx
carvedilol 6.25 mg tablet 6.25 mg feeding tube QPM #0 tabs 10/08/24 Rx
cholecalciferol (vitamin D3) 25 25 mcg feeding tube DAILY 10/08/24 10/02/24 Rx
mcg (1,000 unit) tablet Supplement #0 tabs
cyanocobalamin (vitamin B-12) 1,000 mcg feeding tube DAILY 10/08/24 10/02/24 Rx
1,000 mcg tablet deficiency #90 tabs
famotidine 20 mg tablet (Pepcid) 20 mg feeding tube DAILY 10/08/24 10/02/24 Rx
Gastrointestinal Issue #0 tabs
ferrous sulfate 325 mg (65 mg 325 mg feeding tube DAILY 10/08/24 10/02/24 Rx
iron) tablet (iron) Supplement #0 tabs
fluticasone propionate 230 2 puff inhalation R BID #0 grams 10/08/24 Rx
mcg-salmeterol 21 mcg/actuation
HFA inhaler
furosemide 40 mg tablet (Lasix) 40 mg feeding tube QPM Fluid 10/08/24 10/02/24 Rx
Retention/Swelling #0 tabs
lactose-reduced food with fiber See Rx Instructions .Route 10/08/24 Rx
0.06 gram-1.5 kcal/mL oral liquid .COMPLEX #8,000 mL
(Jevity 1.5 Mendez)
metoclopramide HCl 10 mg tablet 10 mg feeding tube AC 10/08/24 10/02/24 Rx
(Reglan) Gastrointestinal Issue #0 tabs
polyethylene glycol 3350 17 gram 17 g feeding tube DAILYPRN PRN 10/08/24 Rx
oral powder packet CONSTIPATION #0 ea
rosuvastatin 40 mg tablet (Crestor) 40 mg feeding tube QPM High 10/08/24 10/02/24 Rx
Cholesterol #0 tabs
sertraline 25 mg tablet 12.5 mg (1/2 x 25 mg) feeding tube 10/08/24 10/02/24 Rx
HS Depression #0 tabs
spironolactone 25 mg tablet 25 mg feeding tube DAILY Fluid 10/08/24 10/02/24 Rx
Retention/Swelling #0 tabs
therapeutic multivitamin 1 tab feeding tube DAILY 10/08/24 10/02/24 Rx
Supplement #0 tabs
Review of Systems
-
History Source: Patient and Family ( sitting bedside helping with HPI)
All other systems: Negative unless noted
Physical Exam
Vital Signs
Temp Pulse Resp BP Pulse Ox
99.8 F 98 30 93/60 98
10/13/24 05:36 10/13/24 07:54 10/13/24 07:54 10/13/24 07:54 10/13/24 07:54
GEN: NAD. AAOx3
HEENT: EOMI
LUNGS: BiPAP. Coarse BS anterolaterally. No wheeze
CV: SR with PACs and PVCs on tele. Reg, S1/S2, 1/6 syst LSB
ABD: soft, BS+, NT, ND
EXT: Trace B/L UE edema. No LE edema.
NEURO: Gross non-focal
SKIN: No rash
Lab Results
10/13/24 06:58
10/13/24 05:18
Troponin I 11.600 ng/ml H* 10/13/24 06:09
[id number] Pept > 73038 pg/ml 10/13/24 05:18
Impression / Plan
-
PCP: Dr. Reyes
Cardiology: Dr. Avalos
Nephrology: Dr. Vince Blair
Impression:
Admitted with acute hypoxic respiratory failure and elevated Troponin 10/13/24
Recent admission for UTI 09/16/2024 until 09/23/2024
Recent admission for aspiration PNA and placement of PEG tube 10/02/2024 until 10/08/2024
Acute hypoxic respiratory failure
Possible aspiration PNA and/or healthcare associated PNA
BiPAP therapy started 10/13/2024
s/p PEG tube for esophageal spasm and dysmotility 10/06/2024
Acute HFpEF
NSTEMI
CAD
s/p NSTEMI and RCA PCI 12/2007
s/p 3.5 mm Vision BMS to proximal OM-1 01/17/2013
CKD 4
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
Paroxysmal Afib
s/p PVI 12/2013
No documented clinical recurrence since ablation
Chronic Eliquis OAC
HTN
dyslipidemia
asthma
GERD
KLAUS
depression/anxiety
Echo 08/2012: EF 55-60% with moderate LVH, mild MR
Echo 06/21/21: EF 50%, no MR, no /AI
Echo 02/07/24: EF 60%, stage II diastolic dysfunction, normal RV size and function, mild MR, borderline dilated Ao root at 3.9 cm
Plan:
- Patient came to the ER this morning with increasing SOB and is being admitted with acute hypoxic respiratory failure due to PNA and CHF, troponin was elevated and cardiology is now consulted. Patient was just admitted to [facility] from 09/16/2024
until 09/23/2024 with UTI. Patient was then readmitted from 10/02/2024 until 10/08/2024 at which time he had a PEG tube placed for aspiration. Patient is expectorating all secretions and is receiving all hydration nutrition through his PEG tube
according to patient and family. Patient's helps with the HPI and says that upon discharge to [facility] on 10/08/2024 the patient was given increasing amounts of free water by his PEG tube and this was apparently at the direction
of his outpatient wind farm engineer to help with elevated creatinine levels. Patient's started to notice increased UE edema, but did not really notice much LE edema. Patient then had increasing SOB this morning that did not improve with nebulizer
and 911 was called. Initial ECG is abnormal with ST depression throughout the precordium, but patient denies any chest pain. Initial troponin 11.6 and subsequent troponin 14.6.
-ECG reviewed by me is SR with PVCs and ST depression V3 through V6
-Initial troponin 11.6 and then increased to 14.6. No chest pain. Heparin gtt started in the ER. Patient was given aspirin 300 mg CA x 1 as well.
-Outpatient dose of Eliquis 2.5 mg BID is now on hold.
-Patient being treated as NSTEMI and has known CAD with previous RCA and OM1 PCI in 2007 and 2012 respectively. Reviewed with patient and the concern for NSTEMI and options for management including cardiac cath vs medical management vs opting
for a hospice level of care. Patient is already a DNR. Patient and would like to pursue hospice level of care, we talked about options for making the patient comfortable and this is his desire.
-We reviewed the patient is currently receiving respiratory support with BiPAP and BP support with Levophed and they would like to continue with these treatments while they wait for their son to come in from [place], but if patient were to
deteriorate they would not want more aggressive care even if their son has not yet arrived from [place].
-Given the plan for hospice level of care we could consider stopping heparin gtt
-Patient appears to be in acute HF, the proBNP is greater than 27,000. Lasix IV not yet given due to hypotension. Levophed running at 3 and patient scheduled to be transferred to his ICU/IMU bed shortly, nursing will be able to titrate Levophed
more closely and we will try to give the dose of Lasix at that time.
-Patient with known CKD 4 and Cre is 3.2 today with a baseline Cre of closer to 3.
-Outpatient dose of Coreg will be held due to hypotension
-Outpatient dose of spironolactone will be held due to hypotension
-No indication for CRISTIAN/ARB/ARNI due to CKD 4 and scheduled to begin hospice level of care
-Outpatient dose of Crestor 40 mg daily can also be held due to planned hospice level of care
-Patient with known paroxysmal A-fib and appears to be in SR on ECG reviewed by me and also telemetry reviewed by me.
-Outpatient dose of Eliquis 2.5 mg BID is on hold while on heparin gtt
[2024-10-13 08:36] LABS: Venous Blood Gas B.E. 0.2 mmol/L (-4 to +4); Venous Blood Gas O2 Sat % 90.0 %
--- NOTE | 2024-10-13 08:48 | EDRN ---
assumed care at 0700. Pt is alert, oriented. Prior lt sided weakness d/t CVA hx . monitor a fib. Good heart sounds. Edema of daija uper extremities and lower extremities. BIPAP noted 10/5 at 10L. RR 30. Sats 100% Decreased breath sounds. Abd round,
soft. G tube noted. Reported to have refused straight cath per prior shift, so I placed a condom catheter on. Heels elevated. Rectal ASA given as ordered and air cushion under sacral area. At 0700 noted hypotension. 2nd IV Line placed. Waiting on
pharmacy to verify HEPARIN / Levophed. PTT sent and these meds started per orders. LEVOPHED titrating to keep MAP above 65. JAMAL HELD d/t hypotension. Attempted SEVERAL times to reach the hospitalist to see if he wants this administetered if BP
improves but unable to reach them. Dehydration Plant Operator here and aware - requests I hold this officially. REpeat labs sent.
[2024-10-13 09:05] LABS: Troponin I 14.600 ng/ml
--- NOTE | 2024-10-13 09:23 | W.PN.HOSP.TC ---
Today's Communication/Plan
-
Appreciate recs from pulmonary, cardiology, renal, nutrition
Weaned off of Levophed and BiPAP (on NC)
Downgraded from ICU to IMU
Follow-up echo unremarkable
Continue IV Zosyn
Assessment / Plan
Assessment / Plan
Mr. Castillo is an 84-year-old male with proximal atrial fibrillation, CVA, CAD s/p stenting, HFpEF, CKD stage IV, and recent admission for acute diverticulitis s/p total antibiotics and dysphagia s/p PEG tube placement who presented to the ED on
10/12/2024 from [email or web address] with acute hypoxic respiratory failure requiring BiPAP. In the ED, CXR showed multifocal opacities C/F multifocal pneumonia versus pulmonary edema, WBC 19.6, influenza and COVID-negative, BNP greater than 27,000, Trop 11.6
and 14.6 and pending 10/13/2024, NSTEMI with EKG showing ST depressions in the lateral leads. Other workup thus far has been unremarkable. He was admitted to the IMU and engraver apprentice decorative team was consulted for workup and further management.
Echo 10/13/2024:
1. Ejection fraction is 55% by volumetric assesment.
2. Normal left ventricular function.
3. Compared to a prior transthoracic echocardiogram study from 02/07/24 There is now inferolateral akinesis.
4. Ascending aorta measures 3.8 cm.
5. Inferolateral akinesis.
6. Ascending aorta is mildly dilated.
7. Mild to moderate left ventricular hypertrophy.
8. Pleural effusion noted.
#Acute hypoxic respiratory failure likely secondary to HAP and possibly cardiogenic shock
#History of asthma
#Pneumonia seen on CT
- Billing Collections Specialist consult, appreciate recs
- S/p BiPAP, now on nasal cannula, continue to wean as tolerated
- Follow-up blood cultures
- IV Zosyn 2.25 g in 50 mL
- IV Lasix 60 mg twice daily: Hold off fluids ISO NSTEMI with ICM
- Continue supportive care with nebulizer, fluticasone, salmeterol as needed
#New NSTEMI with ICM
#Paroxysmal A-fib
#CHF exacerbation ISO history of HFpEF
#History of CAD s/p stenting
#History of essential hypertension
#History of CVA with left hemiparesis
- Cardiology consulted, appreciate recs
- Heparin drip 25,000 units / 250 mL
- S/p Levophed 4 mg, weaned 10/13/2024 afternoon
--Downgraded from ICU to IMU
- Continue aspirin 81 mg
- Continue rosuvastatin 40 mg every afternoon
- Continue carvedilol 6.25 mg every afternoon and 12.5 mg daily
- Hold diuresis, on Lasix 40 mg every afternoon at home
- Hold home spironolactone 25 mg daily
- Echo 10/13/2024 as above: EF 55%
#Dysphagia s/p PEG tube 10/06/2024
#History of acute sigmoid diverticulitis
- Continue IV Zosyn 2.25 g in 50 mL
- Strict n.p.o.: All meds must be given through PEG tube
- Nutrition consulted for tube feeds, appreciate recs
- Continue bowel regimen with Dulcolax, MiraLAX
- Continue IV Zofran 4 mg every 6 hours as needed and famotidine 20 mg daily
#CKD4
- Nephrology consulted, appreciate recs
--Renally dose medications
--Hold home Lasix 40 mg daily and spironolactone 25 mg daily
--Maintain Ramirez cath
--Patient is not open to dialysis
#Depression
- Continue sertraline 12.5 mg at bedtime
Diet: Strict n.p.o., on tube feeds per nutrition
DVT prophylaxis: Heparin drip
CODE STATUS: DNR
Anticipated Discharge: 24 - 48 hours (Pending bridal consultant input and clinical improvement)
Subjective/Interval History
-
Date of Service: October 13, 2024
-This morning, he was moved down from BiPAP to nasal cannula. During the rounds, he was talkative and had no complaints. He said that his shortness of breath is much improved since yesterday. He continues to have a cough. Otherwise, no new
reports symptoms. Low sliding scale insulin added given hyperglycemia on POC glucose ISO tube feeds.
-This afternoon, his Levophed was weaned and he continued to support his own pressures. He was downgraded from ICU to IMU.
Objective Data
-
Labs:
Laboratory Results
10/13/24 10/13/24 10/13/24
05:18 06:58 07:07
WBC 19.6 H Cancelled
Hgb 9.2 L Cancelled
Hct 28.4 L Cancelled
Plt Count 382 D Cancelled
PT 16.7 H
INR 1.33
APTT 35.5 H
Sodium 138
Potassium 4.9 D
Chloride 107
Carbon Dioxide 23
BUN 48 H
Creatinine 3.2 H
Glucose 197 H
Calcium 9.5
Total Bilirubin 0.7
AST 65 H
ALT 24
Alkaline Phosphatase 85
10/13/24
14:00
WBC
Hgb
Hct
Plt Count
PT
INR
APTT Pending
Sodium
Potassium
Chloride
Carbon Dioxide
BUN
Creatinine
Glucose
Calcium
Total Bilirubin
AST
ALT
Alkaline Phosphatase
Vital Signs:
Vital Signs
Temp Pulse Resp BP Pulse Ox
99.8 F 90 31 106/69 99
10/13/24 05:36 10/13/24 08:45 10/13/24 08:45 10/13/24 08:45 10/13/24 08:45
Review of Systems
-
History Source: Patient
All other systems: Reviewed and negative
Constitutional: Reports Fatigue
Respiratory: Reports Cough and Trouble Breathing (Much improved since admission, he is needing nasal cannula (no baseline oxygen at home))
Abdomen/GI: Reports Other (PEG tube in place)
Physical Exam
-
General: Well Developed, Well Nourished, No Apparent Distress, Comfortable, Conversant and Other (Sitting up comfortably in bed with nasal cannula in place, friend at bedside)
HEENT: Normocephalic, Atraumatic and Moist Mucous Membranes
Respiratory: Clear to Auscultation, Non Labored Respirations and Decreased Breath Sounds
Cardiac: Regular Rhythm and S1/S2
GI: Soft, Nontender, Nondistended and Peg Tube
Musculoskeletal: No Clubbing, No Cyanosis, No Edema and Other (Diffuse bruising and skin tears secondary to blood draws and IVs)
Skin: Warm, Dry and Rash
Neuro: AO x 3
Psych: Calm and Intact Judgement/Insight
--- NOTE | 2024-10-13 09:34 | CON.INTV ---
Addendum entered and electronically signed by Amanda Bauer MD 10/13/24 12:31:
Pt has been downgraded to IMU.
Pulmonary will follow briefly
Original Note:
Consultation
Consultation Request
Date/Time Consultation Requested: 10/13
Date/Time Consultation Performed: 10/13
Reason for Consultation: Sepsis, hypotension, shortness of breath
Medical History
-
History of Present Illness:
History obtained from the patient, , medical records. Patient is a pleasant 84-year-old male, recently discharged from [facility] 10/08 to [facility], status post acute sigmoid diverticulitis, status post recent feeding tube placement for
esophageal dysphagia, history of stroke with left hemiplegia, atrial fibrillation on Eliquis, chronic kidney disease stage IV followed at [place] (refusing dialysis), with recent history of UTI discharged 09/23 to [facility], readmitted because of
nausea, weakness, dysphagia. Patient underwent EGD and PEG tube placement 10/06, discharged to [facility]. Patient developed increased shortness of breath over the last 24 hours, brought to [facility] where upon arrival, pulse 115 breathing
at 38, 89%, temperature 99.8. Patient was given nebulized therapy, placed on BiPAP. Chest x-ray suggestive likely heart failure, difficult to rule out pneumonia. Patient was given Zosyn therapy. Patient required pressors, admitted to ICU for
further management 10/13/2024
Upon arrival, patient was on BiPAP without complaints. He denies shortness of breath, abdominal pain, nausea, chest pain. He is asking for BiPAP mask to be removed
.
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
2021, bedridden, atrial fibrillation status post PVI on chronic anticoagulation, hypertension, hyperlipidemia, GERD, sleep apnea, history of UTI with urinary retention
Past Medical History
Past Medical History: None (See above)
Past Surgical History: None (See above)
Social History
Tobacco: Former Smoker (Quit many decades ago)
Alcohol: None
Drug: None
Personal:
Living: [facility]
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
Family History
Family History: Other (2 children healthy)
Allergies / Home Medications
Allergies
Allergy/AdvReac Type Severity Reaction Status Date / Time
cat dander Allergy Swelling Verified 10/02/24 15:56
lisinopril Allergy Unknown Verified 10/02/24 15:56
losartan Allergy lip Verified 10/02/24 15:56
swelling
lovastatin Allergy myalgias Verified 10/02/24 15:56
mirabegron (From Myrbetriq) Allergy lips Verified 10/02/24 15:56
swellling
tamsulosin HCl (From Flomax) Allergy facial Verified 10/02/24 15:56
itching,dizziness
venom-honey bee (bee venom Allergy Anaphylaxis Verified 10/02/24 15:56
(honey bee))
Home Medications
�Medication �Instructions �Recorded �Confirmed �Last Taken �Type
bisacodyl 10 mg rectal suppository 10 mg [place] DAILYPRN PRN if no bm 10/02/24 10/13/24 Unknown History
(Dulcolax (bisacodyl)) aftr mom, give on day 5
acetaminophen 325 mg tablet 650 mg (2 x 325 mg) feeding tube 10/08/24 10/13/24 10/10/24 Rx
Q4HPRN PRN mild pain/ fever>100.5F
#0 tabs
cholecalciferol (vitamin D3) 25 25 mcg feeding tube DAILY 10/08/24 10/13/24 10/12/24 Rx
mcg (1,000 unit) tablet Supplement #0 tabs
cyanocobalamin (vitamin B-12) 1,000 mcg feeding tube DAILY 10/08/24 10/13/24 10/12/24 Rx
1,000 mcg tablet deficiency #90 tabs
famotidine 20 mg tablet (Pepcid) 20 mg feeding tube DAILY 10/08/24 10/13/24 10/12/24 Rx
Gastrointestinal Issue #0 tabs
ferrous sulfate 325 mg (65 mg 325 mg feeding tube DAILY 10/08/24 10/13/24 10/12/24 Rx
iron) tablet (iron) Supplement #0 tabs
furosemide 40 mg tablet (Lasix) 40 mg feeding tube QPM Fluid 10/08/24 10/13/24 10/12/24 Rx
Retention/Swelling #0 tabs
metoclopramide HCl 10 mg tablet 10 mg feeding tube AC 10/08/24 10/13/24 10/12/24 Rx
(Reglan) Gastrointestinal Issue #0 tabs
polyethylene glycol 3350 17 gram 17 g feeding tube DAILYPRN PRN 10/08/24 10/13/24 Unknown Rx
oral powder packet CONSTIPATION #0 ea
rosuvastatin 40 mg tablet (Crestor) 40 mg feeding tube QPM High 10/08/24 10/13/24 10/12/24 Rx
Cholesterol #0 tabs
sertraline 25 mg tablet 12.5 mg (1/2 x 25 mg) feeding tube 10/08/24 10/13/24 10/12/24 Rx
HS Depression #0 tabs
spironolactone 25 mg tablet 25 mg feeding tube DAILY Fluid 10/08/24 10/13/24 10/12/24 Rx
Retention/Swelling #0 tabs
therapeutic multivitamin 1 tab feeding tube DAILY 10/08/24 10/13/24 10/12/24 Rx
Supplement #0 tabs
amoxicillin 250 mg-potassium 10 ml feeding tube TID Infection 10/13/24 10/13/24 10/12/24 History
clavulanate 62.5 mg/5 mL oral
suspension (Augmentin)
apixaban 2.5 mg tablet (Eliquis) 2.5 mg feeding tube BID Blood Clot 10/13/24 10/13/24 10/12/24 History
Prevention/Tx
capsaicin 0.075 % topical cream 1 applic topical Q8H right shoulder 10/13/24 10/13/24 10/12/24 History
carvedilol 12.5 mg tablet 12.5 mg feeding tube DAILY Blood 10/13/24 10/13/24 10/12/24 History
Pressure
carvedilol 6.25 mg tablet 6.25 mg feeding tube QPM Blood 10/13/24 10/13/24 10/12/24 History
Pressure
fluticasone 250 mcg-salmeterol 50 2 inh inhalation R BID 10/13/24 10/13/24 10/12/24 History
mcg/dose blistr powdr for Lung/Breathing Issues
inhalation (Advair Diskus)
guaifenesin 100 mg/5 mL oral liquid 400 mg feeding tube Q6HPRN PRN 10/13/24 10/13/24 10/13/24 History
cough
ipratropium 0.5 mg-albuterol 3 mg 3 ml inhalation R Q6HPRN PRN sob 10/13/24 10/13/24 10/13/24 History
(2.5 mg base)/3 mL nebulization
soln
magnesium hydroxide 400 mg/5 mL 2,400 mg PO [id number] PRN if no bm 10/13/24 10/13/24 Unknown History
oral suspension (Milk of Magnesia) on 3rd give on 4th day
Review of Systems
-
All other systems: Negative unless noted
Vitals / Labs / Diagnostic Testing
Vital Signs
Temp Pulse Resp BP Pulse Ox
99.8 F 90 31 106/69 99
10/13/24 05:36 10/13/24 08:45 10/13/24 08:45 10/13/24 08:45 10/13/24 08:45
Lab Data
10/13/24 06:58
10/13/24 05:18
Laboratory Results
10/13/24
07:07
PT 16.7 H
INR 1.33
APTT 35.5 H
Microbiology
10/13/24 05:18 Nasal Swab Influenza Types A & B (AMBREEN) - Final
Negative for Influenza A & B, NAAT
Negative results must be combined with clinical observations
and patient history.
Nucleic Acid Amplification test (NAAT)performed on the
[employer] platform.
Diagnostic Testing:
Physical Exam
-
HEENT: Normocephalic and Anicteric
Cardiovascular: S1/S2, Irregular Rhythm, Murmur (n), Rub (n) and Peripheral Edema (tr)
Respiratory: Wheeze (n), Rales (n), Rhonchi (n) and Accessory Resp Muscle Use (Mild with conversation)
GI: Soft, Non Distended (Obese), Non Tender and Other (Feeding tube)
Neurology: Awake, Alert, Oriented and No Motor Deficits (Moves all extremities)
Skin: Other (Scattered bruising)
General: Comfortable
Assessment
-
84-year-old male with complex medical history, chronic kidney disease stage IV, recent hospital stay for UTI, esophageal dysphagia status post feeding tube placement 10/06, presents with hypoxic respiratory insufficiency requiring BiPAP, elevated
troponin, questionable heart failure per chest x-ray. Patient with hypotension requiring pressors, admitted to ICU for further management. Patient started on heparin drip and aspirin. Patient Eliquis therapy has been held.
Acute hypoxic respiratory insufficiency
89%, required BiPAP
Bilateral infiltrates
Suspected acute congestive heart failure
Elevated proBNP
Hypotension
Cardiac versus sepsis
Atrial fibrillation on Eliquis
Currently held
Leukocytosis
Anemia, baseline hemoglobin 8.4
Conditions present prior to admission
History of stroke with left-sided hemiplegia 2021
Status post TNK
Med regimen, per patient/family
Chronic kidney disease stage IV
Refusing hemodialysis per family
Recent acute diverticulitis, hospitalized September 2024
Esophageal dysphagia
Status post feeding tube placement 10/06/2024
Coronary disease status post stent 2012
Hypertension/hyperlipidemia
History of asthma
Obstructive sleep apnea, not treated
BPH
DNR
Plan/recommendations
At this time, patient remains critically ill, on BiPAP, requiring pressors ED records reviewed
Chest x-ray concerning for heart failure
Elevated troponin noted. Heparin therapy started
Patient also required NIV in the ED
Echocardiogram January 2024 with normal biventricular function, evidence of diastolic dysfunction
EKG with nonspecific ST-T wave changes, ST depression laterally
Moving forward
Systolic pressure in the 70s, currently 100/60s on norepinephrine
Did not receive Lasix therapy due to hypotension
Empiric antibiotics, Zosyn therapy given
Recent hospital stay for UTI noted and acute diverticulitis
Patient denies any abdominal symptoms. Abdominal exam is benign
Continue with supportive care
Aspirin therapy, heparin therapy for elevated troponin
Cardiology following
Doubt infectious pneumonitis but for now we will continue with broad-spectrum antibiotics given recent hospital stay and multiorgan dysfunction
BiPAP therapy as needed. Patient presently does not want any BiPAP therapy
Anemia noted. Baseline hemoglobin seems to be around 8.1
Follow-up. No evidence of bleeding at this time
Heparin therapy continues, Eliquis is held
Recent echocardiogram January 2024 with normal biventricular function
Patient has made it clear that he does not want any aggressive management confirming DNR/DNI
In fact, he does not even want BiPAP therapy
Per discussion with family (), awaiting arrival of son from [place] and awaiting to contact son who lives in [place]
Considering transition to comfort measures once family present
Continue with supportive care for now
Reviewed with critical care nursing, respiratory care
Updated length with cardiology, primary service
Reviewed plan with
TCCT 35 min
[2024-10-13 10:06] LABS: Glucose - Point of Care 139 mg/dl (70-99)
[2024-10-13 10:26] LABS: Magnesium 2.0 mg/dl (1.6-2.3)
[2024-10-13] MEDS: COREG TUBE (10:43)
[2024-10-13] MEDS: PEPCID 20 MG TUBE (11:01)
[2024-10-13] MEDS: TYLENOL 650 MG TUBE ×2 (11:01→17:44)
[2024-10-13] MEDS: DESENEX/MITRAZOL/ZEASORB 1 APPLIC TOPICAL ×2 (12:29→22:06)
--- NOTE | 2024-10-13 13:24 | PTCARENOTE ---
Received pt around 0930 from ED on heparin and levo gtts as charted. Pt was also on bipap, asking if mask could be removed. Once pt settled, denied sob and approved by Dr Bauer, transitioned to 3l nasal cannula. Pt with mild increased work of
breathing with laying flat, but denies sob. Pt yelling with most repositioning r/t discomfort, medicated as charted. Peg tube in place. Condom cath re-applied. Pt had refused st cath in ED. Pt with multiple skin tears, masd groin/perineum and
blanchable heels. Protective foams applied as charted. Pt currently with at bedside, reading. Otherwise please see work list.
[2024-10-13 14:16] LABS: Urine Character Clear (Clear)
[2024-10-13 14:33] LABS: APTT 82.4 Sec (23.4-35.0)
[2024-10-13 14:45] LABS: Troponin I 25.600 ng/ml
--- NOTE | 2024-10-13 14:49 | W.CON.NEPH ---
Consultation
-
Date/Time Consultation Requested: October 13, 2024 at 1 PM
Date/Time Consultation Performed: October 13, 2024 at 2:30 PM
Requesting Provider: Talya Hernández
Performing Provider: Dr. Cortez
Reason for Consultation: Acute on chronic kidney disease
Medical History
-
Chief Complaint: Acute on chronic kidney disease
History of Present Illness:
This is an 84-year-old gentleman who has CKD 4 baseline with past medical history significant for proximal atrial fibrillation, CVA, CAD, CHF with preserved EF, CKD stage IV, recent admission for acute diverticulitis status post total antibiotics
and he was found to have dysphagia at that time and is now status post PEG tube placement who presents to the emergency department with acute onset of shortness of breath.
After discharge on 813 patient was sent to [facility]. At [facility] he has been feeding he is using the PEG tube and he has had increased fluid intake according to spouse via the PEG tube. Apparently had some increase in fluid retention per family
member
Today he complained of severe shortness of breath and he had to be transferred to the emergency department as the mini neb was ineffective and he became hypoxic. He arrived in the emergency department on BiPAP.
In the emergency department he was satting 99%, blood pressure was 139/71, respiratory rate mid 30s and was tachycardic to 110. ECG shows sinus rhythm at 100, ST depressions in leads V5 V6 and downsloping ST segments in lead I. Was found to have a
troponin of 11, BNP greater than 27,000.
Chest x-ray shows multifocal opacities. CBC shows a white count of 19. CBC otherwise unremarkable. Electrolytes with stable with a bicarb of 24, BUN 48 and creatinine of 3.2 which is at baseline. Influenza negative, COVID test negative.
Renal consult for chronic kidney disease with oliguria. He was seen in the ICU on low-dose of pressor support and minimal urine output via Ramirez catheter
Past Medical History
L hemiplegia s/p CVA, A-Fib, CKD. Urinary retention
Social History
Tobacco: Non-Smoker
Alcohol: None
Family History
Family History: Not Pertinent
Allergies / Home Medications
Allergy/AdvReac Type Severity Reaction Status Date / Time
cat dander Allergy Swelling Verified 10/02/24 15:56
lisinopril Allergy Unknown Verified 10/02/24 15:56
losartan Allergy lip Verified 10/02/24 15:56
swelling
lovastatin Allergy myalgias Verified 10/02/24 15:56
mirabegron (From Myrbetriq) Allergy lips Verified 10/02/24 15:56
swellling
tamsulosin HCl (From Flomax) Allergy facial Verified 10/02/24 15:56
itching,dizziness
venom-honey bee (bee venom Allergy Anaphylaxis Verified 10/02/24 15:56
(honey bee))
�Medication �Instructions �Recorded �Confirmed �Type
bisacodyl 10 mg rectal suppository 10 mg [place] DAILYPRN PRN if no bm 10/02/24 10/13/24 History
(Dulcolax (bisacodyl)) aftr mom, give on day 5
acetaminophen 325 mg tablet 650 mg (2 x 325 mg) feeding tube 10/08/24 10/13/24 Rx
Q4HPRN PRN mild pain/ fever>100.5F
#0 tabs
cholecalciferol (vitamin D3) 25 25 mcg feeding tube DAILY 10/08/24 10/13/24 Rx
mcg (1,000 unit) tablet Supplement #0 tabs
cyanocobalamin (vitamin B-12) 1,000 mcg feeding tube DAILY 10/08/24 10/13/24 Rx
1,000 mcg tablet deficiency #90 tabs
famotidine 20 mg tablet (Pepcid) 20 mg feeding tube DAILY 10/08/24 10/13/24 Rx
Gastrointestinal Issue #0 tabs
ferrous sulfate 325 mg (65 mg 325 mg feeding tube DAILY 10/08/24 10/13/24 Rx
iron) tablet (iron) Supplement #0 tabs
furosemide 40 mg tablet (Lasix) 40 mg feeding tube QPM Fluid 10/08/24 10/13/24 Rx
Retention/Swelling #0 tabs
polyethylene glycol 3350 17 gram 17 g feeding tube DAILYPRN PRN 10/08/24 10/13/24 Rx
oral powder packet CONSTIPATION #0 ea
rosuvastatin 40 mg tablet (Crestor) 40 mg feeding tube QPM High 10/08/24 10/13/24 Rx
Cholesterol #0 tabs
sertraline 25 mg tablet 12.5 mg (1/2 x 25 mg) feeding tube 10/08/24 10/13/24 Rx
HS Depression #0 tabs
spironolactone 25 mg tablet 25 mg feeding tube DAILY Fluid 10/08/24 10/13/24 Rx
Retention/Swelling #0 tabs
therapeutic multivitamin 1 tab feeding tube DAILY 10/08/24 10/13/24 Rx
Supplement #0 tabs
amoxicillin 250 mg-potassium 10 ml feeding tube TID Infection 10/13/24 10/13/24 History
clavulanate 62.5 mg/5 mL oral
suspension (Augmentin)
apixaban 2.5 mg tablet (Eliquis) 2.5 mg feeding tube BID Blood Clot 10/13/24 10/13/24 History
Prevention/Tx
capsaicin 0.075 % topical cream 1 applic topical Q8H right shoulder 10/13/24 10/13/24 History
carvedilol 12.5 mg tablet 12.5 mg feeding tube DAILY Blood 10/13/24 10/13/24 History
Pressure
carvedilol 6.25 mg tablet 6.25 mg feeding tube QPM Blood 10/13/24 10/13/24 History
Pressure
fluticasone 250 mcg-salmeterol 50 2 inh inhalation R BID 10/13/24 10/13/24 History
mcg/dose blistr powdr for Lung/Breathing Issues
inhalation (Advair Diskus)
guaifenesin 100 mg/5 mL oral liquid 400 mg feeding tube Q6HPRN PRN 10/13/24 10/13/24 History
cough
ipratropium 0.5 mg-albuterol 3 mg 3 ml inhalation R Q6HPRN PRN sob 10/13/24 10/13/24 History
(2.5 mg base)/3 mL nebulization
soln
magnesium hydroxide 400 mg/5 mL 2,400 mg PO [id number] PRN if no bm 10/13/24 10/13/24 History
oral suspension (Milk of Magnesia) on 3rd give on 4th day
metoclopramide HCl 10 mg tablet 10 mg feeding tube Q8H gerd 10/13/24 10/13/24 History
Review of Systems
-
Comfortable in the ICU no chest pain or shortness of breath currently
All other systems: Negative unless noted
Physical Exam
Vital Signs
Vital Signs
Temp Pulse Resp BP Pulse Ox
98.1 F 90 24 100/57 97
10/13/24 11:30 10/13/24 12:30 10/13/24 12:30 10/13/24 12:30 10/13/24 12:30
Lab Results
WBC Cancelled 10/13/24 06:58
RBC Cancelled 10/13/24 06:58
Hgb Cancelled 10/13/24 06:58
Hct Cancelled 10/13/24 06:58
Plt Count Cancelled 10/13/24 06:58
Sodium 138 mmol/L (135-145) 10/13/24 05:18
Potassium 4.9 mmol/L (3.5-5.1) D 10/13/24 05:18
Chloride 107 mmol/L (98-107) 10/13/24 05:18
Carbon Dioxide 23 mmol/L (22-30) 10/13/24 05:18
BUN 48 mg/dl (9-20) H 10/13/24 05:18
Creatinine 3.2 mg/dL (0.7-1.3) H 10/13/24 05:18
eGFR 18.61 10/13/24 05:18
Glucose 197 mg/dl (70-99) H 10/13/24 05:18
Calcium 9.5 mg/dl (8.4-10.2) 10/13/24 05:18
Phosphorus 4.3 mg/dl (2.5-4.5) 10/13/24 05:18
Mkr-M-Dxsmnitaabv Pept > 52168 pg/ml 10/13/24 05:18
Albumin 3.2 g/dl (3.5-5.0) L 10/13/24 05:18
Physical Exam
General no acute distress
HEENT no cephalic atraumatic extraocular muscle intact no scleral icterus no JVD neck supple
lungs clear to auscultation bilateral
heart regular S1-S2 positive
abdomen soft nontender positive bowel sounds
extremities no edema pulses present bilateral
Neurologically nonfocal alert and oriented x 3
Skin no lesions no abrasions no petechiae
Psych normal affect no bizarre behavior
Data Reviewed
-
Radiology: Image Personally Visualized and interpreted
Assessment/Plan
-
83y M with L hemiplegia s/p CVA, A-Fib, CKD. Presents with shortness of breath
Impression.
Chronic kidney disease stage IV with baseline creatinine labile discharge creatinine 10/10-2.8 with a presenting creatinine of 3.2/follows with nephrology in [place]
NSTEMI
Aspiration pneumonia
A-fib
Heart failure preserved ejection fraction
Status post PEG
Plan.
Pressors
Hold diuretics
Cardiology noted for NSTEMI= conservative therapy profound/IV heparin
Previous discussions with the patient and family no dialysis if needed
Again the patient reiterated to me that he would not want dialysis
No acute need for dialysis at this time despite
Antibiotics
Maintain Ramirez cath
33 minutes critical care
[2024-10-13 15:16] LABS: Urine Red Blood Cell 26-30 /HPF (0-2); Urine White Cell 30-40 /HPF (0-5)
--- NOTE | 2024-10-13 15:47 | PTCARENOTE ---
Systems reviewed. No new changes. Family at bedside t/o shift. Otherwise see work list.
--- NOTE | 2024-10-13 16:59 | W.PN.UPDATE ---
Update Note
Progress Note Update
Patient seen and examined after 0643 admission this morning. Currently the patient is asymptomatic. Denies chest pain or shortness of breath. States he feels 'fine.' 107/64, 90, 24, 97.5 �F, 99% on 3L NC O2. NAD, awake and alert. RRR, normal
S1/S2, CTAB, CN2-12 intact. proBNP > 27,000, Trop 25 (uptrending), Cr 3.2, WBC 19. CXR: Low lung volumes. Diffuse increased interstitial opacity likely related to interstitial edema. Left basilar opacification which could be related to atelectasis
or less likely pneumonia. I suspect that the patient had an aspiration event that led to acute hypoxemic respiratory failure that led to NSTEMI resulting in cardiogenic shock/pulmonary edema. I highly doubt the patient has bacterial pneumonia.
This was discussed at length with the patient and his and son at bedside.
[2024-10-13] MEDS: CRESTOR 40 MG PO (17:44)
[2024-10-13 17:54] LABS: Glucose - Point of Care 106 mg/dl (70-99)
[2024-10-13] MEDS: NOVOLOG FLEXPEN-LOW RESISTANCE SC ×2 (18:11→23:53)
[2024-10-13] MEDS: ADVAIR HFA 115/21 MCG INHALER 2 PUFF INH (20:16)
[2024-10-13 20:20] LABS: APTT 133.9 Sec (23.4-35.0)
[2024-10-13 20:33] LABS: Troponin I 29.700 ng/ml
--- NOTE | 2024-10-13 20:54 | PTCARENOTE ---
Assumed care of pt at 1900. Pt is A/O x4, somewhat flat affect, slow/garbled speech occasionally but overall can be understood. No c/o pain. Received pt on Heparin drip at 1000 units/hr, see med titration flowsheet for further titration details.
Currently on 2LNC. SR on monitor with PACs and PVCs. See nursing shift assessment flowsheet for full physical assessment details.
[2024-10-13] MEDS: ZOLOFT 12.5 MG TUBE (22:06)
[2024-10-14] VITALS (12 sets, daily range): BP systolic 97–138; BP diastolic 54–85; PULSE 4–99; BMI 30.6
[2024-10-14 00:03] LABS: Glucose - Point of Care 132 mg/dl (70-99)
[2024-10-14] MEDS: ZOSYN 50 IV ×2 (01:41→06:31)
[2024-10-14 03:40] LABS: APTT 86.5 Sec (23.4-35.0)
[2024-10-14 04:21] LABS: Blood Urea Nitrogen 61 mg/dl (9-20); Calcium 9.1 mg/dl (8.4-10.2); Carbon Dioxide 23 mmol/L (22-30); Chloride 106 mmol/L (98-107); Estimated Creatinine Clearance 20 ml/min; Glucose 122 mg/dl (70-99); Magnesium 2.2 mg/dl (1.6-2.3); Potassium 4.9 mmol/L (3.5-5.1); Sodium 137 mmol/L (135-145); eGFR 16.16
--- NOTE | 2024-10-14 05:52 | PTCARENOTE ---
Pt remains on 2LNC, had x1 episode of acute SOB and increase WOB earlier in the shift (just before midnight), PRN duoneb administered by RT and pt was agreeable to go back on bipap. He tolerated bipap for about 1.5 hours, then was taken off and
placed back on 2LNC, pt states that 'his lungs feel so much clearer now'. Has been sleeping most of the shift.
[2024-10-14 06:11] LABS: Glucose - Point of Care 157 mg/dl (70-99)
[2024-10-14] MEDS: NOVOLOG FLEXPEN-LOW RESISTANCE 1 UNITS SC (06:31)
[2024-10-14 06:39] LABS: Hematocrit 21.5 % (39.0-52.0); Hemoglobin 6.9 g/dL (13.0-18.0); Mean Corp Hgb Conc. 32.1 g/dL (33.0-37.0); Mean Corpuscular Volume 93.1 fL (80.0-94.0); Platelet Count 285 10^3/uL (130-400); Red Cell Dist. Width 17.7 % (11.5-14.5)
--- NOTE | 2024-10-14 07:18 | W.PN.UPDATE ---
Update Note
Progress Note Update
hgb dropped to 6.9 from 9.2. type and screen and consent obtained. No active bleeding, no hematoma noted, Abdomen little distended +BS 4quad. will order US abdomen, heme test. repeat h&h. Resident yancy made aware., hold Heparin at present. Patient
denies any dizziness or lightheadedness.
[2024-10-14] MEDS: ADVAIR HFA 115/21 MCG INHALER 2 PUFF INH (07:29)
--- NOTE | 2024-10-14 07:39 | W.PN.INTV ---
Addendum entered and electronically signed by Amanda Bauer MD 10/14/24 16:20:
Patient transitioned to comfort measures
We will sign off. Please call with questions
Addendum entered and electronically signed by Amanda Bauer MD 10/14/24 10:06:
Patient with episodic periods of shortness of breath
Placed on BiPAP, only tolerated for 7 minutes, demanded removal
Discussed low-dose morphine to help with shortness of breath
Critical care nursing contacted and spoke about low-dose morphine. is agreeable but would like to wait for her arrival
Ongoing discussion regarding goals of care, palliative care, hospice
This was brought up briefly by myself with the patient when discussing morphine
Original Note:
Today's Communication / Plan
Recommendations
Continue with supportive care
Chest x-ray consistent with heart failure, effusions, bilateral infiltrates
BiPAP as needed and nightly
DuoNebs as needed
Ongoing discussion regarding goals of care
Assessment
-
84-year-old male with complex medical history, chronic kidney disease stage IV, recent hospital stay for UTI, esophageal dysphagia status post feeding tube placement 10/06, presents with hypoxic respiratory insufficiency requiring BiPAP, elevated
troponin, questionable heart failure per chest x-ray. Patient with hypotension requiring pressors, admitted to ICU for further management. Patient started on heparin drip and aspirin. Patient Eliquis therapy has been held.
Acute hypoxic respiratory insufficiency
89%, required BiPAP
Bilateral infiltrates
Suspected acute congestive heart failure
Elevated proBNP
Hypotension
Cardiac versus sepsis
Atrial fibrillation on Eliquis
Currently held
Leukocytosis
Anemia, baseline hemoglobin 8.4
Currently 7.6
Conditions present prior to admission
History of stroke with left-sided hemiplegia 2021
Status post TNK
Med regimen, per patient/family
Chronic kidney disease stage IV
Refusing hemodialysis per family
Recent acute diverticulitis, hospitalized September 2024
Esophageal dysphagia
Status post feeding tube placement 10/06/2024
Coronary disease status post stent 2012
Hypertension/hyperlipidemia
History of asthma
Obstructive sleep apnea, not treated
BPH
DNR
Plan/recommendations
At this time, patient complaining of shortness of breath, nausea. Had mild emesis this morning
Yesterday p.m., felt BiPAP helps
Patient not sure where the nebulizer helps
Chest x-ray concerning for heart failure
Elevated troponin noted. Heparin therapy started, now held due to drop in hemoglobin
Echo 10/13 with normal biventricular function, inferolateral akinesis, LVH. There is pleural effusion noted
EKG with nonspecific ST-T wave changes, ST depression laterally
CXR this morning 10/14 with persistent findings consistent with heart failure and pleural effusions
Moving forward
Systolic pressure in the 70s, currently 100/60s on norepinephrine
Did not receive Lasix therapy due to hypotension, held per nephrology
Empiric antibiotics, Zosyn therapy given
Recent hospital stay for UTI noted and acute diverticulitis
Patient denies any abdominal symptoms. Abdominal exam is benign
Continue with supportive care
Aspirin therapy, heparin therapy for elevated troponin, currently held for hemoglobin
-type and screen pending, transfusion pending per primary service
Cardiology following
Doubt infectious pneumonitis but for now we will continue with broad-spectrum antibiotics given recent hospital stay and multiorgan dysfunction
BiPAP therapy as needed. Patient presently does not want any BiPAP therapy
Encouraged BiPAP therapy as it seems to help his breathing
Anemia noted. Baseline hemoglobin seems to be around 8.1, currently 7.6
No evidence of bleeding at this time
Mild abdominal distention but no pain noted
Heparin held, Eliquis is held
Echocardiogram 10/13 without obvious ventricular dysfunction
Patient has made it clear that he does not want any aggressive management confirming DNR/DNI
In fact, he does not even want BiPAP therapy
Per discussion with family (), awaiting arrival of son from [place] and awaiting to contact son who lives in [place]
Considering transition to comfort measures once family present
Consider morphine as needed for shortness of breath
Reviewed with critical care nursing, respiratory care
Disposition efforts
Subjective Dataa
Subjective Data
Date of Service:
Date of Service: October 14, 2024
Subjective:
Patient not feeling well. Had episode of shortness of breath yesterday p.m. improved BiPAP. Had another episode this morning followed by episode of small emesis. Patient denies nausea at this time, denies chest pain or shortness of breath.
Hemoglobin drop noted
Objective Data
Data Reviewed
Vital Signs / I&O / Oxygen:
Vital Signs
Temp Pulse Resp BP Pulse Ox
98.3 F 89 20 111/63 100
10/14/24 07:16 10/14/24 07:33 10/14/24 07:33 10/14/24 06:00 10/14/24 07:33
Intake and Output
10/13/24 10/14/24 10/15/24
06:59 06:59 06:59
Intake Total 951.9 / 951.9
Output Total /
Balance 941.9 / 941.9
SaO2 100
Nasal Cannula flow liters per 2
minute
Physical Exam
General: Respiratory Distress (Mild use of accessory muscles)
HEENT: Normocephalic, Anicteric and Other (Large neck)
Cardiovascular: S1-S2, Regular Rhythm, Murmur (n), Rub (n) and Peripheral Edema (tr)
Respiratory: Wheeze (n), Crackles (n), Rhonchi (few), Accessory Resp Muscle Use (Mild use of accessory muscles) and Stridor (n)
GI: Soft, Non Distended, Non Tender (Obese) and Feeding Tube
Neurology: Awake, Alert and No Motor Deficits (Moves all extremities, generally weak)
Skin: Good Color, Cyanosis (n) and Rash (n)
Labs/Micro/Reports
Lab Data
10/14/24 03:11
Laboratory Results
10/13/24 10/13/24 10/14/24
14:01 19:57 03:11
APTT 82.4 H 133.9 H 86.5 H
Microbiology
10/13/24 06:09 Blood/Venous Blood Culture - Preliminary
No Growth in 24 hours- Final report to follow
10/13/24 05:18 Blood/Venous Blood Culture - Preliminary
No Growth in 24 hours- Final report to follow
10/13/24 05:18 Nasal Swab Influenza Types A & B (AMBREEN) - Final
Negative for Influenza A & B, NAAT
Negative results must be combined with clinical observations
and patient history.
Nucleic Acid Amplification test (NAAT)performed on the
[employer] platform.
[2024-10-14] MEDS: DESENEX/MITRAZOL/ZEASORB 1 APPLIC TOPICAL (08:03)
[2024-10-14] MEDS: COMPAZINE 10 MG IV (08:03)
[2024-10-14] MEDS: PEPCID 10 MG TUBE (08:04)
[2024-10-14] MEDS: COREG 12.5 MG TUBE (08:04)
[2024-10-14 08:07] LABS: Hematocrit 23.2 % (39.0-52.0); Hemoglobin 7.6 g/dL (13.0-18.0)
[2024-10-14 09:00] LABS: Glycohemoglobin (HgbA1c) 6.5 % (4.0-5.6)
[2024-10-14] MEDS: DUONEB 3 ML INH (09:03)
--- NOTE | 2024-10-14 09:28 | W.CON.PAL ---
Consultation
-
Date/Time Consultation Requested: 10/13
Date/Time Consultation Performed: 10/14
Requesting Provider: Nik Jane
Performing Provider: Gela Montoya
Reason for Consult: Goals of Care Discussion
Reason for Admission
Illness Course/HPI
84 year old M with PMH of L hemiplegia s/p CVA, paroxysmal A-Fib rate controlled and on Eliquis, CKD stage 4, urinary retention, HLD, asthma, GERD, anxiety, BPH, KLAUS. Recently admitted 09/16/2024 through 09/23/2024 for management of UTI. Discussion
of hospice at that time and declined. Worsening renal function but improved - does not want HD. Also admitted 10/02-10/08 for diverticulitis, dysphagia s/p EGD with PEG placement and discharged to [facility]. Returns with respiratory failure 2/2 possible
aspiration event, xray consistent with heart failure and effusions. Currently in ICU requiring pressors, bipap.
Seen at bedside with no family present. BIPAP in place and patient is restless asking for it to be removed. Discussions in past and patient does not want HD if it comes to that, also stating he does not want anything aggressive and is DNR/DNI. Last
admission was debating hospice but then opted for PEG and SNF placement.
Attempted to call this AM, no answer. Left a message with both my cell phone and office number for call back. Will update if i receive a call back
Objective Data
-
Objective Data:
Vital Signs
Temp Pulse Resp BP Pulse Ox
98.3 F 84 31 111/63 98
10/14/24 07:16 10/14/24 09:04 10/14/24 09:04 10/14/24 06:00 10/14/24 09:04
Laboratory Results
10/14/24 07:55
10/14/24 03:11
PT 16.7 Sec (11.4-14.6) H 10/13/24 07:07
INR 1.33 10/13/24 07:07
APTT 86.5 Sec (23.4-35.0) H 10/14/24 03:11
Hemoglobin A1c 6.5 % (4.0-5.6) H 10/14/24 03:11
Total Protein 6.1 g/dl (6.3-8.2) L 10/13/24 05:18
Albumin 3.2 g/dl (3.5-5.0) L 10/13/24 05:18
Urine Color Yellow 10/13/24 14:01
Urine Clarity Clear (Clear) 10/13/24 14:01
Urine pH 5.0 (5.0-9.0) 10/13/24 14:01
Ur Specific [place] 1.015 (<1.030) 10/13/24 14:01
Urine Ketones Negative (Negative) 10/13/24 14:01
Urine Bilirubin Negative (Negative) 10/13/24 14:01
Palliative Performance Scale
Palliative Performance Scale:
PPS Level Ambulation Activity & Evidence of Disease Self Care Intake Conscious Level
100% Full Normal Activity & Work; Full Intake Full
No Evidence of Disease
90% Full Normal Activity & Work; Full Normal Full
Some Evidence of Disease
80% Full Normal Activity with Effort Full Normal or Full
Some Evidence of Disease Reduced
70% Reduced Unable Normal Job/Work Full Normal or Full
Significant Disease Reduced
60% Reduced Unable Hobby/Housework Occasional Normal or Full or Confusion
Significant Disease Assistance Reduced
50% Mainly Sit/Lie Unable to do Any Work Considerable Normal or Full or Confusion
Extensive Disease Assistance Req'd Reduced
40% Mainly in Bed Unable to do Most Activity Mainly Assistance Normal or Full or Drowsy;
Extensive Disease Reduced +/- Confusion
30% Totally Bed Unable to do Any Activity Total Care Normal or Full or Drowsy;
Bound Extensive Disease Reduced +/- Confusion
20% Totally Bed Bound Unable to do Any Activity Total Care Minimal to Full or Drowsy;
Extensive Disease Sips +/- Confusion
10% Totally Bed Bound Unable to do Any Activity Total Care Mouth Care Drowsy or Coma;
Extensive Disease Only +/- Confusion
0%
PPS Score Level:
Palliative Performance Score Response
Palliative Performance Score Response: 30%
Physical Exam
-
General: Appears in Distress and Appears Chronically Ill
HEENT: Normocephalic
Respiratory: Other (bipap )
Cardiac: Regular Rhythm
Peripheral Vascular: Edema, Right Lower Extremity and Edema, Left Lower Extremity
GI: Soft and Other (peg)
Skin: Warm
Neuro: Awake
Assessment / Plan
-
Assessment/Plan:
84 year old M with CKD4, dyphagia with recent PEG admitted with shock, heart failure.
- no family at bedside, patient requesting bipap removal
- called and left message for call back - will update if call back received
Care Reviewed
Data Reviewed
EKG Tracings: Report Reviewed
Chest X ray: Report Reviewed
Radiology procedure: Report Reviewed
Medical Tests: I reviewed
Reviewed with: Patient
--- NOTE | 2024-10-14 09:33 | PTCARENOTE ---
Went in to check on pt this am after his inhaler and found pt had vomited small amount of tube feeding, was tachypneic in 30s and reporting sob. All other vss wnl. Dr Mijares in to see pt and updated. Pt denied nausea prior to or after vomiting.
Did c/o 'forehead' headache. Order obtained for compazine and cxr. TF placed on hold. Dr Bauer also in and updated. Dr Bauer spoke to pt about morphine/goc and pt was agreeable to morphine. Call placed by myself to update to events and
she was also in agreement with morphine once she arrived.
--- NOTE | 2024-10-14 09:41 | W.PN.UPDATE ---
Update Note
Progress Note Update
I saw and evaluated the patient. I reviewed the resident�s note and agree with findings and plan as documented in the resident�s note.
Pt c/o SOB.
Gen: Appears dyspneic/short of breath, AAOx3.
Eyes: EOMI, PERRLA, no scleral icterus.
Neck: supple.
CV: remains RRR, +S1/S2, no m/r/g.
Resp: dec BS in the bases, otherwise CTAB, no rales, wheezes, or rhonchi.
Abd: +BS, soft, NT, ND
Skin: No rashes.
Neuro: remains CN 2-12 intact, non-focal.
Psych: Normal mood and affect.
Echo:
1. Ejection fraction is 55% by volumetric assesment.
2. Normal left ventricular function.
3. Compared to a prior transthoracic echocardiogram study from 02/07/24 There is now inferolateral akinesis.
4. Ascending aorta measures 3.8 cm.
5. Inferolateral akinesis.
6. Ascending aorta is mildly dilated.
7. Mild to moderate left ventricular hypertrophy.
8. Pleural effusion noted.
Acute hypoxic Respiratory failure due to B/L aspiration PNA:
-imaging above
-pt has been intolerant of BIPAP, currently on 6L NC O2
-cont Zosyn
-leukocytosis has resolved
-hold TFs for now
Acute NSTEMI:
-I suspect that the patient had an aspiration event AURIST that led to acute hypoxemic respiratory failure that led to NSTEMI resulting in cardiogenic shock resulting in acute HFpEF/pulm edema. Was on Levophed, now off.
-trop continues to trend upwards, now 29
-cont heparin gtt (Hb noted, no evidence of active bleeding currently)
-cardiology following
-echo above with new inferolateral hypokinesis
-pt/family confirmed on 10/13/24 that the pt would not want cardiac cath as pt would not want to be on HD (with CKD4 contrast from cardiac cath would surely lead to HD)
-cont Coreg/statin
-Lasix 40mg IV x 1 now
Paroxysmal atrial fibrillation:
-cont heparin gtt/coreg
F/E/N:
-recent PEG placement
LICHA on CKD4:
-renal following
-likely due to cardiogenic shock and PNA
Considering the patient's overwhelming burden of chronic and acute pathology, hospice is entirely appropriate. Patient is being followed by palliative care. I had an extensive conversation with the patient today, 10/14/2024. The patient
reconfirmed that he is DNR/DNI. He reconfirmed he would not want cardiac cath and does not want to end up on hemodialysis. I recommended using morphine to help with shortness of breath. I did explain that this could worsen his respiratory failure
and even lead to respiratory arrest. He verbally acknowledged understanding of this and would like to use morphine to help alleviate his shortness of breath this time. I did explain to the patient's that, based on his wishes and parameters of
care, that we can only treat his NSTEMI and PNA with medications. I did mention that hospice is an option and that the patient can consider this. He verbally acknowledged understanding of this.
Heparin gtt/DNR/DNI
[2024-10-14] MEDS: LASIX 40 MG IV (10:18)
[2024-10-14] MEDS: MORPHINE SULFATE 1 MG IV (11:03)
[2024-10-14 11:04] LABS: APTT 52.4 Sec (23.4-35.0)
--- NOTE | 2024-10-14 11:16 | W.PN.NEPH.PH ---
Today's Communication / Plan
-
Continue supportive care
If needed would give higher dose of diuretics for comfort
Assessment/Plan
-
83y M with L hemiplegia s/p CVA, A-Fib, CKD. Presents with shortness of breath
Impression.
Chronic kidney disease stage IV with baseline creatinine labile discharge creatinine /-2.8 with a presenting creatinine of 3.2/follows with nephrology in [place]
NSTEMI
Aspiration pneumonia
A-fib
Heart failure preserved ejection fraction
Status post PEG
Plan.
Pressors discontinue
Cardiology noted for NSTEMI= conservative therapy profound/IV heparin
Previous discussions with the patient and family no dialysis if needed
Again the patient reiterated to me that he would not want dialysis
No acute need for dialysis at this time despite
Antibiotics
Maintain condom cath
Clinical status worsening with worsening pulmonary status oligoanuric
40 mg IV Lasix given earlier today
Overall condition poor
is at the bedside and is aware
Continue supportive care
Discussed with ICU nurse
33 minutes critical care
-
-
Date of Service: October 14, 2024
CC / HPI / ROS
-
Chief Complaint:
Shortness of breath hypotension
History of Present Illness:
Acute on chronic kidney disease stage IV CHF
Review of Systems:
Decreased pulmonary status with wheezing shortness of
Oligoanuric
Labs
-
Labs:
WBC 10.8 10^3/uL (4.8-10.8) 10/14/24 06:03
RBC 2.31 10^6/uL (4.70-6.10) L 10/14/24 06:03
Hgb 7.6 g/dL (13.0-18.0) L 10/14/24 07:55
Hct 23.2 % (39.0-52.0) L 10/14/24 07:55
Plt Count 285 10^3/uL (130-400) D 10/14/24 06:03
Sodium 137 mmol/L (135-145) 10/14/24 03:11
Potassium 4.9 mmol/L (3.5-5.1) 10/14/24 03:11
Chloride 106 mmol/L (98-107) 10/14/24 03:11
Carbon Dioxide 23 mmol/L (22-30) 10/14/24 03:11
BUN 61 mg/dl (9-20) H 10/14/24 03:11
Creatinine 3.6 mg/dL (0.7-1.3) H 10/14/24 03:11
eGFR 16.16 10/14/24 03:11
Glucose 122 mg/dl (70-99) H 10/14/24 03:11
Calcium 9.1 mg/dl (8.4-10.2) 10/14/24 03:11
Phosphorus 4.1 mg/dl (2.5-4.5) 10/14/24 03:11
Ynh-[id number] Pept > 68512 pg/ml 10/13/24 05:18
Albumin 3.2 g/dl (3.5-5.0) L 10/13/24 05:18
Physical Exam
-
Vital Signs:
Vital Signs
Temp Pulse Resp BP Pulse Ox
98.3 F 84 31 111/63 98
10/14/24 07:16 10/14/24 09:04 10/14/24 09:04 10/14/24 06:00 10/14/24 09:04
--- NOTE | 2024-10-14 11:17 | W.PN.HOSP.TC ---
Today's Communication/Plan
-
Worsening SOB, not tolerating BiPAP
CXR showing bilateral lower lobe pneumonia, likely aspiration pneumonia
1 episode of emesis this morning, tube feeds held
Extensive discussion at bedside between Dr. Jane, Mr. Castillo, and his family: Mr. Castillo consented to using IV morphine as needed for SOB symptom relief. Palliative care following.
Appreciate store sales consultant recs
Assessment / Plan
Assessment / Plan
Mr. Castillo is an 84-year-old male with proximal atrial fibrillation, CVA, CAD s/p stenting, HFpEF, CKD stage IV, and recent admission for acute diverticulitis s/p total antibiotics and dysphagia s/p PEG tube placement who presented to the ED on
10/12/2024 from [facility] with acute hypoxic respiratory failure requiring BiPAP. In the ED, CXR showed multifocal opacities C/F multifocal pneumonia versus pulmonary edema, WBC 19.6, influenza and COVID-negative, BNP greater than 27,000, Trop 11.6
and 14.6 and pending 10/13/2024, NSTEMI with EKG showing ST depressions in the lateral leads. Other workup thus far has been unremarkable. He was admitted to the IMU and director of hemophilia team was consulted for workup and further management. On
10/14/2024, Mr. Castillo started feeling short of breath on NC. Stat CXR showed bilateral lower lobe pneumonia, possibly aspiration pneumonia. He was bumped up to 6L NC but continued to endorse SOB. He did not tolerate BiPAP. The director of hemophilia team
recommended using morphine to help with SOB. This decision was held until we were able to talk with Mr. Castillo family. As such, on 10/14/2024, Dr. Jane had an extensive discussion with family and Mr. Castillo at bedside regarding hospice care.
Jonathan confirmed again that he is DNR/DNI and that he would not want cardiac catheterization nor hemodialysis. Dr. Jane explained that using morphine would help his shortness of breath, but could also worsen his respiratory failure and even lead to
respiratory arrest. Mr. Castillo verbally understood this and said that he would like to use morphine to help alleviate his symptoms. Him and his family were left to think more about consideration of hospice.
Echo 10/13/2024:
1. Ejection fraction is 55% by volumetric assesment.
2. Normal left ventricular function.
3. Compared to a prior transthoracic echocardiogram study from 02/07/24 There is now inferolateral akinesis.
4. Ascending aorta measures 3.8 cm.
5. Inferolateral akinesis.
6. Ascending aorta is mildly dilated.
7. Mild to moderate left ventricular hypertrophy.
8. Pleural effusion noted.
#Acute hypoxic respiratory failure likely secondary to HAP and possibly cardiogenic shock, worsening
#Bilateral lower lobe aspiration pneumonia
#History of asthma
- Palliative care following
- Affirmative Action Officer consult, appreciate recs
--IV morphine 1 mg IV every 4 hours as needed for SOB symptom relief
- S/p BiPAP, now on nasal 6L NC cannula: He is not tolerating BiPAP
- Follow-up blood cultures
- IV Zosyn 2.25 g in 50 mL
- Hold IV Lasix 60 mg twice daily per nephrology: Hold off fluids ISO NSTEMI with ICM
- Continue supportive care with nebulizer, fluticasone, salmeterol as needed
- See above for discussion with family and Mr. Castillo about goals of care
#New NSTEMI with ICM
#Paroxysmal A-fib
#CHF exacerbation ISO history of HFpEF
#History of CAD s/p stenting
#History of essential hypertension
#History of CVA with left hemiparesis
- Cardiology consulted, appreciate recs
- Heparin drip 25,000 units / 250 mL
- S/p Levophed 4 mg, weaned 10/13/2024 afternoon
--Downgraded from ICU to IMU
- Continue aspirin 81 mg
- Continue rosuvastatin 40 mg every afternoon
- Continue carvedilol 6.25 mg every afternoon and 12.5 mg daily
- Hold diuresis, on Lasix 40 mg every afternoon at home
- Hold home spironolactone 25 mg daily
- Echo 10/13/2024 as above: EF 55%
#Dysphagia s/p PEG tube 10/06/2024
#History of acute sigmoid diverticulitis
#Emesis 10/14/2024
Bedside on the morning of 10/14/2024, Mr. Castlilo threw up some tube feeds. He did not feel nauseous. He was given a one-time dose of IV Compazine.
- Continue IV Zosyn 2.25 g in 50 mL
- Strict n.p.o.: All meds must be given through PEG tube
- Nutrition consulted for tube feeds, appreciate recs
--Hold tube feeds
- Continue bowel regimen with Dulcolax, MiraLAX
- Continue IV Zofran 4 mg every 6 hours as needed and famotidine 20 mg daily
--S/p one-time dose IV Compazine 10 mg 10/14/2024
#CKD4
- Nephrology consulted, appreciate recs
--Renally dose medications
--Hold home Lasix 40 mg daily and spironolactone 25 mg daily
--Maintain Ramirez cath
--Patient is not open to dialysis
#Depression
- Continue sertraline 12.5 mg at bedtime
Diet: Strict n.p.o., on tube feeds per nutrition
DVT prophylaxis: Heparin drip
CODE STATUS: DNR
Anticipated Discharge: > 48 hours (Pending clinical improvement)
Subjective/Interval History
-
Date of Service: October 14, 2024
-Around 7:30 AM this morning, overnight nurse alerted me that his hemoglobin was 6.9. Upon exam of Mr. Castillo, he endorsed feeling short of breath although was satting over 90% on 2L NC. See x-ray stat showed bilateral lobe pneumonia possibly
aspiration pneumonia.
-Bedside, he threw up small amount of tube feed. He denied feeling nauseous. I ordered IV Compazine and held his tube feeds. Repeat hemoglobin was 7.6.
-Later in the morning, around 9:30 AM, Lay (his nurse) sent my team a message saying that he is feeling short of breath and not tolerating BiPAP. She also said the director of hemophilia team is recommending morphine as needed to help with shortness of
breath. She was able to reach the and son, who stated they were on their way. Dr. Jane had an extensive discussion with family and Mr. Castillo at bedside regarding hospice care. Mr. Castillo confirmed again that he is DNR/DNI and that he would
not want cardiac catheterization nor hemodialysis. Dr. Jane explained that using morphine would help his shortness of breath but could also worsen his respiratory failure and even lead to respiratory arrest. Mr. Castillo verbally understood this and
said that he would like to use morphine to help alleviate his symptoms. Him and his family were left to think more about consideration of hospice.
Objective Data
-
Labs:
Laboratory Results
10/14/24 10/14/24 10/14/24
03:11 06:03 07:55
WBC Cancelled 10.8
Hgb Cancelled 6.9 L* D 7.6 L
Hct Cancelled 21.5 L 23.2 L
Plt Count Cancelled 285 D
APTT 86.5 H
Sodium 137
Potassium 4.9
Chloride 106
Carbon Dioxide 23
BUN 61 H
Creatinine 3.6 H
Glucose 122 H
Calcium 9.1
10/14/24
10:38
WBC
Hgb
Hct
Plt Count
APTT 52.4 H
Sodium
Potassium
Chloride
Carbon Dioxide
BUN
Creatinine
Glucose
Calcium
Vital Signs:
Vital Signs
Temp Pulse Resp BP Pulse Ox
98.3 F 84 31 111/63 98
10/14/24 07:16 10/14/24 09:04 10/14/24 09:04 10/14/24 06:00 10/14/24 09:04
I&O
10/13/24 10/14/24 10/15/24
06:59 06:59 06:59
Intake Total 951.9 / 951.9
Output Total
Balance 941.9 / 941.9
Review of Systems
-
History Source: Patient
All other systems: Reviewed and negative
Constitutional: Reports Weakness
Respiratory: Reports Trouble Breathing
Abdomen/GI: Reports Vomiting
Physical Exam
-
General: Well Developed, Well Nourished, Respiratory Distress and Appears Chronically Ill
HEENT: Normocephalic, Atraumatic and Moist Mucous Membranes
Respiratory: Wheezes, Accessory Resp Muscle Use and Decreased Breath Sounds
Cardiac: Regular Rhythm and S1/S2
GI: Soft, Nontender and Nondistended
Musculoskeletal: No Clubbing, No Cyanosis and No Edema
Skin: Warm and Dry
Psych: Calm and Intact Judgement/Insight
[2024-10-14] MEDS: HEPARIN 25000 UNITS/250 ML IV (11:36)
[2024-10-14 11:37] LABS: Glucose - Point of Care 122 mg/dl (70-99)
[2024-10-14] MEDS: NOVOLOG FLEXPEN-LOW RESISTANCE SC (11:39)
--- NOTE | 2024-10-14 11:47 | CM ---
Attempted initial assessment with patient and . RN requested to defer at that time. Patient had just told he was going to today. The couple were in discussion. Initial assessment completed via past admission and current medical
records. Patient was at [facility] and admitted to [facility] from 10/02/24 through 10/08/24. He was then discharged back to [facility] for resumption of STR. Then readmitted to [facility] on 10/13/24 for respiratory difficulties. Prior to the above, patient lived
with his in a 1 story home. He has a history of CVA and L hemiplegia. He used a hemiwalker or W/CH at home. He also has a commode, hospital bed and electric W/CH. He has a Peg tube which was inserted on last [facility] admission. Patient has CKD IV
and does not want dialysis, He has private pay aides at home on from 8:30-11:[address] AM[address] Wellington Reyes and Pharmacy is [facility] on [address] in [place]. Discharge POC: TBD. Physicians discussing GOC, palliative, hospice.
--- NOTE | 2024-10-14 13:20 | PTCARENOTE ---
Went in room to give scheduled abx and son mentioned I should ask pt if he wants them. When I asked pt, he shook his head no. Son asked pt if he still wanted heparin and he shook his head yes initially. Mentioned it is difficult at this point to
'pick and choose'. I asked him what his goal was and he said ' to exit quietly'. Warp Knitter Helper care offered and pt responded 'hell no' to chuckles all around. Attending and resident made aware. Orders to follow.
[2024-10-14] MEDS: ZOSYN IV (14:10)
--- NOTE | 2024-10-14 15:32 | W.PN.UPDATE ---
Update Note
Progress Note Update
Around 3:20pm, I met with Mr. Castillo and family at bedside along with Dr. Mendoza and Mr. Castillo's nurse Agatha. We explained comfort care medications and protocol. Mr. Castillo was in full agreement with the understanding of what comfort care entails,
including that we would be discontinuing medications and labs that would not be beneficial for quality of his life nor comfort. We also discussed starting medications to help him feel more comfortable and went over expected course. Mr. Castillo and
family were in agreement that this is what he wanted. As such, we placed comfort care orders and discontinued his hospital medications that were not in alignment with the concept of comfort care.
[2024-10-14] MEDS: DILAUDID 50 IV (15:53)
[2024-10-14] MEDS: DILAUDID 0.25 MG IV ×4 (15:54→19:18)
[2024-10-14] MEDS: ROBINUL 0.2 MG IV ×2 (16:19→23:03)
[2024-10-14] MEDS: VALIUM INJECTION 2 MG IV (17:45)
--- NOTE | 2024-10-14 20:00 | PTCARENOTE ---
dayshift called report to floor RN, family at bedside, all belongings with pt, pt appears to be resting comfortably in bed at this time.
--- NOTE | 2024-10-14 20:08 | PTCARENOTE ---
Report called to Olegario who will assume care of pt upon transfer. Pt has been moved to step 2. and son at bedside and aware.
[2024-10-14] MEDS: DILAUDID 0.5 MG IV ×2 (21:10→23:03)
--- NOTE | 2024-10-15 04:57 | PTCARENOTE ---
Patient changed to step 3 at 23:00. Medication error occurred at this time. Only 2 doses given in between step 2 to step 3. Patient brought down by ICU at 20:30. Dilaudid given by ICU nurse at 19:18 and changed to step 2 at that time. Added the
19:18 dose to the 21:10 and 23:03 doses and changed to step 3. At 00:00 more comfortable since being changed to step 3. Messaged ADULT BASIC EDUCATION TEACHER regarding error. No changes made to step.
[2024-10-15] MEDS: DILAUDID 1 MG IV ×2 (05:05→12:01)
[2024-10-15 07:30] VITALS: BP 105/67
--- NOTE | 2024-10-15 08:35 | PN.CDI ---
CDI
- -
CDI:
Physician Documentation Request
Admit Date: 10/13/24 08:37
Dear Doctor Dyllan,
Clinical Indicators:
Patient admitted with acute hypoxic respiratory failure due to aspiration event prior to admission.
CXR on admission, 'Diffuse increased interstitial opacity likely related to interstitial edema. Left basilar opacification which could be related to atelectasis or less likely pneumonia.'
10/13 Automotive Sales Manager consult, 'Doubt infectious pneumonitis but for now we will continue with broad-spectrum antibiotics'
10/14 PN, 'Bilateral lower lobe aspiration pneumonia'
Please clarify the following:
Aspiration pneumonia was present on admission
Aspiration pneumonia was not present on admission
Unable to determine
Use of terms such as suspected, likely, concern for, or probable (associated with a specific diagnosis that is being evaluated, monitored, or treated as if it exists) are acceptable and can be coded in the inpatient setting, when documented at the
time of discharge.
Thank you,
ORALIA Meneses RN
CDI Specialist
available via tiger text
Please use your independent medical judgment in providing your response.
--- NOTE | 2024-10-15 10:14 | W.PN.UPDATE ---
Addendum entered and electronically signed by Shadi Jane MD 10/15/24 15:06:
On review of this case it appears that the patient had both septic and cardiogenic shock present on admission.
Original Note:
Update Note
Progress Note Update
I saw and evaluated the patient. I reviewed the resident�s note and agree with findings and plan as documented in the resident�s note.
Pt currently sleeping
Gen: Episodes of apnea, otherwise no acute distress, NCAT
Eyes: EOMI, PERRLA, no scleral icterus.
Neck: supple.
CV: Tachycardic, regular rhythm, +S1/S2, no m/r/g.
Resp: CTAB anteriorly, no rales, wheezes, or rhonchi.
Abd: +BS, soft, NT, ND
Skin: No rashes.
Echo:
1. Ejection fraction is 55% by volumetric assesment.
2. Normal left ventricular function.
3. Compared to a prior transthoracic echocardiogram study from 02/07/24 There is now inferolateral akinesis.
4. Ascending aorta measures 3.8 cm.
5. Inferolateral akinesis.
6. Ascending aorta is mildly dilated.
7. Mild to moderate left ventricular hypertrophy.
8. Pleural effusion noted.
On 10/14/24 the pt decided on comfort care and was transitioned to comfort care. Currently on Dilaudid gtt. Cont Glycopyrrolate/Valium PRN. c/s hospice.
DNR/DNI
From 10/14/24:
Acute hypoxic Respiratory failure due to B/L aspiration PNA (POA):
-imaging above
-pt has been intolerant of BIPAP, currently on 6L NC O2
-cont Zosyn
-leukocytosis has resolved
-hold TFs for now
Acute NSTEMI:
-I suspect that the patient had an aspiration event PRESCHOOL TEACHER'S ASSISTANT that led to acute hypoxemic respiratory failure that led to NSTEMI resulting in cardiogenic shock resulting in acute HFpEF/pulm edema. Was on Levophed, now off.
-trop continues to trend upwards, now 29
-cont heparin gtt (Hb noted, no evidence of active bleeding currently)
-cardiology following
-echo above with new inferolateral hypokinesis
-pt/family confirmed on 10/13/24 that the pt would not want cardiac cath as pt would not want to be on HD (with CKD4 contrast from cardiac cath would surely lead to HD)
-cont Coreg/statin
-Lasix 40mg IV x 1 now
Paroxysmal atrial fibrillation:
-cont heparin gtt/coreg
F/E/N:
-recent PEG placement
LICHA on CKD4:
-renal following
-likely due to cardiogenic shock and PNA
--- NOTE | 2024-10-15 10:54 | W.PN.HOSP.TC ---
Today's Communication/Plan
-
Patient on comfort care with family at bedside
Assessment / Plan
Assessment / Plan
Mr. Castillo is an 84-year-old male with proximal atrial fibrillation, CVA, CAD s/p stenting, HFpEF, CKD stage IV, and recent admission for acute diverticulitis s/p total antibiotics and dysphagia s/p PEG tube placement who presented to the ED on
10/12/[address] [facility] with acute hypoxic respiratory failure requiring BiPAP. In the ED, CXR showed multifocal opacities C/F multifocal pneumonia versus pulmonary edema, WBC 19.6, influenza and COVID-negative, BNP greater than 27,000, Trop 11.6
and 14.6 and pending 10/13/2024, NSTEMI with EKG showing ST depressions in the lateral leads. Other workup thus far has been unremarkable. He was admitted to the IMU and senior reactor operator team was consulted for workup and further management. On
10/14/2024, Mr. Castillo started feeling short of breath on NC. Stat CXR showed bilateral lower lobe pneumonia, possibly aspiration pneumonia. He was bumped up to 6L NC but continued to endorse SOB. He did not tolerate BiPAP. The senior reactor operator team
recommended using morphine to help with SOB. This decision was held until we were able to talk with Mr. Castillo family. As such, on 10/14/2024, Dr. Jane had an extensive discussion with family and Mr. Castillo at bedside regarding hospice care.
Jonathan confirmed again that he is DNR/DNI and that he would not want cardiac catheterization nor hemodialysis. Dr. Jane explained that using morphine would help his shortness of breath, but could also worsen his respiratory failure and even lead to
respiratory arrest. Mr. Castillo verbally understood this and said that he would like to use morphine to help alleviate his symptoms. Him and his family were left to think more about consideration of hospice. On the afternoon of 10/14/2024 and as
per my update note, Mr. Castillo decided in the presence of his family that he would like to transition to comfort care. All hospital medications and labs that were not in a line with the concept of comfort care were discontinued. Medications and
protocols that are in place for comfort care were initiated.
Echo 10/13/2024:
1. Ejection fraction is 55% by volumetric assesment.
2. Normal left ventricular function.
3. Compared to a prior transthoracic echocardiogram study from 02/07/24 There is now inferolateral akinesis.
4. Ascending aorta measures 3.8 cm.
5. Inferolateral akinesis.
6. Ascending aorta is mildly dilated.
7. Mild to moderate left ventricular hypertrophy.
8. Pleural effusion noted.
#Acute hypoxic respiratory failure likely secondary to HAP and possibly cardiogenic shock, worsening
#Bilateral lower lobe aspiration pneumonia
#History of asthma
He is now on comfort care.
- Palliative care following, intensive consulted (signed off 10/15)
--S/p IV morphine 1 mg IV every 4 hours as needed for SOB symptom relief
--Transition to comfort care on the afternoon of 10/14
--Started on step 1 of comfort care protocol with IV Dilaudid 50 mg in 50 mL
---IV Valium, IV Compazine, IV glycopyrrolate, IV Zofran, tube/rectal Tylenol as needed
- S/p BiPAP, IV Zosyn 2.25 g in 50 mL
- See above assessmentfor discussion with family and Mr. Castillo about goals of care
#New NSTEMI with ICM
#Paroxysmal A-fib
#CHF exacerbation ISO history of HFpEF
#History of CAD s/p stenting
#History of essential hypertension
#History of CVA with left hemiparesis
- Cardiology consulted: S/p heparin drip 25,000 units / 250 mL, Levophed 4 mg (weaned 10/13)
- On 10/14, transitioned to comfort care. DC'd aspirin 81 mg, rosuvastatin 40 mg, carvedilol 6.25 mg every afternoon and 12.5 mg daily, Lasix 40 mg, spironolactone 25 mg daily
#Dysphagia s/p PEG tube 10/06/2024
#History of acute sigmoid diverticulitis
#Emesis 10/14/2024
Bedside on the morning of 10/14/2024, Mr. Castillo threw up some tube feeds. He did not feel nauseous. He was given a one-time dose of IV Compazine.
- On 10/14, transition to comfort care. DC'd IV Zosyn 2.25 g in 50 mL, tube feeds, and PPI
- Strict n.p.o.: All meds must be given through PEG tube
#CKD4
- Nephrology consulted
--Patient is not open to dialysis
#Depression
- On 10/14, transition to comfort care. DC'd sertraline 12.5 mg at bedtime
Comfort care protocol step 1.
Diet: Strict n.p.o., on tube feeds per nutrition
DVT prophylaxis: None
CODE STATUS: DNR
Anticipated Discharge: Within 24 hours (Patient on comfort care)
Subjective/Interval History
-
Date of Service: October 15, 2024
-Late afternoon yesterday, Mr. Castillo decided that he would like comfort care. This morning, he was laying flat in bed with agonal and rapid breathing. Son and were bedside and we discussed course with them. They informed us that
Jonathan's younger son would be arriving around 2 PM today and were hopeful that he would still be able to stay goodbye.
-Communicated with nursing to ensure Mr. Castillo is as comfortable as possible.
Objective Data
-
Vital Signs:
Vital Signs
Temp Pulse Resp BP Pulse Ox
98.4 F 123 20 105/67 82
10/15/24 07:30 10/15/24 07:30 10/15/24 07:30 10/15/24 07:30 10/15/24 07:30
I&O
10/14/24 10/15/24 10/16/24
06:59 06:59 06:59
Intake Total 951.9 / 959.9 72.3 / 72.3
Output Total
Balance 941.9 / 949.9 72.3 / 72.3
Review of Systems
-
Unable to obtain full review of systems at this time due to: Acuity and Other (Comfort care)
Physical Exam
-
General: Other (Patient laying flat in bed with agonal, rapid breathing, family at bedside. Patient opens his eyes to voice.)
--- NOTE | 2024-10-15 12:25 | PTCARENOTE ---
Patient's son stepped out of room and asked me to look at him as he was not breathing. Listened to patient with stethoscope, heart tones absent; color yellowish and waxy appearance. Provided support to family; notified attending physician to
pronounce.
--- NOTE | 2024-10-15 12:40 | W.PN.DEATH ---
Pronouncement of
-
Called to see patient to pronounce.
No spontaneous heart tones or respirations noted.
Patient not responsive to verbal stimuli.
Patient is pronounced .
Time of : 12:36
Date of : 10/15/24
Cause of : Acute Respiratory Failure secondary to Bilateral Aspiration Pneumonia
Family Notified: Yes
--- NOTE | 2024-10-15 12:58 | HOSPNOTE ---
Hospice referral received, spoke with Attending and we were in agreement patient appeared comfortable and was imminent. I supported spouse and answered all questions. Shortly after I was informed that patient passed.
--- NOTE | 2024-10-15 14:11 | W.DCSUMMARY ---
Discharge Summary
Discharge Data
Date of Admission: 10/13/24
Date of Discharge: 10/15/24
-
Pending Results: No
Hospital Course
Discharging Physician : Ruben Mijares MD/LEYLA
Disposition: Patient
Principal Discharge diagnosis : Acute Respiratory failure secondary to bilateral aspiration pneumonia
Hospital Course : Mr. Castillo was an 84-year-old male with proximal atrial fibrillation, CVA, CAD s/p stenting, HFpEF, CKD stage IV, and recent admission for acute diverticulitis s/p total antibiotics and dysphagia s/p PEG tube placement who
presented to the ED on 10/12/2024 from [facility] with acute hypoxic respiratory failure requiring BiPAP. In the ED, CXR showed multifocal opacities C/F multifocal pneumonia versus pulmonary edema, WBC 19.6, influenza and COVID-negative, BNP greater
than 27,000, Trop 11.6 and 14.6 and pending 10/13/2024, NSTEMI with EKG showing ST depressions in the lateral leads. He was admitted to the ICU and [employer] team was consulted for workup and further management. On 10/14/2024, Mr. Castillo started
feeling short of breath on NC. Stat CXR showed bilateral lower lobe pneumonia, likely aspiration pneumonia. He was bumped up to 6L NC but continued to endorse SOB. He did not tolerate BiPAP. The [employer] wagon [employer] team recommended using morphine to
help with SOB. This decision was held until we were able to talk with Mr. Castillo family. As such, on 10/14/2024, Dr. Jane (hospitalist attending) had an extensive discussion with family and Mr. Castillo at bedside regarding hospice care. Mr. Castillo
confirmed again that he is DNR/DNI and that he would not want cardiac catheterization nor hemodialysis. Dr. Jane explained that using morphine would help his shortness of breath, but could also worsen his respiratory failure and even lead to
respiratory arrest. Mr. Castillo verbally understood this and said that he would like to use morphine to help alleviate his symptoms. Him and his family were left to think more about consideration of hospice or comfort care. On the afternoon of
10/14/2024, Mr. Castillo decided in the presence of his family that he would like to transition to comfort care. All hospital medications and labs that were not in a line with the concept of comfort care were discontinued. Medications and step 1
protocol of comfort care was initiated. Mr. Castillo with his family at bedside on 10/15/2024 at 12:36 PM.
For his most recent (prior to ) hospital course by problem, see below:
#Acute hypoxic respiratory failure likely secondary to HAP and possibly cardiogenic shock, worsening
#Bilateral lower lobe aspiration pneumonia
#History of asthma
He is now on comfort care.
- Palliative care following, intensive consulted (signed off 10/15)
--S/p IV morphine 1 mg IV every 4 hours as needed for SOB symptom relief
--Transition to comfort care on the afternoon of 10/14
--Started on step 1 of comfort care protocol with IV Dilaudid 50 mg in 50 mL
---IV Valium, IV Compazine, IV glycopyrrolate, IV Zofran, tube/rectal Tylenol as needed
- S/p BiPAP, IV Zosyn 2.25 g in 50 mL
- Goals of care discussion with Mr. Castillo's family completed
#New NSTEMI with ICM
#Paroxysmal A-fib
#CHF exacerbation ISO history of HFpEF
#History of CAD s/p stenting
#History of essential hypertension
#History of CVA with left hemiparesis
- Cardiology consulted: S/p heparin drip 25,000 units / 250 mL, Levophed 4 mg (weaned 10/13)
- On 10/14, transitioned to comfort care. DC'd aspirin 81 mg, rosuvastatin 40 mg, carvedilol 6.25 mg every afternoon and 12.5 mg daily, Lasix 40 mg, spironolactone 25 mg daily
#Dysphagia s/p PEG tube 10/06/2024
#History of acute sigmoid diverticulitis
#Emesis 10/14/2024
Bedside on the morning of 10/14/2024, Mr. aCstillo threw up some tube feeds. He did not feel nauseous. He was given a one-time dose of IV Compazine.
- On 10/14, transition to comfort care. DC'd IV Zosyn 2.25 g in 50 mL, tube feeds, and PPI
- Strict n.p.o.: All meds must be given through PEG tube
#CKD4
- Nephrology consulted
--Mr. Castillo is not open to dialysis
#Depression
- On 10/14, transition to comfort care. DC'd sertraline 12.5 mg at bedtime
Important imaging findings :
CXR 10/14:
1. Mild to moderate bilateral lower lobe airspace opacity most consistent with BILATERAL LOWER LOBE PNEUMONIA (possibly aspiration pneumonia).
2. Calcified pleural plaques in both hemithoraces consistent with chronic asbestos exposure.
3. Severe calcific atherosclerotic plaque in the coronary arteries and thoracic aorta.
CXR 10/13:
Low lung volumes. Diffuse increased interstitial opacity likely related to interstitial edema. Left basilar opacification which could be related to atelectasis or less likely pneumonia.
Echo 10/13:
1. Ejection fraction is 55% by volumetric assesment.
2. Normal left ventricular function.
3. Compared to a prior transthoracic echocardiogram study from 02/07/24 There is now inferolateral akinesis.
4. Ascending aorta measures 3.8 cm.
5. Inferolateral akinesis.
6. Ascending aorta is mildly dilated.
7. Mild to moderate left ventricular hypertrophy.
8. Pleural effusion noted.
EKG 10/13:
Vent. Rate : 100 BPM Atrial Rate : 100 BPM
P-R Int : 150 ms QRS Dur : 92 ms
QT Int : 364 ms P-R-T Axes : 55 10 150 degrees
QTcB Int : 469 ms
SINUS RHYTHM WITH OCCASIONAL PREMATURE VENTRICULAR COMPLEXES
MARKED ST ABNORMALITY, POSSIBLE LATERAL SUBENDOCARDIAL INJURY
ABNORMAL ECG
WHEN COMPARED WITH ECG OF 02-Oct-2024 17:21,
PREMATURE VENTRICULAR COMPLEXES ARE NOW PRESENT
ST NO LONGER ELEVATED IN INFERIOR LEADS
ST NOW DEPRESSED IN ANTEROLATERAL LEADS
Discharge Plan
-
Referrals:
Wellington Reyes, DO [Family Provider, [facility]]
Prescriptions:
No Action
bisacodyl [Dulcolax (bisacodyl)] 10 mg Suppository
10 mg CO DAILYPRN PRN (Reason: if no bm aftr mom, give on day 5)
acetaminophen 325 mg Tablet
650 mg feeding tube Q4HPRN PRN (Reason: mild pain/ fever>100.5F) Qty: 0 0RF
polyethylene glycol 3350 17 gram Powder In Packet
17 g feeding tube DAILYPRN PRN (Reason: CONSTIPATION) Qty: 0 0RF
furosemide [Lasix] 40 mg Tablet
40 mg feeding tube QPM Qty: 0 0RF
cyanocobalamin (vitamin B-12) 1,000 MCG tablet
1,000 mcg feeding tube DAILY Qty: 90 0RF
therapeutic multivitamin Tablet
1 tab feeding tube DAILY Qty: 0 0RF
spironolactone 25 mg Tablet
25 mg feeding tube DAILY Qty: 0 0RF
famotidine [Pepcid] 20 mg Tablet
20 mg feeding tube DAILY Qty: 0 0RF
ferrous sulfate [iron] 325 mg (65 mg iron) Tablet
325 mg feeding tube DAILY Qty: 0 0RF
sertraline 25 mg Tablet
12.5 mg feeding tube HS Qty: 0 0RF
rosuvastatin [Crestor] 40 mg Tablet
40 mg feeding tube QPM Qty: 0 0RF
cholecalciferol (vitamin D3) 25 mcg (1,000 unit) Tablet
25 mcg feeding tube DAILY Qty: 0 0RF
fluticasone propion-salmeterol [Advair Diskus] 250-50 mcg/dose Blister With Device
2 inh INHALATION R BID
ipratropium-albuterol [DuoNeb] 0.5 mg-3 mg(2.5 mg base)/3 mL Solution For Nebulization
3 ml INHALATION R Q6HPRN PRN (Reason: sob)
amoxicillin-pot clavulanate [Augmentin] 250-62.5 mg/5 mL Suspension For Reconstitution
10 ml feeding tube TID
Rx Instructions:
for 4 days starting 10/09/24
capsaicin 0.075 % Cream
1 applic TOPICAL Q8H
guaifenesin 100 mg/5 mL Liquid
400 mg feeding tube Q6HPRN PRN (Reason: cough)
magnesium hydroxide [Milk of Magnesia] 400 mg/5 mL Suspension
2,400 mg PO [id number] PRN (Reason: if no bm on 3rd give on 4th day)
Eliquis 2.5 mg Tablet
2.5 mg feeding tube BID
carvedilol 12.5 mg tablet
12.5 mg feeding tube DAILY
carvedilol 6.25 mg tablet
6.25 mg feeding tube DAILY@1999
metoclopramide HCl 10 mg Tablet
10 mg feeding tube Q8H
Discharge Date and Time
Print Language: UGANDAN
--- NOTE | 2024-10-15 14:53 | PN.CDI ---
CDI
- -
CDI:
Physician Documentation Request
Admit Date: 10/13/24 08:37
Dear Doctor Dyllan,
Clinical Indicators:
Patient admitted with acute hypoxic respiratory failure due to aspiration event prior to admission.
10/13 H & P, 'Septic vs cardiogenic sock...- holding diuresis due to sepsis picture'
10/15 PN, 'Acute hypoxic Respiratory failure due to B/L aspiration PNA (POA)'
Lactic Acid on admission
10/13/24
05:18
Lactic Acid 2.6 H
After study, please clarify which of the following most accurately describes the status of the patient's infection:
Sepsis, POA
- Systemic manifestations of infection, with 2 or more SIRS criteria which include:
- Fever >100.9 degrees F or hypothermia < 96.8 degrees F
- Leukocytosis - WBC > 12,000 or leukopenia - WBC < 4,000 or > 10% bands
- Tachycardia > 90 beats per minute
- Tachypnea - RR > 20 breaths per minute or PaCO2 , 32mmHg
Source: [employer] Manual 2013
Severe Sepsis with associated acute hypoxic respiratory failure, POA
- Sepsis with associated acute organ dysfunction, such as renal or respiratory failure
- Documentation should indicate the association between the sepsis and the organ dysfunction
Septic Shock, POA
- Severe sepsis associated with circulatory failure, evidenced by hypotension and hypoperfusion
Aspiration Pneumonia Only, Without Systemic Illness
Other, please specify
Use of terms such as suspected, likely, concern for, or probable (associated with a specific diagnosis that is being evaluated, monitored, or treated as if it exists) are acceptable and can be coded in the inpatient setting, when documented at the
time of discharge.
Thank you,
ORALIA Meneses RN
CDI Specialist
available via tiger text
Please use your independent medical judgment in providing your response.
== END 2024-10-15 12:36 | disposition expired | DRG 871 ==
LOC: 2 NORTH 08:37
PROVIDERS: Nurse Practitioner Gerontology; ADMITTING PHYSICIAN Internal Medicine; ATTENDING PHYSICIAN Internal Medicine; CONSULT PHYSICIAN Internal Medicine Cardiovascular Disease; CONSULT PHYSICIAN Internal Medicine Critical Care Medicine; CONSULT PHYSICIAN Internal Medicine Nephrology; CONSULT PHYSICIAN Nurse Practitioner Gerontology; EMERGENCY PHYSICIAN Emergency Medicine; FAMILY PHYSICIAN Family Medicine
PROC: 5A09357 Assistance with Respiratory Ventilation, Less than 24 Consecutive Hours, Continuous Positive Airway Pressure (ICD-10-PCS; 2024-10-13)
DX: A41.9 Sepsis, unspecified organism (principal); I21.4 Non-ST elevation (NSTEMI) myocardial infarction; J18.9 Pneumonia, unspecified organism; J96.01 Acute respiratory failure with hypoxia; I50.33 Acute on chronic diastolic (congestive) heart failure; J69.0 Pneumonitis due to inhalation of food and vomit; R65.21 Severe sepsis with septic shock; Z66 Do not resuscitate; Z51.5 Encounter for palliative care; I13.0 Hypertensive heart and chronic kidney disease with heart failure and stage 1 through stage 4 chronic kidney disease, or unspecified chronic kidney disease; N18.4 Chronic kidney disease, stage 4 (severe); I69.354 Hemiplegia and hemiparesis following cerebral infarction affecting left non-dominant side; E87.20 Acidosis, unspecified; E78.00 Pure hypercholesterolemia, unspecified; I25.10 Atherosclerotic heart disease of native coronary artery without angina pectoris; I25.2 Old myocardial infarction; I48.0 Paroxysmal atrial fibrillation; I25.5 Ischemic cardiomyopathy; G47.33 Obstructive sleep apnea (adult) (pediatric); Z93.1 Gastrostomy status; F41.9 Anxiety disorder, unspecified; F32.A Depression, unspecified; Z11.52 Encounter for screening for COVID-19; Z96.653 Presence of artificial knee joint, bilateral; Z95.5 Presence of coronary angioplasty implant and graft; Z88.8 Allergy status to other drugs, medicaments and biological substances; Z87.891 Personal history of nicotine dependence; Z82.49 Family history of ischemic heart disease and other diseases of the circulatory system; Z79.899 Other long term (current) drug therapy; Z79.01 Long term (current) use of anticoagulants; R57.0 Cardiogenic shock; K21.9 Gastro-esophageal reflux disease without esophagitis; J45.909 Unspecified asthma, uncomplicated; D63.1 Anemia in chronic kidney disease; K22.2 Esophageal obstruction; K22.4 Dyskinesia of esophagus; Y95 Nosocomial condition; Z77.090 Contact with and (suspected) exposure to asbestos
CPT/HCPCS: 36415; 71045; 80048; 80053; 81003; 81015; 82805; 82962; 83036; 83605; 83735; 83880; 84100; 84484; 85014; 85018; 85025; 85027; 85610; 85730; 86850; 86900; 86901; 87040; 87070; 87086; 87502; 87811; 93005; 93306; 94640; 94660; 96374; 99291